=== PATIENT | female | born 1940 | race African-American/Black ===

== ENCOUNTER 2017-07-04 11:19 | Inpatient (IN) | payer OTHER ==
--- NOTE | 2017-07-04 12:17 | PDOC ---
History of Present Illness - General Chief Complaint: Wound Stated Complaint: INFECTED WOUND Time Seen by Provider: 07/04/17 11:40 - History of Present Illness Initial Comments: 07/04/17 12:10 Patient is a 77 year old female with DM and dementia who is brought in by her home health nurse for concerns of a wound infection. The patient has a 3.5cm x 3.5cm ulcerating wound on the right buttocks that has been present for several months. The patient's home health nurse states that she felt the wound was draining more and appearing redder prompting her to bring the patient to the ED. She also states that she feels that the patient has been more fatigued and weak over the past week but does not have any other complaints. They deny any fevers or chills at home. Past History - Past Medical History Allergies/Adverse Reactions: Allergies Allergy/AdvReac Type Severity Reaction Status Date / Time Penicillins Allergy Verified 07/04/17 11:33 Home Medications: Ambulatory Orders Aspirin [Nancy Chewable Aspirin] 81 mg PO DAILY 06/05/16 Simvastatin [Zocor -] 20 mg PO HS 06/05/16 Acetaminophen [Tylenol .Regular Strength -] 650 mg PO Q4H PRN #0 tablet Amlodipine Besylate [Norvasc -] 5 mg PO DAILY tablet 05/31/17 Atorvastatin Ca [Lipitor] 20 mg PO HS tablet 05/31/17 Carvedilol [Coreg -] 6.25 mg PO BID tablet 05/31/17 Insulin (Levemir) [Levemir Flexpen -] 10 units SQ HS #1 pen 05/31/17 Insulin Sliding Scale [Novolog Vial Sliding Scale -] 1 vial SQ TIDAC units Lisinopril [Prinivil] 10 mg PO DAILY tablet 05/31/17 Rivaroxaban [Xarelto -] 20 mg PO DAILY tablet 05/31/17 Anemia: No Asthma: No Cancer: No Cardiac Disorders: Yes (cardiac tamponade, stents,pericardial effusion, CAD, aortic stenosis) CVA: Yes (Mult.TIA's) COPD: No CHF: No Dementia: Yes Diabetes: Yes GI Disorders: No Disorders: No HTN: Yes Hypercholesterolemia: Yes Liver Disease: (cholecystitis) Seizures: No Thyroid Disease: No - Surgical History Abdominal Surgery: Yes Appendectomy: No Cardiac Surgery: No Cholecystectomy: Yes Lung Surgery: No Neurologic Surgery: No Orthopedic Surgery: No - Immunization History Td Vaccination: Yes Immunization Up to Date: Yes - Psycho/Social/Smoking Cessation Hx Anxiety: No Suicidal Ideation: No Smoking Status: No Smoking History: Unknown if ever smoked Have you smoked in the past 12 months: No Number of Cigarettes Smoked Daily: 0 Information on smoking cessation initiated: No Hx Alcohol Use: No Drug/Substance Use Hx: No Substance Use Type: None Hx Substance Use Treatment: No Review of Systems - Review of Systems Constitutional: No: Chills, Fever Respiratory: No: Cough, Shortness of Breath Cardiac (ROS): No: Chest Pain ABD/GI: No: Constipated, Diarrhea, Nausea, Vomiting : No: Dysuria Integumentary: No: Rash Neurological: No: Headache *Physical Exam - Vital Signs Last Vital Signs Temp Pulse Resp BP Pulse Ox 100.1 F H 64 18 131/65 94 L 07/04/17 11:33 07/04/17 11:33 07/04/17 11:33 07/04/17 11:33 07/04/17 11:33 - Physical Exam Comments: 07/04/17 12:21 General Appearance: Nourished. No Apparent Distress Respiratory/Chest: Lungs Clear, Normal Breath Sounds. No Crackles, Rales, Rhonchi, Wheezing Cardiovascular: Regular Rhythm, Regular Rate. No Murmur, Gallop/S3, Gallop/S4 Gastrointestinal/Abdominal: Normal Bowel Sounds, Soft. No Guarding, Rebound, Tenderness Extremity: Normal Capillary Refill Integumentary: Normal Color, Dry, Warm, 3.5cm x 3.5 cm malodorous ulcer on the right buttock without drainage with necrosed tissue and erythema Neurologic: Alert, Unable to assess orientation due to baseline dementia Heart Score/ECG Review #1 General ECG Interpretation: Sinus Rhythm, Normal Rate, Normal Intervals, No acute ischemic changes Compared to previous ECG there are: No significant change (05/28/17) ED Treatment Course - LABORATORY CBC & Chemistry Diagram: 07/04/17 12:30 07/04/17 12:30 - RADIOLOGY Radiology Studies Ordered: Category Date Time Status CHEST X-RAY PORTABLE* [RAD] Stat Radiology 07/04/17 12:07 Ordered Medical Decision Making - Medical Decision Making 07/04/17 12:22 Patient is a 77 year old female who presents for concerns of a wound infection. Differential includes but is not limited to: Sepsis, Wound infection, UTI, Pneumonia. The patient is febrile in the ED with a reported increased fatigue warranting an evaluation for sepsis. Inspection of the wound demonstrates some necrosis and is malodorous concerning for wound infection. However given her increased fatigue, it is reasonable to evaluate for other causes such as a UTI or a pneumonia. We will obtain a cbc, cmp, lactate, blood cultures, UA, urine cultures, chest radiograph to evaluate. 07/04/17 13:21 CBC demonstrates an elevated WBC. CMP and Lactate are unremarkable. UA demonstrates concern for a UTI. Given the patient's lab results and that she is febrile in the ED, we believe that she requires admission at this time for treatment for her wound infection and UTI. We have started vancomycin and aztreonam empirically for antibiotic treatment. 07/04/17 14:58 Patient discussed with admitting team Dr. Wolfe who agreed to accept the patient. *DC/Admit/Observation/Transfer Diagnosis at time of Disposition: Wound infection UTI (urinary tract infection) Qualifiers: Urinary tract infection type: acute cystitis Hematuria presence: without hematuria Qualified Code(s): N30.00 - Acute cystitis without hematuria - Discharge Dispostion Condition at time of disposition: Guarded Admit: Yes - Attestations Physician Attestion: 07/04/17 16:06 I, Dr. Giancarlo Forbes, attest that this document has been prepared under my direction and personally reviewed by me in its entirety. I further attest, that it accurately reflects all work, treatment, procedures and medical decision -making performed by me.
[2017-07-04 12:37] LABS: VENOUS BLOOD GAS HCO3 33.6 meq/L (19-25); VENOUS PH 7.41 (7.32-7.42)
[2017-07-04 12:47] LABS: BASOPHIL 0.7 % (0-2.0); EOSINOPHIL 0.4 % (0-4.5); MCH 28.2 pg (25.7-33.7); MCHC 32.6 g/dl (32.0-36.0); MEAN CELL VOLUME 86.4 fl (80-96); MEAN PLT VOLUME 8.1 fl (7.5-11.1); NEUTROPHILS 77.2 % (42.8-82.8); PLATELET COUNT 244 K/MM3 (134-434); RDW 14.6 % (11.6-15.6); WHITE BLOOD COUNT 11.8 K/mm3 (4.0-10.0)
[2017-07-04] MEDS ORDERED: AZTREONAM 1 GM in DEXTROSE 5%-WATER - 50 ML IVPB ONE (12:49)
[2017-07-04] MEDS ORDERED: VANCOMYCIN 1,000 MG in DEXTROSE 5%-WATER - 250 ML IVPB ONE (12:51)
[2017-07-04 12:53] LABS: URINE APPEARANCE TURBID; URINE BILIRUBIN NEGATIVE (NEGATIVE); URINE BLOOD 1+ (NEGATIVE); URINE COLOR YELLOW; URINE GLUCOSE (UA) NEGATIVE (NEGATIVE); URINE KETONE NEGATIVE (NEGATIVE); URINE LEUK ESTERASE 2+ (NEGATIVE); URINE NITRITE NEGATIVE (NEGATIVE); URINE PROTEIN 2+ (NEGATIVE); URINE UROBILINOGEN NEGATIVE mg/dL (0.2-1.0)
[2017-07-04] MEDS ORDERED: VANCOMYCIN 1 GRAM (PRE-DOCKED) 250 ML IVPB ONE (12:56)
[2017-07-04 13:00] LABS: INR 1.28 (0.82-1.09); PROTHROMBIN TIME (PATIENT) 14.2 SEC (9.98-11.88)
[2017-07-04 13:03] LABS: ACTIVATED PTT 34.8 SECONDS (26.9-34.4)
[2017-07-04 13:11] LABS: ALBUMIN 2.9 g/dl (3.4-5.0); ANION GAP 6 (8-16); CO2 34 mmol/L (21-32); CREATININE 0.8 mg/dL (0.55-1.02); GLUCOSE,RANDOM 150 mg/dL (74-106); SGOT/AST 9 U/L (15-37); SGPT/ALT 10 U/L (12-78)
[2017-07-04 13:14] LABS: ALK PHOS 135 U/L (45-117); BILIRUBIN,TOTAL 0.8 mg/dL (0.2-1.0); CPK 38 IU/L (26-192); TOT PROT 6.9 g/dl (6.4-8.2); TROPONIN I 0.02 ng/ml (0.00-0.05)
[2017-07-04] MEDS ORDERED: SODIUM CHLORIDE 1,000 ML IV STA (13:17)
[2017-07-04] MEDS ORDERED: ACETAMINOPHEN 1000 MG/100 ML VIAL (NON FORMULARY) IVPB ONE (13:17)
[2017-07-04] MEDS ORDERED: ACETAMINOPHEN INJECTION 100 ML IVPB ONE (13:21)
[2017-07-04 13:35] LABS: URINE MUCUS MANY; URINE RBC 13 /hpf (0-3); URINE WBC 5 /hpf (3-5)
--- NOTE | 2017-07-04 13:45 | PDOC ---
Attending Attestation - Resident Resident Name: Giancarlo Forbes - ED Attending Attestation I have performed the following: I have examined & evaluated the patient, The case was reviewed & discussed with the resident, I agree w/resident's findings & plan, Exceptions are as noted - HPI HPI: 07/04/17 13:42 77 yo F with h/o prior CVA DM HTN HLD aphasic who is mostly bedbound out of bed to chair at home with home health aid, brougth today with worsening lethargy, and sleepiness. was concerned that her wound on right ischium was leaking and more infected. malodorous. wasn't sure if she has a fever at home. no n/v no cough. no other complaint. - Physicial Exam PE: 07/04/17 13:43 on exam pt aslep, eyes open on examination, does not speak or follow commands. lungs clear heart RRR no mrg. abd soft NT ND. legs wwp. right ischium with 1 in x 1 in wound, central necrosis. no active drainage. foul odor. surrounding erythema. - Medical Decision Making 07/04/17 13:44 plan differential spesis from pna, uti or infected wound. plan cxr labs ua culturs inderjit cover for infected wound.
--- NOTE | 2017-07-04 15:07 | EKG ---
Test Reason : Blood Pressure : / mmHG Vent. Rate : 070 BPM Atrial Rate : 070 BPM P-R Int : 116 ms QRS Dur : 070 ms QT Int : 422 ms P-R-T Axes : 059 -16 047 degrees QTc Int : 455 ms POOR DATA QUALITY, INTERPRETATION MAY BE ADVERSELY AFFECTED NORMAL SINUS RHYTHM POSSIBLE LEFT ATRIAL ENLARGEMENT POSSIBLE ANTERIOR INFARCT (CITED ON OR BEFORE 28-JUN-2016) ABNORMAL ECG WHEN COMPARED WITH ECG OF 28-MAY-2017 08:28, QRS AXIS SHIFTED RIGHT QUESTIONABLE CHANGE IN INITIAL FORCES OF SEPTAL LEADS Confirmed by ISHMAEL LINDSEY, NELY (2013) on 07/04/2017 3:06:47 PM Referred By: Confirmed By:NELY QUIÑONES MD
[2017-07-04 17:03] VITALS: BMI 18.0
[2017-07-04] MEDS ORDERED: SODIUM CHLORIDE 0.45%/POT 1,000 ML IV SCH (18:00)
[2017-07-04] MEDS ORDERED: ACETAMINOPHEN 325 MG TABLET (FP) PO PRN (18:57)
[2017-07-04] MEDS ORDERED: SODIUM CHLORIDE 1,000 ML IV SCH (19:00)
[2017-07-04] MEDS ORDERED: HEPARIN NA (PORCINE) 5,000 UNITS/ML 1ML VIAL SQ SCH (22:00)
[2017-07-04] MEDS: CARVEDILOL 6.25 MG TABLET (FP) PO SCH (22:36)
[2017-07-04] MEDS: ATORVASTATIN CA 10 MG TABLET (FP) PO SCH (22:37)
[2017-07-04] MEDS: INSULIN DETEMIR 100 UNITS/ML MDV SQ SCH (22:37)
--- NOTE | 2017-07-05 08:44 | CONSULT ---
- Consultation REQUESTING PROVIDER: Bernard Srivastava (Wound Care) CONSULT REQUEST: We have been asked to surgically evaluate this patient for possible infected right hip ulcer PCP: Alisia Wolfe HPI: Patient sent in from [place] for further evaluation of a chronic right hip ulcer. Health aid feels that it is draining more frequently and has a foul odor to it. Tissue surrounding right hip increased in redness and warmth. Denies n/v , chills, CP, SOB PMHx: CVA, DM, HTN, HLD, aphasic, mostly bedbound but can get oob to chair with assistance PSHx: Home Meds 3 Aspirin [Nancy Chewable Aspirin] 81 mg PO DAILY Simvastatin [Zocor -] 20 mg PO HS Acetaminophen [Tylenol .Regular 650 mg PO Q4H PRN #0 tablet Strength -] Amlodipine Besylate [Norvasc -] 5 mg PO DAILY tablet Carvedilol [Coreg -] 6.25 mg PO BID tablet Insulin (Levemir) [Levemir Flexpen 10 units SQ HS #1 pen Lisinopril [Prinivil] 10 mg PO DAILY tablet Rivaroxaban [Xarelto -] 20 mg PO DAILY tablet Allergies: PCN REVIEW OF SYSTEMS: All systems reviewed and considered negative except for what's contained in HPI. PHYSICAL EXAM: GENERAL: Awake, alert, in no acute distress. LUNGS: CTA b/l anteriorly HEART: RRR SKIN: Right ischium with ~ 3 x 3.5 cm Stage 2 ulcer. Surrounding tissue warm to palp. Slight induration. No bogginess. + malodorous. Not actively draining yet the 2x2 dressing appears to have purulent (old) drainage on it. Vital Signs Temperature 98.2 F 07/05/17 06:00 Pulse Rate 64 07/05/17 06:00 Respiratory Rate 18 07/05/17 06:00 Blood Pressure 147/86 07/05/17 06:00 O2 Sat by Pulse Oximetry (%) 99 07/04/17 21:00 CBC, BMP 07/04/17 12:30 07/04/17 12:30 Blood Type Blood Type O POSITIVE 07/04/17 12:55 INR, PTT INR 1.28 (0.82-1.09) H D 07/04/17 12:30 Urine Urine Color Yellow 07/04/17 12:45 Urine Appearance Turbid 07/04/17 12:45 Urine pH 7.0 (5.0-8.0) 07/04/17 12:45 Ur Specific [place] 1.010 (1.005-1.025) 07/04/17 12:45 Urine Protein 2+ (NEGATIVE) H 07/04/17 12:45 Urine Glucose (UA) Negative (NEGATIVE) 07/04/17 12:45 Urine Ketones Negative (NEGATIVE) 07/04/17 12:45 Urine Blood 1+ (NEGATIVE) H 07/04/17 12:45 Urine Nitrite Negative (NEGATIVE) 07/04/17 12:45 Urine Bilirubin Negative (NEGATIVE) 07/04/17 12:45 Ur Leukocyte Esterase 2+ (NEGATIVE) H 07/04/17 12:45 Urine RBC 13 /hpf (0-3) 07/04/17 12:45 Urine WBC 5 /hpf (3-5) 07/04/17 12:45 Urine Mucus Many 07/04/17 12:45 Problem List - Problems (1) Stage II pressure ulcer Assessment/Plan: CT w/o contrast ordered to r/o underlying collection Cont local wound care at this time Optifoam dressing Offload all pressure sensitive areas Code(s): L89.92 - PRESSURE ULCER OF UNSPECIFIED SITE, STAGE 2 Visit type - Case Type Case Type: ED Admission - Emergency Emergency Visit: Yes ED Registration Date: 07/04/17 Care time: The patient presented to the Emergency Department on the above date and was hospitalized for further evaluation of their emergent condition. - New patient This patient is new to me today: Yes Date on this admission: 07/05/17
[2017-07-05 09:19] LABS: MCHC 32.4 g/dl (32.0-36.0); MEAN CELL VOLUME 86.4 fl (80-96); MEAN PLT VOLUME 8.4 fl (7.5-11.1); PLATELET COUNT 226 K/MM3 (134-434); RDW 14.6 % (11.6-15.6); WHITE BLOOD COUNT 7.7 K/mm3 (4.0-10.0)
--- NOTE | 2017-07-05 09:25 | CONSULT ---
Consultation: REQUESTING PROVIDER: Alisia Wolfe CONSULT REQUEST: We have been asked to medically evaluate this patient for chronic R buttock ulcer. History Source: EMR (Patient demented, aphasic at baseline) HISTORY OF PRESENT ILLNESS: Patient has chronic R buttock ulcer that home health aid thought was becoming malodorous with increasing drainage and surrounding erythema. No fever or chills at home. PMH: CVA (multiple TIAs), DM, HTN, HLD, CAD, dementia, recurrent UTIs ALLERGIES: Penicillin REVIEW OF SYSTEMS: CONSTITUTIONAL: Absent: fever, chills, diaphoresis, generalized weakness, malaise, loss of appetite, weight change HEENT: Absent: rhinorrhea, nasal congestion, throat pain, throat swelling, difficulty swallowing, mouth swelling, ear pain, eye pain, visual changes CARDIOVASCULAR: Absent: chest pain, syncope, palpitations, irregular heart rate, lightheadedness , peripheral edema RESPIRATORY: Absent: cough, shortness of breath, dyspnea with exertion, orthopnea, wheezing, stridor, hemoptysis GASTROINTESTINAL: Absent: abdominal pain, abdominal distension, nausea, vomiting, diarrhea, constipation, melena, hematochezia GENITOURINARY: Absent: dysuria, frequency, urgency, hesitancy, hematuria, flank pain, genital pain MUSCULOSKELETAL: Absent: myalgia, arthralgia, joint swelling, back pain, neck pain SKIN: +R hip ulcer Absent: rash, itching, pallor HEMATOLOGIC/IMMUNOLOGIC: Absent: easy bleeding, easy bruising, lymphadenopathy, frequent infections ENDOCRINE: Absent: unexplained weight gain, unexplained weight loss, heat intolerance, cold intolerance NEUROLOGIC: Absent: headache, focal weakness or paresthesias, dizziness, unsteady gait, seizure, mental status changes, bladder or bowel incontinence PSYCHIATRIC: Absent: anxiety, depression, suicidal or homicidal ideation, hallucinations. PHYSICAL EXAMINATION Vital Signs Temperature 98.2 F 07/05/17 06:00 Pulse Rate 64 07/05/17 06:00 Respiratory Rate 18 07/05/17 06:00 Blood Pressure 147/86 07/05/17 06:00 O2 Sat by Pulse Oximetry (%) 99 07/04/17 21:00 GENERAL: Awake, alert, in NAD HEAD: Normal with no signs of trauma. EYES: sclera anicteric, conjunctiva clear NECK: supple, no cervical LAD LUNGS: CTAB, no wheezes, crackles, or rhonchi HEART: rrr, normal s1/s2, no murmur, rub or gallop. ABDOMEN: Soft, ntnd, normoactive bowel sounds, no guarding, no rebound, no masses UPPER EXTREMITIES: 2+ pulses, warm, well-perfused. No cyanosis. No clubbing. No peripheral edema. LOWER EXTREMITIES: 2+ pulses, warm, well-perfused. No peripheral edema. NEUROLOGICAL: aphasic, confused SKIN: Warm, dry, normal turgor; R upper buttock 3.5cm diameter unstagable ulcer with eschar, non-draining, malodorous Laboratory Results - last 24 hr 07/04/17 07/05/17 22:32 08:30 WBC 7.7 D RBC 3.86 Hgb 10.8 Hct 33.4 MCV 86.4 MCH 28.0 MCHC 32.4 RDW 14.6 Plt Count 226 MPV 8.4 POC Glucometer 156 Urine Test Results Urine Color Yellow 07/04/17 12:45 Urine Appearance Turbid 07/04/17 12:45 Urine pH 7.0 (5.0-8.0) 07/04/17 12:45 Ur Specific [place] 1.010 (1.005-1.025) 07/04/17 12:45 Urine Protein 2+ (NEGATIVE) H 07/04/17 12:45 Urine Glucose (UA) Negative (NEGATIVE) 07/04/17 12:45 Urine Ketones Negative (NEGATIVE) 07/04/17 12:45 Urine Blood 1+ (NEGATIVE) H 07/04/17 12:45 Urine Nitrite Negative (NEGATIVE) 07/04/17 12:45 Urine Bilirubin Negative (NEGATIVE) 07/04/17 12:45 Ur Leukocyte Esterase 2+ (NEGATIVE) H 07/04/17 12:45 Urine RBC 13 /hpf (0-3) 07/04/17 12:45 Urine WBC 5 /hpf (3-5) 07/04/17 12:45 Urine Mucus Many 07/04/17 12:45 ASSESSMENT/PLAN: 77yo woman who presents with chronic R upper buttock ulcer that is unstagable with surrounding eschar, erythema, and malodor. She has been afebrile since presentation with no leukocytosis. Patient has a history of recurrent UTIs. UA reveals 2+ LE, which is likely from permanent colonization rather than UTI, however the later can not be r/o. Prior U Cx speciated Strep viridans on 2016 and Strep viridans/Corynebacteria in 10/2016. #unstagable R buttock ulcer -CT imaging of ulcer -f/u blood and cultures -Tigacycline 100mg initial dose -Tigacycline 50mg on subsequent doses Dispo: We will continue to follow the patient. Thank you for this consultative opportunity. d/w Dr. Gino Cortes MD PGY-1 Visit type - Emergency Visit Emergency Visit: No - New Patient This patient is new to me today: Yes Date on this admission: 07/05/17 - Critical Care Critical Care patient: No
[2017-07-05 09:31] LABS: ALBUMIN 2.4 g/dl (3.4-5.0); ANION GAP 2 (8-16); BILIRUBIN,TOTAL 0.7 mg/dL (0.2-1.0); CALCIUM 8.3 mg/dL (8.5-10.1); CO2 34 mmol/L (21-32); GLUCOSE,RANDOM 81 mg/dL (74-106); SGOT/AST 6 U/L (15-37); SGPT/ALT 9 U/L (12-78)
[2017-07-05 09:32] LABS: ALK PHOS 109 U/L (45-117); CREATININE 0.6 mg/dL (0.55-1.02); TOT PROT 5.8 g/dl (6.4-8.2)
[2017-07-05] MEDS ORDERED: VANCOMYCIN 1,000 MG in DEXTROSE 5%-WATER - 250 ML IVPB SCH (10:00)
[2017-07-05] MEDS ORDERED: POTASSIUM CHLORIDE ORAL LIQUID 20 MEQ/15 ML PO ONE (10:15)
[2017-07-05] MEDS ORDERED: VANCOMYCIN 1 GRAM (PRE-DOCKED) 250 ML IVPB ONE (10:15)
--- NOTE | 2017-07-05 10:40 | CONSULT ---
Admitting History and Physical - Primary Care Physician PCP: Alisia Wolfe - Admission History of Present Illness: 77 yo F with pmh of CVA DM HTN HLD aphasic who is mostly bedbound out of bed to chair at home with home health aid, admitted with worsening lethargy and wound on right buttocks, leaking and foul smelling,per EMR. Last seen by me 05/2017, tolerating chopped diet and thin liquids. 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: CVA (multiple CVAs), Dementia (vascular) Cardiovascular: Yes: CAD (multiple stents in past, last PCI in 2011 at [facility] (mLAD & pRCA)), Deep Vein Thrombosis (of left lower extremity diagnosed on 12/23/14, on Xarelto), HTN, Hyperlipdemia, Other (Pericardial effusion with tamponade s/p pericardial window) Gastrointestinal: Yes: Other Hepatobiliary: Yes: Cholecystitis (s/p past cholecystectomy) Renal/: Yes: Renal Inusuff ...: No Endocrine: Yes: Diabetes Mellitus - Past Surgical History Past Surgical History: Yes: Cholecystectomy - Advance Directives Advance Directives: Yes: Health Care Proxy - Smoking History Smoking history: Unknown if ever smoked Have you smoked in the past 12 months: No Aproximately how many cigarettes per day: 0 - Alcohol/Substance Use Hx Alcohol Use: No History of Substance Use: reports: None - Social History ADL: Family Assistance (lives with daughter and granddaughter in house with 7 steps to enter; needs Assistance in some ADLs and all IADLs, mostly uses wheelchair but able to ambulate with RW) History of Recent Travel: No History - Admission Reason For Visit: UTI WOUND INFECTION - Diagnostics Modified Barium Swallow: Report Reviewed (2014 last mbs (-) aspiration) - General Mental Status: Awake and Alert Attention: Distractible Ability to Follow Directions: Poor (occasional y/n response. May understand more than she is capable of showing. Intermittently appropriate y/n response. Impaired motor/speech response related to distractibility, apraxia/aphasia.) Head/Neck Control: Fair - Hearing Hearing: Impaired Hearing Aide: No Speech Evaluation - Communication Primary Language: KITTITIAN Communication: Yes: Aphasia Oral Expression Ability: Yes: Moderate Impairment, Severe Impairment - Speech Production Able to Make Needs Known: Yes: Severely Impaired Intelligibility: Yes: Mildly Impaired - Speech Characteristics Voice Loudness: Normal Voice Pitch: Yes: Normal Voice Phonatory-based Quality: Yes: Normal Speech Pattern: Impaired Articulation: Yes: Imprecise - Language/Auditory Comprehension Observation: Able to respond to yes/no queries: Yes (intermittent response), Comprehends Conversational Speech: Yes (simple) - Language/Verbal Expression Aphasia: Yes: Apraxia - Swallow Evaluation/Bedside Assessment Current Nutritional Intake: NPO Oral Secretions: Yes: WFL Dentition: Yes: Missing Teeth Facial Symmetry at Rest: Symmetrical Lingual Movement: Symmetric Lingual Speed of Movement: Reduced Lingual Movement Strgth Against Opposition: Reduced Laryngeal Movement: Able to Palpate Rate of Intake: Slow/Holding Bolus Size: Small Labial Seal: WFL Chewing: WFL (seems fairly efficient, however, suspect oral/verrbal apraxia will result in inconsistent po acceptance.) A-P Transit: Impaired (suspect spillage over BOT) Timing of Swallow: Delayed (slight but brisk) Coughing/Throat Clear: No Change in Voice: No Recommendations - Speech Evaluation, Impression/Plan Impression: Oral/verbal Apraxia/Aphasia. Rare verbalizations for me. Fairly efficient mastication. Swallow is brisk without overt signs of aspiration. - Dysphagia Impressions/Plan Dysphagia Impressions: Mild Impairment *Silent aspiration: cannot be R/O at bedside Dysphagia Treatment Plan: Chin Tuck/Down, Clear Pocket Food, Trial Feedings, 1/ 2 tsp. at a time, Elevate HOB during feed Recommendations: Modified Barium Swallow (if cough, congestion, fever noted.), Other (RD consult regarding protein for healing of decubitis, supplements and therapeutic diet) - Recommendations Diet Consistency: Dysphagia Minced Medication Administration: Crushed with applesauce Liquids: Thin Liquids Supplement: Glucerna
[2017-07-05] MEDS: RIVAROXABAN 20 MG TABLET PO SCH (11:38)
[2017-07-05] MEDS: LISINOPRIL 10 MG TABLET (FP) PO SCH (11:39)
[2017-07-05] MEDS: amLODIPine BESYLATE 5 MG TABLET (FP) PO SCH (11:39)
[2017-07-05] MEDS: CARVEDILOL 6.25 MG TABLET (FP) PO SCH ×2 (11:39→21:34)
[2017-07-05] MEDS: ASPIRIN 81 MG CHEWABLE TABLETS PO SCH (11:39)
--- NOTE | 2017-07-05 12:42 | PN ---
Teaching Attending Note Name of Resident: Thais Cortes ATTENDING PHYSICIAN STATEMENT I saw and evaluated the patient. I reviewed the resident's note and discussed the case with the resident. I agree with the resident's findings and plan as documented. SUBJECTIVE: admitted with worsening buttock ulcer no fevers she is alert no complailnts OBJECTIVE: Vital Signs Period Temp Pulse Resp BP Sys/Hoffman Pulse Ox Last 24 Hr 97.9 F-98.2 F 60-70 16-18 143-159/62-86 96-99 cor-rrr lungs clear abd soft,nt ext no edema right buttock ulcer with eschar- unstageable- foulsmelling with erythema CBC, BMP 07/05/17 08:30 07/05/17 08:30 Microbiology 07/04/17 12:45 Urine - Urine - Catheterized Urine Culture - Final Streptococcus Viridans blood cultures pending ASSESSMENT AND PLAN: unstageable buttock ulcer- suspect underlying abscess- agree with imaging as ordered by surgery tygacil (empiric) pending cultures pen allergy doubt UTI- no need to treat urinary isolate Problem List - Problems (1) Decubitus ulcer, buttock, right, unstageable Code(s): L89.310 - PRESSURE ULCER OF RIGHT BUTTOCK, UNSTAGEABLE (2) Penicillin allergy Code(s): Z88.0 - ALLERGY STATUS TO PENICILLIN
[2017-07-05] MEDS ORDERED: TIGECYCLINE 100 MG in DEXTROSE 5%-WATER - 100 ML IVPB ONE (14:00)
--- NOTE | 2017-07-05 16:53 | PN ---
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 (short form) - Note 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: PULMONARY CONSULTATION DICTATED 07/05/17 IMP CHRONIC HYPERCAPNEA SACRAL WOUND LLL ATELECTASIS VS INFILTRATE DEMENTIA DM PLAN ANTIBIOTICS PER ID CULTURES ABG F /U CHEST X-RAY DR JULIAN Problem List - Problems (1) Decubitus ulcer, buttock, right, unstageable Code(s): L89.310 - PRESSURE ULCER OF RIGHT BUTTOCK, UNSTAGEABLE (2) Wound infection Code(s): T14.8 - OTHER INJURY OF UNSPECIFIED BODY REGION L08.9 - LOCAL INFECTION OF THE SKIN AND SUBCUTANEOUS TISSUE, UNSP (3) Aortic stenosis Code(s): I35.0 - NONRHEUMATIC AORTIC (VALVE) STENOSIS (4) Atelectasis Code(s): J98.11 - ATELECTASIS (5) CAD (coronary artery disease) Code(s): I25.10 - ATHSCL HEART DISEASE OF [place] CORONARY ARTERY W/O ANG PCTRS Qualifiers: Coronary Disease-Associated Artery/Lesion type: [place] coronary artery Associated angina: without angina pectoris (6) CVA (cerebral infarction) Code(s): I63.9 - CEREBRAL INFARCTION, UNSPECIFIED (7) Hypercapnia Code(s): R06.89 - OTHER ABNORMALITIES OF BREATHING
[2017-07-05 18:25] LABS: ALLENS TEST POSITIVE; ARTERIAL BLD GAS O2 SATURATION 97.8 % (90-98.9); ARTERIAL BLOOD GAS BASE EXCESS 2.5 meq/l (-2-2); ARTERIAL BLOOD GAS HCO3 26.3 meq/L (22-26); ARTERIAL BLOOD GAS PO2 88.3 mmHg (70-100); ARTERIAL BLOOD GAS pH 7.44 (7.35-7.45)
[2017-07-05 18:26] LABS: ART PUNCT SITE RIGHT RADIAL; LPM/O2% 215; PT. ON O2? NO; TYPE OF O2 ROOM AIR
--- NOTE | 2017-07-05 19:10 | PN ---
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, Physician Chief Complaint: Infected right hip ulcer History of Present Illness: Patient is a 77 year old female with DM and dementia who is brought in by her home health nurse for concerns of a wound infection. The patient has a 3.5cm x 3.5cm ulcerating wound on the right buttocks that has been present for several months. Patient came in with right buttock ulceration with minimal drainage but malodorous. The CHANNEL REBUILDER noticed patient being increasingly lethargic and weak; however, no chills or fever reported. - Current Medication List Current Medications: Active Medications Acetaminophen (Tylenol -) 650 mg PO Q4H PRN PRN Reason: FEVER OR PAIN Amlodipine Besylate (Norvasc -) 5 mg PO DAILY [facility] Last Admin: 07/05/17 11:39 Dose: 5 mg Aspirin (Asa -) 81 mg PO DAILY [facility] Last Admin: 07/05/17 11:39 Dose: 81 mg Atorvastatin Calcium (Lipitor -) 10 mg PO HS [facility] Last Admin: 07/04/17 22:37 Dose: Not Given Carvedilol (Coreg -) 6.25 mg PO BID [facility] Last Admin: 07/05/17 11:39 Dose: 6.25 mg Tigecycline 50 mg/ Dextrose 100 mls @ 100 mls/hr IVPB BID [facility] PRN Reason: Protocol Insulin Detemir (Levemir Vial) 10 units SQ [facility] Last Admin: 07/04/17 22:37 Dose: 10 unit Lisinopril (Prinivil) 10 mg PO DAILY [facility] Last Admin: 07/05/17 11:39 Dose: 10 mg Rivaroxaban (Xarelto -) 20 mg PO DAILY [facility] Last Admin: 07/05/17 11:38 Dose: 20 mg - Objective Vital Signs: Vital Signs Temperature 98 F 07/05/17 16:30 Pulse Rate 74 07/05/17 16:30 Respiratory Rate 18 07/05/17 16:30 Blood Pressure 142/75 07/05/17 16:30 O2 Sat by Pulse Oximetry (%) 98 07/05/17 09:00 Constitutional: Yes: Well Nourished, No Distress, Calm Cardiovascular: Yes: Regular Rate and Rhythm, Murmur (LSB systolic grade II) Respiratory: Yes: Regular Gastrointestinal: Yes: Normal Bowel Sounds Musculoskeletal: Yes: WNL Extremities: Yes: WNL Edema: No Peripheral Pulses WNL: Yes Wound/Incision: Yes: Dressing Removed, Draining (minimal serosanguinous malodorous drainage) Neurological: Yes: Alert, Pre-Existing Deficit Psychiatric: Yes: Alert Labs: CBC, BMP 07/05/17 08:30 07/05/17 08:30 INR, PTT INR 1.28 (0.82-1.09) H D 07/04/17 12:30 Problem List - Problems (1) Decubitus ulcer, buttock, right, unstageable Assessment/Plan: -Seen by Vascular surgery -minimal drainage, abscess formation under dermis -spoke to Vascular, hold CT for now, evaluate response to IV abx Code(s): L89.310 - PRESSURE ULCER OF RIGHT BUTTOCK, UNSTAGEABLE (2) Wound infection Assessment/Plan: -IV abx -seen by ID-much appreciated Code(s): T14.8 - OTHER INJURY OF UNSPECIFIED BODY REGION L08.9 - LOCAL INFECTION OF THE SKIN AND SUBCUTANEOUS TISSUE, UNSP (3) Dementia Code(s): F03.90 - UNSPECIFIED DEMENTIA WITHOUT BEHAVIORAL DISTURBANCE Qualifiers: Dementia type: Alzheimer's disease Dementia behavioral disturbance: with behavioral disturbance (4) Weakness Assessment/Plan: -secondary to infection -BC/UC/WC Code(s): R53.1 - WEAKNESS (5) Hypokalemia Assessment/Plan: -KCL 40 meq po once -monitor lytes in AM Code(s): E87.6 - HYPOKALEMIA (6) Leukocytosis Code(s): D72.829 - ELEVATED WHITE BLOOD CELL COUNT, UNSPECIFIED (7) Type 2 diabetes mellitus with other diabetic neurological complication Assessment/Plan: chronic, uncontrolled BGM Insulin sliding scale Endocrinology consult Code(s): E11.49 - TYPE 2 DIABETES [facility] DIABETIC NEUROLOGICAL COMPLICATION Assessment/Plan -IV abx -swallow eval done, diet changed + Glucerna -Vascular, ID, endocrinology consult -BGM -insulin sliding scale -BC/UC/WC -monitor labs in AM
[2017-07-05] MEDS: INSULIN SLIDING SCALE (NOVOLOG) 1 VIAL SQ SCH (21:31)
[2017-07-05] MEDS: COLLAGENASE CLOSTRIDIUM HIST. 30 GRAMS TUBE TP SCH (21:33)
[2017-07-05] MEDS: ATORVASTATIN CA 10 MG TABLET (FP) PO SCH (21:34)
[2017-07-05] MEDS: INSULIN DETEMIR 100 UNITS/ML MDV SQ SCH (21:34)
[2017-07-05] MEDS: TIGECYCLINE 50 MG in DEXTROSE 5%-WATER - 100 ML IVPB SCH (22:33)
[2017-07-06] MEDS: INSULIN SLIDING SCALE (NOVOLOG) 1 VIAL SQ SCH ×4 (06:38→22:32)
--- NOTE | 2017-07-06 07:03 | CONS ---
DATE OF CONSULTATION: 07/05/2017 REFERRING PHYSICIAN: Alisia Wolfe MD HISTORY OF PRESENT ILLNESS: This history is obtained from the chart. Patient has severe dementia. The patient is a 77-year-old black female with past medical history of diabetes mellitus, dementia, admitted to [facility] secondary to wound infection. The patient apparently home health nurse states that she felt that the patient was draining more and appearing redder at which time she presented to the emergency room. On admission, she was also noted to have apparently been more fatigued and weak over the past week. There are no fevers, no cough, no hemoptysis. The patient was noted to have a 3 x 5 x 5-cm ulcerating wound on her right buttock. She was admitted. She was started on antibiotic therapy. She was evaluated by a surgical PA. They recommended local care. PAST MEDICAL HISTORY: Again includes dementia, diabetes, multiple TIAs, history of cardiac tamponade, ASHD, aortic stenosis, stents, cholecystitis, and hypercholesterolemia. REVIEW OF SYSTEMS: Unable to obtain. CURRENT MEDICATIONS: Include: 1. Tylenol. 2. Prinivil. 3. Xarelto. 4. Coreg. 5. Norvasc. 6. Normal saline. 7. Lipitor. 8. Levemir. 9. Aspirin. 10. . 11. Dextrose. PHYSICAL EXAMINATION: General: The patient is an elderly black female, thin, well developed, awake, minimally verbal, in no acute distress. Vital Signs: She is currently afebrile. Blood pressure is 141/86. Respiratory rate is 18. O2 saturation is 99% on room air. HEENT: Normocephalic, atraumatic. Neck: Supple. Heart: Regular, S1, S2. Chest: Clear. Abdomen: Soft. Bowel sounds positive. Extremities: No cyanosis or edema. LABORATORY DATA: WBC is 7.7, hemoglobin 10.8, hematocrit 33.4, with a platelet count of 226,000. INR is 1.28. Venous blood gas: PH of 7.41, PCO2 of 53, and PO2 of 22, bicarbonate of 33. Potassium 3.2, BUN 30, creatinine 0.6. Chest x-ray reveals rotated film, an elevated left hemidiaphragm, atelectasis and/or infiltrate in the left base. IMPRESSION: 1. Sacral wound infection. 2. Questionable infiltrate versus atelectasis. 3. Hypercapnia, chronic, patient is compensated. 4. Dementia. PLAN: Continue antibiotic therapy as per Infectious Disease. Local care as per Surgery. followup chest x-ray. GURVINDER JULIAN M.D. [facility]/[id number]
--- NOTE | 2017-07-06 08:21 | PN ---
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, Physician Chief Complaint: ID Tigissaccine Alert NAD - Current Medication List Current Medications: Active Medications Acetaminophen (Tylenol -) 650 mg PO Q4H PRN PRN Reason: FEVER OR PAIN Amlodipine Besylate (Norvasc -) [address] [facility] Last Admin: 07/05/17 11:39 Dose: 5 mg Aspirin (Asa -) [address] [facility] Last Admin: 07/05/17 11:39 Dose: 81 mg Atorvastatin Calcium (Lipitor -) [address] [facility] Last Admin: 07/05/17 21:34 Dose: 10 mg Carvedilol (Coreg -) 6.[address] [facility] Last Admin: 07/05/17 21:34 Dose: 6.25 mg Collagenase (Santyl -) [address] [facility] Last Admin: 07/05/17 21:33 Dose: 1 applic Tigecycline 50 mg/ Dextrose 100 mls @ 100 mls/hr IVPB BID [facility] PRN Reason: Protocol Last Admin: 07/05/17 22:33 Dose: 100 mls/hr Insulin Aspart (Novolog Vial Sliding Scale -) [address] [facility] PRN Reason: Protocol Last Admin: 07/06/17 06:38 Dose: Not Given Insulin Detemir (Levemir Vial) [address] [facility] Last Admin: 07/05/17 21:34 Dose: 10 unit Lisinopril (Prinivil) [address] [facility] Last Admin: 07/05/17 11:39 Dose: 10 mg Rivaroxaban (Xarelto -) [address] [facility] Last Admin: 07/05/17 11:38 Dose: 20 mg - Objective Vital Signs: Vital Signs Temperature 98.4 F 07/06/17 06:43 Pulse Rate 68 07/06/17 06:43 Respiratory Rate 20 07/06/17 06:43 Blood Pressure 132/58 07/06/17 06:43 O2 Sat by Pulse Oximetry (%) 98 07/05/17 21:00 Constitutional: Yes: No Distress HENT: Yes: WNL, Atraumatic Neck: Yes: WNL, Supple Cardiovascular: Yes: Regular Rate and Rhythm, S1, S2 Respiratory: Yes: WNL, Regular, CTA Bilaterally Gastrointestinal: Yes: WNL, Normal Bowel Sounds, Soft. No: Tenderness Integumentary: Yes: Other (Right buttock ulcer) Labs: CBC, BMP 07/05/17 08:30 07/05/17 08:30 INR, PTT INR 1.28 (0.82-1.09) H D 07/04/17 12:30 Assessment/Plan Microbiology 07/04/17 12:45 Urine - Urine - Catheterized Urine Culture - Final Streptococcus Viridans 07/04/17 12:30 Blood - Peripheral Venous Blood Culture - Preliminary NO GROWTH OBTAINED AFTER 24 HOURS, INCUBATION TO CONTINUE FOR 4 DAYS. 07/04/17 12:30 Blood - Peripheral Venous Blood Culture - Preliminary NO GROWTH OBTAINED AFTER 24 HOURS, INCUBATION TO CONTINUE FOR 4 DAYS. Laboratory Tests 07/05/17 07/05/17 08:30 08:30 WBC 7.7 D Hgb 10.8 Plt Count 226 BUN 30 H Creatinine 0.6 D Assessment Right ishcial ulcer on antibiotics as infected Plan Continue antibiotics CT scan advised per surgery ?? ESR CRP Dia LINDSEY
[2017-07-06 09:36] LABS: C-REACTIVE PROTEIN 4.2 MG/DL (0.00-0.3)
[2017-07-06] MEDS: CARVEDILOL 6.25 MG TABLET (FP) PO SCH ×2 (10:14→22:32)
[2017-07-06] MEDS: ASPIRIN 81 MG CHEWABLE TABLETS PO SCH (10:14)
[2017-07-06] MEDS: LISINOPRIL 10 MG TABLET (FP) PO SCH (10:14)
[2017-07-06] MEDS: amLODIPine BESYLATE 5 MG TABLET (FP) PO SCH (10:15)
[2017-07-06] MEDS: RIVAROXABAN 20 MG TABLET PO SCH (10:15)
[2017-07-06] MEDS: COLLAGENASE CLOSTRIDIUM HIST. 30 GRAMS TUBE TP SCH (10:20)
[2017-07-06] MEDS ORDERED: PT OWN MED DRAWER 7, Y5N ONE ×3 (10:22→23:27)
[2017-07-06 10:27] LABS: MCH 28.4 pg (25.7-33.7); MCHC 32.8 g/dl (32.0-36.0); MEAN CELL VOLUME 86.5 fl (80-96); MEAN PLT VOLUME 8.8 fl (7.5-11.1); PLATELET COUNT 285 K/MM3 (134-434); RDW 14.8 % (11.6-15.6); WHITE BLOOD COUNT 8.4 K/mm3 (4.0-10.0)
[2017-07-06] MEDS: TIGECYCLINE 50 MG in DEXTROSE 5%-WATER - 100 ML IVPB SCH ×2 (11:02→22:41)
[2017-07-06 11:48] LABS: ALBUMIN 2.7 g/dl (3.4-5.0); ANION GAP 6 (8-16); BILIRUBIN,TOTAL 0.2 mg/dL (0.2-1.0); CALCIUM 8.6 mg/dL (8.5-10.1); CO2 30 mmol/L (21-32); CREATININE 0.8 mg/dL (0.55-1.02); GLUCOSE,RANDOM 101 mg/dL (74-106); SGOT/AST 10 U/L (15-37); SGPT/ALT 10 U/L (12-78); TOT PROT 6.4 g/dl (6.4-8.2)
[2017-07-06 11:49] LABS: ALK PHOS 120 U/L (45-117)
--- NOTE | 2017-07-06 13:21 | HP ---
Admitting History and Physical - Primary Care Physician PCP: Alisia Wolfe - Admission Chief Complaint: weakness, infected decubiti ulcer History of Present Illness: Patient is a 77 year old female with DM and dementia who is brought in by her home health nurse for concerns of a wound infection. The patient has a 3.5cm x 3.5cm ulcerating wound on the right buttocks that has been present for several months. Patient came in with right buttock ulceration with minimal drainage but malodorous. The PRODUCT INSPECTION COORDINATOR noticed patient being increasingly lethargic and weak; however, no chills or fever reported. History Source: Family Member, Medical Record Limitations to Obtaining History: Dementia - Past Medical History INSURANCE UNDERWRITER: Yes: CVA (multiple CVAs), Dementia (vascular) Cardiovascular: Yes: CAD (multiple stents in past, last PCI in 2011 at [facility] (mLAD & pRCA)), Deep Vein Thrombosis (of left lower extremity diagnosed on 12/23/14, on Xarelto), HTN, Hyperlipdemia, Other (Pericardial effusion with tamponade s/p pericardial window) Gastrointestinal: Yes: Other Hepatobiliary: Yes: Cholecystitis (s/p past cholecystectomy) Renal/: Yes: Renal Inusuff ...: No Endocrine: Yes: Diabetes Mellitus - Past Surgical History Past Surgical History: Yes: Cholecystectomy - Advance Directives Advance Directives: Yes: Health Care Proxy - Smoking History Smoking history: Unknown if ever smoked Have you smoked in the past 12 months: No Aproximately how many cigarettes per day: 0 - Alcohol/Substance Use Hx Alcohol Use: No History of Substance Use: reports: None - Social History ADL: Family Assistance (lives with daughter and granddaughter in house with 7 steps to enter; needs Assistance in some ADLs and all IADLs, mostly uses wheelchair but able to ambulate with RW) History of Recent Travel: No Home Medications - Allergies Allergies/Adverse Reactions: Allergies Allergy/AdvReac Type Severity Reaction Status Date / Time Penicillins Allergy Verified 07/04/17 11:33 - Home Medications Home Medications: Ambulatory Orders Aspirin [Nancy Chewable Aspirin] 81 mg PO DAILY 06/05/16 Simvastatin [Zocor -] 20 mg PO HS 06/05/16 Acetaminophen [Tylenol .Regular Strength -] 650 mg PO Q4H PRN #0 tablet Amlodipine Besylate [Norvasc -] 5 mg PO DAILY tablet 05/31/17 Carvedilol [Coreg -] 6.25 mg PO BID tablet 05/31/17 Insulin (Levemir) [Levemir Flexpen -] 10 units SQ HS #1 pen 05/31/17 Lisinopril [Prinivil] 10 mg PO DAILY tablet 05/31/17 Rivaroxaban [Xarelto -] 20 mg PO DAILY tablet 05/31/17 Review of Systems Unable to obtain ROS, reason: due to Dementia Physical Examination Vital Signs: Vital Signs Temperature 98.0 F 07/06/17 08:33 Pulse Rate 64 07/06/17 08:33 Respiratory Rate 18 07/06/17 08:33 Blood Pressure 123/65 07/06/17 08:33 O2 Sat by Pulse Oximetry (%) 100 07/06/17 10:00 Constitutional: Yes: Well Nourished, No Distress Cardiovascular: Yes: Regular Rate and Rhythm Respiratory: Yes: Regular Gastrointestinal: Yes: Normal Bowel Sounds, Soft Musculoskeletal: Yes: WNL Extremities: Yes: WNL Edema: No Peripheral Pulses WNL: Yes Integumentary: Yes: Pressure Ulcer (right buttock, minimal drainage, malodorous) Wound/Incision: Yes: Dressing Dry and Intact Neurological: Yes: Alert, Pre-Existing Deficit Psychiatric: Yes: Alert Labs: CBC, BMP 07/06/17 08:40 07/06/17 08:40 Problem List - Problems (1) Decubitus ulcer, buttock, right, unstageable Assessment/Plan: -Seen by Vascular surgery -minimal drainage, abscess formation under dermis -spoke to Vascular, hold CT for now, evaluate response to IV abx Code(s): L89.310 - PRESSURE ULCER OF RIGHT BUTTOCK, UNSTAGEABLE (2) Wound infection Assessment/Plan: -IV abx -seen by ID-much appreciated Code(s): T14.8 - OTHER INJURY OF UNSPECIFIED BODY REGION L08.9 - LOCAL INFECTION OF THE SKIN AND SUBCUTANEOUS TISSUE, UNSP (3) Dementia Code(s): F03.90 - UNSPECIFIED DEMENTIA WITHOUT BEHAVIORAL DISTURBANCE Qualifiers: Dementia type: Alzheimer's disease Dementia behavioral disturbance: with behavioral disturbance (4) Weakness Assessment/Plan: -secondary to infection -BC/UC/WC Code(s): R53.1 - WEAKNESS (5) Hypokalemia Assessment/Plan: resolved Code(s): E87.6 - HYPOKALEMIA (6) Leukocytosis Assessment/Plan: resolved, responding to IV antibiotics Code(s): D72.829 - ELEVATED WHITE BLOOD CELL COUNT, UNSPECIFIED (7) Type 2 diabetes mellitus with other diabetic neurological complication Assessment/Plan: chronic, uncontrolled BGM Insulin sliding scale Endocrinology consult Code(s): E11.49 - TYPE 2 DIABETES W [facility] DIABETIC NEUROLOGICAL COMPLICATION (8) UTI (urinary tract infection) Assessment/Plan: Positive for strep viridans being treated on tigecycline ID on board Code(s): N39.0 - URINARY TRACT INFECTION, SITE NOT SPECIFIED Qualifiers: Urinary tract infection type: acute cystitis Hematuria presence: without hematuria Qualified Code(s): N30.00 - Acute cystitis without hematuria Assessment/Plan -positive for strep viridans, on IV antibiotic -swallow eval done, diet changed + Glucerna -Vascular, ID, endocrinology consult -BGM -insulin sliding scale -BC (-)/UC (+) /WC (pending) -monitor labs in AM
[2017-07-06] MEDS: INSULIN DETEMIR 100 UNITS/ML MDV SQ SCH (22:31)
[2017-07-06] MEDS: ATORVASTATIN CA 10 MG TABLET (FP) PO SCH (22:32)
[2017-07-07] MEDS ORDERED: DEXTROSE 50%-WATER 50 ML DISP.SYRIN ONE (05:59)
[2017-07-07] MEDS: INSULIN SLIDING SCALE (NOVOLOG) 1 VIAL SQ SCH ×4 (06:28→22:21)
[2017-07-07] MEDS ORDERED: DEXTROSE 50%-WATER - 25 GM/50 ML VIAL IVPUSH ONE (07:30)
--- NOTE | 2017-07-07 08:01 | PN ---
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, Physician Chief Complaint: ID Tigecylcline continues for now - Current Medication List Current Medications: Active Medications Acetaminophen (Tylenol -) 650 mg PO Q4H PRN PRN Reason: FEVER OR PAIN Amlodipine Besylate (Norvasc -) 5 mg PO DAILY [facility] Last Admin: 07/06/17 10:15 Dose: 5 mg Aspirin (Asa -) 81 mg PO DAILY [facility] Last Admin: 07/06/17 10:14 Dose: 81 mg Atorvastatin Calcium (Lipitor -) 10 mg PO HS [facility] Last Admin: 07/06/17 22:32 Dose: 10 mg Carvedilol (Coreg -) 6.25 mg PO BID [facility] Last Admin: 07/06/17 22:32 Dose: 6.25 mg Collagenase (Santyl -) 1 applic TP DAILY [facility] Last Admin: 07/06/17 10:20 Dose: 1 applic Tigecycline 50 mg/ Dextrose 100 mls @ 100 mls/hr IVPB BID [facility] PRN Reason: Protocol Last Admin: 07/06/17 22:41 Dose: 100 mls/hr Insulin Aspart (Novolog Vial Sliding Scale -) 1 vial SQ ACHS [facility] PRN Reason: Protocol Last Admin: 07/07/17 06:28 Dose: Not Given Insulin Detemir (Levemir Vial) 10 units SQ HS [facility] Last Admin: 07/06/17 22:31 Dose: 10 unit Lisinopril (Prinivil) 10 mg PO DAILY [facility] Last Admin: 07/06/17 10:14 Dose: 10 mg Rivaroxaban (Xarelto -) 20 mg PO DAILY [facility] Last Admin: 07/06/17 10:15 Dose: 20 mg - Objective Vital Signs: Vital Signs Temperature 99.4 F 07/06/17 17:30 Pulse Rate 66 07/06/17 17:30 Respiratory Rate 20 07/06/17 17:30 Blood Pressure 147/74 07/06/17 17:30 O2 Sat by Pulse Oximetry (%) 98 07/06/17 21:00 Constitutional: Yes: No Distress, Other (Alert) Cardiovascular: Yes: S1, S2 Respiratory: Yes: WNL, Regular, CTA Bilaterally Gastrointestinal: Yes: WNL, Normal Bowel Sounds, Soft. No: Tenderness Extremities: Yes: Other (Right hip decubitus) Labs: CBC, BMP 07/06/17 08:40 07/06/17 08:40 INR, PTT INR 1.28 (0.82-1.09) H D 07/04/17 12:30 Assessment/Plan Laboratory Tests 07/06/17 07/07/17 08:40 06:10 WBC 8.4 Hgb 10.8 Plt Count 285 D ESR Pending Assessment Decubitus ulcer ? debridement Plan Antibiotic for now CT suggested ? Debridment Dai LINDSEY
[2017-07-07] MEDS ORDERED: PT OWN MED DRAWER 7, Y5N ONE ×3 (09:31→23:09)
[2017-07-07] MEDS: RIVAROXABAN 20 MG TABLET PO SCH (09:36)
[2017-07-07] MEDS: amLODIPine BESYLATE 5 MG TABLET (FP) PO SCH (09:36)
[2017-07-07] MEDS: ASPIRIN 81 MG CHEWABLE TABLETS PO SCH (09:36)
[2017-07-07] MEDS: CARVEDILOL 6.25 MG TABLET (FP) PO SCH ×2 (09:36→22:37)
[2017-07-07] MEDS: LISINOPRIL 10 MG TABLET (FP) PO SCH (09:36)
[2017-07-07] MEDS: COLLAGENASE CLOSTRIDIUM HIST. 30 GRAMS TUBE TP SCH (09:37)
[2017-07-07] MEDS: TIGECYCLINE 50 MG in DEXTROSE 5%-WATER - 100 ML IVPB SCH ×2 (10:31→22:39)
--- NOTE | 2017-07-07 13:21 | PN ---
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, Physician Chief Complaint: Infected right hip ulcer History of Present Illness: Patient is a 77 year old female with DM and dementia who is brought in by her home health nurse for concerns of a wound infection. The patient has a 3.5cm x 3.5cm ulcerating wound on the right buttocks that has been present for several months. Patient came in with right buttock ulceration with minimal drainage but malodorous. The GLAZE SPRAYER noticed patient being increasingly lethargic and weak; however, no chills or fever reported. At present, patient is alert, afebrile, not in distress. Although, patient noted with a febrile episode this morning. - Current Medication List Current Medications: Active Medications Acetaminophen (Tylenol -) 650 mg PO Q4H PRN PRN Reason: FEVER OR PAIN Amlodipine Besylate (Norvasc -) 5 mg PO DAILY [facility] Last Admin: 07/07/17 09:36 Dose: 5 mg Aspirin (Asa -) 81 mg PO DAILY [facility] Last Admin: 07/07/17 09:36 Dose: 81 mg Atorvastatin Calcium (Lipitor -) 10 mg PO HS [facility] Last Admin: 07/06/17 22:32 Dose: 10 mg Carvedilol (Coreg -) 6.25 mg PO BID [facility] Last Admin: 07/07/17 09:36 Dose: 6.25 mg Collagenase (Santyl -) 1 applic TP DAILY [facility] Last Admin: 07/07/17 09:37 Dose: 1 applic Tigecycline 50 mg/ Dextrose 100 mls @ 100 mls/hr IVPB BID [facility] PRN Reason: Protocol Last Admin: 07/07/17 10:31 Dose: 100 mls/hr Insulin Aspart (Novolog Vial Sliding Scale -) 1 vial SQ ACHS [facility] PRN Reason: Protocol Last Admin: 07/07/17 11:37 Dose: Not Given Insulin Detemir (Levemir Vial) 10 units SQ HS [facility] Last Admin: 07/06/17 22:31 Dose: 10 unit Lisinopril (Prinivil) 10 mg PO DAILY [facility] Last Admin: 07/07/17 09:36 Dose: 10 mg Rivaroxaban (Xarelto -) 20 mg PO DAILY [facility] Last Admin: 07/07/17 09:36 Dose: 20 mg - Objective Vital Signs: Vital Signs Temperature 98.9 F 07/07/17 10:00 Pulse Rate 84 07/07/17 10:00 Respiratory Rate 18 08/06/17 10:00 Blood Pressure 151/74 07/07/17 10:00 O2 Sat by Pulse Oximetry (%) 98 07/07/17 09:00 Constitutional: Yes: No Distress, Calm Cardiovascular: Yes: Regular Rate and Rhythm, S1, S2 Respiratory: Yes: Regular, CTA Bilaterally Gastrointestinal: Yes: Normal Bowel Sounds, Soft Edema: No Peripheral Pulses WNL: Yes Integumentary: Yes: Pressure Ulcer (Right buttock, minimal drainage, malodorous) Neurological: Yes: Alert, Pre-Existing Deficit Labs: CBC, BMP 07/06/17 08:40 07/06/17 08:40 INR, PTT INR 1.28 (0.82-1.09) H D 07/04/17 12:30 Problem List - Problems (1) Decubitus ulcer, buttock, right, unstageable Assessment/Plan: - follow up with vascular surgery for possible wound debridement Code(s): L89.310 - PRESSURE ULCER OF RIGHT BUTTOCK, UNSTAGEABLE (2) UTI (urinary tract infection) Code(s): N39.0 - URINARY TRACT INFECTION, SITE NOT SPECIFIED Qualifiers: Urinary tract infection type: acute cystitis Hematuria presence: without hematuria Qualified Code(s): N30.00 - Acute cystitis without hematuria (3) Wound infection Code(s): T14.8 - OTHER INJURY OF UNSPECIFIED BODY REGION L08.9 - LOCAL INFECTION OF THE SKIN AND SUBCUTANEOUS TISSUE, UNSP (4) CAD (coronary artery disease) Code(s): I25.10 - ATHSCL HEART DISEASE OF [place] CORONARY ARTERY W/O ANG PCTRS Qualifiers: Coronary Disease-Associated Artery/Lesion type: [place] coronary artery Associated angina: without angina pectoris (5) Diabetes mellitus Code(s): E11.9 - TYPE 2 DIABETES MELLIT[place] WITHOUT COMPLICATIONS Qualifiers: Diabetes mellitus type: type 2 Diabetes mellitus complication status: with hyperglycemia (6) HLD (hyperlipidemia) Code(s): E78.5 - HYPERLIPIDEMIA, UNSPECIFIED (7) HTN (hypertension) Code(s): I10 - ESSENTIAL (PRIMARY) HYPERTENSION Qualifiers: Hypertension type: essential hypertension Qualified Code(s): I10 - Essential (primary) hypertension (8) Weakness Code(s): R53.1 - WEAKNESS Assessment/Plan Infected right buttock pressure ulcer -continue IV antibiotic -continue wound care -Wound culture (+) proteus spedies, group D strep -ID on board -follow up with vascular surgery for possible wound debridement -CT without contrast of right lower extremity UTI -urine culture (+) strep viridans -continue IV antibiotic -ID on board Repeat labs in am
--- NOTE | 2017-07-07 17:35 | CONSULT ---
Consult Consult Specialty:: endocrine Referred by:: robbie fair md Reason for Consultation:: diabetes mellitus - History of Present Illness Chief Complaint: lethargic weak and nonverbal History of Present Illness: 77 yo F with h/o prior CVA DM HTN HLD aphasic who is mostly bedbound out of bed to chair at home with home health aid, brougth today with worsening lethargy, and sleepiness. 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: CVA (multiple CVAs), Dementia (vascular) Cardio/Vascular: Yes: CAD (multiple stents in past, last PCI in 2011 at [facility] (mLAD & pRCA)), Deep Vein Thrombosis (of left lower extremity diagnosed on 12/23/14, on Xarelto), HTN, Hyperlipdemia, Other (Pericardial effusion with tamponade s/p pericardial window) Gastrointestinal: Yes: Other Hepatobiliary: Yes: Cholecystitis (s/p past cholecystectomy) Renal/: Yes: Renal Inusuff ...: No Endocrine: Yes: Diabetes Mellitus - Past Surgical History Past Surgical History: Yes: Cholecystectomy - Alcohol/Substance Use Hx Alcohol Use: No History of Substance Use: reports: None - Smoking History Smoking history: Unknown if ever smoked Have you smoked in the past 12 months: No Aproximately how many cigarettes per day: 0 - Social History Usual Living Arrangement: Alone ADL: Family Assistance (lives with daughter and granddaughter in house with 7 steps to enter; needs Assistance in some ADLs and all IADLs, mostly uses wheelchair but able to ambulate with RW) History of Recent Travel: No Home Medications - Allergies Allergies/Adverse Reactions: Allergies Allergy/AdvReac Type Severity Reaction Status Date / Time Penicillins Allergy Verified 07/04/17 11:33 - Home Medications Home Medications: Ambulatory Orders Aspirin [Nancy Chewable Aspirin] 81 mg PO DAILY 06/05/16 Simvastatin [Zocor -] 20 mg PO HS 06/05/16 Acetaminophen [Tylenol .Regular Strength -] 650 mg PO Q4H PRN #0 tablet Amlodipine Besylate [Norvasc -] 5 mg PO DAILY tablet 05/31/17 Carvedilol [Coreg -] 6.25 mg PO BID tablet 05/31/17 Insulin (Levemir) [Levemir Flexpen -] 10 units SQ HS #1 pen 05/31/17 Lisinopril [Prinivil] 10 mg PO DAILY tablet 05/31/17 Rivaroxaban [Xarelto -] 20 mg PO DAILY tablet 05/31/17 Physical Exam Vital Signs: Vital Signs Temperature 98.4 F 07/07/17 14:37 Pulse Rate 61 07/07/17 14:37 Respiratory Rate 18 07/07/17 14:37 Blood Pressure 112/53 07/07/17 14:37 O2 Sat by Pulse Oximetry (%) 98 07/07/17 09:00 Constitutional: Yes: Calm Eyes: Yes: EOM Intact HENT: Yes: Normocephalic Neck: Yes: Trachea Midline Cardiovascular: Yes: Regular Rate and Rhythm Respiratory: Yes: CTA Bilaterally Gastrointestinal: Yes: Normal Bowel Sounds ...Rectal Exam: Yes: Deferred Renal/: Yes: WNL Breast(s): Yes: WNL Musculoskeletal: Yes: WNL Extremities: Yes: WNL Edema: No Wound/Incision: Yes: Dressing Dry and Intact Neurological: Yes: Alert, Aphasia Labs: CBC, BMP 07/06/17 08:40 07/06/17 08:40 Problem List - Problems (1) Decubitus ulcer, buttock, right, unstageable Code(s): L89.310 - PRESSURE ULCER OF RIGHT BUTTOCK, UNSTAGEABLE (2) Stage II pressure ulcer Code(s): L89.92 - PRESSURE ULCER OF UNSPECIFIED SITE, STAGE 2 (3) UTI (urinary tract infection) Code(s): N39.0 - URINARY TRACT INFECTION, SITE NOT SPECIFIED Qualifiers: Urinary tract infection type: acute cystitis Hematuria presence: without hematuria Qualified Code(s): N30.00 - Acute cystitis without hematuria (4) Type 2 diabetes mellitus with hyperosmolarity without nonketotic hyperglycemic-hyperosmolar coma ([facility]) Code(s): E11.00 - TYPE 2 DIAB W HYPROSM W/O NONKET [facility]GL[facility]OS [facility] Assessment/Plan Current Active Problems Decubitus ulcer, buttock, right, unstageable (Acute) Hypercapnia (Acute) Penicillin allergy (Acute) Stage II pressure ulcer (Acute) UTI (urinary tract infection) (Acute) Wound infection (Acute) diabetes melluts 2 uncontrolled hyperglycemia diabetic neuropathy Abnormal Lab Results 07/07/17 06:06 Fasting Glucose 43 L* Laboratory Results - last 24 hr 07/06/17 07/07/17 07/07/17 22:27 06:06 06:10 ESR 14 POC Glucometer 177 Fasting Glucose 43 L* 07/07/17 07/07/17 07/07/17 07:05 11:37 17:04 ESR POC Glucometer 89 184 162 Fasting Glucose Laboratory Tests 07/05/17 07/06/17 07/06/17 08:30 08:40 11:05 Sodium 142 Potassium 3.8 Carbon Dioxide 30 Anion Gap 6 L BUN 44 H D Creatinine 0.8 D Creat Clearance w eGFR > 60 POC Glucometer 167 Hemoglobin A1c % 7.8 H D 07/06/17 07/06/17 16:56 22:27 Sodium Potassium Carbon Dioxide Anion Gap BUN Creatinine Creat Clearance w eGFR POC Glucometer 208 177 Hemoglobin A1c % plan: bgms qid novolog scale Current Medications Generic Name Dose Route Start Last Admin Trade Name Freq PRN Reason Stop Dose Admin Acetaminophen 650 mg 07/04/17 18:57 Tylenol - PO Q4H PRN FEVER OR PAIN Amlodipine Besylate 5 mg 07/05/17 10:00 07/07/17 09:36 Norvasc - PO 5 mg DAILY CHANDLER Administration Aspirin 81 mg 07/05/17 10:00 07/07/17 09:36 Asa - PO 81 mg DAILY CHANDLER Administration Atorvastatin Calcium 10 mg 07/04/17 22:00 07/06/17 22:32 Lipitor - PO 10 mg HS CHANDLER Administration Carvedilol 6.25 mg 07/04/17 22:00 07/07/17 09:36 Coreg - PO 6.25 mg BID CHANDLER Administration Collagenase 1 applic 07/05/17 20:30 07/07/17 09:37 Santyl - TP 1 applic DAILY CHANDLER Administration Tigecycline 50 mg/ Dextrose 100 mls @ 100 mls/hr 07/05/17 22:00 07/07/17 10:31 IVPB 100 mls/hr BID CHANDLER Administration Protocol Insulin Aspart 1 vial 07/05/17 22:00 07/07/17 17:05 Novolog Vial Sliding Scale - SQ Not Given ACHS CHANDLER Protocol Insulin Detemir 10 units 07/04/17 22:00 07/06/17 22:31 Levemir Vial SQ 10 unit HS CHANDLER Administration Lisinopril 10 mg 07/05/17 10:00 07/07/17 09:36 Prinivil PO 10 mg DAILY CHANDLER Administration Rivaroxaban 20 mg 07/05/17 10:00 07/07/17 09:36 Xarelto - PO 20 mg DAILY CHANDLER Administration
[2017-07-07] MEDS: INSULIN DETEMIR 100 UNITS/ML MDV SQ SCH (22:37)
[2017-07-07] MEDS: ATORVASTATIN CA 10 MG TABLET (FP) PO SCH (22:37)
[2017-07-08] MEDS: INSULIN SLIDING SCALE (NOVOLOG) 1 VIAL SQ SCH ×4 (06:30→21:22)
--- NOTE | 2017-07-08 07:43 | PN ---
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, Physician - Current Medication List Current Medications: Active Medications Acetaminophen (Tylenol -) 650 mg PO Q4H PRN PRN Reason: FEVER OR PAIN Amlodipine Besylate (Norvasc -) 5 mg PO DAILY [facility] Last Admin: 07/07/17 09:36 Dose: 5 mg Aspirin (Asa -) 81 mg PO DAILY [facility] Last Admin: 07/07/17 09:36 Dose: 81 mg Atorvastatin Calcium (Lipitor -) 10 mg PO HS [facility] Last Admin: 07/07/17 22:37 Dose: 10 mg Carvedilol (Coreg -) 6.25 mg PO BID [facility] Last Admin: 07/07/17 22:37 Dose: 6.25 mg Collagenase (Santyl -) 1 applic TP DAILY [facility] Last Admin: 07/07/17 09:37 Dose: 1 applic Tigecycline 50 mg/ Dextrose 100 mls @ 100 mls/hr IVPB BID [facility] PRN Reason: Protocol Last Admin: 07/07/17 22:39 Dose: 100 mls/hr Insulin Aspart (Novolog Vial Sliding Scale -) 1 vial SQ ACHS [facility] PRN Reason: Protocol Last Admin: 07/08/17 06:30 Dose: Not Given Insulin Detemir (Levemir Vial) 10 units SQ HS [facility] Last Admin: 07/07/17 22:37 Dose: 10 unit Lisinopril (Prinivil) 10 mg PO DAILY [facility] Last Admin: 07/07/17 09:36 Dose: 10 mg Rivaroxaban (Xarelto -) 20 mg PO DAILY [facility] Last Admin: 07/07/17 09:36 Dose: 20 mg - Objective Vital Signs: Vital Signs Temperature 98.3 F 07/08/17 06:00 Pulse Rate 63 07/08/17 06:00 Respiratory Rate 16 07/08/17 06:00 Blood Pressure 117/50 07/08/17 06:00 O2 Sat by Pulse Oximetry (%) 97 07/07/17 21:00 Labs: CBC, BMP 07/06/17 08:40 07/06/17 08:40 INR, PTT INR 1.28 (0.82-1.09) H D 07/04/17 12:30 Problem List - Problems (1) Decubitus ulcer, buttock, right, unstageable Assessment/Plan: Infected right buttock pressure ulcer -continue IV antibiotic -continue wound care -Wound culture (+) proteus spedies, group D strep -ID on board -follow up with vascular surgery for possible wound debridement -CT without contrast of right lower extremity Code(s): L89.310 - PRESSURE ULCER OF RIGHT BUTTOCK, UNSTAGEABLE (2) UTI (urinary tract infection) Assessment/Plan: ON ABX ID ON BOARD Code(s): N39.0 - URINARY TRACT INFECTION, SITE NOT SPECIFIED Qualifiers: Urinary tract infection type: acute cystitis Hematuria presence: without hematuria Qualified Code(s): N30.00 - Acute cystitis without hematuria (3) CVA (cerebral infarction) Assessment/Plan: OLD Code(s): I63.9 - CEREBRAL INFARCTION, UNSPECIFIED (4) Diabetes mellitus Assessment/Plan: BG Code(s): E11.9 - TYPE 2 DIABETES MELLITUS WITHOUT COMPLICATIONS Qualifiers: Diabetes mellitus type: type 2 Diabetes mellitus complication status: with hyperglycemia
[2017-07-08 08:34] LABS: BASOPHIL 0.2 % (0-2.0); EOSINOPHIL 1.1 % (0-4.5); MCH 28.1 pg (25.7-33.7); MCHC 32.5 g/dl (32.0-36.0); MEAN CELL VOLUME 86.3 fl (80-96); MEAN PLT VOLUME 9.4 fl (7.5-11.1); NEUTROPHILS 69.1 % (42.8-82.8); PLATELET COUNT 239 K/MM3 (134-434); RDW 14.4 % (11.6-15.6); WHITE BLOOD COUNT 8.6 K/mm3 (4.0-10.0)
[2017-07-08 09:06] LABS: ALBUMIN 2.4 g/dl (3.4-5.0); ANION GAP 7 (8-16); CALCIUM 8.3 mg/dL (8.5-10.1); CO2 31 mmol/L (21-32); CREATININE 0.7 mg/dL (0.55-1.02); GLUCOSE,RANDOM 54 mg/dL (74-106)
[2017-07-08 09:25] LABS: ALK PHOS 133 U/L (45-117); BILIRUBIN,TOTAL 0.5 mg/dL (0.2-1.0); SGOT/AST 9 U/L (15-37); SGPT/ALT 8 U/L (12-78); TOT PROT 5.6 g/dl (6.4-8.2)
[2017-07-08] MEDS ORDERED: PT OWN MED DRAWER 7, Y5N ONE (10:54)
--- NOTE | 2017-07-08 11:40 | PN ---
Physical Exam: SUBJECTIVE: Patient seen and examined. Lying comfortably in bed. Aphasic at baseline. OBJECTIVE: Vital Signs Period Temp Pulse Resp BP Sys/Hoffman Pulse Ox Last 24 Hr 98 F-98.5 F 61-68 16-20 112-124/50-62 97 GENERAL: The patient is awake and alert, oriented x 0, in no acute distress. HEAD: Normal with no signs of trauma. EYES: Sclera anicteric, conjunctiva clear LUNGS: CTAB, no wheezes, no crackles, no rhonchi HEART: rrr, normal s1/s2 without murmur, rub or gallop. ABDOMEN: Soft, ntnd EXTREMITIES: 2+ pulses, warm, well-perfused, no edema. SKIN: Right upper buttock decubitus ulcer (4cm diameter) with necrotic tissue at edges, malodorous, no purulent drainage or palpable asbcess Laboratory Results - last 24 hr 07/07/17 07/07/17 07/07/17 11:37 17:04 21:50 WBC RBC Hgb Hct MCV MCH MCHC RDW Plt Count MPV Neutrophils % Lymphocytes % Monocytes % Eosinophils % Basophils % Sodium Potassium Chloride Carbon Dioxide Anion Gap BUN Creatinine Creat Clearance w eGFR POC Glucometer 184 162 193 Random Glucose Calcium Total Bilirubin AST ALT Alkaline Phosphatase Total Protein Albumin 07/08/17 07/08/17 07/08/17 05:33 07:05 07:05 WBC 8.6 RBC 3.90 Hgb 10.9 Hct 33.6 MCV 86.3 MCH 28.1 MCHC 32.5 RDW 14.4 Plt Count 239 MPV 9.4 Neutrophils % 69.1 Lymphocytes % 19.6 D Monocytes % 10.0 Eosinophils % 1.1 D Basophils % 0.2 Sodium 140 Potassium 4.0 Chloride 102 Carbon Dioxide 31 Anion Gap 7 L BUN 46 H Creatinine 0.7 Creat Clearance w eGFR > 60 POC Glucometer 93 Random Glucose 54 L D Calcium 8.3 L Total Bilirubin 0.5 D AST 9 L ALT 8 L Alkaline Phosphatase 133 H Total Protein 5.6 L Albumin 2.4 L Microbiology 07/05/17 20:00 Buttock - Right Gram Stain - Final 07/05/17 20:00 Buttock - Right Wound Culture - Preliminary Proteus Mirabilis Group D Strep Or Entero Coccus Pending Organism Pending Organism#2 07/04/17 12:30 Blood - Peripheral Venous Blood Culture - Preliminary NO GROWTH OBTAINED AFTER 72 HOURS, INCUBATION TO CONTINUE FOR 2 DAYS. 07/04/17 12:30 Blood - Peripheral Venous Blood Culture - Preliminary NO GROWTH OBTAINED AFTER 72 HOURS, INCUBATION TO CONTINUE FOR 2 DAYS. 07/04/17 12:45 Urine - Urine - Catheterized Urine Culture - Final Streptococcus Viridans Active Medications Acetaminophen (Tylenol -) 650 mg PO Q4H PRN PRN Reason: FEVER OR PAIN Amlodipine Besylate (Norvasc -) 5 mg PO DAILY [facility] Last Admin: 07/07/17 09:36 Dose: 5 mg Aspirin (Asa -) 81 mg PO DAILY [facility] Last Admin: 07/07/17 09:36 Dose: 81 mg Atorvastatin Calcium (Lipitor -) 10 mg PO HS [facility] Last Admin: 07/07/17 22:37 Dose: 10 mg Carvedilol (Coreg -) 6.25 mg PO BID [facility] Last Admin: 07/07/17 22:37 Dose: 6.25 mg Collagenase (Santyl -) 1 applic TP DAILY [facility] Last Admin: 07/07/17 09:37 Dose: 1 applic Tigecycline 50 mg/ Dextrose 100 mls @ 100 mls/hr IVPB BID [facility] PRN Reason: Protocol Last Admin: 07/07/17 22:39 Dose: 100 mls/hr Insulin Aspart (Novolog Vial Sliding Scale -) 1 vial SQ ACHS [facility] PRN Reason: Protocol Last Admin: 07/08/17 06:30 Dose: Not Given Insulin Detemir (Levemir Vial) 10 units SQ HS [facility] Last Admin: 07/07/17 22:37 Dose: 10 unit Lisinopril (Prinivil) 10 mg PO DAILY [facility] Last Admin: 07/07/17 09:36 Dose: 10 mg Rivaroxaban (Xarelto -) 20 mg PO DAILY [facility] Last Admin: 07/07/17 09:36 Dose: 20 mg ASSESSMENT/PLAN: 77yo woman who presents with chronic R upper buttock decubitis ulcer with with no e/o cellulitis or abscess. Pt is afebrile with no leukocytosis. #R buttock ulcer -LE CT this afternoon - no e/o osteomyelitis or underlying fluid collection -discontinue Tigacycline Dispo: We will continue to follow the patient. Thank you for this consultative opportunity. d/w Dr. Dai Cortes MD PGY-1 Visit type - Emergency Visit Emergency Visit: No - New Patient This patient is new to me today: No - Critical Care Critical Care patient: No
[2017-07-08] MEDS: TIGECYCLINE 50 MG in DEXTROSE 5%-WATER - 100 ML IVPB SCH (11:58)
[2017-07-08] MEDS: LISINOPRIL 10 MG TABLET (FP) PO SCH (11:58)
[2017-07-08] MEDS: amLODIPine BESYLATE 5 MG TABLET (FP) PO SCH (11:58)
[2017-07-08] MEDS: CARVEDILOL 6.25 MG TABLET (FP) PO SCH ×2 (11:59→21:22)
[2017-07-08] MEDS: ASPIRIN 81 MG CHEWABLE TABLETS PO SCH (11:59)
[2017-07-08] MEDS: RIVAROXABAN 20 MG TABLET PO SCH (11:59)
--- NOTE | 2017-07-08 14:15 | PN ---
Teaching Attending Note Name of Resident: Thais Cortes ATTENDING PHYSICIAN STATEMENT I saw and evaluated the patient. I reviewed the resident's note and discussed the case with the resident. I agree with the resident's findings and plan as documented. SUBJECTIVE:Remains stable on Tigecylcine afebrile OBJECTIVE:Decubitus is fould smelling necrotic but no palpable abscess or cellulitis ASSESSMENT AND PLAN: Microbiology 07/05/17 20:00 Buttock - Right Gram Stain - Final 07/04/17 12:45 Urine - Urine - Catheterized Urine Culture - Final Streptococcus Viridans 07/05/17 20:00 Buttock - Right Wound Culture - Preliminary Proteus Mirabilis Group D Strep Or Entero Coccus Staphylococcus Coagulase Neg 07/04/17 12:30 Blood - Peripheral Venous Blood Culture - Preliminary NO GROWTH OBTAINED AFTER 96 HOURS, INCUBATION TO CONTINUE FOR 1 DAYS. 07/04/17 12:30 Blood - Peripheral Venous Blood Culture - Preliminary NO GROWTH OBTAINED AFTER 96 HOURS, INCUBATION TO CONTINUE FOR 1 DAYS. Laboratory Tests 07/06/17 07/07/17 07/08/17 08:40 06:10 07:05 WBC 8.6 Hgb 10.9 Plt Count 239 ESR 14 C-Reactive Protein 4.2 H Assessment Necrotic ulcer buttock no obvious abscess no sepsis fever Plan Stop antibiotics CT ordered pending per surgical PA Kindly recall for any questions Dai LINDSEY
--- NOTE | 2017-07-08 15:06 | PN ---
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, RN QUALITY - Note 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: Selected Entries 07/07/17 07/07/17 07/07/17 08:16 10:00 10:38 Breakfast 100% Lunch Supper Temperature 100.1 F H 98.9 F 07/07/17 07/07/17 07/07/17 14:37 17:25 22:00 Breakfast Lunch 75% Supper Temperature 98.4 F 98.5 F 98 F 07/07/17 07/08/17 07/08/17 23:25 06:00 14:39 Breakfast 75% Lunch 100% Supper 75% Temperature 98.3 F Laboratory Tests 07/08/17 07:05 WBC 8.6 Tolerating minced diet, thin liquids and Glucerna, without overt signs of aspiration.
[2017-07-08] MEDS: COLLAGENASE CLOSTRIDIUM HIST. 30 GRAMS TUBE TP SCH (17:06)
[2017-07-08] MEDS: ATORVASTATIN CA 10 MG TABLET (FP) PO SCH (21:22)
[2017-07-08] MEDS ORDERED: INSULIN DETEMIR 100 UNITS/ML MDV SQ ONE (21:28)
[2017-07-08] MEDS: INSULIN DETEMIR 100 UNITS/ML MDV SQ SCH (21:30)
--- NOTE | 2017-07-08 23:20 | PN ---
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, Physician Chief Complaint: alert sp swallowing eval as noted tolerated po well, low sugars likely decreased appetite History of Present Illness: dm htn,cva,dementia,decubitis ulcer,sepsis wound infection - Current Medication List Current Medications: Active Medications Acetaminophen (Tylenol -) 650 mg PO Q4H PRN PRN Reason: FEVER OR PAIN Amlodipine Besylate (Norvasc -) 5 mg PO DAILY [facility] Last Admin: 07/08/17 11:58 Dose: 5 mg Aspirin (Asa -) 81 mg PO DAILY [facility] Last Admin: 07/08/17 11:59 Dose: 81 mg Atorvastatin Calcium (Lipitor -) 10 mg PO HS [facility] Last Admin: 07/08/17 21:22 Dose: 10 mg Carvedilol (Coreg -) 6.25 mg PO BID [facility] Last Admin: 07/08/17 21:22 Dose: 6.25 mg Collagenase (Santyl -) 1 applic TP DAILY [facility] Last Admin: 07/08/17 17:06 Dose: 1 applic Insulin Detemir (Levemir Vial) 10 units SQ HS [facility] Last Admin: 07/08/17 21:30 Dose: 10 unit Lisinopril (Prinivil) 10 mg PO DAILY [facility] Last Admin: 07/08/17 11:58 Dose: 10 mg Rivaroxaban (Xarelto -) 20 mg PO DAILY [facility] Last Admin: 07/08/17 11:59 Dose: 20 mg - Objective Vital Signs: Vital Signs Temperature 98.0 F 07/08/17 21:44 Pulse Rate 60 07/08/17 21:44 Respiratory Rate 18 07/08/17 21:44 Blood Pressure 132/61 07/08/17 21:44 O2 Sat by Pulse Oximetry (%) 97 07/07/17 21:00 Constitutional: Yes: Calm Eyes: Yes: EOM Intact HENT: Yes: Normocephalic Neck: Yes: Supple Cardiovascular: Yes: Regular Rate and Rhythm Respiratory: Yes: CTA Bilaterally Gastrointestinal: Yes: Normal Bowel Sounds ...Rectal Exam: Yes: Deferred Breast(s): Yes: WNL Musculoskeletal: Yes: Joint Stiffness, Muscle Weakness Wound/Incision: Yes: Draining, Excoriated Neurological: Yes: Alert, Confusion Labs: CBC, BMP 07/08/17 07:05 07/08/17 07:05 INR, PTT INR 1.28 (0.82-1.09) H D 08/03/17 12:30 Problem List - Problems (1) Decubitus ulcer, buttock, right, unstageable Code(s): L89.310 - PRESSURE ULCER OF RIGHT BUTTOCK, UNSTAGEABLE (2) Stage II pressure ulcer Code(s): L89.92 - PRESSURE ULCER OF UNSPECIFIED SITE, STAGE 2 Qualifiers: Laterality: left (3) UTI (urinary tract infection) Code(s): N39.0 - URINARY TRACT INFECTION, SITE NOT SPECIFIED Qualifiers: Urinary tract infection type: acute cystitis Hematuria presence: without hematuria Qualified Code(s): N30.00 - Acute cystitis without hematuria (4) Type 2 diabetes mellitus with hyperosmolarity without nonketotic hyperglycemic-hyperosmolar coma ([facility]) Code(s): E11.00 - TYPE 2 DIAB W HYPROSM W/O NONKET HYPRGLY-HYPROS COMA ([facility]) Assessment/Plan Current Active Problems Decubitus ulcer, buttock, right, unstageable (Acute) Hypercapnia (Acute) Penicillin allergy (Acute) Stage II pressure ulcer (Acute) Type 2 diabetes mellitus with hyperosmolarity without nonketotic hyperglycemic- hyperosmolar coma ([facility]) (Acute) UTI (urinary tract infection) (Acute) Wound infection (Acute) Abnormal Lab Results 07/08/17 07:05 Anion Gap 7 L BUN 46 H Random Glucose 54 L D Calcium 8.3 L AST 9 L ALT 8 L Alkaline Phosphatase 133 H Total Protein 5.6 L Albumin 2.4 L Laboratory Results - last 24 hr 07/07/17 07/07/17 07/08/17 05:45 05:49 05:33 WBC RBC Hgb Hct MCV MCH MCHC RDW Plt Count MPV Neutrophils % Lymphocytes % Monocytes % Eosinophils % Basophils % Sodium Potassium Chloride Carbon Dioxide Anion Gap BUN Creatinine Creat Clearance w eGFR POC Glucometer 47 48 93 Random Glucose Calcium Total Bilirubin AST ALT Alkaline Phosphatase Total Protein Albumin 07/08/17 07/08/17 07/08/17 07:05 07:05 12:05 WBC 8.6 RBC 3.90 Hgb 10.9 Hct 33.6 MCV 86.3 MCH 28.1 MCHC 32.5 RDW 14.4 Plt Count 239 MPV 9.4 Neutrophils % 69.1 Lymphocytes % 19.6 D Monocytes % 10.0 Eosinophils % 1.1 D Basophils % 0.2 Sodium 140 Potassium 4.0 Chloride 102 Carbon Dioxide 31 Anion Gap 7 L BUN 46 H Creatinine 0.7 Creat Clearance w eGFR > 60 POC Glucometer 35 Random Glucose 54 L D Calcium 8.3 L Total Bilirubin 0.5 D AST 9 L ALT 8 L Alkaline Phosphatase 133 H Total Protein 5.6 L Albumin 2.4 L 07/08/17 07/08/17 07/08/17 14:07 17:24 21:03 WBC RBC Hgb Hct MCV MCH MCHC RDW Plt Count MPV Neutrophils % Lymphocytes % Monocytes % Eosinophils % Basophils % Sodium Potassium Chloride Carbon Dioxide Anion Gap BUN Creatinine Creat Clearance w eGFR POC Glucometer 66 99 132 Random Glucose Calcium Total Bilirubin AST ALT Alkaline Phosphatase Total Protein Albumin plan: dc levemir while appetite is low continue bgm qid coverage as ordered add metformin 500mg bid
[2017-07-09] MEDS: metFORMIN HCL 500 MG TABLET (FP) PO SCH ×2 (07:22→17:31)
--- NOTE | 2017-07-09 08:15 | DS ---
Physical Examination Vital Signs: Vital Signs Temperature 99 F 07/09/17 07:55 Pulse Rate 88 07/09/17 07:55 Respiratory Rate 18 07/09/17 07:55 Blood Pressure 106/54 07/09/17 07:55 O2 Sat by Pulse Oximetry (%) 97 07/07/17 21:00 Findings/Remarks: comfortable in bed Cardiovascular: Yes: S1, S2 Respiratory: Yes: Regular, CTA Bilaterally Gastrointestinal: Yes: Normal Bowel Sounds, Soft Labs: CBC, BMP 07/08/17 07:05 07/08/17 07:05 Discharge Summary Reason For Visit: UTI WOUND INFECTION Current Active Problems Decubitus ulcer, buttock, right, unstageable (Acute) Hypercapnia (Acute) Penicillin allergy (Acute) Stage II pressure ulcer (Acute) Type 2 diabetes mellitus with hyperosmolarity without nonketotic hyperglycemic- hyperosmolar coma ([facility]) (Acute) UTI (urinary tract infection) (Acute) Wound infection (Acute) Hospital Course: Patient is a 77 year old female with DM and dementia who is brought in by her home health nurse for concerns of a wound infection. The patient has a 3.5cm x 3.5cm ulcerating wound on the right buttocks that has been present for several months. Patient came in with right buttock ulceration with minimal drainage but malodorous. The SUPERVIS[employer] noticed patient being increasingly lethargic and weak; however, no chills or fever reported. 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: CVA (multiple CVAs), Dementia (vascular) Cardiovascular: Yes: CAD (multiple stents in past, last PCI in 2011 at [facility] (mLAD & pRCA)), Deep Vein Thrombosis (of left lower extremity diagnosed on 12/23/14, on Xarelto), HTN, Hyperlipdemia, Other (Pericardial effusion with tamponade s/p pericardial window) Gastrointestinal: Yes: Other Hepatobiliary: Yes: Cholecystitis (s/p past cholecystectomy) Renal/: Yes: Renal Inusuff ...: No Endocrine: Yes: Diabetes Mellitus - Past Surgical History Past Surgical History: Yes: Cholecystectomy - Problems (1) Decubitus ulcer, buttock, right, unstageable Assessment/Plan: Infected right buttock pressure ulcer -off antibiotic -continue wound care -Wound culture (+) proteus spedies, group D strep -ID on board -follow up with vascular surgery noted -CT without contrast of right lower extremity--no evidence of osteo or abscess Code(s): L89.310 - PRESSURE ULCER OF RIGHT BUTTOCK, UNSTAGEABLE (2) UTI (urinary tract infection) Assessment/Plan: OFF ABX ID ON BOARD Code(s): N39.0 - URINARY TRACT INFECTION, SITE NOT SPECIFIED Qualifiers: Urinary tract infection type: acute cystitis Hematuria presence: without hematuria Qualified Code(s): N30.00 - Acute cystitis without hematuria (3) CVA (cerebral infarction) Assessment/Plan: OLD Code(s): I63.9 - CEREBRAL INFARCTION, UNSPECIFIED (4) Diabetes mellitus Assessment/Plan: BGM on insulin and metformin Code(s): E11.9 - TYPE 2 DIABETES MELLITUS WITHOUT COMPLICATIONS Qualifiers: Diabetes mellitus type: type 2 Diabetes mellitus complication status: with hyperglycemia Condition: Improved - Instructions Referrals: Julio C Campbell MD [Staff Physician] - 2 Weeks Disposition: VNS/HOME HEALTH CARE - Home Medications Comprehensive Discharge Medication List: Ambulatory Orders Aspirin [Nancy Chewable Aspirin] 81 mg PO DAILY 06/05/16 Simvastatin [Zocor -] 20 mg PO HS 06/05/16 Acetaminophen [Tylenol .Regular Strength -] 650 mg PO Q4H PRN #0 tablet Amlodipine Besylate [Norvasc -] 5 mg PO DAILY tablet 05/31/17 Carvedilol [Coreg -] 6.25 mg PO BID tablet 05/31/17 Insulin (Levemir) [Levemir Flexpen -] 10 units SQ HS #1 pen 05/31/17 Lisinopril [Prinivil] 10 mg PO DAILY tablet 05/31/17 Rivaroxaban [Xarelto -] 20 mg PO DAILY tablet 05/31/17 Collagenase Clostridium Hist. [Santyl -] 1 applic TP DAILY #60 grams 07/09/17 Metformin HCl [Glucophage -] 500 mg PO BID@0700,1630 #60 tablet 07/09/17
[2017-07-09] MEDS: LISINOPRIL 10 MG TABLET (FP) PO SCH (09:36)
[2017-07-09] MEDS: RIVAROXABAN 20 MG TABLET PO SCH (09:36)
[2017-07-09] MEDS: amLODIPine BESYLATE 5 MG TABLET (FP) PO SCH (09:36)
[2017-07-09] MEDS: CARVEDILOL 6.25 MG TABLET (FP) PO SCH (09:36)
[2017-07-09] MEDS: ASPIRIN 81 MG CHEWABLE TABLETS PO SCH (09:37)
[2017-07-09] MEDS: COLLAGENASE CLOSTRIDIUM HIST. 30 GRAMS TUBE TP SCH (09:37)
--- NOTE | 2017-07-09 12:27 | PN ---
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 - Note 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: Selected Entries 07/07/17 07/07/17 07/07/17 08:16 10:00 10:38 Breakfast 100% Lunch Supper Temperature 100.1 F H 98.9 F 07/07/17 07/07/17 07/07/17 14:37 17:25 22:00 Breakfast Lunch 75% Supper Temperature 98.4 F 98.5 F 98 F 07/07/17 07/08/17 07/08/17 23:25 06:00 14:39 Breakfast 75% Lunch 100% Supper 75% Temperature 98.3 F Laboratory Tests 07/08/17 07:05 WBC 8.6 Selected Entries 07/08/17 07/08/17 07/08/17 06:00 10:00 14:39 Breakfast 75% Lunch 100% Supper Temperature 98.3 F 98.2 F 07/08/17 07/09/17 07/09/17 21:44 07:55 12:01 Breakfast 100% Lunch Supper 75% Temperature 98.0 F 99 F Laboratory Tests 07/08/17 07:05 WBC 8.6 Tolerating minced diet, thin liquids and Glucerna, without overt signs of aspiration. No further f/u indicated at this time.
[2017-07-09 12:59] VITALS: BP 120/55; PULSE 67; TEMP 98.2
== END 2017-07-09 19:00 | disposition home health service (06) | DRG 593 ==
LOC: JER 11:19 → INTOOBSV 13:42 → JERBED 13:42 → UNDOADMOB 13:42 → J8W 15:55 → JERBED 15:55 → J8W 16:34 → OBSVTOIN 18:50
PROVIDERS: ADMIT Family Medicine; ATTEND Family Medicine
DX: L89.212 Pressure ulcer of right hip, stage 2 (principal); R47.01 Aphasia; J98.11 Atelectasis; L89.310 Pressure ulcer of right buttock, unstageable; B95.4 Other streptococcus as the cause of diseases classified elsewhere; E11.65 Type 2 diabetes mellitus with hyperglycemia; B96.4 Proteus (mirabilis) (morganii) as the cause of diseases classified elsewhere; B95.2 Enterococcus as the cause of diseases classified elsewhere; Z88.0 Allergy status to penicillin; E11.40 Type 2 diabetes mellitus with diabetic neuropathy, unspecified; Z79.4 Long term (current) use of insulin; E87.6 Hypokalemia; Z86.718 Personal history of other venous thrombosis and embolism; R06.89 Other abnormalities of breathing; I10 Essential (primary) hypertension; Z79.01 Long term (current) use of anticoagulants; I25.10 Atherosclerotic heart disease of native coronary artery without angina pectoris; Z86.73 Personal history of transient ischemic attack (TIA), and cerebral infarction without residual deficits; Z74.01 Bed confinement status; F03.90 Unspecified dementia, unspecified severity, without behavioral disturbance, psychotic disturbance, mood disturbance, and anxiety; Z95.5 Presence of coronary angioplasty implant and graft; E78.5 Hyperlipidemia, unspecified; I35.0 Nonrheumatic aortic (valve) stenosis
CPT/HCPCS: 36415; 36600; 71010-TC; 73700-TC-RT; 80048; 80053; 81003; 81015; 82803; 82947; 83036; 83605; 84484; 85025; 85027; 85610; 85651; 85730; 86140; 86850; 86900; 86901; 87040; 87070; 87086; 87186; 87205; 93005; 93010; 99284-25; G0378; J3243; J3480

== ENCOUNTER 2017-07-22 18:16 | Inpatient (IN) | payer OTHER ==
[2017-07-22] MEDS ORDERED: SODIUM CHLORIDE 500 ML IV STA (19:19)
--- NOTE | 2017-07-22 19:20 | PDOC ---
History of Present Illness - General Chief Complaint: Wound Infection Stated Complaint: Wound Infection Time Seen by Provider: 07/22/17 18:59 History Source: Family Exam Limitations: Dementia - History of Present Illness Initial Comments: 07/22/17 21:27 77yo Female patient w/ PmHx: HTN, HLD, DM, Dementia, CVA, CAD presented to ED by daughter c/o right hip pain w/ wound infection malodorous. Daughter states patient currently under the care of Dr. Srivastava for wound care. She states hip appear swollen but patient has not had a fall. Patient recently seen in this ED for similar symptoms 07/04/2017. Daughter denies fever, cough, congestion, n/v/d, or any other complaints at this time. PCP: Alisia Hernandez. Timing/Duration: reports: getting worse Severity: Yes: moderate Location: reports: other (Hip) Respiratory Risk Factors: denies: no cause identified, exposure to illness, exposure to allergen, foods, insect bite, insect sting, medications, pollen, soaps, other Modifying Factors: worse with: antihistamine, calamine lotion, prednisone, scratching, topical steriods, other Associated Symptoms: reports: swelling/mass/lumps. denies: fever Past History - Travel Traveled outside of the country in the last 30 days: No Close contact w/someone who was outside of country & ill: No - Past Medical History Allergies/Adverse Reactions: Allergies Allergy/AdvReac Type Severity Reaction Status Date / Time Penicillins Allergy Verified 07/22/17 18:36 Home Medications: Ambulatory Orders Aspirin [Nancy Chewable Aspirin] 81 mg PO DAILY 06/05/16 Simvastatin [Zocor -] 20 mg PO HS 06/05/16 Acetaminophen [Tylenol .Regular Strength -] 650 mg PO Q4H PRN #0 tablet Amlodipine Besylate [Norvasc -] 5 mg PO DAILY tablet 05/31/17 Carvedilol [Coreg -] 6.25 mg PO BID tablet 05/31/17 Insulin (Levemir) [Levemir Flexpen -] 10 units SQ HS #1 pen 05/31/17 Lisinopril [Prinivil] 10 mg PO DAILY tablet 05/31/17 Rivaroxaban [Xarelto -] 20 mg PO DAILY tablet 05/31/17 Collagenase Clostridium Hist. [Santyl -] 1 applic TP DAILY #60 grams 07/09/17 Metformin HCl [Glucophage -] 500 mg PO BID@0700,1630 #60 tablet 07/09/17 Anemia: No Asthma: No Cancer: No Cardiac Disorders: Yes (cardiac tamponade, stents,pericardial effusion, CAD, aortic stenosis) CVA: Yes (Mult.TIA's) COPD: No CHF: No Dementia: Yes Diabetes: Yes GI Disorders: No Disorders: No HTN: Yes Hypercholesterolemia: Yes Liver Disease: (cholecystitis) Seizures: No Thyroid Disease: No - Surgical History Abdominal Surgery: Yes Appendectomy: No Cardiac Surgery: No Cholecystectomy: Yes Lung Surgery: No Neurologic Surgery: No Orthopedic Surgery: No - Immunization History Td Vaccination: Yes Immunization Up to Date: Yes - Psycho/Social/Smoking Cessation Hx Anxiety: No Suicidal Ideation: No Smoking Status: No Smoking History: Unknown if ever smoked Have you smoked in the past 12 months: No Number of Cigarettes Smoked Daily: 0 Information on smoking cessation initiated: No Hx Alcohol Use: No Drug/Substance Use Hx: No Substance Use Type: None Hx Substance Use Treatment: No Review of Systems - Review of Systems Able to Perform ROS?: No Is the patient limited Bahamian proficient: No Constitutional: No: Chills, Fever Integumentary: Yes: Erythema, Other (Wound infection) All Other Systems: Reviewed and Negative *Physical Exam - Vital Signs Last Vital Signs Temp Pulse Resp BP Pulse Ox 98.5 F 65 2 L 153/85 100 07/22/17 18:37 07/22/17 18:37 07/22/17 18:37 07/22/17 18:37 07/22/17 18:37 - Physical Exam General Appearance: Yes: Nourished, Appropriately Dressed. No: Apparent Distress, Mild Distress, Moderate Distress, Severe Distress Respiratory/Chest: positive: Lungs Clear, Normal Breath Sounds. negative: Chest Tender, Respiratory Distress, Accessory Muscle Use, Labored Respiration, Rapid RR Cardiovascular: positive: Regular Rhythm, Regular Rate Gastrointestinal/Abdominal: positive: Normal Bowel Sounds, Soft. negative: Distended, Guarding, Rebound, Tenderness Musculoskeletal: positive: Normal Inspection. negative: CVA Tenderness, Decreased Range of Motion, Vertebral Tenderness Extremity: positive: Normal Capillary Refill, Normal Inspection, Tender (Right Hip), Pelvis Stable, Erythema, Inflammation. negative: Normal Range of Motion Integumentary: positive: Normal Color, Dry, Warm, Erythema, Moist, Swelling, Other (Right Hip Wound) Neurologic: positive: Alert, Normal Mood/Affect, Normal Response, Motor Strength 04/05 ED Treatment Course - LABORATORY CBC & Chemistry Diagram: 07/22/17 20:00 07/22/17 20:00 - RADIOLOGY Radiology Studies Ordered: Category Date Time Status CHEST X-RAY PORTABLE* [RAD] Stat Radiology 07/22/17 19:19 Ordered *DC/Admit/Observation/Transfer Diagnosis at time of Disposition: Wound infection Cellulitis Qualifiers: Site of cellulitis: extremity Site of cellulitis of extremity: lower extremity Laterality: right Qualified Code(s): L03.115 - Cellulitis of right lower limb - Discharge Dispostion Condition at time of disposition: Fair Admit: Yes
[2017-07-22 20:04] LABS: BASOPHIL 0.2 % (0-2.0); EOSINOPHIL 0.3 % (0-4.5); MCH 28.3 pg (25.7-33.7); MCHC 33.1 g/dl (32.0-36.0); MEAN CELL VOLUME 85.4 fl (80-96); MEAN PLT VOLUME 9.2 fl (7.5-11.1); NEUTROPHILS 79.1 % (42.8-82.8); RDW 14.7 % (11.6-15.6)
[2017-07-22 20:19] LABS: INR 1.02 (0.82-1.09); PROTHROMBIN TIME (PATIENT) 11.2 SEC (9.98-11.88)
[2017-07-22 20:37] LABS: ALBUMIN 2.3 g/dl (3.4-5.0); ALK PHOS 99 U/L (45-117); ANION GAP 8 (8-16); BILIRUBIN,TOTAL 0.3 mg/dL (0.2-1.0); CALCIUM 8.4 mg/dL (8.5-10.1); CO2 29 mmol/L (21-32); CREATININE 0.6 mg/dL (0.55-1.02); SGOT/AST 9 U/L (15-37); SGPT/ALT 10 U/L (12-78); TOT PROT 6.1 g/dl (6.4-8.2)
[2017-07-22 20:39] LABS: URINE APPEARANCE CLOUDY; URINE BILIRUBIN NEGATIVE (NEGATIVE); URINE BLOOD NEGATIVE (NEGATIVE); URINE COLOR YELLOW; URINE GLUCOSE (UA) NEGATIVE (NEGATIVE); URINE KETONE NEGATIVE (NEGATIVE); URINE LEUK ESTERASE NEGATIVE (NEGATIVE); URINE NITRITE NEGATIVE (NEGATIVE); URINE PROTEIN NEGATIVE (NEGATIVE); URINE UROBILINOGEN NEGATIVE mg/dL (0.2-1.0)
[2017-07-22 20:44] LABS: GLUCOSE,RANDOM 46 mg/dL (74-106)
[2017-07-22] MEDS ORDERED: DEXTROSE 5%-NORMAL SALINE 1,000 ML IV SCH (21:00)
[2017-07-22] MEDS ORDERED: CEFTRIAXONE 2,000 MG in DEXTROSE 5%-WATER - 50 ML IVPB ONE (21:23)
[2017-07-22] MEDS ORDERED: CEFTRIAXONE 100 ML IVPB ONE (21:41)
[2017-07-22] MEDS ORDERED: ACETAMINOPHEN 325 MG TABLET (FP) PO PRN (22:57)
[2017-07-22] MEDS ORDERED: VANCOMYCIN 1 GRAM (PRE-DOCKED) 250 ML IVPB ONE (23:13)
[2017-07-22] MEDS: VANCOMYCIN 1,000 MG in DEXTROSE 5%-WATER - 250 ML IVPB SCH (23:18)
[2017-07-23 04:35] VITALS: BMI 19.9
[2017-07-23] MEDS: INSULIN SLIDING SCALE (NOVOLOG) 1 VIAL SQ SCH ×4 (06:28→21:34)
[2017-07-23] MEDS: metFORMIN HCL 500 MG TABLET (FP) PO SCH ×2 (06:29→17:33)
[2017-07-23 08:56] LABS: ALBUMIN 2.1 g/dl (3.4-5.0); ALK PHOS 93 U/L (45-117); ANION GAP 9 (8-16); BILIRUBIN,TOTAL 0.3 mg/dL (0.2-1.0); CALCIUM 7.6 mg/dL (8.5-10.1); CO2 26 mmol/L (21-32); CREATININE 0.6 mg/dL (0.55-1.02); GLUCOSE,RANDOM 191 mg/dL (74-106); SGOT/AST 9 U/L (15-37); SGPT/ALT 7 U/L (12-78); TOT PROT 5.5 g/dl (6.4-8.2)
[2017-07-23 08:58] LABS: MCH 27.9 pg (25.7-33.7); MCHC 32.5 g/dl (32.0-36.0); MEAN CELL VOLUME 85.7 fl (80-96); MEAN PLT VOLUME 8.1 fl (7.5-11.1); PLATELET COUNT 301 K/MM3 (134-434); RDW 14.7 % (11.6-15.6); WHITE BLOOD COUNT 12.3 K/mm3 (4.0-10.0)
[2017-07-23] MEDS ORDERED: PT OWN MED DRAWER 7, Y5N ONE (09:05)
[2017-07-23] MEDS: CARVEDILOL 6.25 MG TABLET (FP) PO SCH ×2 (09:07→21:32)
[2017-07-23] MEDS: amLODIPine BESYLATE 5 MG TABLET (FP) PO SCH (09:07)
[2017-07-23] MEDS: ASPIRIN COATED 81 MG TABLET.EC PO SCH (09:07)
[2017-07-23] MEDS: RIVAROXABAN 20 MG TABLET PO SCH (09:07)
[2017-07-23] MEDS: LISINOPRIL 10 MG TABLET (FP) PO SCH (09:07)
[2017-07-23] MEDS ORDERED: VANCOMYCIN 1 GRAM (PRE-DOCKED) 250 ML IVPB SCH (10:02)
[2017-07-23 10:29] LABS: ERYTHROCYTE SEDIMENTATION RATE 50 mm/hr (0-30)
[2017-07-23] MEDS: VANCOMYCIN 1,000 MG in DEXTROSE 5%-WATER - 250 ML IVPB SCH (10:46)
--- NOTE | 2017-07-23 11:46 | EKG ---
Test Reason : Blood Pressure : / mmHG Vent. Rate : 063 BPM Atrial Rate : 063 BPM P-R Int : 118 ms QRS Dur : 074 ms QT Int : 434 ms P-R-T Axes : 074 -87 038 degrees QTc Int : 444 ms NORMAL SINUS RHYTHM POSSIBLE LEFT ATRIAL ENLARGEMENT LEFT AXIS DEVIATION ,LAFB LOW VOLTAGE QRS INFERIOR INFARCT , AGE UNDETERMINED CANNOT RULE OUT ANTERIOR INFARCT (CITED ON OR BEFORE 28-JUN-2016) ABNORMAL ECG WHEN COMPARED WITH ECG OF 04-JUL-2017 13:01, DECREAS IN R WAVE VOLTAGE IB LEAD II AND V2. REPEAT EKG IF CLINICALLY INDICATED Confirmed by JOAQUIN JEAN BAPTISTE MD ([id number]) on 07/23/2017 11:45:58 AM Referred By: Confirmed By:JOAQUIN JEAN BAPTISTE MD
[2017-07-23] MEDS ORDERED: INSULIN (NOVOLOG) ASPART 100 UNITS/ML 10ML VIAL ONE ×2 (11:51→17:31)
--- NOTE | 2017-07-23 12:04 | HP ---
Admitting History and Physical - Primary Care Physician PCP: Alisia Wolfe - Admission Chief Complaint: worsening wound infection History of Present Illness: 77yo Female patient w/ PmHx: HTN, HLD, DM, Dementia, CVA, CAD presented to ED by daughter c/o right hip pain w/ wound infection malodorous. Daughter states patient currently under the care of Dr. Srivastava for wound care. She states hip appear swollen but patient has not had a fall. Patient recently seen in this ED for similar symptoms 07/04/2017. Daughter denies fever, cough, congestion, n/v/d, or any other complaints at this time. PCP: Alisia Hernandez. 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: CVA (multiple CVAs), Dementia (vascular) Cardiovascular: Yes: CAD (multiple stents in past, last PCI in 2011 at [facility] (mLAD & pRCA)), Deep Vein Thrombosis (of left lower extremity diagnosed on 12/23/14, on Xarelto), HTN, Hyperlipdemia, Other (Pericardial effusion with tamponade s/p pericardial window) Gastrointestinal: Yes: Other Hepatobiliary: Yes: Cholecystitis (s/p past cholecystectomy) Renal/: Yes: Renal Inusuff Endocrine: Yes: Diabetes Mellitus - Past Surgical History Past Surgical History: Yes: Cholecystectomy - Smoking History Smoking history: Unknown if ever smoked Have you smoked in the past 12 months: No Aproximately how many cigarettes per day: 0 - Alcohol/Substance Use Hx Alcohol Use: No History of Substance Use: reports: None - Social History ADL: Family Assistance (lives with daughter and granddaughter in house with 7 steps to enter; needs Assistance in some ADLs and all IADLs, mostly uses wheelchair but able to ambulate with RW) History of Recent Travel: No Home Medications - Allergies Allergies/Adverse Reactions: Allergies Allergy/AdvReac Type Severity Reaction Status Date / Time Penicillins Allergy Verified 07/22/17 18:36 - Home Medications Home Medications: Ambulatory Orders Aspirin [Nancy Chewable Aspirin] 81 mg PO DAILY 06/05/16 Simvastatin [Zocor -] 20 mg PO HS 07/05/16 Acetaminophen [Tylenol .Regular Strength -] 650 mg PO Q4H PRN #0 tablet Amlodipine Besylate [Norvasc -] 5 mg PO DAILY tablet 05/31/17 Carvedilol [Coreg -] 6.25 mg PO BID tablet 05/31/17 Insulin (Levemir) [Levemir Flexpen -] 10 units SQ HS #1 pen 05/31/17 Lisinopril [Prinivil] 10 mg PO DAILY tablet 05/31/17 Rivaroxaban [Xarelto -] 20 mg PO DAILY tablet 05/31/17 Collagenase Clostridium Hist. [Santyl -] 1 applic TP DAILY #60 grams 07/09/17 Metformin HCl [Glucophage -] 500 mg PO BID@0700,1630 #60 tablet 07/09/17 Review of Systems Unable to obtain ROS, reason: not talking Physical Examination Vital Signs: Vital Signs Temperature 97.5 F L 07/23/17 10:00 Pulse Rate 90 07/23/17 10:00 Respiratory Rate 20 07/23/17 10:00 Blood Pressure 129/75 07/23/17 10:00 O2 Sat by Pulse Oximetry (%) 94 L 07/23/17 05:44 Constitutional: Yes: Calm, Thin Neck: Yes: Trachea Midline Cardiovascular: Yes: Regular Rate and Rhythm, S1, S2 Respiratory: Yes: CTA Bilaterally, Diminished (at bases) Gastrointestinal: Yes: Normal Bowel Sounds, Soft Edema: No Wound/Incision: Yes: Dressing Dry and Intact (right hip) Labs: CBC, BMP 07/23/17 08:00 07/23/17 08:00 Problem List - Problems (1) Decubitus ulcer, buttock, right, unstageable Assessment/Plan: ID and vascular evaluation elevated WBC IV abx elevated CRP Code(s): L89.310 - PRESSURE ULCER OF RIGHT BUTTOCK, UNSTAGEABLE (2) CAD (coronary artery disease) Assessment/Plan: asa,coeg ,lipitor Code(s): I25.10 - ATHSCL HEART DISEASE OF [place] CORONARY ARTERY W/O ANG PCTRS Qualifiers: Coronary Disease-Associated Artery/Lesion type: [place] coronary artery Associated angina: without angina pectoris (3) Diabetes mellitus Assessment/Plan: insulin and metformin Code(s): E11.9 - TYPE 2 DIABETES MELLITUS WITHOUT COMPLICATIONS Qualifiers: Diabetes mellitus type: type 2 Diabetes mellitus complication status: with hyperglycemia (4) CVA (cerebral infarction) Assessment/Plan: tristin machado Code(s): I63.9 - CEREBRAL INFARCTION, UNSPECIFIED
[2017-07-23] MEDS: COLLAGENASE CLOSTRIDIUM HIST. 30 GRAMS TUBE TP SCH (12:10)
[2017-07-23] MEDS ORDERED: cefTRIAXone 1 GM/50 ML BAG (PRE-DOCKED) IVPB ONE (12:19)
--- NOTE | 2017-07-23 14:48 | PN ---
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 (short form) - Note 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: ID Consult dictated Infected soft tissue ulcer R hip Leukocytosis Possible recurrent UTI PCN allergy OBS Pending c/s empiric ceftriaxone/ vancomycin Local wound care
[2017-07-23] MEDS: VANCOMYCIN 1 GRAM (PRE-DOCKED) 250 ML IVPB SCH (15:38)
--- NOTE | 2017-07-23 15:41 | CONS ---
INFECTIOUS DISEASE CONSULTATION DATE OF CONSULTATION: DATE OF DICTATION: 07/23/2017 HISTORY OF PRESENT ILLNESS: A 77-year-old female evaluated for infected skin wound and recurrent urinary tract infection. History was obtained from the chart as she suffers from dementia and cannot give a history. According to the notes, the patient was noted by family members to have increased right hip pain, increased swelling and erythema around a right hip wound. She had been hospitalized earlier this month from July 04 through July 09 with a wound infection and urinary tract infection. She was treated with Tygacil. She has a history of PENICILLIN allergy. Patient has tolerated cephalosporin. She was noted by family to have increasing swelling and erythema around the right hip wound as well as increased malodorous drainage. There was no reported fever or chills. Previous cultures of the wound grew mixed organisms, most recently Proteus enterococcus and coagulase-negative staphylococcus. Urine cultures have grown viridans Streptococcus which was felt to be a colonizer. PAST MEDICAL HISTORY: Positive for dementia, stroke, hypertension, hyperlipidemia, diabetes mellitus, coronary artery disease, recurrent urinary tract infections, pericardial effusion. PAST SURGICAL HISTORY: Status post coronary artery stents. ALLERGIES: PENICILLIN. Nature of the allergy not known. MEDICATIONS: Include aspirin, Zocor, Tylenol, Norvasc, Coreg, Prinivil, Xarelto, Glucophage. SOCIAL HISTORY: She suffers from dementia. She is dependent in activities of daily living. She is a nonsmoker, nondrinker. SYSTEMS REVIEW: Neurologic: Positive for stroke and dementia. Cardiac: Negative chest pain or palpitations. Respiratory: Negative cough or sputum production. Gastrointestinal: Negative vomiting or diarrhea. Genitourinary: Positive for recurrent urinary tract infections. LABORATORY DATA: White count on admission 14,000, presently 12.3. BUN 17, creatinine 0.6. Hematocrit 30.8, platelet count 301. Sedimentation rate 50. C-reactive protein 5.6. Urinalysis negative leukocyte esterase. Blood, urine, and wound cultures pending. Chest x-ray shows pulmonary vascular congestion. PHYSICAL EXAMINATION: General: Patient is awake and alert, however, not conversant. Vital Signs: Temperature 97.5; blood pressure 129/75; pulse 90, regular; respirations 20 per minute. HEENT: Sclerae are anicteric. Heart: Sounds S1, S2. Lungs: Clear. Abdomen: Soft. No tenderness elicited. No mass, rebound, or rigidity. Extremities: Negative for edema. Skin: There is a superficial ulceration present over the lateral right hip. It is annular in shape, approximately 4 cm in diameter. There is some slight purulence, seepage, and surrounding erythema. No crepitus or fluctuance. IMPRESSION: 1. Infected right hip soft tissue wound. 2. Leukocytosis. 3. PENICILLIN allergy. 4. Possible recurrent urinary tract infection. 5. Organic brain syndrome. Await cultures. Empiric antibiotic coverage in this PENICILLIN-allergic patient with vancomycin and ceftriaxone. Local wound care. We will follow. Thank you for the kind referral. ZAK SURESH M.D. CUONG/[id number]
--- NOTE | 2017-07-23 15:47 | PN ---
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 (short form) - Note 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: Vascular Surgery: Right hip wound 77yo Female patient w/ PmHx: HTN, HLD, DM, Dementia, CVA, CAD. She presented to the ER for evalutaiton of a right hip wound. The patient is followed by Dr. Srivastava for this issue but her family felt that it wa swollen around the area. The patient is nonmobile. Vital Signs Period Temp Pulse Resp BP Sys/Hoffman Pulse Ox Last 24 Hr 97.5 F-98.5 F 65-90 2-20 106-155/52-85 94-100 PE: GEN: pt alert but non-verbal Right hip: 4 x3 cm superficial wound with no hard eschar or bogginess in appearance. No surrounding erythema or drainage noted. Heels: skin intact and without ulcers. CBC, BMP 07/23/17 08:00 07/23/17 08:00 Microbiology: Blood culture, urine and wound culture pending Laboratory Tests 07/22/17 20:29 Urine Color Yellow Urine Appearance Cloudy Urine pH 5.0 D Ur Specific [place] 1.020 Urine Protein Negative Urine Glucose (UA) Negative Urine Ketones Negative Urine Blood Negative Urine Nitrite Negative Urine Bilirubin Negative Urine Urobilinogen Negative Ur Leukocyte Esterase Negative A/P: 77 yo female with chronic right hip wound being treated for possible UTI At this time the wound doesn't appear to be infected, would recommend to continue local wound care with santyl(ordered) IV antibiotics as per ID for possible UTI, WBC improving with empiric treatment If symptoms progress or leukocytosis worsens may consider CT scan imaging to r/o underlying deeper tissues infection but at this time it doesn't clinically appear that way D/w Dr. Srivastava and will continue to monitor the patient as needed while in the hospital or in the clinic
[2017-07-23] MEDS ORDERED: cefTRIAXone SODIUM 1 GM VIAL ONE (21:20)
[2017-07-23] MEDS ORDERED: DEXTROSE 5%-WATER 100 ML IVPB ONE (21:21)
[2017-07-23] MEDS: ATORVASTATIN CA 20 MG TABLET (FP) PO SCH (21:32)
[2017-07-23] MEDS: INSULIN DETEMIR 100 UNITS/ML MDV SQ SCH (21:33)
[2017-07-23] MEDS: CEFTRIAXONE 1 GM in DEXTROSE 5%-WATER 100 ML IVPB SCH (21:34)
[2017-07-24] MEDS: metFORMIN HCL 500 MG TABLET (FP) PO SCH ×2 (07:33→17:22)
[2017-07-24] MEDS: INSULIN SLIDING SCALE (NOVOLOG) 1 VIAL SQ SCH ×4 (07:33→21:48)
[2017-07-24 08:07] LABS: MCHC 32.9 g/dl (32.0-36.0); MEAN CELL VOLUME 85.1 fl (80-96); MEAN PLT VOLUME 8.8 fl (7.5-11.1); PLATELET COUNT 288 K/MM3 (134-434); WHITE BLOOD COUNT 7.8 K/mm3 (4.0-10.0)
[2017-07-24 09:19] LABS: ALK PHOS 87 U/L (45-117); ANION GAP 9 (8-16); BILIRUBIN,TOTAL 0.3 mg/dL (0.2-1.0); CALCIUM 7.8 mg/dL (8.5-10.1); CO2 27 mmol/L (21-32); CREATININE 0.6 mg/dL (0.55-1.02); GLUCOSE,RANDOM 125 mg/dL (74-106); SGOT/AST 7 U/L (15-37); SGPT/ALT 7 U/L (12-78); TOT PROT 5.1 g/dl (6.4-8.2)
[2017-07-24] MEDS: ASPIRIN COATED 81 MG TABLET.EC PO SCH (10:07)
[2017-07-24] MEDS: CARVEDILOL 6.25 MG TABLET (FP) PO SCH ×2 (10:07→21:47)
[2017-07-24] MEDS: amLODIPine BESYLATE 5 MG TABLET (FP) PO SCH (10:07)
[2017-07-24] MEDS: LISINOPRIL 10 MG TABLET (FP) PO SCH (10:07)
[2017-07-24] MEDS: RIVAROXABAN 20 MG TABLET PO SCH (10:07)
[2017-07-24] MEDS ORDERED: PT OWN MED DRAWER 7, Y5N ONE (10:46)
--- NOTE | 2017-07-24 10:59 | PN ---
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, Physician History of Present Illness: Awake. Not conversant. No acute distress Non-toxic appearing Afebrile WBC WNL - Current Medication List Current Medications: Active Medications Acetaminophen (Tylenol -) 650 mg PO Q6H PRN PRN Reason: FEVER OR PAIN Amlodipine Besylate (Norvasc -) 5 mg PO DAILY [facility] Last Admin: 07/24/17 10:07 Dose: 5 mg Aspirin (Ecotrin -) 81 mg PO DAILY [facility] Last Admin: 07/24/17 10:07 Dose: 81 mg Atorvastatin Calcium (Lipitor -) 20 mg PO HS [facility] Last Admin: 07/23/17 21:32 Dose: 20 mg Carvedilol (Coreg -) 6.25 mg PO BID [facility] Last Admin: 07/24/17 10:07 Dose: 6.25 mg Collagenase (Santyl -) 1 applic TP DAILY [facility] Last Admin: 07/23/17 12:10 Dose: 1 applic Ceftriaxone Sodium 1 gm/ (Dextrose) 100 mls @ 200 mls/hr IVPB DAILY@2200 [facility] Last Admin: 07/23/17 21:34 Dose: 200 mls/hr Vancomycin HCl (Vancomycin (Pre-Docked)) 250 mls @ 166.667 mls/hr IVPB Q24H [facility] Last Admin: 07/23/17 15:38 Dose: 166.667 mls/hr Insulin Aspart (Novolog Vial Sliding Scale -) 1 vial SQ ACHS [facility] PRN Reason: Protocol Last Admin: 07/24/17 07:33 Dose: Not Given Insulin Detemir (Levemir Vial) 10 units SQ HS [facility] Last Admin: 07/23/17 21:33 Dose: 10 units Lisinopril (Prinivil) 10 mg PO DAILY [facility] Last Admin: 07/24/17 10:07 Dose: 10 mg Metformin HCl (Glucophage -) 500 mg PO BID@0700,1630 [facility] Last Admin: 07/24/17 07:33 Dose: Not Given Rivaroxaban (Xarelto -) 20 mg PO DAILY [facility] Last Admin: 07/24/17 10:07 Dose: 20 mg - Objective Vital Signs: Vital Signs Temperature 97.9 F 07/23/17 18:00 Pulse Rate 66 07/23/17 22:00 Respiratory Rate 18 07/23/17 22:00 Blood Pressure 104/68 07/23/17 22:00 O2 Sat by Pulse Oximetry (%) 100 07/23/17 21:00 Constitutional: Yes: No Distress Cardiovascular: Yes: Regular Rate and Rhythm, S1, S2 Respiratory: Yes: Regular, Diminished Gastrointestinal: Yes: Normal Bowel Sounds, Soft. No: Tenderness Edema: No Integumentary: Yes: Other (+ R hip ulcer No drainage noted) Labs: CBC, BMP 07/24/17 06:00 07/24/17 06:00 INR, PTT INR 1.02 (0.82-1.09) 07/22/17 20:00 Assessment/Plan Infected R hip ulcer PCN allergy OBS Await c/s Continue empiric ceftriaxone/ vancomycin
[2017-07-24] MEDS: COLLAGENASE CLOSTRIDIUM HIST. 30 GRAMS TUBE TP SCH (11:25)
[2017-07-24 12:45] LABS: ERYTHROCYTE SEDIMENTATION RATE 35 mm/hr (0-30)
[2017-07-24] MEDS: VANCOMYCIN 1 GRAM (PRE-DOCKED) 250 ML IVPB SCH (14:34)
--- NOTE | 2017-07-24 15:34 | PN ---
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, Physician Chief Complaint: Right hip infected wound, UTI History of Present Illness: NAD, non verbal, awake in bed - Current Medication List Current Medications: Active Medications Acetaminophen (Tylenol -) 650 mg PO Q6H PRN PRN Reason: FEVER OR PAIN Amlodipine Besylate (Norvasc -) 5 mg PO DAILY [facility] Last Admin: 07/24/17 10:07 Dose: 5 mg Aspirin (Ecotrin -) 81 mg PO DAILY [facility] Last Admin: 07/24/17 10:07 Dose: 81 mg Atorvastatin Calcium (Lipitor -) 20 mg PO HS [facility] Last Admin: 07/23/17 21:32 Dose: 20 mg Carvedilol (Coreg -) 6.25 mg PO BID [facility] Last Admin: 07/24/17 10:07 Dose: 6.25 mg Collagenase (Santyl -) 1 applic TP DAILY [facility] Last Admin: 07/24/17 11:25 Dose: 1 applic Ceftriaxone Sodium 1 gm/ (Dextrose) 100 mls @ 200 mls/hr IVPB DAILY@2200 [facility] Last Admin: 07/23/17 21:34 Dose: 200 mls/hr Vancomycin HCl (Vancomycin (Pre-Docked)) 250 mls @ 166.667 mls/hr IVPB Q24H [facility] Last Admin: 07/24/17 14:34 Dose: 166.667 mls/hr Insulin Aspart (Novolog Vial Sliding Scale -) 1 vial SQ ACHS [facility] PRN Reason: Protocol Last Admin: 07/24/17 11:25 Dose: 2 unit Insulin Detemir (Levemir Vial) 10 units SQ [facility] Last Admin: 07/23/17 21:33 Dose: 10 units Lisinopril (Prinivil) 10 mg PO DAILY [facility] Last Admin: 07/24/17 10:07 Dose: 10 mg Metformin HCl (Glucophage -) 500 mg PO BID@0700,1630 [facility] Last Admin: 07/24/17 07:33 Dose: Not Given Rivaroxaban (Xarelto -) 20 mg PO DAILY [facility] Last Admin: 07/24/17 10:07 Dose: 20 mg - Objective Vital Signs: Vital Signs Temperature 98.4 F 07/24/17 14:43 Pulse Rate 62 07/24/17 14:43 Respiratory Rate 16 07/24/17 14:43 Blood Pressure 102/55 07/24/17 14:43 O2 Sat by Pulse Oximetry (%) 100 07/24/17 09:00 Constitutional: Yes: Well Nourished, No Distress, Calm Cardiovascular: Yes: Regular Rate and Rhythm Respiratory: Yes: Regular Gastrointestinal: Yes: Normal Bowel Sounds Musculoskeletal: Yes: WNL Extremities: Yes: Other (warm to touch around wound edges) Edema: No Peripheral Pulses WNL: Yes Integumentary: Yes: Pressure Ulcer (Right hip) Neurological: Yes: Alert, Pre-Existing Deficit Psychiatric: Yes: Alert Labs: CBC, BMP 07/24/17 06:00 07/24/17 06:00 INR, PTT INR 1.02 (0.82-1.09) 07/22/17 20:00 Problem List - Problems (1) Decubitus ulcer, buttock, right, unstageable Assessment/Plan: -chronic, was recently admitted for same 07/04 -IV abx WC- shows lactose fermenting GNB -ID consult -awaiting sensitivity Code(s): L89.310 - PRESSURE ULCER OF RIGHT BUTTOCK, UNSTAGEABLE (2) UTI (urinary tract infection) Code(s): N39.0 - URINARY TRACT INFECTION, SITE NOT SPECIFIED Qualifiers: Urinary tract infection type: acute cystitis Hematuria presence: without hematuria Qualified Code(s): N30.00 - Acute cystitis without hematuria (3) Wound infection Assessment/Plan: seen by Vascular on IV abx WC : Microbiology 07/23/17 12:50 Wound Culture - Preliminary Decubiti Non Lactose Fermenting Gnb 07/22/17 20:29 Urine Culture - Preliminary Urine - Urine Clean Catch Lactose Fermenting Neg Bacilli Non Lactose Fermenting Gnb 07/22/17 20:06 Blood Culture - Preliminary Blood - Peripheral Venous NO GROWTH OBTAINED AFTER 24 HOURS, INCUBATION TO CONTINUE FOR 4 DAYS. 07/22/17 20:06 Blood Culture - Preliminary Blood - Peripheral Venous NO GROWTH OBTAINED AFTER 24 HOURS, INCUBATION TO CONTINUE FOR 4 DAYS. Code(s): T14.8 - OTHER INJURY OF UNSPECIFIED BODY REGION L08.9 - LOCAL INFECTION OF THE SKIN AND SUBCUTANEOUS TISSUE, UNSP (4) Diabetes 1.5, managed as type 2 Code(s): E13.9 - OTHER SPECIFIED DIABETES MELLITUS WITHOUT COMPLICATIONS (5) Functional quadriplegia Code(s): R53.2 - FUNCTIONAL QUADRIPLEGIA Assessment/Plan see problem list
[2017-07-24] MEDS ORDERED: cefTRIAXone SODIUM 1 GM VIAL ONE (21:24)
[2017-07-24] MEDS ORDERED: DEXTROSE 5%-WATER 100 ML IVPB ONE (21:24)
[2017-07-24] MEDS: ATORVASTATIN CA 20 MG TABLET (FP) PO SCH (21:48)
[2017-07-24] MEDS: INSULIN DETEMIR 100 UNITS/ML MDV SQ SCH (21:48)
[2017-07-24] MEDS: CEFTRIAXONE 1 GM in DEXTROSE 5%-WATER 100 ML IVPB SCH (21:49)
[2017-07-25] MEDS: metFORMIN HCL 500 MG TABLET (FP) PO SCH (07:08)
[2017-07-25] MEDS: INSULIN SLIDING SCALE (NOVOLOG) 1 VIAL SQ SCH ×4 (07:08→21:51)
[2017-07-25] MEDS ORDERED: DEXTROSE 50%-WATER 50 ML DISP.SYRIN IVPUSH ONE ×2 (08:00→08:45)
[2017-07-25] MEDS ORDERED: DEXTROSE 50%-WATER 50 ML DISP.SYRIN ONE (08:26)
[2017-07-25] MEDS ORDERED: DEXTROSE 5%-0.45% SALINE 1,000 ML IV SCH (08:50)
[2017-07-25] MEDS ORDERED: PT OWN MED DRAWER 7, Y5N ONE (10:17)
--- NOTE | 2017-07-25 10:24 | PN ---
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, Physician Chief Complaint: Right hip infected wound, UTI History of Present Illness: NAD, non verbal, awake in bed - Current Medication List Current Medications: Active Medications Acetaminophen (Tylenol -) 650 mg PO Q6H PRN PRN Reason: FEVER OR PAIN Amlodipine Besylate (Norvasc -) 5 mg PO DAILY [facility] Last Admin: 07/24/17 10:07 Dose: 5 mg Aspirin (Ecotrin -) 81 mg PO DAILY [facility] Last Admin: 07/24/17 10:07 Dose: 81 mg Atorvastatin Calcium (Lipitor -) 20 mg PO HS [facility] Last Admin: 07/24/17 21:48 Dose: 20 mg Carvedilol (Coreg -) 6.25 mg PO BID [facility] Last Admin: 07/24/17 21:47 Dose: 6.25 mg Collagenase (Santyl -) 1 applic TP DAILY [facility] Last Admin: 07/24/17 11:25 Dose: 1 applic Ceftriaxone Sodium 1 gm/ (Dextrose) 100 mls @ 200 mls/hr IVPB DAILY@2200 [facility] Last Admin: 07/24/17 21:49 Dose: 200 mls/hr Vancomycin HCl (Vancomycin (Pre-Docked)) 250 mls @ 166.667 mls/hr IVPB Q24H [facility] Last Admin: 07/24/17 14:34 Dose: 166.667 mls/hr Dextrose/Sodium Chloride (D5-1/2ns -) 1,000 mls @ 75 mls/hr IV ASDIR [facility] Last Admin: 07/25/17 08:40 Dose: 75 mls/hr Insulin Aspart (Novolog Vial Sliding Scale -) 1 vial SQ ACHS [facility] PRN Reason: Protocol Last Admin: 07/25/17 07:08 Dose: Not Given Insulin Detemir (Levemir Vial) 10 units SQ HS [facility] Last Admin: 07/24/17 21:48 Dose: 10 units Lisinopril (Prinivil) 10 mg PO DAILY [facility] Last Admin: 07/24/17 10:07 Dose: 10 mg Metformin HCl (Glucophage -) 500 mg PO BID@0700,1630 [facility] Last Admin: 07/25/17 07:08 Dose: Not Given Rivaroxaban (Xarelto -) 20 mg PO DAILY [facility] Last Admin: 07/24/17 10:07 Dose: 20 mg - Objective Vital Signs: Vital Signs Temperature 97.4 F L 07/25/17 06:00 Pulse Rate 64 07/25/17 06:00 Respiratory Rate 20 07/25/17 06:00 Blood Pressure 114/79 07/25/17 06:00 O2 Sat by Pulse Oximetry (%) 100 07/24/17 21:00 Constitutional: Yes: Well Nourished, No Distress, Calm Cardiovascular: Yes: Regular Rate and Rhythm Respiratory: Yes: Regular Musculoskeletal: Yes: WNL Extremities: Yes: WNL Edema: No Peripheral Pulses WNL: Yes Neurological: Yes: Alert, Pre-Existing Deficit Psychiatric: Yes: Alert Labs: CBC, BMP 07/24/17 06:00 07/24/17 06:00 INR, PTT INR 1.02 (0.82-1.09) 07/22/17 20:00 Problem List - Problems (1) Decubitus ulcer, buttock, right, unstageable Assessment/Plan: -chronic, was recently admitted for same 07/04 -IV abx WC- shows lactose fermenting GNB -ID consult -awaiting sensitivity Code(s): L89.310 - PRESSURE ULCER OF RIGHT BUTTOCK, UNSTAGEABLE (2) UTI (urinary tract infection) Code(s): N39.0 - URINARY TRACT INFECTION, SITE NOT SPECIFIED Qualifiers: Urinary tract infection type: acute cystitis Hematuria presence: without hematuria Qualified Code(s): N30.00 - Acute cystitis without hematuria (3) Wound infection Assessment/Plan: seen by Vascular on IV abx WC : Microbiology 07/23/17 12:50 Wound Culture - Preliminary Decubiti Non Lactose Fermenting Gnb 07/22/17 20:29 Urine Culture - Preliminary Urine - Urine Clean Catch Lactose Fermenting Neg Bacilli Non Lactose Fermenting Gnb 07/22/17 20:06 Blood Culture - Preliminary Blood - Peripheral Venous NO GROWTH OBTAINED AFTER 24 HOURS, INCUBATION TO CONTINUE FOR 4 DAYS. 07/22/17 20:06 Blood Culture - Preliminary Blood - Peripheral Venous NO GROWTH OBTAINED AFTER 24 HOURS, INCUBATION TO CONTINUE FOR 4 DAYS. Code(s): T14.8 - OTHER INJURY OF UNSPECIFIED BODY REGION L08.9 - LOCAL INFECTION OF THE SKIN AND SUBCUTANEOUS TISSUE, UNSP (4) Diabetes 1.5, managed as type 2 Assessment/Plan: events noted overnight with low Blood glucose early AM. Levemir decreased to 8U HS Metformin decreased to 500 mg po daily on D5 12/03 N/S Code(s): E13.9 - OTHER SPECIFIED DIABETES MELLITUS WITHOUT COMPLICATIONS (5) Functional quadriplegia Code(s): R53.2 - FUNCTIONAL QUADRIPLEGIA Assessment/Plan see problem list
[2017-07-25] MEDS: ASPIRIN COATED 81 MG TABLET.EC PO SCH (10:28)
[2017-07-25] MEDS: amLODIPine BESYLATE 5 MG TABLET (FP) PO SCH (10:28)
[2017-07-25] MEDS: LISINOPRIL 10 MG TABLET (FP) PO SCH (10:28)
[2017-07-25] MEDS: RIVAROXABAN 20 MG TABLET PO SCH (10:28)
[2017-07-25] MEDS: CARVEDILOL 6.25 MG TABLET (FP) PO SCH ×2 (10:28→21:48)
[2017-07-25] MEDS: COLLAGENASE CLOSTRIDIUM HIST. 30 GRAMS TUBE TP SCH (10:29)
[2017-07-25] MEDS ORDERED: INSULIN (NOVOLOG) ASPART 100 UNITS/ML 10ML VIAL ONE ×2 (12:05→20:21)
[2017-07-25] MEDS: VANCOMYCIN 1 GRAM (PRE-DOCKED) 250 ML IVPB SCH (14:58)
--- NOTE | 2017-07-25 19:09 | PN ---
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, Physician History of Present Illness: Awake, confused No complaints Afebrile WBC WNL Wound c/s mixed Urine c/s c/w contamination - Current Medication List Current Medications: Active Medications Acetaminophen (Tylenol -) 650 mg PO Q6H PRN PRN Reason: FEVER OR PAIN Amlodipine Besylate (Norvasc -) 5 mg PO DAILY [facility] Last Admin: 07/25/17 10:28 Dose: 5 mg Aspirin (Ecotrin -) 81 mg PO DAILY [facility] Last Admin: 07/25/17 10:28 Dose: 81 mg Atorvastatin Calcium (Lipitor -) 20 mg PO HS [facility] Last Admin: 07/24/17 21:48 Dose: 20 mg Carvedilol (Coreg -) 6.25 mg PO BID [facility] Last Admin: 07/25/17 10:28 Dose: 6.25 mg Collagenase (Santyl -) 1 applic TP DAILY [facility] Last Admin: 07/25/17 10:29 Dose: 1 applic Ceftriaxone Sodium 1 gm/ (Dextrose) 100 mls @ 200 mls/hr IVPB DAILY@2200 [facility] Last Admin: 07/24/17 21:49 Dose: 200 mls/hr Vancomycin HCl (Vancomycin (Pre-Docked)) 250 mls @ 166.667 mls/hr IVPB Q24H [facility] Last Admin: 07/25/17 14:58 Dose: 166.667 mls/hr Dextrose/Sodium Chloride (D5-1/2ns -) 1,000 mls @ 75 mls/hr IV ASDIR [facility] Last Admin: 07/25/17 08:40 Dose: 75 mls/hr Insulin Aspart (Novolog Vial Sliding Scale -) 1 vial SQ ACHS [facility] PRN Reason: Protocol Last Admin: 07/25/17 17:28 Dose: Not Given Insulin Detemir (Levemir Vial) 8 units SQ HS [facility] Lisinopril (Prinivil) 10 mg PO DAILY [facility] Last Admin: 07/25/17 10:28 Dose: 10 mg Metformin HCl (Glucophage -) 500 mg PO DAILY@0700 [facility] Rivaroxaban (Xarelto -) 20 mg PO DAILY [facility] Last Admin: 07/25/17 10:28 Dose: 20 mg - Objective Vital Signs: Vital Signs Temperature 97.9 F 07/25/17 16:10 Pulse Rate 73 07/25/17 16:10 Respiratory Rate 20 07/25/17 16:10 Blood Pressure 137/61 07/25/17 16:10 O2 Sat by Pulse Oximetry (%) 95 07/25/17 09:00 Constitutional: Yes: No Distress Eyes: Yes: Conjunctiva Clear Cardiovascular: Yes: Regular Rate and Rhythm, S1, S2 Respiratory: Yes: CTA Bilaterally Gastrointestinal: Yes: Normal Bowel Sounds, Soft Extremities: Yes: Other (+ R hip ulcer) Edema: No Labs: CBC, BMP 07/24/17 06:00 07/24/17 06:00 INR, PTT INR 1.02 (0.82-1.09) 07/22/17 20:00 Assessment/Plan Infected R hip ulcer PCN allergy OBS Continue ceftriaxone/ vancomycin
[2017-07-25] MEDS ORDERED: cefTRIAXone SODIUM 1 GM VIAL ONE (20:22)
[2017-07-25] MEDS ORDERED: DEXTROSE 5%-WATER 100 ML IVPB ONE (20:22)
[2017-07-25] MEDS: CEFTRIAXONE 1 GM in DEXTROSE 5%-WATER 100 ML IVPB SCH (21:48)
[2017-07-25] MEDS: ATORVASTATIN CA 20 MG TABLET (FP) PO SCH (21:48)
[2017-07-25] MEDS: INSULIN DETEMIR 100 UNITS/ML MDV SQ SCH (21:52)
[2017-07-26] MEDS: INSULIN SLIDING SCALE (NOVOLOG) 1 VIAL SQ SCH ×4 (06:11→22:01)
[2017-07-26] MEDS ORDERED: metFORMIN HCL 500 MG TABLET (FP) PO SCH (07:00)
--- NOTE | 2017-07-26 10:26 | PN ---
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, Physician History of Present Illness: Awake but confused Offers no complaints Afebrile WBC WNL - Current Medication List Current Medications: Active Medications Acetaminophen (Tylenol -) 650 mg PO Q6H PRN PRN Reason: FEVER OR PAIN Amlodipine Besylate (Norvasc -) 5 mg PO DAILY [facility] Last Admin: 07/25/17 10:28 Dose: 5 mg Aspirin (Ecotrin -) 81 mg PO DAILY [facility] Last Admin: 07/25/17 10:28 Dose: 81 mg Atorvastatin Calcium (Lipitor -) 20 mg PO HS [facility] Last Admin: 07/25/17 21:48 Dose: 20 mg Carvedilol (Coreg -) 6.25 mg PO BID [facility] Last Admin: 07/25/17 21:48 Dose: 6.25 mg Collagenase (Santyl -) 1 applic TP DAILY [facility] Last Admin: 07/25/17 10:29 Dose: 1 applic Ceftriaxone Sodium 1 gm/ (Dextrose) 100 mls @ 200 mls/hr IVPB DAILY@2200 [facility] Last Admin: 07/25/17 21:48 Dose: 200 mls/hr Vancomycin HCl (Vancomycin (Pre-Docked)) 250 mls @ 166.667 mls/hr IVPB Q24H [facility] Last Admin: 07/25/17 14:58 Dose: 166.667 mls/hr Insulin Aspart (Novolog Vial Sliding Scale -) 1 vial SQ ACHS [facility] PRN Reason: Protocol Last Admin: 07/26/17 06:11 Dose: 2 unit Insulin Detemir (Levemir Vial) 8 units SQ HS [facility] Last Admin: 07/25/17 21:52 Dose: 8 unit Lisinopril (Prinivil) 10 mg PO DAILY [facility] Last Admin: 07/25/17 10:28 Dose: 10 mg Rivaroxaban (Xarelto -) 20 mg PO DAILY [facility] Last Admin: 07/25/17 10:28 Dose: 20 mg - Objective Vital Signs: Vital Signs Temperature 98.2 F 07/26/17 08:30 Pulse Rate 64 07/26/17 08:30 Respiratory Rate 16 07/26/17 08:30 Blood Pressure 136/62 07/26/17 08:30 O2 Sat by Pulse Oximetry (%) 95 07/25/17 21:00 Constitutional: Yes: No Distress Eyes: Yes: Conjunctiva Clear Cardiovascular: Yes: Regular Rate and Rhythm, S1, S2 Respiratory: Yes: CTA Bilaterally Gastrointestinal: Yes: Normal Bowel Sounds, Soft. No: Tenderness Edema: No Integumentary: Yes: Other (R hip ulcer unchanged in size Still with malodorous serous drainage) Labs: CBC, BMP 07/24/17 06:00 07/24/17 06:00 INR, PTT INR 1.02 (0.82-1.09) 07/22/17 20:00 Assessment/Plan Infected R hip ulcer PCN allergy OBS Substitute po antibiotics Keflex 500mg po qid x 7d Continue local wound care
[2017-07-26] MEDS: RIVAROXABAN 20 MG TABLET PO SCH (10:31)
[2017-07-26] MEDS: LISINOPRIL 10 MG TABLET (FP) PO SCH (10:31)
[2017-07-26] MEDS: ASPIRIN COATED 81 MG TABLET.EC PO SCH (10:31)
[2017-07-26] MEDS: CARVEDILOL 6.25 MG TABLET (FP) PO SCH ×2 (10:31→22:06)
[2017-07-26] MEDS: COLLAGENASE CLOSTRIDIUM HIST. 30 GRAMS TUBE TP SCH (10:32)
[2017-07-26] MEDS: amLODIPine BESYLATE 5 MG TABLET (FP) PO SCH (10:32)
--- NOTE | 2017-07-26 11:04 | PN ---
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, Physician Chief Complaint: Right hip infected wound, UTI History of Present Illness: NAD, non verbal, awake in bed - Current Medication List Current Medications: Active Medications Acetaminophen (Tylenol -) 650 mg PO Q6H PRN PRN Reason: FEVER OR PAIN Amlodipine Besylate (Norvasc -) 5 mg PO DAILY [facility] Last Admin: 07/26/17 10:32 Dose: 5 mg Aspirin (Ecotrin -) 81 mg PO DAILY [facility] Last Admin: 07/26/17 10:31 Dose: 81 mg Atorvastatin Calcium (Lipitor -) 20 mg PO HS [facility] Last Admin: 07/25/17 21:48 Dose: 20 mg Carvedilol (Coreg -) 6.25 mg PO BID [facility] Last Admin: 07/26/17 10:31 Dose: 6.25 mg Cephalexin HCl (Keflex -) 500 mg PO Q6HPO [facility] Collagenase (Santyl -) 1 applic TP DAILY [facility] Last Admin: 07/26/17 10:32 Dose: 1 applic Insulin Aspart (Novolog Vial Sliding Scale -) 1 vial SQ [facility] PRN Reason: Protocol Last Admin: 07/26/17 06:11 Dose: 2 unit Insulin Detemir (Levemir Vial) 8 units SQ [facility] Last Admin: 07/25/17 21:52 Dose: 8 unit Lisinopril (Prinivil) 10 mg PO DAILY [facility] Last Admin: 07/26/17 10:31 Dose: 10 mg Rivaroxaban (Xarelto -) 20 mg PO DAILY [facility] Last Admin: 07/26/17 10:31 Dose: 20 mg - Objective Vital Signs: Vital Signs Temperature 98.2 F 07/26/17 08:30 Pulse Rate 64 07/26/17 08:30 Respiratory Rate 16 07/26/17 08:30 Blood Pressure 136/62 07/26/17 08:30 O2 Sat by Pulse Oximetry (%) 95 07/25/17 21:00 Constitutional: Yes: Well Nourished, No Distress, Calm Cardiovascular: Yes: Regular Rate and Rhythm Respiratory: Yes: Regular Gastrointestinal: Yes: Normal Bowel Sounds Musculoskeletal: Yes: WNL Extremities: Yes: WNL Edema: No Peripheral Pulses WNL: Yes Neurological: Yes: Alert, Pre-Existing Deficit Psychiatric: Yes: Alert Labs: CBC, BMP 07/24/17 06:00 07/24/17 06:00 INR, PTT INR 1.02 (0.82-1.09) 07/22/17 20:00 Problem List - Problems (1) Decubitus ulcer, buttock, right, unstageable Assessment/Plan: -chronic, was recently admitted for same 07/04 -IV abx WC: Microbiology 07/22/17 20:06 Blood Culture - Preliminary Blood - Peripheral Venous NO GROWTH OBTAINED AFTER 72 HOURS, INCUBATION TO CONTINUE FOR 2 DAYS. 07/22/17 20:06 Blood Culture - Preliminary Blood - Peripheral Venous NO GROWTH OBTAINED AFTER 72 HOURS, INCUBATION TO CONTINUE FOR 2 DAYS. 07/23/17 12:50 Gram Stain - Final Decubiti Wound Culture - Final Proteus Mirabilis Staphylococcus Coagulase Neg 07/22/17 20:29 Urine Culture - Final Urine - Urine Clean Catch Klebsiella Pneumoniae Pseudomonas Aeruginosa -ID consult -awaiting sensitivity Code(s): L89.310 - PRESSURE ULCER OF RIGHT BUTTOCK, UNSTAGEABLE (2) UTI (urinary tract infection) Assessment/Plan: UC positive for pseudomonas aregunosa Code(s): N39.0 - URINARY TRACT INFECTION, SITE NOT SPECIFIED Qualifiers: Urinary tract infection type: acute cystitis Hematuria presence: without hematuria Qualified Code(s): N30.00 - Acute cystitis without hematuria (3) Wound infection Assessment/Plan: seen by Vascular on IV abx WC : Microbiology Microbiology 07/22/17 20:06 Blood Culture - Preliminary Blood - Peripheral Venous NO GROWTH OBTAINED AFTER 72 HOURS, INCUBATION TO CONTINUE FOR 2 DAYS. 07/22/17 20:06 Blood Culture - Preliminary Blood - Peripheral Venous NO GROWTH OBTAINED AFTER 72 HOURS, INCUBATION TO CONTINUE FOR 2 DAYS. 07/23/17 12:50 Gram Stain - Final Decubiti Wound Culture - Final Proteus Mirabilis Staphylococcus Coagulase Neg 07/22/17 20:29 Urine Culture - Final Urine - Urine Clean Catch Klebsiella Pneumoniae Pseudomonas Aeruginosa Code(s): T14.8 - OTHER INJURY OF UNSPECIFIED BODY REGION L08.9 - LOCAL INFECTION OF THE SKIN AND SUBCUTANEOUS TISSUE, UNSP (4) Diabetes 1.5, managed as type 2 Assessment/Plan: Levemir decreased to 8U HS Metformin decreased to 500 mg po daily monitor BGM's Code(s): E13.9 - OTHER SPECIFIED DIABETES MELLITUS WITHOUT COMPLICATIONS (5) Functional quadriplegia Code(s): R53.2 - FUNCTIONAL QUADRIPLEGIA Assessment/Plan see problem list
[2017-07-26 12:00] LABS: BASOPHIL 0.5 % (0-2.0); EOSINOPHIL 1.1 % (0-4.5); MCHC 32.6 g/dl (32.0-36.0); MEAN PLT VOLUME 8.9 fl (7.5-11.1); NEUTROPHILS 77.4 % (42.8-82.8); PLATELET COUNT 269 K/MM3 (134-434); RDW 14.5 % (11.6-15.6); WHITE BLOOD COUNT 8.6 K/mm3 (4.0-10.0)
[2017-07-26 12:25] LABS: ALBUMIN 1.9 g/dl (3.4-5.0); ALK PHOS 98 U/L (45-117); ANION GAP 5 (8-16); BILIRUBIN,TOTAL 0.2 mg/dL (0.2-1.0); CALCIUM 8.2 mg/dL (8.5-10.1); CO2 30 mmol/L (21-32); CREATININE 0.7 mg/dL (0.55-1.02); GLUCOSE,RANDOM 137 mg/dL (74-106); SGOT/AST 10 U/L (15-37); SGPT/ALT 9 U/L (12-78); TOT PROT 5.2 g/dl (6.4-8.2)
[2017-07-26] MEDS: CEPHALEXIN MONOHYDRATE 500 MG CAPSULE (UD) PO SCH ×2 (13:02→19:32)
[2017-07-26] MEDS ORDERED: INSULIN (NOVOLOG) ASPART 100 UNITS/ML 10ML VIAL ONE (21:03)
[2017-07-26] MEDS: ATORVASTATIN CA 20 MG TABLET (FP) PO SCH (22:06)
[2017-07-26] MEDS: INSULIN DETEMIR 100 UNITS/ML MDV SQ SCH (22:06)
[2017-07-27] MEDS: INSULIN SLIDING SCALE (NOVOLOG) 1 VIAL SQ SCH ×2 (06:05→11:12)
[2017-07-27] MEDS: CEPHALEXIN MONOHYDRATE 500 MG CAPSULE (UD) PO SCH ×3 (06:06→11:15)
[2017-07-27] MEDS ORDERED: PT OWN MED DRAWER 7, Y5N ONE (09:07)
[2017-07-27] MEDS: CARVEDILOL 6.25 MG TABLET (FP) PO SCH (09:15)
[2017-07-27] MEDS: ASPIRIN COATED 81 MG TABLET.EC PO SCH (09:15)
[2017-07-27] MEDS: LISINOPRIL 10 MG TABLET (FP) PO SCH (09:16)
[2017-07-27] MEDS: amLODIPine BESYLATE 5 MG TABLET (FP) PO SCH (09:16)
[2017-07-27] MEDS: RIVAROXABAN 20 MG TABLET PO SCH (09:16)
[2017-07-27] MEDS: COLLAGENASE CLOSTRIDIUM HIST. 30 GRAMS TUBE TP SCH (11:00)
[2017-07-27 12:10] VITALS: BP 159/72; PULSE 83; TEMP 97.3
--- NOTE | 2017-07-29 15:33 | DS ---
Physical Examination Vital Signs: Vital Signs Temperature 97.3 F L 07/27/17 08:45 Pulse Rate 83 07/27/17 08:45 Respiratory Rate 18 07/27/17 08:45 Blood Pressure 159/72 07/27/17 08:45 O2 Sat by Pulse Oximetry (%) 98 07/26/17 21:00 Labs: CBC, BMP 07/26/17 11:38 07/26/17 11:38 Discharge Summary Reason For Visit: CELLULITIS/LOCAL INFECTION OF WOUND Current Active Problems Decubitus ulcer, buttock, right, unstageable (Acute) Hypercapnia (Acute) Penicillin allergy (Acute) Stage II pressure ulcer (Acute) Type 2 diabetes mellitus with hyperosmolarity without nonketotic hyperglycemic- hyperosmolar coma ([facility]) (Acute) UTI (urinary tract infection) (Acute) Hospital Course: - Primary Care Physician PCP: Alisia Wolfe - Admission Chief Complaint: worsening wound infection History of Present Illness: 77yo Female patient w/ PmHx: HTN, HLD, DM, Dementia, CVA, CAD presented to ED by daughter c/o right hip pain w/ wound infection malodorous. Daughter states patient currently under the care of Dr. Srivastava for wound care. She states hip appear swollen but patient has not had a fall. Patient recently seen in this ED for similar symptoms 07/04/2017. Daughter denies fever, cough, congestion, n/v/d, or any other complaints at this time. PCP: Alisia Hernandez. 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: CVA (multiple CVAs), Dementia (vascular) Cardiovascular: Yes: CAD (multiple stents in past, last PCI in 2011 at [facility] (mLAD & pRCA)), Deep Vein Thrombosis (of left lower extremity diagnosed on 12/23/14, on Xarelto), HTN, Hyperlipdemia, Other (Pericardial effusion with tamponade s/p pericardial window) Gastrointestinal: Yes: Other Hepatobiliary: Yes: Cholecystitis (s/p past cholecystectomy) Renal/: Yes: Renal Inusuff Endocrine: Yes: Diabetes Mellitus - Past Surgical History Past Surgical History: Yes: Cholecystectomy seen by ID and vascular iv abx changed to po keflex Condition: Stable - Instructions Disposition: VNS/HOME HEALTH CARE - Home Medications Comprehensive Discharge Medication List: Ambulatory Orders Aspirin [Nancy Chewable Aspirin] 81 mg PO DAILY 06/05/16 Simvastatin [Zocor -] 20 mg PO HS 06/05/16 Acetaminophen [Tylenol .Regular Strength -] 650 mg PO Q4H PRN #0 tablet Amlodipine Besylate [Norvasc -] 5 mg PO DAILY tablet 05/31/17 Carvedilol [Coreg -] 6.25 mg PO BID tablet 05/31/17 Lisinopril [Prinivil] 10 mg PO DAILY tablet 05/31/17 Rivaroxaban [Xarelto -] 20 mg PO DAILY tablet 05/31/17 Collagenase Clostridium Hist. [Santyl -] 1 applic TP DAILY #60 grams 07/09/17 Metformin HCl [Glucophage -] 500 mg PO BID@0700,1630 #60 tablet 07/09/17 Acetaminophen [Tylenol .Regular Strength -] 650 mg PO Q6H PRN #0 tablet Amlodipine Besylate [Norvasc -] 5 mg PO DAILY tablet 07/27/17 Aspirin Coated [Ecotrin -] 81 mg PO DAILY tab 07/27/17 Atorvastatin Ca [Lipitor] 20 mg PO HS tablet 07/27/17 Carvedilol [Coreg -] 6.25 mg PO BID tablet 07/27/17 Cephalexin Monohydrate [Keflex -] 500 mg PO Q6HPO #28 cap 07/27/17 Collagenase Clostridium Hist. [Santyl -] 1 applic TP DAILY tube 07/27/17 Insulin (Levemir) [Levemir Vial] 8 units SQ HS ml 07/27/17 Insulin Sliding Scale [Novolog Vial Sliding Scale -] 1 vial SQ ACHS units 07/27 Lisinopril [Prinivil] 10 mg PO DAILY tablet 07/27/17 Metformin HCl [Glucophage -] 500 mg PO DAILY@0700 tablet 07/27/17 Rivaroxaban [Xarelto -] 20 mg PO DAILY tablet 07/27/17
== END 2017-07-27 15:26 | disposition home health service (06) | DRG 592 ==
LOC: JER 18:16 → JERBED 22:09 → UNDOADMIN 07-23 00:04 → JERBED 07-23 00:04 → J8W 07-23 02:47
PROVIDERS: ADMIT Family Medicine; ATTEND Family Medicine
DX: L89.310 Pressure ulcer of right buttock, unstageable (principal); R53.2 Functional quadriplegia; N39.0 Urinary tract infection, site not specified; L03.115 Cellulitis of right lower limb; I25.10 Atherosclerotic heart disease of native coronary artery without angina pectoris; E11.65 Type 2 diabetes mellitus with hyperglycemia; I10 Essential (primary) hypertension; E78.5 Hyperlipidemia, unspecified; F03.90 Unspecified dementia, unspecified severity, without behavioral disturbance, psychotic disturbance, mood disturbance, and anxiety; N28.9 Disorder of kidney and ureter, unspecified; B96.1 Klebsiella pneumoniae [K. pneumoniae] as the cause of diseases classified elsewhere; D72.828 Other elevated white blood cell count; Z88.0 Allergy status to penicillin; Z86.73 Personal history of transient ischemic attack (TIA), and cerebral infarction without residual deficits; Z86.718 Personal history of other venous thrombosis and embolism; Z95.5 Presence of coronary angioplasty implant and graft; Z79.4 Long term (current) use of insulin
CPT/HCPCS: 36415; 71010-TC; 80053; 81003; 83036; 83605; 85025; 85027; 85610; 85651; 86140; 87040; 87070; 87086; 87186; 87205; 93005; 93010; 99284-25

== ENCOUNTER 2017-07-29 17:19 | Emergency (ER) | payer OTHER ==
--- NOTE | 2017-07-29 17:57 | PDOC ---
Attending Attestation - Resident Resident Name: Edy Najera - ED Attending Attestation I have performed the following: I have examined & evaluated the patient, The case was reviewed & discussed with the resident, I agree w/resident's findings & plan, Exceptions are as noted - HPI HPI: 07/29/17 17:54 Hypoglycemic Event - Physicial Exam PE: 07/29/17 17:54 Awake Alert Oriented - Medical Decision Making 07/29/17 17:[address] Najera Assessment and Plan
--- NOTE | 2017-07-29 17:57 | PDOC ---
History of Present Illness - General Stated Complaint: LOW BLOOD SUGAR Time Seen by Provider: 07/29/17 17:53 History Source: Family Exam Limitations: Dementia - History of Present Illness Initial Comments: 07/29/17 18:21 Patient is a 77F with extensive history, including decubitus ulcer, hypoglycemia , CAD, multiple TIAs and baseline dementia, here today via EMS for hypoglycemia. Patient was recently discharged on Saturday with a decubitus ulcer that is currently receiving outpatient wound care and follow up. Patient' s daughter reports that nursing is evaluating and changing her dressings every day as needed. Patient's daughter reports being comfortable with outpatient follow up. Patient was given insulin this morning while still asleep, and did not eat all day as family left her to sleep assuming she was tired. She normallly takes levemir in the morning and metformin for her insulin. When EMS arrived, patient was unresponsive and had a blood glucose of 20. Patient was given D50 and repeat testing was 130. Patient's daughter reports that patient is back to baseline and has not noted any fevers, chills, or vomiting. Past History - Past Medical History Allergies/Adverse Reactions: Allergies Allergy/AdvReac Type Severity Reaction Status Date / Time Penicillins Allergy Verified 07/29/17 17:56 Home Medications: Ambulatory Orders Simvastatin [Zocor -] 20 mg PO HS 06/05/16 Acetaminophen [Tylenol .Regular Strength -] 650 mg PO Q4H PRN #0 tablet Amlodipine Besylate [Norvasc -] 5 mg PO DAILY tablet 05/31/17 Carvedilol [Coreg -] 6.25 mg PO BID tablet 05/31/17 Lisinopril [Prinivil] 10 mg PO DAILY tablet 05/31/17 Rivaroxaban [Xarelto -] 20 mg PO DAILY tablet 05/31/17 Collagenase Clostridium Hist. [Santyl -] 1 applic TP DAILY #60 grams 07/09/17 Aspirin Coated [Ecotrin -] 81 mg PO DAILY tab 07/27/17 Atorvastatin Ca [Lipitor] 20 mg PO HS tablet 07/27/17 Insulin (Levemir) [Levemir Vial] 8 units SQ HS ml 07/27/17 Insulin Sliding Scale [Novolog Vial Sliding Scale -] 1 vial SQ ACHS units 07/27 Metformin HCl [Glucophage -] 500 mg PO DAILY@0700 tablet 07/27/17 Anemia: No Asthma: No Cancer: No Cardiac Disorders: Yes (cardiac tamponade, stents,pericardial effusion, CAD, aortic stenosis) CVA: Yes (Mult.TIA's) COPD: No CHF: No Dementia: Yes Diabetes: Yes GI Disorders: No Disorders: No HTN: Yes Hypercholesterolemia: Yes Liver Disease: (cholecystitis) Seizures: No Thyroid Disease: No - Surgical History Abdominal Surgery: Yes Appendectomy: No Cardiac Surgery: No Cholecystectomy: Yes Lung Surgery: No Neurologic Surgery: No Orthopedic Surgery: No - Immunization History Td Vaccination: Yes Immunization Up to Date: Yes - Psycho/Social/Smoking Cessation Hx Anxiety: No Suicidal Ideation: No Smoking Status: No Smoking History: Unknown if ever smoked Have you smoked in the past 12 months: No Number of Cigarettes Smoked Daily: 0 Hx Alcohol Use: No Drug/Substance Use Hx: No Substance Use Type: None Hx Substance Use Treatment: No Review of Systems - Review of Systems Able to Perform ROS?: No (2/2 dementia) *Physical Exam - Physical Exam Comments: 07/29/17 18:26 GENERAL: Awake, alert, non-communicative, in no acute distress HEAD: No signs of trauma, normocephalic, atraumatic EYES: PERRLA, sclera anicteric, conjunctiva clear ENT: Auricles normal inspection, nares patent, oropharynx clear without exudates. LUNGS: No distress, clear to auscultation bilaterally HEART: Regular rate and rhythm, normal S1 and S2, no murmurs, rubs or gallops, peripheral pulses normal and equal bilaterally. ABDOMEN: Soft, nontender, normoactive bowel sounds. No guarding, no rebound. No masses EXTREMITIES: Normal inspection, Normal range of motion, no edema. No clubbing or cyanosis. R HIP: Recently bandaged and clean wound dressing. SKIN: Warm, Dry, normal turgor, no rashes or lesions noted. Medical Decision Making - Medical Decision Making 07/29/17 18:28 77F with extensive medical history, including decubitus ulcer currently in outpatient treatment, episodes of hypoglycemia, CAD, and many more, here today complaining of hypoglycemia. Vital signs normal and stable. Initial glucose of 130. Hypoglycemia is due to patient getting insulin then not eating. Talked with patient's daughter about using insulin, and she expressed understanding. Another family member inappropriately dosed the insulin, daughter will educated family members on proper insulin use. Will PO challenge and repeat blood sugar 1 hour after presentation. PO challenge passed, pending POC blood glucose. 07/29/17 19:06 BGM 80. Will feed patient more before attempting discharge. 07/29/17 19:[address] Joseph. *DC/Admit/Observation/Transfer Diagnosis at time of Disposition: Hypoglycemia - Referrals Referrals: Julio C Campbell MD [Primary Care Provider] -
[2017-07-29 18:10] VITALS: BMI 26.6
--- NOTE | 2017-07-29 20:08 | PDOC ---
*Physical Exam - Vital Signs Last Vital Signs Temp Pulse Resp BP Pulse Ox 74 20 170/74 96 07/29/17 17:59 07/29/17 17:59 07/29/17 17:59 07/29/17 17:59 - Physical Exam General Appearance: Yes: Nourished, Appropriately Dressed HEENT: positive: EOMI, KOURTNEY Neck: positive: Tender, Supple Respiratory/Chest: positive: Lungs Clear, Normal Breath Sounds Cardiovascular: positive: Regular Rhythm, Regular Rate Integumentary: positive: Normal Color, Dry, Warm ED Treatment Course - ADDITIONAL ORDERS Additional order review: Laboratory Results 07/29/17 18:55 POC Glucometer [id number] 07/29/17 18:55 POC Glucometer [id number] Medical Decision Making - Medical Decision Making 07/29/17 20:08 Patient is a 77 y.o. female who presents for hypoglycemia 2/2 to limited PO intake today. At presentation patient's BS was 130 (BS 20 at time of EMS arriving at patient's home patient given D50 en route to hospital). During course of admission patient was tolerated PO intake and per daughter (@ bedside ) @ time of discharge patient was at her mental baseline. Repeat BS was 117 and patient was discharged home with instruction to return to the ED should she experience chest pain, shortness of breath or AMS. *DC/Admit/Observation/Transfer Diagnosis at time of Disposition: Hypoglycemia - Discharge Dispostion Admit: No - Referrals Referrals: Julio C Campbell MD [Primary Care Provider] - - Patient Instructions Printed Discharge Instructions: DI for High Blood Pressure, Hypoglycemia Additional Instructions: You were treated in the Emergency Department today for low blood sugar. Please follow up with you PCP in 3-5 days. Please return to the Emergency - Post Discharge Activity
[2017-07-29 21:56] VITALS: BP 150/76; PULSE 70; TEMP 97.9
== END 2017-07-29 21:40 | disposition home or self-care (01) ==
LOC: JER 17:19
DX: E11.649 Type 2 diabetes mellitus with hypoglycemia without coma (principal); Z79.4 Long term (current) use of insulin; Z79.84 Long term (current) use of oral hypoglycemic drugs; I25.10 Atherosclerotic heart disease of native coronary artery without angina pectoris; I10 Essential (primary) hypertension; Z95.5 Presence of coronary angioplasty implant and graft; E78.00 Pure hypercholesterolemia, unspecified; I35.0 Nonrheumatic aortic (valve) stenosis; Z86.73 Personal history of transient ischemic attack (TIA), and cerebral infarction without residual deficits; Z79.01 Long term (current) use of anticoagulants
CPT/HCPCS: 99283-25

== ENCOUNTER 2018-05-22 20:32 | Inpatient (IN) | payer OTHER ==
--- NOTE | 2018-05-22 20:47 | PDOC ---
History of Present Illness - General Stated Complaint: AMS Time Seen by Provider: 05/22/18 20:47 - History of Present Illness Initial Comments: 77 year old female patient with PMH of cardiac tamponade, HTN, HLD, DM, Dementia, CVA, CAD, presenting with right hip pain, malodorous urine, and altered behavior for the past few days. Per daughter at bedside, the patient has been lethargic and acting differently over the past few days. Her baseline is non-ambulatory and demented with AO x1 on most days. Over the past few days the daughter has also noticed worsening urine odor as well. She denies fevers, chills, nausea, vomiting, diarrhea, constipation, chest pain, SOB or other symptoms. 05/22/18 20:55 Past History - Past Medical History Allergies/Adverse Reactions: Allergies Allergy/AdvReac Type Severity Reaction Status Date / Time Penicillins Allergy Verified 07/29/17 17:56 Home Medications: Ambulatory Orders Simvastatin [Zocor -] 20 mg PO HS 06/05/16 Acetaminophen [Tylenol .Regular Strength -] 650 mg PO Q4H PRN #0 tablet Amlodipine Besylate [Norvasc -] 5 mg PO DAILY tablet 05/31/17 Carvedilol [Coreg -] 6.25 mg PO BID tablet 05/31/17 Lisinopril [Prinivil] 10 mg PO DAILY tablet 05/31/17 Rivaroxaban [Xarelto -] 20 mg PO DAILY tablet 05/31/17 Aspirin Coated [Ecotrin -] 81 mg PO DAILY tab 07/27/17 Insulin Sliding Scale [Novolog Vial Sliding Scale -] 1 vial SQ ACHS units 07/27 metFORMIN HCL [Glucophage -] 500 mg PO DAILY@0700 tablet 07/27/17 Mupirocin Cream [Bactroban 2% Cream -] 1 applic TP DAILY #1 tube 08/09/17 Amlodipine Besylate [Norvasc -] 5 mg PO DAILY tablet 05/27/18 Aspirin Coated [Ecotrin -] 81 mg PO DAILY tablet.ec 05/27/18 Aspirin/Dipyridamole [Aggrenox -] 1 combo PO BID capsule 05/27/18 Aspirin/Dipyridamole [Aggrenox -] 1 combo PO BID #60 capsule 06/26/18 Insulin Detemir [Levemir Flextouch] 100 unit SQ BID #4 insuln.pen 05/27/18 Rivaroxaban [Xarelto -] 20 mg PO DAILY@1800 tablet 05/27/18 Anemia: No Asthma: No Cancer: No Cardiac Disorders: Yes (cardiac tamponade, stents,pericardial effusion, CAD, aortic stenosis) CVA: Yes (Mult.TIA's) COPD: No CHF: No Dementia: Yes Diabetes: Yes GI Disorders: No Disorders: No HTN: Yes Hypercholesterolemia: Yes Liver Disease: (cholecystitis) Seizures: No Thyroid Disease: No - Surgical History Abdominal Surgery: Yes Appendectomy: No Cardiac Surgery: No Cholecystectomy: Yes Lung Surgery: No Neurologic Surgery: No Orthopedic Surgery: No - Immunization History Td Vaccination: Yes Immunization Up to Date: Yes - Suicide/Smoking/Psychosocial Hx Smoking Status: No Smoking History: Unknown if ever smoked Have you smoked in the past 12 months: No Number of Cigarettes Smoked Daily: 0 Hx Alcohol Use: No Drug/Substance Use Hx: No Substance Use Type: None Hx Substance Use Treatment: No Review of Systems - Review of Systems Constitutional: No: Chills, Diaphoresis, Night Sweats HEENTM: No: Blurred Vision, Recent change in vision Respiratory: No: Cough, Orthopnea, Shortness of Breath Cardiac (ROS): No: Chest Pain, Edema ABD/GI: No: Diarrhea, Nausea, Vomiting : No: Burning, Dysuria Integumentary: No: Bruising, Dryness, Lesions, Lumps, Rash Neurological: Yes: Pre-Existing Deficit, Weakness. No: Headache, Numbness Psychiatric: No: Anxiety, Depression Hematologic/Lymphatic: Yes: Blood Clots. No: Anemia *Physical Exam - Physical Exam General Appearance: Yes: Appropriately Dressed, Thin. No: Nourished, Apparent Distress HEENT: positive: EOMI, KOURTNEY, Normal ENT Inspection Neck: positive: Trachea midline, Normal Thyroid, Supple. negative: Tender, Rigid Respiratory/Chest: positive: Lungs Clear, Normal Breath Sounds. negative: Chest Tender, Respiratory Distress, Accessory Muscle Use Cardiovascular: positive: Regular Rhythm, Regular Rate Gastrointestinal/Abdominal: positive: Normal Bowel Sounds, Flat, Soft. negative : Tender Lymphatic: negative: Adenopathy, Tenderness Musculoskeletal: positive: Decreased Range of Motion (spatic lower extremtiy with mobile upper extremity). negative: Normal Inspection Extremity: positive: Normal Capillary Refill. negative: Normal Inspection, Normal Range of Motion, Tender Integumentary: positive: Normal Color, Dry, Warm Neurologic: negative: Fully Oriented, Alert, Normal Mood/Affect, Motor Strength 04/05 ED Treatment Course - LABORATORY CBC & Chemistry Diagram: 05/24/18 06:00 05/24/18 06:30 Medical Decision Making - Medical Decision Making 78 year old female with PMH of dementia and CVAs presenting with altered mental status in the setting of malodorous urine. High suspicion for UTI induced AMS/ delirium. Bob mccormack was called upon arrival of the patient because of history of CVAs and presentation, however, patient outside the window, imaging negative , and UTI is more likely the cause. Patient signed out to Dr. Welch pending further workup and admission. *DC/Admit/Observation/Transfer Diagnosis at time of Disposition: UTI (lower urinary tract infection), Delirium Dementia Qualifiers: Dementia type: Alzheimer's disease Dementia behavioral disturbance: with behavioral disturbance - Discharge Dispostion Disposition: [facility] Condition at time of disposition: Guarded - Prescriptions - Referrals - Patient Instructions - Post Discharge Activity
--- NOTE | 2018-05-22 21:00 | PDOC ---
Attending Attestation - HPI HPI: 05/22/18 21:06 The patient is a 78 year old female with a significant PMH of cardiac tamponade , stents, pericardial effusion, CAD, aortic stenosis, multiple TIAs, dementia, DM, HTN, HLD, and cholecystitis who presents to the emergency department with altered mental status for the past two days. The patients daughter is at bedside and providing the history. As per the daughter, the patient has been lethargic over the last few days. At presentation, the patients legs are contracted. The daughter states the patient does not ambulate and is demented at baseline. The patient has a history of multiple TIAs and one CVA. As per the daughter, the patient has recurrent UTIs and has been having foul smelling urine over the past few days. The patient is not currently wearing her dentures. Allergies: NKA Past surgical history: abdominal surgery and cholecystectomy Social history: No reported alcohol, drug, or cigarette use. PCP: Dr. Campbell - Physicial Exam PE: 05/22/18 21:06 Constitutional: (+) Non verbal and not following commands. Head: Normocephalic. Atraumatic Eyes: PERRL. EOMI. Conjunctivae are not pale. ENT: Mucous membranes are moist and intact. Posterior pharynx without exudates or erythema. Uvula midline. Neck: Supple. Full ROM. No lymphadenopathy. Cardiovascular: Regular rate. Regular rhythm. S1, S2 regular. Distal pulses are 2+ and symmetric. Pulmonary/Chest: (+) Poor inspiratory effort. No evidence of respiratory distress. Clear to auscultation bilaterally No wheezing, rales or rhonchi. Abdominal: Soft and non-distended. There is no tenderness. No rebound, guarding or rigidity. No organomegaly. No palpable masses. Good bowel sounds. Back: No CVA tenderness. Musculoskeletal: (+) Lower extremities are contracted, but moving upper extremities. No edema. No cyanosis. No clubbing. Radial/pedal pulses are intact and 2+ bilaterally Skin: (+) Wound on the sacrum. Skin is warm and dry. No petechiae. No purpura. Neurological: No focal lateral weakness. <Corinna Contreras - Last Filed: 05/22/18 21:06> - Resident Resident Name: Nishi Lopez - ED Attending Attestation I have performed the following: I have examined & evaluated the patient, The case was reviewed & discussed with the resident, I agree w/resident's findings & plan, Exceptions are as noted - Medical Decision Making 05/22/18 21:00 I, Dr. Courtney Welch, DO, attest that this document has been prepared under my direction and personally reviewed by me in its entirety. I further attest, that it accurately reflects all work, treatment, procedures and medical decision -making performed by me. 05/22/18 21:10 a/p: 78yo female with 2 days of AMS and lethargy and malodorous urine -hx of cva and uti -on xarelto -code gonzalez activated upon arrival for concern for acute stroke - however symptoms have been going on for 2 days -not a TPA candidate -chronic weakness to legs - bedbound or wheelchair at baseline, unable to ambulate, hx of hip fracture -pt is altered but without a focal neuro finding -suspect UTI with hx of dementia and cva in the past 05/22/18 22:53 UTI on labs altered MS will need admission to [facility] for further eval case discussed with SYMPHONY <Courtney Welch - Last Filed: 05/22/18 22:54> Discharge Disposition - Discharge Dispostion Last Admission D/C Date: 07/27/17 Decision to Admit order: Yes <Courtney Welch - Last Filed: 05/22/18 22:54> - Diagnosis UTI (lower urinary tract infection), Delirium Dementia Qualifiers: Dementia type: Alzheimer's disease Dementia behavioral disturbance: with behavioral disturbance - Discharge Dispostion Condition at time of disposition: Guarded - Referrals Referrals: Julio C Campbell MD [Primary Care Provider] - - Patient Instructions - Post Discharge Activity tPA Exclusion checklist 3-4.5h - Time Elapsed Date last known well: 05/20/18 - Thrombolytic Therapy Candidate Is patient eligible for thrombolytic therapy: No - Ineligibility reason(s) Reasons No tPA given: Outside of window - delayed arrival (xarelto and 2 days of symptoms) <Courtney Welch - Last Filed: 05/22/18 22:54>
[2018-05-22 21:20] LABS: URINE APPEARANCE CLOUDY; URINE BILIRUBIN NEGATIVE (<2.0 mg/dL); URINE COLOR AMBER; URINE GLUCOSE (UA) NEGATIVE (NEGATIVE); URINE KETONE NEGATIVE (NEGATIVE); URINE NITRITE NEGATIVE (NEGATIVE); URINE UROBILINOGEN 4.0 E.U/dl mg/dL (0.2-1.0)
[2018-05-22 21:24] LABS: URINE LEUK ESTERASE 3+ (NEGATIVE); URINE PROTEIN 1+ (NEGATIVE)
[2018-05-22 21:25] LABS: BASO % 0.8 % (0-2.0); EOS % 0.9 % (0-4.5); HEMATOCRIT 31.2 % (32.4-45.2); HEMOGLOBIN 10.3 GM/dL (10.7-15.3); LYMPH % 12.5 % (8-40); MCH 28.8 pg (25.7-33.7); MEAN CELL VOLUME 87.3 fl (80-96); MEAN PLT VOLUME 7.7 fl (7.5-11.1); MONO % 5.2 % (3.8-10.2); NEUT % 80.6 % (42.8-82.8); PLATELET COUNT 348 K/MM3 (134-434); RBC 3.57 M/mm3 (3.60-5.2); RDW 14.8 % (11.6-15.6); WHITE BLOOD COUNT 8.4 K/mm3 (4.0-10.0)
--- NOTE | 2018-05-22 21:25 | PDOC ---
NIH Stroke Scale - Last Known Well Date/Time & Onset Date Last Known Well: 05/20/18 Time Last Known Well: 03:00 - Initial Evaluation Level of consciousness: Alert Ask patient the month and their age: Both incorrect Ask patient to open & close eyes; make fist and let go: Both incorrect Best gaze (horizontal eye movement): Normal Visual field testing: No visual field loss Facial paresis (Show teeth/raise eyebrows/close eyes tight): Normal symmetrical movement Motor Function: Left Arm: Untestable (Joint fused orlimb amputated), explain: Motor Function: Right Arm: Untestable (Joint fused or limb amputated), explain : (Does not follow commands and is slightly contracted in all foru extremties but can push and pull against redirection) Motor Function: Left Leg: Untestable (Joint fused or limb amputated), explain: Motor Function: Right Leg: Untestable )Joint fused orlimb amputated), explain: Limb Ataxia: Untestable (Joint fused or limb amputated), explain: Sensory(Use pinprick test arms,legs,trunk,face/side to side): Normal Best language (Describe picture, name items, read sentences): Mild to moderate aphasia Dysarthria (read several words): Near unintelligible or unable to speak Extinction and Inattention: No abnormality (Joshua is overall demented and uncooperatie. Only occasionally makes semi-intelligble speech. Her speech is semi-intelligble at baseline.) - Total Score NIH Stroke Scale Score: 7
[2018-05-22 21:26] LABS: EPI CELLS RARE /HPF (FEW); URINE BACTERIA RARE /hpf (NONE SEEN); URINE MUCUS RARE
[2018-05-22 21:37] VITALS: BMI 21.9
[2018-05-22 21:48] LABS: INR 1.04 (0.82-1.09); PROTHROMBIN TIME (PATIENT) 11.8 SEC (9.7-13.0)
[2018-05-22 22:00] LABS: ALBUMIN 2.7 g/dl (3.4-5.0); ALK PHOS 100 U/L (45-117); ANION GAP 7 (8-16); BILIRUBIN,TOTAL 0.4 mg/dL (0.2-1.0); BLOOD UREA NITROGEN 32 mg/dL (7-18); CALCIUM 8.6 mg/dL (8.5-10.1); CHLORIDE 105 mmol/L (98-107); CHOLESTEROL 150 mg/dL (50-200); CO2 30 mmol/L (21-32); CREATININE 0.7 mg/dL (0.55-1.02); GLUCOSE,RANDOM 179 mg/dL (74-106); HDL CHOLESTEROL 38 mg/dL (40-60); POTASSIUM 3.9 mmol/L (3.5-5.1); SGOT/AST 7 U/L (15-37); SGPT/ALT 9 U/L (12-78); SODIUM 142 mmol/L (136-145); TOT PROT 6.7 g/dl (6.4-8.2); TRIGLYCERIDES 88 mg/dL (35-160)
[2018-05-22] MEDS ORDERED: SODIUM CHLORIDE 1,000 ML IV STA (22:04)
[2018-05-22] MEDS: SODIUM CHLORIDE 1,000 ML IV SCH (22:26)
--- NOTE | 2018-05-22 22:51 | PN ---
Teaching Attending Note Name of Resident: Yee Boyer ATTENDING PHYSICIAN STATEMENT I saw and evaluated the patient. I reviewed the resident's note and discussed the case with the resident. I agree with the resident's findings and plan as documented. SUBJECTIVE: Patient is an 78 year old woman with a significant PMH of cardiac tamponade, cardiac stents, pericardial effusion, CAD, aortic stenosis, multiple TIAs, dementia, DM, HTN, HLD, and cholecystitis who presents to the emergency department with altered mental status (less communicative) for the past two days. The patients daughter is at bedside and providing the history. As per the daughter, the patient has been lethargic over the last few days. The daughter states the patient does not ambulate and she has limb contractures. Patient has a history of multiple TIAs and one CVA. As per the daughter, the patient has recurrent UTIs and has had foul smelling urine over the past few days. OBJECTIVE: Alert and in no acute distress. Nonverbal. Vital Signs Period Temp Pulse Resp BP Sys/Hoffman Pulse Ox Last 24 Hr 98.5 F 85 18 119/63 95 HEENT: No Jaundice, eye redness or discharge, PERRLA, EOMI. Edentulous - uses dentures. Normocephalic, atraumatic. External ears are normal and hearing is grossly intact. No nasal discharge. Neck: Supple, nontender. No palpable adenopathy or thyromegaly. No JVD Chest: Good effort. Clear to auscultation and percussion. Heart: Regular. No S3, rub or murmur Abdomen: Not distended, soft, nontender and no HSM. No rebound or guarding. Normoactive bowel sounds. Has diapers. Multiple stage 1 sacral and buttock decubitus ulcers. Ext: Peripheral pulses intact. No leg edema. Skin: Warm and dry. No petechiae, rash or ecchymosis. Neuro: Alert. dementia. Able to nod or shake head to questions. Limb flexion contractures. Sensation grossly intact in all four extremities. Current Medications Generic Name Dose Route Start Last Admin Trade Name Freq PRN Reason Stop Dose Admin Sodium Chloride 1,000 mls @ 42 mls/hr 05/22/18 20:45 05/22/18 22:26 Normal Saline - IV 42 mls/hr ASDIR CHANDLER Administration Levofloxacin 750 mg in 150 mls @ 100 mls/hr 05/22/18 22:02 05/22/18 22:19 Levaquin 750 Mg Premixed Ivpb - IVPB 05/22/18 23:31 100 mls/hr ONCE ONE Administration Protocol Sodium Chloride 1,000 mls @ 1,000 mls/hr 05/22/18 22:04 05/22/18 22:19 Normal Saline - IV 05/22/18 23:03 1,000 mls/hr ASDIR STA Administration Home Medications Medication Instructions Recorded Simvastatin [Zocor -] 20 mg PO HS 06/05/16 Acetaminophen [Tylenol .Regular 650 mg PO Q4H PRN #0 tablet 05/31/17 Strength -] Amlodipine Besylate [Norvasc -] 5 mg PO DAILY tablet 05/31/17 Carvedilol [Coreg -] 6.25 mg PO BID tablet 05/31/17 Lisinopril [Prinivil] 10 mg PO DAILY tablet 05/31/17 Rivaroxaban [Xarelto -] 20 mg PO DAILY tablet 05/31/17 Aspirin Coated [Ecotrin -] 81 mg PO DAILY tab 07/27/17 Atorvastatin Ca [Lipitor] 20 mg PO HS tablet 07/27/17 Insulin (Levemir) [Levemir Vial] 8 units SQ HS ml 07/27/17 Insulin Sliding Scale [Novolog 1 vial SQ ACHS units 07/27/17 Vial Sliding Scale -] metFORMIN HCL [Glucophage -] 500 mg PO DAILY@0700 tablet 07/27/17 Mupirocin Cream [Bactroban 2% 1 applic TP DAILY #1 tube 08/09/17 Cream -] Abnormal Lab Results 05/22/18 05/22/18 05/22/18 21:03 21:03 21:03 RBC 3.57 L Hgb 10.3 L Hct 31.2 L Anion Gap 7 L BUN 32 H Random Glucose 179 H AST 7 L ALT 9 L Albumin 2.7 L Total LDL Cholesterol 101 H HDL Cholesterol 38 L Urine Protein 1+ H Urine Urobilinogen 4.0 e.u/dl H Ur Leukocyte Esterase 3+ H ASSESSMENT AND PLAN: 1. Delirium superimposed on Dementia - May be explained by UTI, but she does not have significant pyuria. Dehydration, electrolyte abnomality or natural progression/course of dementia may explain her AMS. Will continue IV levaquin pending urine culture, and check phosphate and magnesium levels. Continue with gentle rehydration and get brain MRI if AMS fails to resolve. 2. Anemia - Do basic anemia workup. 3. BALDEV - May signal dehydration. Gentle rehydration and avoid nephrotoxins. 4. Dementia/Scacral decubitus ulcers - Continue daily wound care and frequent repositioning. 5. DM - Hold Metformin and do sliding scale. 6. DVT prophylaxis - Patient on Xarelto for unclear reason. Will verify from family and PCP. 7. Advance directives - Full code
--- NOTE | 2018-05-22 23:54 | HP ---
CHIEF COMPLAINT: AMS PCP: Dr Patel HISTORY OF PRESENT ILLNESS: The patient is nonverbal, not following commands. History is taken from medical records. No family was present at bedside when I saw the patient. She presented to the hospital today brought by her daughter from home. She is 78 year old female with a PMH of recurrent UTIs, multiple TIA, dementia, DMII, HTN, CAD (multiple stents in past, last PCI in 2011 at [facility], Deep Vein Thrombosis (of left lower extremity diagnosed on 12/23/14, on Xarelto), Hyperlipdemia, pericardial effusion with tamponade s/p pericardial window. She presented with altered mental status for 2 days, she was less communicative. The daughter states the patient does not ambulate and is demented at baseline. As per the daughter, the patient has recurrent UTIs and has been having foul smelling urine over the past few days. Upon arrival to the hospital stroke code was initiated. ER course was notable for: (1)CXR (2)CT head (3)CBC, CMP, UA PAST MEDICAL HISTORY: as above PAST SURGICAL HISTORY: as above Social History: Smoking:no Alcohol:no Drugs: no Family History: N/A Allergies Penicillins Allergy (Verified 07/29/17 17:56) HOME MEDICATIONS: Home Medications Medication Instructions Recorded Simvastatin [Zocor -] 20 mg PO HS 06/05/16 Acetaminophen [Tylenol .Regular 650 mg PO Q4H PRN #0 tablet 05/31/17 Strength -] Amlodipine Besylate [Norvasc -] 5 mg PO DAILY tablet 05/31/17 Carvedilol [Coreg -] 6.25 mg PO BID tablet 05/31/17 Lisinopril [Prinivil] 10 mg PO DAILY tablet 05/31/17 Rivaroxaban [Xarelto -] 20 mg PO DAILY tablet 05/31/17 Aspirin Coated [Ecotrin -] 81 mg PO DAILY tab 07/27/17 Insulin Sliding Scale [Novolog 1 vial SQ ACHS units 07/27/17 Vial Sliding Scale -] metFORMIN HCL [Glucophage -] 500 mg PO DAILY@0700 tablet 07/27/17 Mupirocin Cream [Bactroban 2% 1 applic TP DAILY #1 tube 08/09/17 Cream -] Insulin (Levemir) [Levemir Vial] 12 units SQ HS 05/22/18 REVIEW OF SYSTEMS: The patient is not able to provide ROS. PHYSICAL EXAMINATION: Vital Signs - 24 hr 05/22/18 20:33 Temperature 98.5 F Pulse Rate 85 Respiratory 18 Rate Blood Pressure 119/63 O2 Sat by Pulse 95 Oximetry (%) GENERAL: Awake, alert, and fully oriented, in no acute distress, lying comfortably in bed. HEAD: Normal with no signs of trauma. EYES: Pupils equal, round and reactive to light, extraocular movements not assessed, sclera anicteric, conjunctiva clear. EARS, NOSE, THROAT: Ears normal, nares patent, oropharynx clear without exudates. Moist mucous membranes. NECK: Normal range of motion, supple without lymphadenopathy, JVD, or masses. LUNGS: Breath sounds equal, clear to auscultation bilaterally. No wheezes, and no crackles. No accessory muscle use. HEART: Regular rate and rhythm, normal S1 and S2 without murmur, rub or gallop. ABDOMEN: Soft, nontender, not distended, normoactive bowel sounds, no guarding, no rebound, no masses. No hepatomegaly or splenomegaly. MUSCULOSKELETAL: Normal range of motion at all joints. No bony deformities or tenderness. No CVA tenderness. UPPER EXTREMITIES: 2+ pulses, warm, no peripheral edema. LOWER EXTREMITIES: 2+ pulses, no peripheral edema. NEUROLOGICAL: Not following commands. SKIN: Warm, dry, normal turgor, multiple stage 1 ulcers including buttocks and sacral area, coccyx, no drainage, flatulance, open wounds. Laboratory Results - last 24 hr 05/22/18 05/22/18 05/22/18 21:03 21:03 21:03 WBC 8.4 RBC 3.57 L Hgb 10.3 L Hct 31.2 L MCV 87.3 MCH 28.8 MCHC 33.0 RDW 14.8 Plt Count 348 D MPV 7.7 D Absolute Neuts (auto) 6.8 Neutrophils % 80.6 Lymphocytes % 12.5 Monocytes % 5.2 Eosinophils % 0.9 Basophils % 0.8 Nucleated RBC % 0 PT with INR 11.80 INR 1.04 Sodium 142 Potassium 3.9 Chloride 105 Carbon Dioxide 30 Anion Gap 7 L BUN 32 H Creatinine 0.7 Creat Clearance w eGFR > 60 Random Glucose 179 H Calcium 8.6 Total Bilirubin 0.4 D AST 7 L ALT 9 L Alkaline Phosphatase 100 Creatine Kinase 40 Troponin I < 0.02 Total Protein 6.7 Albumin 2.7 L Triglycerides 88 Cholesterol 150 Total LDL Cholesterol 101 H HDL Cholesterol 38 L Urine Color Urine Appearance Urine pH Ur Specific [place] Urine Protein Urine Glucose (UA) Urine Ketones Urine Blood Urine Nitrite Urine Bilirubin Urine Urobilinogen Ur Leukocyte Esterase Urine WBC (Auto) Urine RBC (Auto) Ur Epithelial Cells Urine Bacteria Urine Mucus Blood Type Antibody Screen 05/22/18 05/22/18 21:03 21:03 WBC RBC Hgb Hct MCV MCH MCHC RDW Plt Count MPV Absolute Neuts (auto) Neutrophils % Lymphocytes % Monocytes % Eosinophils % Basophils % Nucleated RBC % PT with INR INR Sodium Potassium Chloride Carbon Dioxide Anion Gap BUN Creatinine Creat Clearance w eGFR Random Glucose Calcium Total Bilirubin AST ALT Alkaline Phosphatase Creatine Kinase Troponin I Total Protein Albumin Triglycerides Cholesterol Total LDL Cholesterol HDL Cholesterol Urine Color [place] Urine Appearance Cloudy Urine pH 6.0 Ur Specific [place] 1.020 Urine Protein 1+ H Urine Glucose (UA) Negative Urine Ketones Negative Urine Blood Negative Urine Nitrite Negative Urine Bilirubin Negative Urine Urobilinogen 4.0 e.u/dl H Ur Leukocyte Esterase 3+ H Urine WBC (Auto) 7 Urine RBC (Auto) 4 Ur Epithelial Cells Rare Urine Bacteria Rare Urine Mucus Rare Blood Type O POSITIVE Antibody Screen Negative ASSESSMENT/PLAN: She is 78 year old female with a PMH of recurrent UTIs, multiple TIAs, dementia , DMII, HTN, CAD, Deep Vein Thrombosis on Xarelto, Hyperlipdemia, pericardial effusion with tamponade s/p pericardial window. She presented with altered mental status for 2 days. Altered mental status: -unknown cause of her rapid change of mental alertness, low suspicion of infection, no fever, no elevation of WBC, nl vital signs, UA not suggestive of infection LE 3+ but only 7 WBC -possibly worsening of her dementia -stroke code initiated, CT head negative, no focal neurological deficits -Neurology consulted -CT negative for acute pathology, will follow up with MRI of the brain -continue empiric Levofloxacin IV 500 mg -will hold Xarelto, awaiting MRI -continue NS -speech and swallow eval Chronic anemia: -unknown etiology -baseline around 9-10 -will obtain iron studies -FOBT HTN: -well controlled -continue Coreg and lisinopril HLD: -cont Statin DM: -ISS ACHS -BGM ACHS -continue Lantus 12 u HS DVT PPX: -scds -Xarelto on hold, awaiting MRI results F/E/N: NS/no electrolyte changes/NPO Disposition: telemetry Discussed with attending Dr Smith Problem List - Problem (1) Dementia Code(s): F03.90 - UNSPECIFIED DEMENTIA WITHOUT BEHAVIORAL DISTURBANCE Qualifiers: Dementia type: Alzheimer's disease Dementia behavioral disturbance: with behavioral disturbance (2) UTI (lower urinary tract infection) Code(s): N39.0 - URINARY TRACT INFECTION, SITE NOT SPECIFIED (3) Aortic stenosis Code(s): I35.0 - NONRHEUMATIC AORTIC (VALVE) STENOSIS (4) CAD (coronary artery disease) Code(s): I25.10 - ATHSCL HEART DISEASE OF [place] CORONARY ARTERY W/O ANG PCTRS Qualifiers: Coronary Disease-Associated Artery/Lesion type: [place] coronary artery Associated angina: without angina pectoris (5) Change in mental status Code(s): R41.82 - ALTERED MENTAL STATUS, UNSPECIFIED Qualifiers: Altered mental status type: delirium Qualified Code(s): R41.0 - Disorientation, unspecified (6) DVT (deep venous thrombosis) Code(s): I82.409 - ACUTE EMBOLISM AND THOMBOS UNSP DEEP VN UNSP LOWER EXTREMITY (7) Diabetes mellitus Code(s): E11.9 - TYPE 2 DIABETES MELLITUS WITHOUT COMPLICATIONS Qualifiers: Diabetes mellitus type: type 2 Diabetes mellitus complication status: with hyperglycemia (8) HLD (hyperlipidemia) Code(s): E78.5 - HYPERLIPIDEMIA, UNSPECIFIED (9) HTN (hypertension) Code(s): I10 - ESSENTIAL (PRIMARY) HYPERTENSION Qualifiers: Hypertension type: essential hypertension Qualified Code(s): I10 - Essential (primary) hypertension (10) IDDM (insulin dependent diabetes mellitus) Code(s): E11.9 - TYPE 2 DIABETES MELLITUS WITHOUT COMPLICATIONS; Z79.4 - SKETCHER (CURRENT) USE OF INSULIN Visit type - Emergency Visit Emergency Visit: Yes ED Registration Date: 05/22/18 Care time: The patient presented to the Emergency Department on the above date and was hospitalized for further evaluation of their emergent condition. - New Patient This patient is new to me today: Yes Date on this admission: 05/25/18 - Critical Care Critical Care patient: No Hospitalist Screening - Colonoscopy Questionnaire Colonoscopy Questionnaire: Colonoscopy Questionnaire - Patient: 50 - 75 years old and never had a screening colonoscopy: Unknown History of colon or rectal polyps, or CA: Unknown History of IBD, Crohn's disease or UC: Unknown History of abdominal radiation therapy as a child: Unknown - Relative: 1 with colon or rectal CA, or polyps at age 60 or younger: Unknown Colon or rectal CA diagnosed at age 45 or younger: Unknown Multiple relatives with colon or rectal CA: Unknown - Outcome: Screening Result: Negative Screen
[2018-05-23 07:46] LABS: PHOSPHOROUS 2.4 mg/dL (2.5-4.9)
--- NOTE | 2018-05-23 08:48 | EKG ---
Test Reason : Blood Pressure : / mmHG Vent. Rate : 078 BPM Atrial Rate : 078 BPM P-R Int : 128 ms QRS Dur : 068 ms QT Int : 374 ms P-R-T Axes : 074 -74 061 degrees QTc Int : 426 ms NORMAL SINUS RHYTHM LEFT AXIS DEVIATION LOW VOLTAGE QRS ANTEROLATERAL INFARCT (CITED ON OR BEFORE 28-JUN-2016) ABNORMAL ECG WHEN COMPARED WITH ECG OF 22-JUL-2017 23:51, CRITERIA FOR INFERIOR INFARCT ARE NO LONGER PRESENT T WAVE INVERSION NOW EVIDENT IN ANTERIOR LEADS Confirmed by ZAK SALMERON MD ([id number]) on 05/23/2018 8:47:46 AM Referred By: Confirmed By:ZAK SALMERON MD
[2018-05-23 10:00] LABS: BASO % 1.2 % (0-2.0); EOS % 0.3 % (0-4.5); HEMATOCRIT 29.8 % (32.4-45.2); HEMOGLOBIN 9.9 GM/dL (10.7-15.3); LYMPH % 6.7 % (8-40); MCH 29.1 pg (25.7-33.7); MCHC 33.1 g/dl (32.0-36.0); MEAN CELL VOLUME 87.8 fl (80-96); MEAN PLT VOLUME 8.5 fl (7.5-11.1); MONO % 4.9 % (3.8-10.2); NEUT % 86.9 % (42.8-82.8); PLATELET COUNT 288 K/MM3 (134-434); RDW 14.7 % (11.6-15.6); WHITE BLOOD COUNT 11.1 K/mm3 (4.0-10.0)
[2018-05-23] MEDS: CARVEDILOL 6.25 MG TABLET (FP) PO SCH ×2 (10:27→22:39)
[2018-05-23] MEDS: LISINOPRIL 10 MG TABLET (FP) PO SCH (10:27)
[2018-05-23] MEDS: amLODIPine BESYLATE 5 MG TABLET (FP) PO SCH (10:27)
[2018-05-23] MEDS: ASPIRIN COATED 81 MG TABLET.EC PO SCH (10:27)
--- NOTE | 2018-05-23 10:53 | CONSULT ---
Consult - text type - Consultation Consultation Note: Neurology HISTORY OF PRESENT ILLNESS: Covering for Dr. Molina 78 year old female with a PMH of recurrent UTIs, multiple TIA, dementia, DMII, HTN, CAD (multiple stents in past, last PCI in 2011 at [facility], Deep Vein Thrombosis (of left lower extremity diagnosed on 12/23/14, on Xarelto), Hyperlipdemia, pericardial effusion with tamponade s/p pericardial window. She presented with altered mental status for 2 days, and was less communicative. The daughter reportedly stated the patient does not ambulate and is demented at baseline. As per the daughter, the patient has recurrent UTIs and has been having foul smelling urine over the past few days. The patient is nonverbal with dementia at baseline. CT head completed without acute changes. Admitted for AMS. MRI brain has been ordered. PAST MEDICAL HISTORY: as above PAST SURGICAL HISTORY: as above Social History: Smoking:no Alcohol:no Drugs: no Family History: N/A Allergies Penicillins Allergy (Verified 07/29/17 17:56) HOME MEDICATIONS: Home Medications Medication Instructions Recorded Simvastatin [Zocor -] 20 mg PO HS 06/05/16 Acetaminophen [Tylenol .Regular 650 mg PO Q4H PRN #0 tablet 05/31/17 Strength -] Amlodipine Besylate [Norvasc -] 5 mg PO DAILY tablet 05/31/17 Carvedilol [Coreg -] 6.25 mg PO BID tablet 05/31/17 Lisinopril [Prinivil] 10 mg PO DAILY tablet 05/31/17 Rivaroxaban [Xarelto -] 20 mg PO DAILY tablet 05/31/17 Aspirin Coated [Ecotrin -] 81 mg PO DAILY tab 07/27/17 Insulin Sliding Scale [Novolog 1 vial SQ ACHS units 07/27/17 Vial Sliding Scale -] metFORMIN HCL [Glucophage -] 500 mg PO DAILY@0700 tablet 07/27/17 Mupirocin Cream [Bactroban 2% 1 applic TP DAILY #1 tube 08/09/17 Cream -] Insulin (Levemir) [Levemir Vial] 12 units SQ HS 05/22/18 REVIEW OF SYSTEMS: The patient is not able to provide ROS. PHYSICAL EXAMINATION: Vital Signs - 24 hr 05/22/18 20:33 Temperature 98.5 F Pulse Rate 85 Respiratory 18 Rate Blood Pressure 119/63 O2 Sat by Pulse 95 Oximetry (%) GENERAL: Awake, alert, and fully oriented, in no acute distress, lying comfortably in bed. HEAD: Normal with no signs of trauma. EYES: Pupils equal, round and reactive to light, extraocular movements not assessed, sclera anicteric, conjunctiva clear. EARS, NOSE, THROAT: Ears normal, nares patent, oropharynx clear without exudates. Moist mucous membranes. NECK: Normal range of motion, supple without lymphadenopathy, JVD, or masses. LUNGS: Breath sounds equal, clear to auscultation bilaterally. No wheezes, and no crackles. No accessory muscle use. HEART: Regular rate and rhythm, normal S1 and S2 without murmur, rub or gallop. ABDOMEN: Soft, nontender, not distended, normoactive bowel sounds, no guarding, no rebound, no masses. No hepatomegaly or splenomegaly. MUSCULOSKELETAL: Normal range of motion at all joints. No bony deformities or tenderness. No CVA tenderness. UPPER EXTREMITIES: 2+ pulses, warm, no peripheral edema. LOWER EXTREMITIES: 2+ pulses, no peripheral edema. NEUROLOGICAL: Not following commands, no facial droop noted, moving extremities grossly, Laboratory Results - last 24 hr 05/22/18 05/22/18 05/22/18 21:03 21:03 21:03 WBC 8.4 RBC 3.57 L Hgb 10.3 L Hct 31.2 L MCV 87.3 MCH 28.8 MCHC 33.0 RDW 14.8 Plt Count 348 D MPV 7.7 D Absolute Neuts (auto) 6.8 Neutrophils % 80.6 Lymphocytes % 12.5 Monocytes % 5.2 Eosinophils % 0.9 Basophils % 0.8 Nucleated RBC % 0 PT with INR 11.80 INR 1.04 Sodium 142 Potassium 3.9 Chloride 105 Carbon Dioxide 30 Anion Gap 7 L BUN 32 H Creatinine 0.7 Creat Clearance w eGFR > 60 Random Glucose 179 H Calcium 8.6 Total Bilirubin 0.4 D AST 7 L ALT 9 L Alkaline Phosphatase 100 Creatine Kinase 40 Troponin I < 0.02 Total Protein 6.7 Albumin 2.7 L Triglycerides 88 Cholesterol 150 Total LDL Cholesterol 101 H HDL Cholesterol 38 L Urine Color Urine Appearance Urine pH Ur Specific [place] Urine Protein Urine Glucose (UA) Urine Ketones Urine Blood Urine Nitrite Urine Bilirubin Urine Urobilinogen Ur Leukocyte Esterase Urine WBC (Auto) Urine RBC (Auto) Ur Epithelial Cells Urine Bacteria Urine Mucus Blood Type Antibody Screen 05/22/18 05/22/18 21:03 21:03 WBC RBC Hgb Hct MCV MCH MCHC RDW Plt Count MPV Absolute Neuts (auto) Neutrophils % Lymphocytes % Monocytes % Eosinophils % Basophils % Nucleated RBC % PT with INR INR Sodium Potassium Chloride Carbon Dioxide Anion Gap BUN Creatinine Creat Clearance w eGFR Random Glucose Calcium Total Bilirubin AST ALT Alkaline Phosphatase Creatine Kinase Troponin I Total Protein Albumin Triglycerides Cholesterol Total LDL Cholesterol HDL Cholesterol Urine Color [place] Urine Appearance Cloudy Urine pH 6.0 Ur Specific [place] 1.020 Urine Protein 1+ H Urine Glucose (UA) Negative Urine Ketones Negative Urine Blood Negative Urine Nitrite Negative Urine Bilirubin Negative Urine Urobilinogen 4.0 e.u/dl H Ur Leukocyte Esterase 3+ H Urine WBC (Auto) 7 Urine RBC (Auto) 4 Ur Epithelial Cells Rare Urine Bacteria Rare Urine Mucus Rare Blood Type O POSITIVE Antibody Screen Negative CT head reviewed ASSESSMENT/PLAN: 78 year old female with a PMH of recurrent UTIs, multiple TIA, dementia, DMII, HTN, CAD (multiple stents in past, last PCI in 2011 at [facility], Deep Vein Thrombosis (of left lower extremity diagnosed on 12/23/14, on Xarelto), Hyperlipdemia, pericardial effusion with tamponade s/p pericardial window. She presented with altered mental status for 2 days, and was less communicative. The daughter reportedly stated the patient does not ambulate and is demented at baseline. As per the daughter, the patient has recurrent UTIs and has been having foul smelling urine over the past few days. The patient is nonverbal with dementia at baseline. CT head completed without acute changes. Admitted for AMS. MRI brain has been ordered. Continue monitoring for infection, UTI. Abx as needed, on levofloxacin. Monitor BP, goal < 160/90 for now, 130/80 as outpatient. Continue Statin. On ASA 81mg. Monitor glucose, maintain euglycemic range.
--- NOTE | 2018-05-23 10:57 | PN ---
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, Physician Chief Complaint: patient seen in ER non verbal no fever - Current Medication List Current Medications: Active Medications Amlodipine Besylate (Norvasc -) 5 mg PO DAILY [facility] Last Admin: 05/23/18 10:27 Dose: Not Given Aspirin (Ecotrin -) 81 mg PO DAILY [facility] Last Admin: 05/23/18 10:27 Dose: Not Given Atorvastatin Calcium (Lipitor -) 10 mg PO [facility] Carvedilol (Coreg -) 6.25 mg PO BID [facility] Last Admin: 05/23/18 10:27 Dose: Not Given Sodium Chloride (Normal Saline -) 1,000 mls @ 42 mls/hr IV ASDIR [facility] Last Admin: 05/22/18 22:26 Dose: 42 mls/hr Levofloxacin (Levaquin 500 Mg Premixed Ivpb -) 500 mg in 100 mls @ 100 mls/hr IVPB DAILY [facility]; Protocol Last Admin: 05/23/18 10:28 Dose: 100 mls/hr Dextrose/Sodium Chloride (D5-1/2ns -) 1,000 mls @ 42 mls/hr IV ASDIR [facility] Insulin Aspart (Novolog Vial Sliding Scale -) 1 vial SQ [facility]; Protocol Insulin Detemir (Levemir Vial) 12 units SQ [facility] Lisinopril (Prinivil) 10 mg PO DAILY [facility] Last Admin: 05/23/18 10:27 Dose: Not Given Mupirocin (Bactroban 2% Cream -) 1 applic TP DAILY [facility] - Objective Vital Signs: Vital Signs Temperature 98.5 F 05/22/18 20:33 Pulse Rate 73 05/23/18 06:30 Respiratory Rate 14 05/23/18 06:30 Blood Pressure 121/86 05/23/18 06:30 O2 Sat by Pulse Oximetry (%) 100 05/23/18 06:30 Constitutional: Yes: Calm, Thin Neck: Yes: Trachea Midline Cardiovascular: Yes: Regular Rate and Rhythm, S1, S2 Respiratory: Yes: CTA Bilaterally, Diminished (at bases) Gastrointestinal: Yes: Normal Bowel Sounds, Soft Extremities: Yes: Other (flexed extremities) Edema: No Labs: CBC, BMP 05/23/18 09:55 INR, PTT INR 1.04 (0.82-1.09) 05/22/18 21:03 Problem List - Problems (1) UTI (lower urinary tract infection) Assessment/Plan: on iv levaquin Code(s): N39.0 - URINARY TRACT INFECTION, SITE NOT SPECIFIED (2) Altered mental status Assessment/Plan: ct head negative MRI ordered- pending will dc telemetry once MRI is done patricia taylor- NPO for now- ivf neurology eval neurochecks scd to both legs Code(s): R41.82 - ALTERED MENTAL STATUS, UNSPECIFIED (3) CAD (coronary artery disease) Assessment/Plan: s/p stents asa,lipitor,coreg and norvasc LDL noted and inderjit increase lipitor to 20mg given CAD and DM goal is < 80 Code(s): I25.10 - ATHSCL HEART DISEASE OF [place] CORONARY ARTERY W/O ANG PCTRS Qualifiers: Coronary Disease-Associated Artery/Lesion type: [place] coronary artery Associated angina: without angina pectoris (4) DVT (deep venous thrombosis) Assessment/Plan: on xarelto- currently on hold till MRI done then will restart xarelto Code(s): I82.409 - ACUTE EMBOLISM AND THOMBOS UNSP DEEP VN UNSP LOWER EXTREMITY (5) Anemia Assessment/Plan: iron panel pending Code(s): D64.9 - ANEMIA, UNSPECIFIED
[2018-05-23] MEDS: DEXTROSE 5%-0.45% SALINE 1,000 ML IV SCH ×2 (11:04→23:15)
[2018-05-23] MEDS: INSULIN SLIDING SCALE (NOVOLOG) 1 VIAL SQ SCH ×3 (12:04→22:39)
[2018-05-23 13:11] LABS: ALBUMIN 2.4 g/dl (3.4-5.0); ALK PHOS 98 U/L (45-117); ANION GAP 7 (8-16); BILIRUBIN,TOTAL 0.3 mg/dL (0.2-1.0); BLOOD UREA NITROGEN 26 mg/dL (7-18); CALCIUM 8.3 mg/dL (8.5-10.1); CHLORIDE 109 mmol/L (98-107); CO2 27 mmol/L (21-32); CREATININE 0.6 mg/dL (0.55-1.02); GLUCOSE,RANDOM 133 mg/dL (74-106); MAGNESIUM 1.9 mg/dL (1.8-2.4); POTASSIUM 3.9 mmol/L (3.5-5.1); SGOT/AST 6 U/L (15-37); SGPT/ALT 7 U/L (12-78); SODIUM 143 mmol/L (136-145); TOT PROT 6.1 g/dl (6.4-8.2)
--- NOTE | 2018-05-23 13:46 | CONSULT ---
Admitting History and Physical - Primary Care Physician PCP: Mercedes Powell - Admission History of Present Illness: Per emr: She is 78 year old female with a PMH of recurrent UTIs, multiple TIA, dementia, DMII, HTN, CAD (multiple stents in past, last PCI in 2011 at [facility], Deep Vein Thrombosis (of left lower extremity diagnosed on 12/23/14, on Xarelto), Hyperlipdemia, pericardial effusion with tamponade s/p pericardial window. She presented with altered mental status for 2 days, she was less communicative. The daughter states the patient does not ambulate and is demented at baseline. As per the daughter, the patient has recurrent UTIs and has been having foul smelling urine over the past few days. Upon arrival to the hospital stroke code was initiated. Last seen by me 07/05/17 Recommendations - Speech Evaluation, Impression/Plan Impression: Oral/verbal Apraxia/Aphasia. Rare verbalizations for me. Fairly efficient mastication. Swallow is brisk without overt signs of aspiration. - Dysphagia Impressions/Plan Dysphagia Impressions: Mild Impairment *Silent aspiration: cannot be R/O at bedside Dysphagia Treatment Plan: Chin Tuck/Down, Clear Pocket Food, Trial Feedings, 1/ 2 tsp. at a time, Elevate HOB during feed Recommendations: Modified Barium Swallow (if cough, congestion, fever noted.), Other (RD consult regarding protein for healing of decubitis, supplements and therapeutic diet) - Recommendations Diet Consistency: Dysphagia Minced Medication Administration: Crushed with applesauce Liquids: Thin Liquids Supplement: Glucerna Pt seen in ER, on stretcher. 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: CVA (multiple CVAs), Dementia (vascular) Cardiovascular: Yes: CAD (multiple stents in past, last PCI in 2011 at [facility] (mLAD & pRCA)), Deep Vein Thrombosis (of left lower extremity diagnosed on 12/23/14, on Xarelto), HTN, Hyperlipdemia, Other (Pericardial effusion with tamponade s/p pericardial window) Gastrointestinal: Yes: Other Hepatobiliary: Yes: Cholecystitis (s/p past cholecystectomy) Renal/: Yes: Renal Inusuff Endocrine: Yes: Diabetes Mellitus - Past Surgical History Past Surgical History: Yes: Cholecystectomy - Smoking History Smoking history: Unknown if ever smoked Have you smoked in the past 12 months: No Aproximately how many cigarettes per day: 0 - Alcohol/Substance Use Hx Alcohol Use: No History of Substance Use: reports: None - Social History ADL: Family Assistance (lives with daughter and granddaughter in house with 7 steps to enter; needs Assistance in some ADLs and all IADLs, mostly uses wheelchair but able to ambulate with RW) History of Recent Travel: No History - Admission Reason For Visit: LOWER UTI INF. DISEASE - Diagnostics X-ray: Report Reviewed CT Scan: Report Reviewed - General Mental Status: Awake and Alert, Confused, Flat Affect Attention: Moderate Impairment Ability to Follow Directions: Poor (rarwe) Head/Neck Control: Needs Assist - Hearing Hearing: Functional Speech Evaluation - Communication Primary Language: ANDORRAN Communication: Yes: Non-Communicable ( said "well....") - Speech Production Able to Make Needs Known: Yes: Severely Impaired - Speech Characteristics Voice Loudness: Normal Voice Pitch: Yes: Normal Voice Phonatory-based Quality: Yes: Normal Speech Pattern: Impaired Nasal Resonance: Normal - Language/Auditory Comprehension Observation: Able to respond to yes/no queries: No - Language/Verbal Expression Aphasia: Yes: Apraxia Able to Respond to Simple Queries: Yes: Severely Impaired Able to Communicate Wants and Needs: Yes: Severely Impaired Functional Communication Status: Yes: Severely Impaired - Swallow Evaluation/Bedside Assessment Current Nutritional Intake: NPO Oral Secretions: Yes: WFL Lingual Movement: Symmetric A-P Transit: Impaired (suspect spillage over BOT) Timing of Swallow: Delayed Coughing/Throat Clear: No (with puree trial) Change in Voice: No Recommendations - Speech Evaluation, Impression/Plan Impression: Alert. Impaired attention to left where I was standing next to her stretcher in ER. Responded with "Well... " Readily accepted trials of puree with delayed but brisk swallow.No overt symptoms of difficulty. - Disposition Discharge to: Shelter Facility - Dysphagia Impressions/Plan Swallowing Skills: Impaired Dysphagia Impressions: Mild Impairment, Ongoing Evaluation *Silent aspiration: cannot be R/O at bedside Dysphagia Treatment Plan: Small Bites, Chin Tuck/Down, Trial Feedings, Facilitative Feeding, 1/2 tsp. at a time, Elevate HOB during feed Recommendations: Modified Barium Swallow (NPO and MBS, if cough congestion fever ) - Recommendations Diet Consistency: Dysphagia Pureed Medication Administration: Crushed with applesauce Liquids: [place] Thick Supplement: Magic Cup, Ensure Pudding
[2018-05-23] MEDS ORDERED: RIVAROXABAN 20 MG TABLET PO SCH (18:00)
[2018-05-23] MEDS: SODIUM CHLORIDE 1,000 ML IV SCH (18:13)
[2018-05-23] MEDS ORDERED: ATORVASTATIN CA 10 MG TABLET (FP) PO SCH (22:00)
[2018-05-23] MEDS: INSULIN (LEVEMIR) 100 UNITS/ML UNITS SQ SCH (22:39)
[2018-05-23] MEDS: ATORVASTATIN CA 20 MG TABLET (FP) PO SCH (22:39)
[2018-05-24] MEDS: SODIUM CHLORIDE 1,000 ML IV SCH ×2 (04:47→21:58)
[2018-05-24] MEDS: INSULIN SLIDING SCALE (NOVOLOG) 1 VIAL SQ SCH ×4 (06:37→21:57)
[2018-05-24 06:47] LABS: BASO % 0.1 % (0-2.0); EOS % 0.2 % (0-4.5); HEMATOCRIT 27.9 % (32.4-45.2); HEMOGLOBIN 9.2 GM/dL (10.7-15.3); LYMPH % 6.6 % (8-40); MCH 28.9 pg (25.7-33.7); MCHC 33.2 g/dl (32.0-36.0); MEAN CELL VOLUME 87.1 fl (80-96); MEAN PLT VOLUME 8.8 fl (7.5-11.1); MONO % 6.2 % (3.8-10.2); NEUT % 86.9 % (42.8-82.8); PLATELET COUNT 278 K/MM3 (134-434); RDW 14.3 % (11.6-15.6); WHITE BLOOD COUNT 11.6 K/mm3 (4.0-10.0)
[2018-05-24 07:14] LABS: ALBUMIN 2.2 g/dl (3.4-5.0); ANION GAP 4 (8-16); BLOOD UREA NITROGEN 27 mg/dL (7-18); CALCIUM 8.3 mg/dL (8.5-10.1); CHLORIDE 106 mmol/L (98-107); CO2 31 mmol/L (21-32); CREATININE 0.7 mg/dL (0.55-1.02); GLUCOSE,RANDOM 68 mg/dL (74-106); POTASSIUM 3.8 mmol/L (3.5-5.1); SGOT/AST 8 U/L (15-37); SODIUM 141 mmol/L (136-145); TOT PROT 5.9 g/dl (6.4-8.2)
[2018-05-24 07:16] LABS: ALK PHOS 89 U/L (45-117); BILIRUBIN,TOTAL 0.3 mg/dL (0.2-1.0); SGPT/ALT 8 U/L (12-78)
[2018-05-24] MEDS: amLODIPine BESYLATE 5 MG TABLET (FP) PO SCH (09:30)
[2018-05-24] MEDS: CARVEDILOL 6.25 MG TABLET (FP) PO SCH ×2 (09:30→21:58)
[2018-05-24] MEDS: LISINOPRIL 10 MG TABLET (FP) PO SCH (09:30)
[2018-05-24] MEDS: ASPIRIN COATED 81 MG TABLET.EC PO SCH (09:30)
[2018-05-24] MEDS: MUPIROCIN CA 2% TOPICAL CREAM 15 GM TUBE TP SCH (10:32)
--- NOTE | 2018-05-24 11:11 | PN ---
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, Physician - Current Medication List Current Medications: Active Medications Amlodipine Besylate (Norvasc -) 5 mg PO DAILY [facility] Last Admin: 05/24/18 09:30 Dose: 5 mg Aspirin (Ecotrin -) 81 mg PO DAILY [facility] Last Admin: 05/24/18 09:30 Dose: 81 mg Atorvastatin Calcium (Lipitor -) 20 mg PO HS [facility] Last Admin: 05/23/18 22:39 Dose: 20 mg Carvedilol (Coreg -) 6.25 mg PO BID [facility] Last Admin: 05/24/18 09:30 Dose: 6.25 mg Sodium Chloride (Normal Saline -) 1,000 mls @ 42 mls/hr IV ASDIR [facility] Last Admin: 05/24/18 04:47 Dose: Not Given Levofloxacin (Levaquin 500 Mg Premixed Ivpb -) 500 mg in 100 mls @ 100 mls/hr IVPB DAILY [facility]; Protocol Last Admin: 05/24/18 09:27 Dose: 100 mls/hr Dextrose/Sodium Chloride (D5-1/2ns -) 1,000 mls @ 42 mls/hr IV ASDIR [facility] Last Admin: 05/23/18 23:15 Dose: 42 mls/hr Insulin Aspart (Novolog Vial Sliding Scale -) 1 vial SQ [facility]; Protocol Last Admin: 05/24/18 06:37 Dose: Not Given Insulin Detemir (Levemir Vial) 12 units SQ [facility] Last Admin: 05/23/18 22:39 Dose: 12 units Lisinopril (Prinivil) 10 mg PO DAILY [facility] Last Admin: 05/24/18 09:30 Dose: 10 mg Mupirocin (Bactroban 2% Cream -) 1 applic TP DAILY [facility] - Objective Vital Signs: Vital Signs Temperature 98.2 F 05/24/18 10:00 Pulse Rate 76 05/24/18 10:00 Respiratory Rate 16 05/24/18 10:00 Blood Pressure 129/72 05/24/18 10:00 O2 Sat by Pulse Oximetry (%) 94 L 05/24/18 10:00 Cardiovascular: Yes: S1, S2 Respiratory: Yes: Regular, CTA Bilaterally Gastrointestinal: Yes: Normal Bowel Sounds, Soft. No: Tenderness Labs: CBC, BMP 05/24/18 06:00 05/24/18 06:30 INR, PTT INR 1.04 (0.82-1.09) 05/22/18 21:03 Assessment/Plan - Problems (1) UTI (lower urinary tract infection) Assessment/Plan: on iv levaquin Code(s): N39.0 - URINARY TRACT INFECTION, SITE NOT SPECIFIED (2) Altered mental status Assessment/Plan: ct head negative MRI ordered- pending will dc telemetry once MRI is done patricia bonds brandon- noted neurology eval neurochecks scd to both legs Code(s): R41.82 - ALTERED MENTAL STATUS, UNSPECIFIED (3) CAD (coronary artery disease) Assessment/Plan: s/p stents asa,lipitor,coreg and norvasc LDL noted and inderjit increase lipitor to 20mg given CAD and DM goal is < 80 Code(s): I25.10 - ATHSCL HEART DISEASE OF [place] CORONARY ARTERY W/O ANG PCTRS Qualifiers: Coronary Disease-Associated Artery/Lesion type: [place] coronary artery Associated angina: without angina pectoris (4) DVT (deep venous thrombosis) Assessment/Plan: on xarelto- currently on hold till MRI done then will restart xarelto Code(s): I82.409 - ACUTE EMBOLISM AND THOMBOS UNSP DEEP VN UNSP LOWER EXTREMITY (5) Anemia Assessment/Plan: iron panel pending Code(s): D64.9 - ANEMIA, UNSPECIFIED
--- NOTE | 2018-05-24 12:55 | PN ---
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 (short form) - Note 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: Neurology HISTORY OF PRESENT ILLNESS: Covering for Dr. Molina 78 year old female with a PMH of recurrent UTIs, multiple TIA, dementia, DMII, HTN, CAD (multiple stents in past, last PCI in 2011 at [facility], Deep Vein Thrombosis (of left lower extremity diagnosed on 12/23/14, on Xarelto), Hyperlipdemia, pericardial effusion with tamponade s/p pericardial window. She presented with altered mental status for 2 days, and was less communicative. The daughter reportedly stated the patient does not ambulate and is demented at baseline. As per the daughter, the patient has recurrent UTIs and has been having foul smelling urine over the past few days. Currently on Levofloxacin. The patient is nonverbal with dementia at baseline. CT head completed without acute changes. Admitted for AMS. MRI brain completed, foci of acute infarctions in R parietal noted. Carotid Dopplers ordered, Echo ordered. ASA 81mg changed to Aggrenox. Remains stable neurologically without new events since admission. Active Medications Amlodipine Besylate (Norvasc -) 5 mg PO DAILY [facility] Last Admin: 05/24/18 09:30 Dose: 5 mg Aspirin (Ecotrin -) 81 mg PO DAILY [facility] Last Admin: 05/24/18 09:30 Dose: 81 mg Atorvastatin Calcium (Lipitor -) 20 mg PO HS [facility] Last Admin: 05/23/18 22:39 Dose: 20 mg Carvedilol (Coreg -) 6.25 mg PO BID [facility] Last Admin: 05/24/18 09:30 Dose: 6.25 mg Sodium Chloride (Normal Saline -) 1,000 mls @ 42 mls/hr IV ASDIR [facility] Last Admin: 05/24/18 04:47 Dose: Not Given Levofloxacin (Levaquin 500 Mg Premixed Ivpb -) 500 mg in 100 mls @ 100 mls/hr IVPB DAILY [facility]; Protocol Last Admin: 05/24/18 09:27 Dose: 100 mls/hr Dextrose/Sodium Chloride (D5-1/2ns -) 1,000 mls @ 42 mls/hr IV ASDIR [facility] Last Admin: 05/23/18 23:15 Dose: 42 mls/hr Insulin Aspart (Novolog Vial Sliding Scale -) 1 vial SQ [facility]; Protocol Last Admin: 05/24/18 12:15 Dose: Not Given Insulin Detemir (Levemir Vial) 12 units SQ HS [facility] Last Admin: 05/23/18 22:39 Dose: 12 units Lisinopril (Prinivil) 10 mg PO DAILY [facility] Last Admin: 05/24/18 09:30 Dose: 10 mg Mupirocin (Bactroban 2% Cream -) 1 applic TP DAILY [facility] PHYSICAL EXAMINATION: Vital Signs Temperature 98.2 F 05/24/18 10:00 Pulse Rate 76 05/24/18 10:00 Respiratory Rate 16 05/24/18 10:00 Blood Pressure 129/72 05/24/18 10:00 O2 Sat by Pulse Oximetry (%) 94 L 05/24/18 10:00 GENERAL: Awake, alert, and fully oriented, in no acute distress, lying comfortably in bed. HEAD: Normal with no signs of trauma. EYES: Pupils equal, round and reactive to light, extraocular movements not assessed, sclera anicteric, conjunctiva clear. EARS, NOSE, THROAT: Ears normal, nares patent, oropharynx clear without exudates. Moist mucous membranes. NECK: Normal range of motion, supple without lymphadenopathy, JVD, or masses. LUNGS: Breath sounds equal, clear to auscultation bilaterally. No wheezes, and no crackles. No accessory muscle use. HEART: Regular rate and rhythm, normal S1 and S2 without murmur, rub or gallop. ABDOMEN: Soft, nontender, not distended, normoactive bowel sounds, no guarding, no rebound, no masses. No hepatomegaly or splenomegaly. MUSCULOSKELETAL: Normal range of motion at all joints. No bony deformities or tenderness. No CVA tenderness. UPPER EXTREMITIES: 2+ pulses, warm, no peripheral edema. LOWER EXTREMITIES: 2+ pulses, no peripheral edema. NEUROLOGICAL: Not following commands, no facial droop noted, moving extremities grossly, CBCD WBC 11.6 K/mm3 (4.0-10.0) H 05/24/18 06:00 RBC 3.20 M/mm3 (3.60-5.2) L 05/24/18 06:00 Hgb 9.2 GM/dL (10.7-15.3) L 05/24/18 06:00 Hct 27.9 % (32.4-45.2) L 05/24/18 06:00 MCV 87.1 fl (80-96) 05/24/18 06:00 MCHC 33.2 g/dl (32.0-36.0) 05/24/18 06:00 RDW 14.3 % (11.6-15.6) 05/24/18 06:00 Plt Count 278 K/MM3 (134-434) 05/24/18 06:00 MPV 8.8 fl (7.5-11.1) 05/24/18 06:00 CMP Sodium 141 mmol/L (136-145) 05/24/18 06:30 Potassium 3.8 mmol/L (3.5-5.1) 05/24/18 06:30 Chloride 106 mmol/L (98-107) 05/24/18 06:30 Carbon Dioxide 31 mmol/L (21-32) 05/24/18 06:30 Anion Gap 4 (8-16) L 05/24/18 06:30 BUN 27 mg/dL (7-18) H 05/24/18 06:30 Creatinine 0.7 mg/dL (0.55-1.02) 05/24/18 06:30 Creat Clearance w eGFR > 60 (>60) 05/24/18 06:30 Random Glucose 68 mg/dL (74-106) L 05/24/18 06:30 Calcium 8.3 mg/dL (8.5-10.1) L 05/24/18 06:30 Total Bilirubin 0.3 mg/dL (0.2-1.0) 05/24/18 06:30 AST 8 U/L (15-37) L 05/24/18 06:30 ALT 8 U/L (12-78) L 05/24/18 06:30 Alkaline Phosphatase 89 U/L (45-117) 05/24/18 06:30 Total Protein 5.9 g/dl (6.4-8.2) L 05/24/18 06:30 Albumin 2.2 g/dl (3.4-5.0) L 05/24/18 06:30 CARDIAC ENZYMES Creatine Kinase 40 IU/L (26-192) 05/22/18 21:03 Troponin I < 0.02 ng/ml (0.00-0.05) 05/22/18 21:03 CT head reviewed MRI brain reviewed ASSESSMENT/PLAN: 78 year old female with a PMH of recurrent UTIs, multiple TIA, dementia, DMII, HTN, CAD (multiple stents in past, last PCI in 2011 at [facility], Deep Vein Thrombosis (of left lower extremity diagnosed on 12/23/14, on Xarelto), Hyperlipdemia, pericardial effusion with tamponade s/p pericardial window. She presented with altered mental status for 2 days, and was less communicative. The daughter reportedly stated the patient does not ambulate and is demented at baseline. As per the daughter, the patient has recurrent UTIs and has been having foul smelling urine over the past few days. The patient is nonverbal with dementia at baseline. CT head completed without acute changes. Admitted for AMS. MRI brain has been completed, reviewed. Continue monitoring for infection, UTI. Abx as needed, on levofloxacin. Monitor BP, goal < 160/90 for now, 130/80 as outpatient. Continue Statin. ASA 81mg changed to Aggrenox. Monitor glucose, maintain euglycemic range.
[2018-05-24] MEDS: DEXTROSE 5%-0.45% SALINE 1,000 ML IV SCH (13:35)
[2018-05-24] MEDS: ASPIRIN/DIPYRIDAMOLE 25 MG/200 MG CAPSULE (FP) PO SCH (21:58)
[2018-05-24] MEDS: ATORVASTATIN CA 20 MG TABLET (FP) PO SCH (21:59)
[2018-05-24] MEDS: INSULIN (LEVEMIR) 100 UNITS/ML UNITS SQ SCH (21:59)
[2018-05-25] MEDS: INSULIN SLIDING SCALE (NOVOLOG) 1 VIAL SQ SCH ×5 (06:14→21:35)
[2018-05-25] MEDS ORDERED: DEXTROSE 50%-WATER - 25 GM/50 ML VIAL IVPUSH ONE (06:49)
[2018-05-25] MEDS ORDERED: DEXTROSE 50%-WATER 25 GM/50 ML DISP.SYRIN ONE ×2 (06:52→12:33)
[2018-05-25] MEDS: amLODIPine BESYLATE 5 MG TABLET (FP) PO SCH (10:20)
[2018-05-25] MEDS: LISINOPRIL 10 MG TABLET (FP) PO SCH (10:20)
[2018-05-25] MEDS: ASPIRIN/DIPYRIDAMOLE 25 MG/200 MG CAPSULE (FP) PO SCH ×2 (10:20→21:35)
[2018-05-25] MEDS: CARVEDILOL 6.25 MG TABLET (FP) PO SCH ×2 (10:21→21:35)
--- NOTE | 2018-05-25 11:22 | PN ---
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, Physician - Current Medication List Current Medications: Active Medications Amlodipine Besylate (Norvasc -) 5 mg PO DAILY [facility] Last Admin: 05/25/18 10:20 Dose: 5 mg Atorvastatin Calcium (Lipitor -) 20 mg PO HS [facility] Last Admin: 05/24/18 21:59 Dose: 20 mg Carvedilol (Coreg -) 6.25 mg PO BID [facility] Last Admin: 05/25/18 10:21 Dose: 6.25 mg Dipyridamole/Aspirin (Aggrenox -) 1 combo PO BID [facility] Last Admin: 05/25/18 10:20 Dose: 1 combo Sodium Chloride (Normal Saline -) 1,000 mls @ 42 mls/hr IV ASDIR [facility] Last Admin: 05/24/18 21:58 Dose: Not Given Levofloxacin (Levaquin 500 Mg Premixed Ivpb -) 500 mg in 100 mls @ 100 mls/hr IVPB DAILY [facility]; Protocol Last Admin: 05/25/18 10:20 Dose: 100 mls/hr Dextrose/Sodium Chloride (D5-1/2ns -) 1,000 mls @ 80 mls/hr IV ASDIR [facility] Last Admin: 05/24/18 13:35 Dose: 80 mls/hr Insulin Aspart (Novolog Vial Sliding Scale -) 1 vial SQ [facility]; Protocol Last Admin: 05/25/18 06:14 Dose: Not Given Insulin Detemir (Levemir Vial) 12 units SQ [facility] Last Admin: 05/24/18 21:59 Dose: 12 units Lisinopril (Prinivil) 10 mg PO DAILY [facility] Last Admin: 05/25/18 10:20 Dose: 10 mg Mupirocin (Bactroban 2% Cream -) 1 applic TP DAILY [facility] Last Admin: 05/24/18 10:32 Dose: 1 applic - Objective Vital Signs: Vital Signs Temperature 97.9 F 05/25/18 09:54 Pulse Rate 78 05/25/18 09:54 Respiratory Rate 20 05/25/18 09:54 Blood Pressure 142/62 05/25/18 09:54 O2 Sat by Pulse Oximetry (%) 99 05/24/18 21:00 Cardiovascular: Yes: S1, S2 Respiratory: Yes: Regular, CTA Bilaterally Gastrointestinal: Yes: Normal Bowel Sounds, Soft Labs: CBC, BMP 05/24/18 06:00 05/24/18 06:30 INR, PTT INR 1.04 (0.82-1.09) 05/22/18 21:03 Assessment/Plan - Problems (1) UTI (lower urinary tract infection) Assessment/Plan: on iv levaquin Code(s): N39.0 - URINARY TRACT INFECTION, SITE NOT SPECIFIED (2) Altered mental status Assessment/Plan: ct head negative MRI -Acute rt cva patricia bonds evsaeid- noted neurology eval neurochecks scd to both legs Code(s): R41.82 - ALTERED MENTAL STATUS, UNSPECIFIED (3) CAD (coronary artery disease) Assessment/Plan: s/p stents asa,lipitor,coreg and norvasc LDL noted and inderjit increase lipitor to 20mg given CAD and DM goal is < 80 Code(s): I25.10 - ATHSCL HEART DISEASE OF [place] CORONARY ARTERY W/O ANG PCTRS Qualifiers: Coronary Disease-Associated Artery/Lesion type: [place] coronary artery Associated angina: without angina pectoris (4) DVT (deep venous thrombosis) Assessment/Plan: on xarelto- currently on hold till MRI done then will restart xarelto Code(s): I82.409 - ACUTE EMBOLISM AND THOMBOS UNSP DEEP VN UNSP LOWER EXTREMITY (5) Anemia Assessment/Plan: iron panel pending Code(s): D64.9 - ANEMIA, UNSPECIFIED (6) CVA Assessment/Plan: Acute statin echo and holter
--- NOTE | 2018-05-25 11:41 | CONSULT ---
Consult Consult Specialty:: endocrine Referred by:: dr.annabi vyas Reason for Consultation:: diabetes mellitus - History of Present Illness Chief Complaint: altered mental state History of Present Illness: 78 year old female with a PMH of recurrent UTIs, multiple TIA, dementia, DMII, HTN, CAD (multiple stents in past, last PCI in 2011 at [facility], Deep Vein Thrombosis (of left lower extremity diagnosed on 12/23/14, on Xarelto), Hyperlipdemia, pericardial effusion with tamponade s/p pericardial window. She presented with altered mental status for 2 days, and was having weakness and worsening confusion,lethargic and poor intake,as per daughter she is not her usual self. 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: CVA (multiple CVAs), Dementia (vascular) Cardio/Vascular: Yes: CAD (multiple stents in past, last PCI in 2011 at [facility] (mLAD & pRCA)), Deep Vein Thrombosis (of left lower extremity diagnosed on 12/23/14, on Xarelto), HTN, Hyperlipdemia, Other (Pericardial effusion with tamponade s/p pericardial window) Gastrointestinal: Yes: Other Hepatobiliary: Yes: Cholecystitis (s/p past cholecystectomy) Renal/: Yes: Renal Inusuff ...: No Endocrine: Yes: Diabetes Mellitus - Past Surgical History Past Surgical History: Yes: Cholecystectomy - Alcohol/Substance Use Hx Alcohol Use: No History of Substance Use: reports: None - Smoking History Smoking history: Unknown if ever smoked Have you smoked in the past 12 months: No Aproximately how many cigarettes per day: 0 - Social History Usual Living Arrangement: Alone ADL: Family Assistance (lives with daughter and granddaughter in house with 7 steps to enter; needs Assistance in some ADLs and all IADLs, mostly uses wheelchair but able to ambulate with RW) History of Recent Travel: No Home Medications - Allergies Allergies/Adverse Reactions: Allergies Allergy/AdvReac Type Severity Reaction Status Date / Time Penicillins Allergy Verified 07/29/17 17:56 - Home Medications Home Medications: Ambulatory Orders Simvastatin [Zocor -] 20 mg PO HS 06/05/16 Acetaminophen [Tylenol .Regular Strength -] 650 mg PO Q4H PRN #0 tablet Amlodipine Besylate [Norvasc -] 5 mg PO DAILY tablet 05/31/17 Carvedilol [Coreg -] 6.25 mg PO BID tablet 05/31/17 Lisinopril [Prinivil] 10 mg PO DAILY tablet 05/31/17 Rivaroxaban [Xarelto -] 20 mg PO DAILY tablet 05/31/17 Aspirin Coated [Ecotrin -] 81 mg PO DAILY tab 07/27/17 Insulin Sliding Scale [Novolog Vial Sliding Scale -] 1 vial SQ ACHS units 07/27 metFORMIN HCL [Glucophage -] 500 mg PO DAILY@0700 tablet 07/27/17 Mupirocin Cream [Bactroban 2% Cream -] 1 applic TP DAILY #1 tube 08/09/17 Insulin (Levemir) [Levemir Vial] 12 units SQ HS 05/22/18 Review of Systems Unable to obtain ROS, reason: lethargic and dementia - Review of Systems Constitutional: reports: Lethargy, Loss of Appetite Eyes: reports: No Symptoms Physical Exam Vital Signs: Vital Signs Temperature 97.9 F 05/25/18 09:54 Pulse Rate 78 05/25/18 09:54 Respiratory Rate 20 05/25/18 09:54 Blood Pressure 142/62 05/25/18 09:54 O2 Sat by Pulse Oximetry (%) 99 05/24/18 21:00 Constitutional: Yes: No Distress Eyes: Yes: EOM Intact HENT: Yes: Normocephalic Neck: Yes: Trachea Midline Cardiovascular: Yes: Pulse Irregular Respiratory: Yes: CTA Bilaterally Gastrointestinal: Yes: Normal Bowel Sounds ...Rectal Exam: Yes: Deferred Renal/: Yes: WNL Breast(s): Yes: WNL Musculoskeletal: Yes: Joint Stiffness, Joint Swelling Extremities: Yes: Delayed Capillary Refill Edema: Yes Edema: LLE: Trace, RLE: Trace Neurological: Yes: Alert, Lethargy Labs: CBC, BMP 05/24/18 06:00 05/24/18 06:30 Problem List - Problems (1) Diabetes mellitus Code(s): E11.9 - TYPE 2 DIABETES MELLITUS WITHOUT COMPLICATIONS Qualifiers: Diabetes mellitus type: type 2 Diabetes mellitus complication status: with circulatory complication Diabetes mellitus complication detail: with peripheral angiopathy with gangrene (2) Abnormal lateral conjugate gaze Code(s): H51.0 - PALSY (SPASM) OF CONJUGATE GAZE (3) Acute hypernatremia Code(s): E87.0 - HYPEROSMOLALITY AND HYPERNATREMIA (4) Altered mental status Code(s): R41.82 - ALTERED MENTAL STATUS, UNSPECIFIED (5) Anemia Code(s): D64.9 - ANEMIA, UNSPECIFIED (6) Aortic stenosis Code(s): I35.0 - NONRHEUMATIC AORTIC (VALVE) STENOSIS (7) Cellulitis Code(s): L03.90 - CELLULITIS, UNSPECIFIED Qualifiers: Site of cellulitis: extremity Site of cellulitis of extremity: lower extremity Laterality: right Qualified Code(s): L03.115 - Cellulitis of right lower limb (8) Diabetes mellitus Code(s): E11.9 - TYPE 2 DIABETES MELLITUS WITHOUT COMPLICATIONS Qualifiers: Diabetes mellitus type: type 2 Diabetes mellitus complication status: with hyperglycemia Assessment/Plan Current Active Problems Altered mental status (Acute) Anemia (Acute) DVT (deep venous thrombosis) (Acute) Delirium (Acute) Dementia (Acute) UTI (lower urinary tract infection) (Acute) diabetes mellitus with pad,diabetes neuropathy Abnormal Lab Results 05/22/18 21:03 Transferrin 120 L Laboratory Results - last 24 hr 05/22/18 05/24/18 05/24/18 21:03 11:59 12:41 POC Glucometer 41 62 Transferrin 120 L 05/24/18 05/24/18 05/24/18 13:22 15:20 16:29 POC Glucometer 66 66 95 Transferrin 05/24/18 05/25/18 05/25/18 21:53 06:07 07:29 POC Glucometer 130 56 113 Transferrin Laboratory Tests 05/24/18 05/24/18 05/24/18 06:00 06:30 11:59 WBC 11.6 H RBC 3.20 L Hgb 9.2 L Hct 27.9 L MCV 87.1 MCH 28.9 MCHC 33.2 RDW 14.3 Sodium 141 Potassium 3.8 Chloride 106 Carbon Dioxide 31 Anion Gap 4 L BUN 27 H Creatinine 0.7 POC Glucometer 41 05/24/18 05/24/18 05/24/18 12:41 13:22 15:20 WBC RBC Hgb Hct MCV MCH MCHC RDW Sodium Potassium Chloride Carbon Dioxide Anion Gap BUN Creatinine POC Glucometer 62 66 66 06/05/24/18 05/25/18 16:29 21:53 06:07 WBC RBC Hgb Hct MCV MCH MCHC RDW Sodium Potassium Chloride Carbon Dioxide Anion Gap BUN Creatinine POC Glucometer 95 130 56 05/25/18 07:29 WBC RBC Hgb Hct MCV MCH MCHC RDW Sodium Potassium Chloride Carbon Dioxide Anion Gap BUN Creatinine POC Glucometer 113 plan: bgm qid novolog insulin doses levemir 10 units am dc pm levemir check hba1c ck tsh free t4 nutrition consultation
--- NOTE | 2018-05-25 13:17 | PN ---
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 (short form) - Note 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: Neurology HISTORY OF PRESENT ILLNESS: Covering for Dr. Molina 78 year old female with a PMH of recurrent UTIs, multiple TIA, dementia, DMII, HTN, CAD (multiple stents in past, last PCI in 2011 at [facility], Deep Vein Thrombosis (of left lower extremity diagnosed on 12/23/14, on Xarelto), Hyperlipdemia, pericardial effusion with tamponade s/p pericardial window. She presented with altered mental status for 2 days, and was less communicative. The daughter reportedly stated the patient does not ambulate and is demented at baseline. As per the daughter, the patient has recurrent UTIs and has been having foul smelling urine over the past few days. Currently on Levofloxacin. The patient is nonverbal with dementia at baseline. CT head completed without acute changes. Admitted for AMS. MRI brain completed, foci of acute infarctions in R parietal noted. Carotid Dopplers ordered, Echo ordered and pending. ASA 81mg changed to Aggrenox. Remains stable neurologically without new events. Active Medications Amlodipine Besylate (Norvasc -) 5 mg PO DAILY [facility] Last Admin: 05/25/18 10:20 Dose: 5 mg Aspirin (Ecotrin -) 81 mg PO DAILY [facility] Atorvastatin Calcium (Lipitor -) 20 mg PO HS [facility] Last Admin: 05/24/18 21:59 Dose: 20 mg Carvedilol (Coreg -) 6.25 mg PO BID [facility] Last Admin: 05/25/18 10:21 Dose: 6.25 mg Dipyridamole/Aspirin (Aggrenox -) 1 combo PO BID [facility] Last Admin: 05/25/18 10:20 Dose: 1 combo Sodium Chloride (Normal Saline -) 1,000 mls @ 42 mls/hr IV ASDIR [facility] Last Admin: 05/24/18 21:58 Dose: Not Given Levofloxacin (Levaquin 500 Mg Premixed Ivpb -) 500 mg in 100 mls @ 100 mls/hr IVPB DAILY [facility]; Protocol Last Admin: 05/25/18 10:20 Dose: 100 mls/hr Dextrose/Sodium Chloride (D5-1/2ns -) 1,000 mls @ 80 mls/hr IV ASDIR [facility] Last Admin: 05/24/18 13:35 Dose: 80 mls/hr Insulin Aspart (Novolog Vial Sliding Scale -) 1 vial SQ ACHS [facility]; Protocol Insulin Detemir (Levemir Vial) 10 units SQ [facility] Lisinopril (Prinivil) 10 mg PO DAILY [facility] Last Admin: 05/25/18 10:20 Dose: 10 mg Mupirocin (Bactroban 2% Cream -) 1 applic TP DAILY [facility] Last Admin: 05/24/18 10:32 Dose: 1 applic PHYSICAL EXAMINATION: Vital Signs Temperature 97.9 F 05/25/18 09:54 Pulse Rate 78 05/25/18 09:54 Respiratory Rate 20 05/25/18 09:54 Blood Pressure 142/62 05/25/18 09:54 O2 Sat by Pulse Oximetry (%) 99 05/24/18 21:00 GENERAL: Awake, alert, and fully oriented, in no acute distress, lying comfortably in bed. HEAD: Normal with no signs of trauma. EYES: Pupils equal, round and reactive to light, extraocular movements not assessed, sclera anicteric, conjunctiva clear. EARS, NOSE, THROAT: Ears normal, nares patent, oropharynx clear without exudates. Moist mucous membranes. NECK: Normal range of motion, supple without lymphadenopathy, JVD, or masses. LUNGS: Breath sounds equal, clear to auscultation bilaterally. No wheezes, and no crackles. No accessory muscle use. HEART: Regular rate and rhythm, normal S1 and S2 without murmur, rub or gallop. ABDOMEN: Soft, nontender, not distended, normoactive bowel sounds, no guarding, no rebound, no masses. No hepatomegaly or splenomegaly. MUSCULOSKELETAL: Normal range of motion at all joints. No bony deformities or tenderness. No CVA tenderness. UPPER EXTREMITIES: 2+ pulses, warm, no peripheral edema. LOWER EXTREMITIES: 2+ pulses, no peripheral edema. NEUROLOGICAL: Not following commands, no facial droop noted, moving extremities grossly, sensory intact CBCD WBC 11.6 K/mm3 (4.0-10.0) H 05/24/18 06:00 RBC 3.20 M/mm3 (3.60-5.2) L 05/24/18 06:00 Hgb 9.2 GM/dL (10.7-15.3) L 05/24/18 06:00 Hct 27.9 % (32.4-45.2) L 05/24/18 06:00 MCV 87.1 fl (80-96) 05/24/18 06:00 MCHC 33.2 g/dl (32.0-36.0) 05/24/18 06:00 RDW 14.3 % (11.6-15.6) 05/24/18 06:00 Plt Count 278 K/MM3 (134-434) 05/24/18 06:00 MPV 8.8 fl (7.5-11.1) 05/24/18 06:00 CMP Sodium 141 mmol/L (136-145) 05/24/18 06:30 Potassium 3.8 mmol/L (3.5-5.1) 05/24/18 06:30 Chloride 106 mmol/L (98-107) 05/24/18 06:30 Carbon Dioxide 31 mmol/L (21-32) 05/24/18 06:30 Anion Gap 4 (8-16) L 05/24/18 06:30 BUN 27 mg/dL (7-18) H 05/24/18 06:30 Creatinine 0.7 mg/dL (0.55-1.02) 05/24/18 06:30 Creat Clearance w eGFR > 60 (>60) 05/24/18 06:30 Random Glucose 68 mg/dL (74-106) L 05/24/18 06:30 Calcium 8.3 mg/dL (8.5-10.1) L 05/24/18 06:30 Total Bilirubin 0.3 mg/dL (0.2-1.0) 05/24/18 06:30 AST 8 U/L (15-37) L 05/24/18 06:30 ALT 8 U/L (12-78) L 05/24/18 06:30 Alkaline Phosphatase 89 U/L (45-117) 05/24/18 06:30 Total Protein 5.9 g/dl (6.4-8.2) L 05/24/18 06:30 Albumin 2.2 g/dl (3.4-5.0) L 05/24/18 06:30 CARDIAC ENZYMES Creatine Kinase 40 IU/L (26-192) 05/22/18 21:03 Troponin I < 0.02 ng/ml (0.00-0.05) 05/22/18 21:03 CT head reviewed MRI brain reviewed Carotid pending Echo pending ASSESSMENT/PLAN: 78 year old female with a PMH of recurrent UTIs, multiple TIA, dementia, DMII, HTN, CAD (multiple stents in past, last PCI in 2011 at [facility], Deep Vein Thrombosis (of left lower extremity diagnosed on 12/23/14, on Xarelto), Hyperlipdemia, pericardial effusion with tamponade s/p pericardial window. She presented with altered mental status for 2 days, and was less communicative. The daughter reportedly stated the patient does not ambulate and is demented at baseline. As per the daughter, the patient has recurrent UTIs and has been having foul smelling urine over the past few days. The patient is nonverbal with dementia at baseline. CT head completed without acute changes. Admitted for AMS. MRI brain has been completed, reviewed. Continue monitoring for infection, UTI. Abx as needed, on levofloxacin. Carotid doppler ordered, Echo ordered, pending. Monitor BP, goal < 160/90 for now, 130/80 as outpatient. Continue Statin. ASA 81mg changed to Aggrenox. Monitor glucose, maintain euglycemic range.
[2018-05-25] MEDS: MUPIROCIN CA 2% TOPICAL CREAM 15 GM TUBE TP SCH ×2 (14:00→19:59)
[2018-05-25] MEDS: ASPIRIN COATED 81 MG TABLET.EC PO SCH (17:22)
[2018-05-25] MEDS: DEXTROSE 5%-0.45% SALINE 1,000 ML IV SCH ×2 (17:22→19:59)
[2018-05-25] MEDS: ATORVASTATIN CA 20 MG TABLET (FP) PO SCH (21:35)
[2018-05-25] MEDS: SODIUM CHLORIDE 1,000 ML IV SCH (21:35)
[2018-05-25] MEDS ORDERED: DEXTROSE 50%-WATER 25 GM/50 ML DISP.SYRIN IVPUSH ONE (22:00)
[2018-05-26] MEDS: DEXTROSE 5%-0.45% SALINE 1,000 ML IV SCH ×2 (06:10→22:57)
[2018-05-26] MEDS: INSULIN (LEVEMIR) 100 UNITS/ML UNITS SQ SCH (06:11)
[2018-05-26] MEDS: INSULIN SLIDING SCALE (NOVOLOG) 1 VIAL SQ SCH ×4 (06:11→22:56)
[2018-05-26] MEDS: ASPIRIN/DIPYRIDAMOLE 25 MG/200 MG CAPSULE (FP) PO SCH ×2 (09:52→22:56)
[2018-05-26] MEDS: ASPIRIN COATED 81 MG TABLET.EC PO SCH (09:52)
[2018-05-26] MEDS: amLODIPine BESYLATE 5 MG TABLET (FP) PO SCH (09:52)
[2018-05-26] MEDS: CARVEDILOL 6.25 MG TABLET (FP) PO SCH ×2 (09:52→22:55)
[2018-05-26] MEDS: LISINOPRIL 10 MG TABLET (FP) PO SCH (09:53)
[2018-05-26] MEDS: MUPIROCIN CA 2% TOPICAL CREAM 15 GM TUBE TP SCH (09:53)
--- NOTE | 2018-05-26 13:43 | PN ---
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 Holding puree at times in buccal cavity. Accepted Ensure compact well for me. 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 Continue puree/nectar. Alternate puree with sip of liquid to improve oropharyngeal transfer. If oral holding, may benefit from mixing puree in ensure or soup to drink, single sips at a time. No continuous drinking. HOB elevated. Chin tucked down. Monitor tolerance.
--- NOTE | 2018-05-26 16:16 | PN ---
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, Physician Chief Complaint: APHASIA CHART REVIEWED - Current Medication List Current Medications: Active Medications Amlodipine Besylate (Norvasc -) 5 mg PO DAILY [facility] Last Admin: 05/26/18 09:52 Dose: 5 mg Aspirin (Ecotrin -) 81 mg PO DAILY [facility] Last Admin: 05/26/18 09:52 Dose: 81 mg Atorvastatin Calcium (Lipitor -) 20 mg PO HS [facility] Last Admin: 05/25/18 21:35 Dose: 20 mg Carvedilol (Coreg -) 6.25 mg PO BID [facility] Last Admin: 05/26/18 09:52 Dose: 6.25 mg Dipyridamole/Aspirin (Aggrenox -) 1 combo PO BID [facility] Last Admin: 05/26/18 09:52 Dose: 1 combo Levofloxacin (Levaquin 500 Mg Premixed Ivpb -) 500 mg in 100 mls @ 100 mls/hr IVPB DAILY [facility]; Protocol Last Admin: 05/26/18 09:52 Dose: 100 mls/hr Dextrose/Sodium Chloride (D5-1/2ns -) 1,000 mls @ 80 mls/hr IV ASDIR [facility] Last Admin: 05/26/18 06:10 Dose: 80 mls/hr Insulin Aspart (Novolog Vial Sliding Scale -) 1 vial SQ ACHS [facility]; Protocol Last Admin: 05/26/18 12:39 Dose: 4 units Insulin Detemir (Levemir Vial) 10 units SQ AM [facility] Last Admin: 05/26/18 06:11 Dose: Not Given Lisinopril (Prinivil) 10 mg PO DAILY [facility] Last Admin: 05/26/18 09:53 Dose: 10 mg Mupirocin (Bactroban 2% Cream -) 1 applic TP DAILY [facility] Last Admin: 05/26/18 09:53 Dose: 1 applic - Objective Vital Signs: Vital Signs Temperature 98.9 F 05/26/18 13:45 Pulse Rate 90 05/26/18 13:45 Respiratory Rate 16 05/26/18 13:45 Blood Pressure 108/78 05/26/18 13:45 O2 Sat by Pulse Oximetry (%) 96 05/25/18 21:00 Constitutional: Yes: No Distress Eyes: Yes: WNL HENT: Yes: WNL Neck: Yes: WNL Cardiovascular: Yes: WNL Respiratory: Yes: WNL Gastrointestinal: Yes: WNL Genitourinary: Yes: Incontinence Musculoskeletal: Yes: Muscle Weakness Extremities: Yes: Other Edema: No Peripheral Pulses WNL: Yes Integumentary: Yes: WNL Wound/Incision: Yes: Clean/Dry Neurological: Yes: Pre-Existing Deficit ...Motor Strength: LLE, RLE Psychiatric: Yes: Other Labs: CBC, BMP 05/24/18 06:00 05/24/18 06:30 INR, PTT INR 1.04 (0.82-1.09) 05/22/18 21:03 Problem List - Problems (1) Altered mental status Code(s): R41.82 - ALTERED MENTAL STATUS, UNSPECIFIED (2) Anemia Code(s): D64.9 - ANEMIA, UNSPECIFIED (3) DVT (deep venous thrombosis) Code(s): I82.409 - ACUTE EMBOLISM AND THOMBOS UNSP DEEP VN UNSP LOWER EXTREMITY (4) Delirium Code(s): R41.0 - DISORIENTATION, UNSPECIFIED (5) Dementia Code(s): F03.90 - UNSPECIFIED DEMENTIA WITHOUT BEHAVIORAL DISTURBANCE Qualifiers: Dementia type: Alzheimer's disease Dementia behavioral disturbance: with behavioral disturbance (6) Diabetes mellitus Code(s): E11.9 - TYPE 2 DIABETES MELLITUS WITHOUT COMPLICATIONS Qualifiers: Diabetes mellitus type: type 2 Diabetes mellitus complication status: with circulatory complication Diabetes mellitus complication detail: with peripheral angiopathy with gangrene (7) Lethargy Code(s): R53.83 - OTHER FATIGUE (8) CVA (cerebral infarction) Code(s): I63.9 - CEREBRAL INFARCTION, UNSPECIFIED Assessment/Plan NEURO/CARDIO WORKUP MONITOR ON TELE AGGRENOX VS OTHER NEURO F/U PT EVAL WILL NEED SNF
[2018-05-26] MEDS: ATORVASTATIN CA 20 MG TABLET (FP) PO SCH (22:55)
[2018-05-27] MEDS: INSULIN (LEVEMIR) 100 UNITS/ML UNITS SQ SCH (06:35)
[2018-05-27] MEDS: INSULIN SLIDING SCALE (NOVOLOG) 1 VIAL SQ SCH ×4 (06:35→21:52)
[2018-05-27] MEDS: ASPIRIN COATED 81 MG TABLET.EC PO SCH (09:34)
[2018-05-27] MEDS: amLODIPine BESYLATE 5 MG TABLET (FP) PO SCH (09:34)
[2018-05-27] MEDS: MUPIROCIN CA 2% TOPICAL CREAM 15 GM TUBE TP SCH (09:34)
[2018-05-27] MEDS: ASPIRIN/DIPYRIDAMOLE 25 MG/200 MG CAPSULE (FP) PO SCH (09:34)
[2018-05-27] MEDS: CARVEDILOL 6.25 MG TABLET (FP) PO SCH ×2 (09:34→21:52)
[2018-05-27] MEDS: LISINOPRIL 10 MG TABLET (FP) PO SCH (09:34)
--- NOTE | 2018-05-27 10:39 | PN ---
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 Alternate puree with sip of liquid to improve oropharyngeal transfer. If oral holding, may benefit from mixing puree in ensure or soup to drink, single sips at a time. No continuous drinking. HOB elevated. Chin tucked down. Encourage Ensure compact TID, after meals. Monitor tolerance.
--- NOTE | 2018-05-27 10:58 | PN ---
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 (short form) - Note 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: doppler reviewed showed dvt in left leg superficial patient was on xarelto and was held until MRI was done now noted inderjit restart it once ok with neurology on aggrenox for now. Problem List - Problems (1) UTI (lower urinary tract infection) Code(s): N39.0 - URINARY TRACT INFECTION, SITE NOT SPECIFIED (2) Altered mental status Code(s): R41.82 - ALTERED MENTAL STATUS, UNSPECIFIED (3) CAD (coronary artery disease) Code(s): I25.10 - ATHSCL HEART DISEASE OF [place] CORONARY ARTERY W/O ANG PCTRS Qualifiers: Coronary Disease-Associated Artery/Lesion type: [place] coronary artery Associated angina: without angina pectoris (4) DVT (deep venous thrombosis) Code(s): I82.409 - ACUTE EMBOLISM AND THOMBOS UNSP DEEP VN UNSP LOWER EXTREMITY (5) Anemia Code(s): D64.9 - ANEMIA, UNSPECIFIED
--- NOTE | 2018-05-27 14:46 | PN ---
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 (short form) - Note 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: ID consult dictated imp/reccd 78 year old nonambulatory female with dementia lives at home with familt brought to ED on 05/22 with lethargy, eating poorly ua with 7 WBC, urine culture with 2 organisms- strep/lactobacillus she is afebrile awakens to name but doesnot talk asked to evaluate for UTI day #6 levaquin I doubt she has UTI- in any case- treated would d/c levaquin and observe monitor closely for aspiration suspect we are seeing natural progression of her underlying dementia has had extensive neurology w/u as well please call back if needed Problem List - Problems (1) Lethargy Code(s): R53.83 - OTHER FATIGUE (2) UTI (urinary tract infection) Code(s): N39.0 - URINARY TRACT INFECTION, SITE NOT SPECIFIED Qualifiers: Urinary tract infection type: acute cystitis Hematuria presence: without hematuria Qualified Code(s): N30.00 - Acute cystitis without hematuria (3) Dementia Code(s): F03.90 - UNSPECIFIED DEMENTIA WITHOUT BEHAVIORAL DISTURBANCE Qualifiers: Dementia type: Alzheimer's disease Dementia behavioral disturbance: with behavioral disturbance
--- NOTE | 2018-05-27 15:19 | DS ---
Physical Examination Vital Signs: Vital Signs Temperature 98.5 F 05/27/18 09:49 Pulse Rate 91 H 05/27/18 09:49 Respiratory Rate 18 05/27/18 09:49 Blood Pressure 137/66 05/27/18 09:49 O2 Sat by Pulse Oximetry (%) 96 05/27/18 10:00 Constitutional: Yes: No Distress Eyes: Yes: WNL HENT: Yes: WNL Neck: Yes: WNL Cardiovascular: Yes: WNL Respiratory: Yes: WNL Gastrointestinal: Yes: WNL Renal/: Yes: WNL Musculoskeletal: Yes: Muscle Weakness Extremities: Yes: WNL Edema: No Peripheral Pulses WNL: Yes Wound/Incision: Yes: Clean/Dry Neurological: Yes: Confusion, Pre-Existing Deficit ...Motor Strength: LLE, RLE Psychiatric: Yes: Other Labs: CBC, BMP 05/24/18 06:00 05/24/18 06:30 Discharge Summary Reason For Visit: LOWER UTI INF. DISEASE Current Active Problems Altered mental status (Acute) Anemia (Acute) DVT (deep venous thrombosis) (Acute) Delirium (Acute) Dementia (Acute) Diabetes mellitus (Acute) Lethargy (Acute) UTI (lower urinary tract infection) (Acute) ACUTE CVA Procedures: Principal: MRI BRAIN/DOPPLER LEGS Hospital Course: ADMITTED ACUTE CVA, DYSPHAGIA, DVT LEGS, DEMENTIA, WORKED UP BY NEUROLOGY AND WILL NEED AGGRESIVE PT EITHER AT HOME OR SNF, WILL LET FAMILY DECIDE. PATIENBT ON AGGRENOX AND XARELTO. BEING ON BOTHE MEDICATIONS WILL PREVENT FURTHER CVA/ STROKE AND DVT /EMBOLI, HOWEVER THE PATIENT NEEDS TO UNDERSTAND WELL THE FAMILY THAT THERE IS A RISK FOR BLEED. THERFORE THE PATIENT WILL NEED WEEKLY CBC TO FOLLOW HEMOGLOBIN/HCT LEVELS AND DECREASE ANY FALL RISK. Condition: Guarded - Instructions Diet, Activity, Other Instructions: ADMITTED ACUTE CVA, DYSPHAGIA, DVT LEGS, DEMENTIA, WORKED UP BY NEUROLOGY AND WILL NEED AGGRESIVE PT EITHER AT HOME OR SNF, WILL LET FAMILY DECIDE. PATIENBT ON AGGRENOX AND XARELTO. BEING ON BOTHE MEDICATIONS WILL PREVENT FURTHER CVA/ STROKE AND DVT /EMBOLI, HOWEVER THE PATIENT NEEDS TO UNDERSTAND WELL THE FAMILY THAT THERE IS A RISK FOR BLEED. THERFORE THE PATIENT WILL NEED WEEKLY CBC TO FOLLOW HEMOGLOBIN/HCT LEVELS AND DECREASE ANY FALL RISK. FOLLOW WITH YOUR DOCTOR IN 2-3 DAYS, AND WILL NEED HOME LABS/BLOOD DRAWS PHYSICAL THERAPY OUTPATIENT VS INPATIENT DYSPHAGIA PRECAUTIONS/SPEECH THERAPY EVAL IN 1-2 WEEKS Referrals: Julio C Campbell MD [Primary Care Provider] - Disposition: VNS/HOME HEALTH CARE - Home Medications Comprehensive Discharge Medication List: Ambulatory Orders Simvastatin [Zocor -] 20 mg PO HS 06/05/16 Acetaminophen [Tylenol .Regular Strength -] 650 mg PO Q4H PRN #0 tablet Amlodipine Besylate [Norvasc -] 5 mg PO DAILY tablet 05/31/17 Carvedilol [Coreg -] 6.25 mg PO BID tablet 05/31/17 Lisinopril [Prinivil] 10 mg PO DAILY tablet 05/31/17 Rivaroxaban [Xarelto -] 20 mg PO DAILY tablet 05/31/17 Aspirin Coated [Ecotrin -] 81 mg PO DAILY tab 07/27/17 Insulin Sliding Scale [Novolog Vial Sliding Scale -] 1 vial SQ ACHS units 07/27 metFORMIN HCL [Glucophage -] 500 mg PO DAILY@0700 tablet 07/27/17 Mupirocin Cream [Bactroban 2% Cream -] 1 applic TP DAILY #1 tube 08/09/17 Amlodipine Besylate [Norvasc -] 5 mg PO DAILY tablet 05/27/18 Aspirin Coated [Ecotrin -] 81 mg PO DAILY tablet.ec 05/27/18 Aspirin/Dipyridamole [Aggrenox -] 1 combo PO BID capsule 05/27/18 Aspirin/Dipyridamole [Aggrenox -] 1 combo PO BID #60 capsule 05/27/18 Insulin Detemir [Levemir Flextouch] 100 unit SQ BID #4 insuln.pen 05/27/18 Rivaroxaban [Xarelto -] 20 mg PO DAILY@1800 tablet 05/27/18
--- NOTE | 2018-05-27 15:44 | CONS ---
DATE OF CONSULTATION: 05/27/2018 REQUESTED BY: Alisia Wolfe MD This is an 78-year-old woman with dementia. She is non-ambulatory and she is nonverbal. She lives at home with her family. She was brought to the hospital by her daughter for worsening lethargy and decreased oral intake. She was started on Levaquin for possible UTI on the , and I am asked to see her for further evaluation. Per her daughter, the last time she had a urinary tract infection was in July of 2017, and she has not been on any recent antibiotics. She has a past medical history notable for UTI, TIAs, dementia, [id number]-kldjojxgk diabetes, hypertension, coronary artery disease, history of multiple stents, deep vein thrombosis of the left lower extremity, hyperlipidemia, pericardial effusion with tamponade status post myocardial window. SOCIAL HISTORY: There is no history of any cigarette or substance use. She lives with her daughter. She is allergic to PENICILLIN. Nature of the allergy is not known. Medications at home include insulin, Coreg, Ecotrin, Norvasc, Glucophage, Zocor, Xarelto, Prinivil, and insulin. Review of systems is unremarkable. HOSPITAL COURSE: She has had an extensive neurologic workup that has been unremarkable. She has never had any fever since admission. PHYSICAL EXAMINATION: General: She is awake, she is alert, she opens her eyes. She actually tries to help us. When we turned her, she held the side of the bedrail but she would not talk to us. HEENT: She is normocephalic. Her eyes are anicteric. Musculoskeletal: She has increased tone throughout her body. Heart: Regular rate and rhythm. Lungs: Clear to auscultation. Abdomen: Soft. There is no suprapubic pain. Extremities: Without edema. She has an un-stageable sacral ulcer with an eschar. She has a small stage 2 abrasion about 1 cm in diameter. Labs are notable for, from the , a white count of 11.6, hemoglobin 9.2. Chemistries on the : BUN 27 and creatinine 0.7, with normal LFTs. Urinalysis had 7 white cells. Blood cultures are negative. Urine culture is growing both a lactobacillus and a streptococcus species, 50,000 to 60,000. In summary, this is an elderly woman, admitted from home, on day 6 of Levaquin. I doubt she has a UTI. In any case, it has been treated. Would stop her Levaquin and observe, monitor closely for aspiration. She has been evaluated by Speech Pathology, and dietary changes have been suggested. I suspect we are seeing the natural progression of her underlying dementia, and she has had an extensive neurological workup as well. Please call back if needed. CONCHIS MONTES M.D. [id number]
[2018-05-27] MEDS: AMINO ACIDS/PROTEIN HYDROLYS 30 ML LIQUID.PKT PO SCH (16:37)
[2018-05-27] MEDS: ATORVASTATIN CA 20 MG TABLET (FP) PO SCH (21:52)
[2018-05-27] MEDS: DEXTROSE 5%-0.45% SALINE 1,000 ML IV SCH (21:52)
--- NOTE | 2018-05-27 23:31 | PN ---
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, Physician Chief Complaint: awake eating slow to respond yet tolerating diet History of Present Illness: dm,cva dementia,sp sepsis treating with rehydration,and antibiotics - Current Medication List Current Medications: Active Medications Amino Acids (Prosource No Carb Liquid Pkt) 30 ml PO BID@0800,1730 [facility] Last Admin: 05/27/18 16:37 Dose: 30 ml Amlodipine Besylate (Norvasc -) 5 mg PO DAILY [facility] Last Admin: 05/27/18 09:34 Dose: 5 mg Aspirin (Ecotrin -) 81 mg PO DAILY [facility] Last Admin: 05/27/18 09:34 Dose: 81 mg Atorvastatin Calcium (Lipitor -) 20 mg PO HS [facility] Last Admin: 05/27/18 21:52 Dose: 20 mg Carvedilol (Coreg -) 6.25 mg PO BID [facility] Last Admin: 05/27/18 21:52 Dose: 6.25 mg Levofloxacin (Levaquin 500 Mg Premixed Ivpb -) 500 mg in 100 mls @ 100 mls/hr IVPB DAILY [facility]; Protocol Last Admin: 05/27/18 09:33 Dose: 100 mls/hr Dextrose/Sodium Chloride (D5-1/2ns -) 1,000 mls @ 80 mls/hr IV ASDIR [facility] Last Admin: 05/27/18 21:52 Dose: 80 mls/hr Insulin Aspart (Novolog Vial Sliding Scale -) 1 vial SQ ACHS [facility]; Protocol Last Admin: 05/27/18 21:52 Dose: Not Given Insulin Detemir (Levemir Vial) 10 units SQ AM [facility] Last Admin: 05/27/18 06:35 Dose: 10 units Lisinopril (Prinivil) 10 mg PO DAILY [facility] Last Admin: 05/27/18 09:34 Dose: 10 mg Mupirocin (Bactroban 2% Cream -) 1 applic TP DAILY [facility] Last Admin: 05/27/18 09:34 Dose: Not Given Rivaroxaban (Xarelto -) 20 mg PO DAILY@1800 [facility] - Objective Vital Signs: Vital Signs Temperature 99.8 F H 05/27/18 15:51 Pulse Rate 92 H 05/27/18 15:51 Respiratory Rate 20 05/27/18 15:51 Blood Pressure 130/70 05/27/18 15:51 O2 Sat by Pulse Oximetry (%) 96 05/27/18 10:00 Constitutional: Yes: Calm Eyes: Yes: EOM Intact HENT: Yes: Normocephalic Neck: Yes: Trachea Midline Cardiovascular: Yes: Regular Rate and Rhythm Respiratory: Yes: CTA Bilaterally Gastrointestinal: Yes: Normal Bowel Sounds ...Rectal Exam: Yes: Deferred Genitourinary: Yes: WNL Musculoskeletal: Yes: Joint Stiffness, Joint Swelling Extremities: Yes: Delayed Capillary Refill Neurological: Yes: Alert, Aphasia, Weakness Labs: CBC, BMP 05/24/18 06:00 05/24/18 06:30 INR, PTT INR 1.04 (0.82-1.09) 05/22/18 21:03 Problem List - Problems (1) Diabetes mellitus Code(s): E11.9 - TYPE 2 DIABETES MELLITUS WITHOUT COMPLICATIONS Qualifiers: Diabetes mellitus type: type 2 Diabetes mellitus complication status: with circulatory complication Diabetes mellitus complication detail: with peripheral angiopathy with gangrene (2) Abnormal lateral conjugate gaze Code(s): H51.0 - PALSY (SPASM) OF CONJUGATE GAZE (3) Acute hypernatremia Code(s): E87.0 - HYPEROSMOLALITY AND HYPERNATREMIA (4) Altered mental status Code(s): R41.82 - ALTERED MENTAL STATUS, UNSPECIFIED (5) Anemia Code(s): D64.9 - ANEMIA, UNSPECIFIED (6) Aortic stenosis Code(s): I35.0 - NONRHEUMATIC AORTIC (VALVE) STENOSIS (7) Cellulitis Code(s): L03.90 - CELLULITIS, UNSPECIFIED Qualifiers: Site of cellulitis: extremity Site of cellulitis of extremity: lower extremity Laterality: right Qualified Code(s): L03.115 - Cellulitis of right lower limb (8) Diabetes mellitus Code(s): E11.9 - TYPE 2 DIABETES MELLITUS WITHOUT COMPLICATIONS Qualifiers: Diabetes mellitus type: type 2 Diabetes mellitus complication status: with hyperglycemia Assessment/Plan Current Active Problems Altered mental status (Acute) Anemia (Acute) DVT (deep venous thrombosis) (Acute) Delirium (Acute) Dementia (Acute) Diabetes mellitus (Acute) Lethargy (Acute) UTI (lower urinary tract infection) (Acute) Laboratory Results - last 24 hr 05/27/18 05/27/18 05/27/18 05:34 06:00 11:42 POC Glucometer 245 231 TSH 3.26 05/27/18 05/27/18 16:38 21:50 POC Glucometer 116 106 TSH plan: continue bgm coverage levemir 10 units am will need up titration as appetite improves outpatient follow up for changes insulin dose Current Medications Generic Name Dose Route Start Last Admin Trade Name Yeimy PRN Reason Stop Dose Admin Amino Acids 30 ml 05/27/18 17:30 05/27/18 16:37 Prosource No Carb Liquid Pkt PO 30 ml BID@0800,1730 [facility] Administration Amlodipine Besylate 5 mg 05/23/18 10:00 05/27/18 09:34 Norvasc - PO 5 mg DAILY [facility] Administration Aspirin 81 mg 05/25/18 11:30 05/27/18 09:34 Ecotrin - PO 81 mg DAILY [facility] Administration Atorvastatin Calcium 20 mg 05/23/18 22:00 05/27/18 21:52 Lipitor - PO 20 mg HS [facility] Administration Carvedilol 6.25 mg 05/23/18 10:00 05/27/18 21:52 Coreg - PO 6.25 mg BID [facility] Administration Levofloxacin 500 mg in 100 mls @ 100 mls/hr 05/23/18 10:00 05/27/18 09:33 Levaquin 500 Mg Premixed Ivpb - IVPB 100 mls/hr DAILY [facility] Administration Protocol Dextrose/Sodium Chloride 1,000 mls @ 80 mls/hr 05/25/18 22:15 05/27/18 21:52 D5-1/2ns - IV 80 mls/hr ASDIR [facility] Administration Insulin Aspart 1 vial 05/25/18 11:50 05/27/18 21:52 Novolog Vial Sliding Scale - SQ Not Given ACHS [facility] Protocol Insulin Detemir 10 units 05/26/18 07:00 05/27/18 06:35 Levemir Vial SQ 10 units AM [facility] Administration Lisinopril 10 mg 05/23/18 10:00 05/27/18 09:34 Prinivil PO 10 mg DAILY [facility] Administration Mupirocin 1 applic 05/23/18 10:00 05/27/18 09:34 Bactroban 2% Cream - TP Not Given DAILY [facility] Rivaroxaban 20 mg 05/28/18 18:00 Xarelto - PO DAILY@1800 [facility]
[2018-05-28] MEDS: INSULIN SLIDING SCALE (NOVOLOG) 1 VIAL SQ SCH (06:15)
[2018-05-28 08:49] VITALS: BP 115/73; PULSE 88; TEMP 99
[2018-05-28] MEDS: ASPIRIN COATED 81 MG TABLET.EC PO SCH (09:05)
[2018-05-28] MEDS: AMINO ACIDS/PROTEIN HYDROLYS 30 ML LIQUID.PKT PO SCH (09:05)
[2018-05-28] MEDS: LISINOPRIL 10 MG TABLET (FP) PO SCH (09:05)
[2018-05-28] MEDS: amLODIPine BESYLATE 5 MG TABLET (FP) PO SCH (09:05)
[2018-05-28] MEDS: CARVEDILOL 6.25 MG TABLET (FP) PO SCH (09:05)
[2018-05-28] MEDS: INSULIN (LEVEMIR) 100 UNITS/ML UNITS SQ SCH (09:05)
[2018-05-28] MEDS: MUPIROCIN CA 2% TOPICAL CREAM 15 GM TUBE TP SCH (09:06)
[2018-05-28] MEDS ORDERED: RIVAROXABAN 20 MG TABLET PO SCH (18:00)
== END 2018-05-28 11:19 | DRG 65 ==
LOC: JER 20:32 → JERBED 22:54 → UNDOADMIN 23:25 → JERBED 23:25 → J4S 05-23 18:45
PROVIDERS: ADMIT Internal Medicine; ATTEND Family Medicine
DX: I63.9 Cerebral infarction, unspecified (principal); N17.9 Acute kidney failure, unspecified; N39.0 Urinary tract infection, site not specified; I82.409 Acute embolism and thrombosis of unspecified deep veins of unspecified lower extremity; I25.10 Atherosclerotic heart disease of native coronary artery without angina pectoris; I35.0 Nonrheumatic aortic (valve) stenosis; F03.90 Unspecified dementia, unspecified severity, without behavioral disturbance, psychotic disturbance, mood disturbance, and anxiety; E11.40 Type 2 diabetes mellitus with diabetic neuropathy, unspecified; E11.51 Type 2 diabetes mellitus with diabetic peripheral angiopathy without gangrene; I10 Essential (primary) hypertension; E78.5 Hyperlipidemia, unspecified; R13.10 Dysphagia, unspecified; R41.0 Disorientation, unspecified; D64.9 Anemia, unspecified; L89.220 Pressure ulcer of left hip, unstageable; L89.159 Pressure ulcer of sacral region, unspecified stage; R29.707 NIHSS score 7; Z95.5 Presence of coronary angioplasty implant and graft; Z79.4 Long term (current) use of insulin
CPT/HCPCS: 36415; 70450-TC; 70551-TC; 71045-TC-FY; 80053; 81003; 81015; 82465; 82550; 82728; 82962; 83036; 83540; 83550; 83718; 83721; 83735; 84100; 84443; 84466; 84478; 84484; 85025; 85610; 86850; 86900; 86901; 87040; 87086; 87186; 93005; 93010; 93306-TC; 93880-TC; 93970-TC; 97161-GP; 99285-25; J7030

== ENCOUNTER 2018-06-25 05:12 | Inpatient (IN) | payer OTHER ==
[2018-06-24 09:53] VITALS: BMI 17.6
[2018-06-25] MEDS ORDERED: TETRACAINE/BENZOCAINE/BUTAMBEN 20 GM SPR TP STA (09:52)
[2018-06-26 11:15] LABS: INR 1.15 (0.82-1.09)
--- NOTE | 2018-06-26 11:18 | HP ---
Admitting History and Physical - Admission Chief Complaint: sent in for peg placement History of Present Illness: 78 yr old female with h/o cva and dysphagia on ivf at [place] sent in for peg placement. patient is nonverbal DNR on xarelto and aspirin at [place] currently awaiting peg placement History Source: Medical Record - Past Medical History [employer]: Yes: CVA (multiple CVAs), Dementia (vascular) Cardiovascular: Yes: CAD (multiple stents in past, last PCI in 2011 at [facility] (mLAD & pRCA)), Deep Vein Thrombosis (of left lower extremity diagnosed on 12/23/14, on Xarelto), HTN, Hyperlipdemia, Other (Pericardial effusion with tamponade s/p pericardial window) Gastrointestinal: Yes: Other Hepatobiliary: Yes: Cholecystitis (s/p past cholecystectomy) Renal/: Yes: Renal Inusuff Endocrine: Yes: Diabetes Mellitus - Past Surgical History Past Surgical History: Yes: Cholecystectomy - Advance Directives Advance Directives: Yes: Health Care Proxy - Smoking History Smoking history: Unknown if ever smoked Have you smoked in the past 12 months: No Aproximately how many cigarettes per day: 0 - Alcohol/Substance Use Hx Alcohol Use: No History of Substance Use: reports: None - Social History ADL: Family Assistance (lives with daughter and granddaughter in house with 7 steps to enter; needs Assistance in some ADLs and all IADLs, mostly uses wheelchair but able to ambulate with RW) History of Recent Travel: No Home Medications - Allergies Allergies/Adverse Reactions: Allergies Allergy/AdvReac Type Severity Reaction Status Date / Time Penicillins Allergy Verified 07/29/17 17:56 - Home Medications Home Medications: Ambulatory Orders Acetaminophen [Tylenol .Regular Strength -] 650 mg PO Q4H PRN #0 tablet Amlodipine Besylate [Norvasc -] 5 mg PO DAILY tablet 05/31/17 Rivaroxaban [Xarelto -] 20 mg PO DAILY tablet 05/31/17 Aspirin Coated [Ecotrin -] 81 mg PO DAILY tab 07/27/17 Review of Systems Unable to obtain ROS, reason: non verbal Physical Examination Vital Signs: Vital Signs Temperature 98.1 F 06/26/18 07:11 Pulse Rate 98 H 06/26/18 07:11 Respiratory Rate 20 06/26/18 07:11 Blood Pressure 133/75 06/26/18 07:11 O2 Sat by Pulse Oximetry (%) 100 06/25/18 07:43 Constitutional: Yes: Calm, Thin HENT: Yes: Other (NG tube) Cardiovascular: Yes: Regular Rate and Rhythm, S1, S2 Respiratory: Yes: Diminished Gastrointestinal: Yes: Normal Bowel Sounds, Soft Extremities: Yes: Other (left UE contracted) Edema: No Neurological: Yes: Other (eyes open left arm flexed, non verbal) Problem List - Problems (1) Dysphagia as late effect of cerebrovascular accident (CVA) Assessment/Plan: NG tube in place to get a peg placed will hold xarelto and aspirin on statin inderjit need dietary eval after placement of peg tube Code(s): I69.391 - DYSPHAGIA FOLLOWING CEREBRAL INFARCTION (2) HLD (hyperlipidemia) Assessment/Plan: lipitor Code(s): E78.5 - HYPERLIPIDEMIA, UNSPECIFIED (3) HTN (hypertension) Assessment/Plan: amlodipine Code(s): I10 - ESSENTIAL (PRIMARY) HYPERTENSION Qualifiers: Hypertension type: essential hypertension Qualified Code(s): I10 - Essential (primary) hypertension (4) DVT (deep venous thrombosis) Assessment/Plan: xarelto on hold for now til peg is placed Code(s): I82.409 - ACUTE EMBOLISM AND THOMBOS UNSP DEEP VN UNSP LOWER EXTREMITY (5) Diabetes mellitus Assessment/Plan: bgm sliding scale hgba1c Code(s): E11.9 - TYPE 2 DIABETES MELLITUS WITHOUT COMPLICATIONS Qualifiers: Diabetes mellitus type: type 2 Diabetes mellitus complication status: with hyperglycemia
[2018-06-26 15:53] LABS: BASO % 0.3 % (0-2.0); HEMATOCRIT 31.3 % (32.4-45.2); HEMOGLOBIN 10.4 GM/dL (10.7-15.3); LYMPH % 10.8 % (8-40); MCH 28.6 pg (25.7-33.7); MCHC 33.4 g/dl (32.0-36.0); MEAN CELL VOLUME 85.8 fl (80-96); MEAN PLT VOLUME 7.9 fl (7.5-11.1); MONO % 3.4 % (3.8-10.2); NEUT % 85.5 % (42.8-82.8); PLATELET COUNT 360 K/MM3 (134-434); RBC 3.65 M/mm3 (3.60-5.2); RDW 15.3 % (11.6-15.6); WHITE BLOOD COUNT 12.2 K/mm3 (4.0-10.0)
[2018-06-26 18:13] LABS: ALBUMIN 2.8 g/dl (3.4-5.0); ANION GAP 10 (8-16); BILIRUBIN,TOTAL 0.6 mg/dL (0.2-1.0); BLOOD UREA NITROGEN 20 mg/dL (7-18); CALCIUM 9.1 mg/dL (8.5-10.1); CHLORIDE 96 mmol/L (98-107); CO2 33 mmol/L (21-32); CREATININE 0.7 mg/dL (0.55-1.02); GLUCOSE,RANDOM 127 mg/dL (74-106); POTASSIUM 3.8 mmol/L (3.5-5.1); SGOT/AST 19 U/L (15-37); SGPT/ALT 11 U/L (12-78); SODIUM 139 mmol/L (136-145); TOT PROT 6.9 g/dl (6.4-8.2)
[2018-06-26 18:14] LABS: ALK PHOS 125 U/L (45-117)
[2018-06-26] MEDS: SODIUM CHLORIDE 1,000 ML IV SCH (22:04)
[2018-06-26] MEDS: ATORVASTATIN CA 10 MG TABLET (FP) NGT SCH (22:05)
[2018-06-27 07:29] LABS: EOS % 0.5 % (0-4.5); HEMATOCRIT 29.7 % (32.4-45.2); HEMOGLOBIN 10.1 GM/dL (10.7-15.3); LYMPH % 24.8 % (8-40); MCH 29.1 pg (25.7-33.7); MCHC 34.2 g/dl (32.0-36.0); MEAN PLT VOLUME 8.5 fl (7.5-11.1); MONO % 7.3 % (3.8-10.2); NEUT % 66.4 % (42.8-82.8); PLATELET COUNT 291 K/MM3 (134-434); RBC 3.49 M/mm3 (3.60-5.2); RDW 15.5 % (11.6-15.6); WHITE BLOOD COUNT 6.9 K/mm3 (4.0-10.0)
[2018-06-27 08:07] LABS: INR 1.11 (0.82-1.09); PROTHROMBIN TIME (PATIENT) 12.5 SEC (9.7-13.0)
[2018-06-27 08:19] LABS: ALBUMIN 2.7 g/dl (3.4-5.0); ANION GAP 11 (8-16); BLOOD UREA NITROGEN 22 mg/dL (7-18); CALCIUM 8.9 mg/dL (8.5-10.1); CHLORIDE 98 mmol/L (98-107); CO2 29 mmol/L (21-32); CREATININE 0.6 mg/dL (0.55-1.02); GLUCOSE,RANDOM 96 mg/dL (74-106); PHOSPHOROUS 3.4 mg/dL (2.5-4.9); SGPT/ALT 10 U/L (12-78); SODIUM 138 mmol/L (136-145)
[2018-06-27 08:21] LABS: ALK PHOS 120 U/L (45-117); BILIRUBIN,TOTAL 0.8 mg/dL (0.2-1.0); TOT PROT 6.8 g/dl (6.4-8.2)
[2018-06-27 08:22] LABS: POTASSIUM 3.8 mmol/L (3.5-5.1)
[2018-06-27 08:23] LABS: MAGNESIUM 1.7 mg/dL (1.8-2.4); SGOT/AST 25 U/L (15-37)
[2018-06-27 10:44] LABS: ANISOCYTOSIS 1+; MACROCYTOSIS 0
--- NOTE | 2018-06-27 12:21 | PN ---
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, Physician Chief Complaint: patient seen and examined nonverbal s/p g tube placement xray done awaiting result to see if the g tube can be used- then start tube feed dc to NH in AM - Current Medication List Current Medications: Active Medications Amlodipine Besylate (Norvasc -) 5 mg NGT DAILY [facility] Aspirin (Asa -) 81 mg GT DAILY [facility] Atorvastatin Calcium (Lipitor -) 10 mg NGT HS [facility] Last Admin: 06/26/18 22:05 Dose: Not Given Sodium Chloride (Normal Saline -) 1,000 mls @ 42 mls/hr IV ASDIR [facility] Last Admin: 06/26/18 22:04 Dose: 42 mls/hr Magnesium Sulfate (Magnesium Sulfate) 1 gm IVPB ONCE ONE Stop: 06/27/18 12:17 Rivaroxaban (Xarelto -) 20 mg PO DAILY@1800 [facility] - Objective Vital Signs: Vital Signs Temperature 98.5 F 06/27/18 09:00 Pulse Rate 86 06/27/18 09:00 Respiratory Rate 18 06/27/18 09:00 Blood Pressure 145/80 06/27/18 09:00 O2 Sat by Pulse Oximetry (%) 95 06/26/18 21:00 Constitutional: Yes: Calm, Thin Cardiovascular: Yes: Regular Rate and Rhythm, S1, S2 Respiratory: Yes: Diminished Gastrointestinal: Yes: Soft, Other (abdominal binder /g tube) Extremities: Yes: Other (contracted) Labs: CBC, BMP 06/27/18 06:18 06/27/18 06:18 INR, PTT INR 1.11 (0.82-1.09) 06/27/18 06:18 Problem List - Problems (1) Dysphagia as late effect of cerebrovascular accident (CVA) Assessment/Plan: s/p peg placement- awaiting xray to today to see placement and if it can be used xarelto and aspirin once able to use peg on statin tube feeding orders in computer start once ok to use peg Code(s): I69.391 - DYSPHAGIA FOLLOWING CEREBRAL INFARCTION (2) HLD (hyperlipidemia) Assessment/Plan: lipitor Code(s): E78.5 - HYPERLIPIDEMIA, UNSPECIFIED (3) HTN (hypertension) Assessment/Plan: amlodipine Code(s): I10 - ESSENTIAL (PRIMARY) HYPERTENSION Qualifiers: Hypertension type: essential hypertension Qualified Code(s): I10 - Essential (primary) hypertension (4) DVT (deep venous thrombosis) Assessment/Plan: restart xarelto once ok to use peg Code(s): I82.409 - ACUTE EMBOLISM AND THOMBOS UNSP DEEP VN UNSP LOWER EXTREMITY (5) Diabetes mellitus Assessment/Plan: bgm sliding scale hgba1c 6.8 Code(s): E11.9 - TYPE 2 DIABETES MELLITUS WITHOUT COMPLICATIONS Qualifiers: Diabetes mellitus type: type 2 Diabetes mellitus complication status: with hyperglycemia Assessment/Plan plan awaiting xray result start tube feeds once ok to use peg dc to NH in AM
[2018-06-27 12:32] LABS: PLATELET ESTIMATE ADEQUATE
[2018-06-27] MEDS ORDERED: MAGNESIUM 1GM/D5W 100ML - 100 ML IVPB IVPB ONE (13:00)
[2018-06-27] MEDS: ASPIRIN 81 MG CHEWABLE TABLETS GT SCH (17:54)
[2018-06-27] MEDS: AMINO ACIDS/PROTEIN HYDROLYS 30 ML LIQUID.PKT PO SCH (17:54)
[2018-06-27] MEDS: amLODIPine BESYLATE 5 MG TABLET (FP) NGT SCH (17:55)
[2018-06-27] MEDS ORDERED: RIVAROXABAN 20 MG TABLET PO SCH (18:00)
[2018-06-27] MEDS: SODIUM CHLORIDE 1,000 ML IV SCH (23:00)
[2018-06-27] MEDS: ATORVASTATIN CA 10 MG TABLET (FP) NGT SCH (23:00)
--- NOTE | 2018-06-28 09:08 | DS ---
Physical Examination Vital Signs: Vital Signs Temperature 98.4 F 06/28/18 07:00 Pulse Rate 89 06/28/18 07:00 Respiratory Rate 18 06/28/18 07:00 Blood Pressure 151/94 06/28/18 07:00 O2 Sat by Pulse Oximetry (%) 95 06/27/18 22:00 Findings/Remarks: 78 yr old female with h/o cva and dysphagia on ivf at [place] sent in for peg placement. patient is nonverbal DNR on xarelto and aspirin at [place] currently awaiting peg placement Constitutional: Yes: Well Nourished, No Distress, Calm Cardiovascular: Yes: Regular Rate and Rhythm Respiratory: Yes: Regular Gastrointestinal: Yes: Normal Bowel Sounds, Soft Musculoskeletal: Yes: WNL Extremities: Yes: WNL Edema: No Peripheral Pulses WNL: Yes Labs: CBC, BMP 06/27/18 06:18 06/27/18 06:18 Discharge Summary Reason For Visit: CVA W/DYSPHAGIA Current Active Problems Dysphagia as late effect of cerebrovascular accident (CVA) (Acute) Other Procedures: PEG placement 06/26/18 Condition: Stable - Instructions Diet, Activity, Other Instructions: Tube feed: Glucerna 1.5 with starting rate of 10 mls/hour, titration 10 mls Q6h to goal rate of 45 mls/hour (Continuous feeding) Additional water: 20 mls/hr Disposition: LONG TERM FACILITY - Home Medications Comprehensive Discharge Medication List: Ambulatory Orders Acetaminophen [Tylenol .Regular Strength -] 650 mg PO Q4H PRN #0 tablet Amlodipine Besylate [Norvasc -] 5 mg PO DAILY tablet 05/31/17 Rivaroxaban [Xarelto -] 20 mg PO DAILY tablet 05/31/17 Aspirin Coated [Ecotrin -] 81 mg PO DAILY tab 07/27/17 Amino Acids/Protein Hydrolys [Prosource No Carb Liquid Pkt] 30 ml PO BID@0800, 1730 packet 06/28/18 Atorvastatin Ca [Lipitor] 10 mg NGT HS tablet 06/28/18 Multivitamin [Daily Multiple Vitamin] 1 each PO DAILY #30 tablet 06/28/18
[2018-06-28 09:34] VITALS: BP 160/78; PULSE 84; TEMP 98.2
[2018-06-28] MEDS: AMINO ACIDS/PROTEIN HYDROLYS 30 ML LIQUID.PKT PO SCH (09:41)
[2018-06-28] MEDS: amLODIPine BESYLATE 5 MG TABLET (FP) NGT SCH (09:41)
[2018-06-28] MEDS: ASPIRIN 81 MG CHEWABLE TABLETS GT SCH (09:41)
[2018-06-28] MEDS ORDERED: MULTIVITAMINS THER W-MINERALS COMBO TABLET (FP) PO SCH (10:00)
== END 2018-06-28 12:35 | DRG 56 ==
LOC: JRADIR 05:12 → J8W 11:09 → JRADIR 11:10
PROVIDERS: ADMIT Family Medicine; ATTEND Family Medicine
PROC: 0DH63UZ Insertion of Feeding Device into Stomach, Percutaneous Approach (ICD-10-PCS; principal; 2018-06-26)
DX: I69.391 Dysphagia following cerebral infarction (principal); L89.224 Pressure ulcer of left hip, stage 4; E78.5 Hyperlipidemia, unspecified; I10 Essential (primary) hypertension; E11.9 Type 2 diabetes mellitus without complications; I25.10 Atherosclerotic heart disease of native coronary artery without angina pectoris; Z98.61 Coronary angioplasty status
CPT/HCPCS: 36415; 43752; 49440; 74018-TC-FY; 76000-TC-FY; 80053; 82962; 83036; 83735; 84100; 85025; 85610; J7030

== ENCOUNTER 2018-12-31 14:14 | Inpatient (IN) | payer OTHER ==
--- NOTE | 2018-12-31 16:04 | PDOC ---
History of Present Illness - History of Present Illness Initial Comments: Patient is an 78 year old female with a PMHx of recurrent UTIs, multiple TIA, dementia, DMII, HTN, CAD (multiple stents in past, last PCI in 2011 at [facility] , Deep Vein Thrombosis (of left lower extremity diagnosed on 12/23/14, on Xarelto ), Hyperlipidemia, pericardial effusion with tamponade s/p pericardial window, who was referred by PMD ([place]) with c/o cough, generalized, weakness, hematuria. Patient has a wound to left buttox she see woundcare for M,W,F. Patient is nonverbal, niece is at bedside. Patient lives with her daughter. Allergies: penicillins 12/31/18 16:49 <Azul Rodriguez - Last Filed: 12/31/18 16:49> <Courtney Welch - Last Filed: 12/31/18 19:13> - General Chief Complaint: Weakness Stated Complaint: SICK Time Seen by Provider: 12/31/18 16:03 Past History <Azul Rodriguez - Last Filed: 12/31/18 16:49> - Past Medical History Anemia: No Asthma: No Cancer: No Cardiac Disorders: Yes (cardiac tamponade, stents,pericardial effusion, CAD, aortic stenosis) CVA: Yes (Mult.TIA's) COPD: No CHF: No Dementia: Yes Diabetes: Yes GI Disorders: No Disorders: No HTN: Yes Hypercholesterolemia: Yes Liver Disease: (cholecystitis) Seizures: No Thyroid Disease: No - Surgical History Abdominal Surgery: Yes Appendectomy: No Cardiac Surgery: No Cholecystectomy: Yes Lung Surgery: No Neurologic Surgery: No Orthopedic Surgery: No - Immunization History Td Vaccination: Yes Immunization Up to Date: Yes - Suicide/Smoking/Psychosocial Hx Smoking Status: No Smoking History: Unknown if ever smoked Have you smoked in the past 12 months: No Number of Cigarettes Smoked Daily: 0 Hx Alcohol Use: No Drug/Substance Use Hx: No Substance Use Type: None Hx Substance Use Treatment: No <Courtney Welch - Last Filed: 12/31/18 19:13> - Past Medical History Allergies/Adverse Reactions: Allergies Allergy/AdvReac Type Severity Reaction Status Date / Time Penicillins Allergy Verified 12/31/18 15:21 Home Medications: Ambulatory Orders Acetaminophen [Tylenol .Regular Strength -] 650 mg PO Q4H PRN #0 tablet Amlodipine Besylate [Norvasc -] 5 mg PO DAILY tablet 05/31/17 Rivaroxaban [Xarelto -] 20 mg PO DAILY tablet 05/31/17 Aspirin Coated [Ecotrin -] 81 mg PO DAILY tab 07/27/17 Amino Acids/Protein Hydrolys [Prosource No Carb Liquid Pkt] 30 ml PO BID@0800, 1730 packet 06/28/18 Multivitamin [Daily Multiple Vitamin] 1 each PO DAILY #30 tablet 06/28/18 Silver Sulfadiazine [Silvadene] 50 gm TP BID #1 cream..g. 11/12/18 Atorvastatin Ca [Lipitor] 10 mg PO HS 12/31/18 Review of Systems - Review of Systems Able to Perform ROS?: No (unabledue to pt condition) <Azul Rodriguez - Last Filed: 12/31/18 16:49> *Physical Exam - Vital Signs Last Vital Signs Temp Pulse Resp BP Pulse Ox 99.8 F H 83 16 141/80 92 L 12/31/18 14:15 12/31/18 14:15 12/31/18 14:15 12/31/18 14:15 12/31/18 14:15 - Physical Exam Comments: CONSTITUTIONAL: Well-appearing; well-nourished; in no apparent distress. Nonverbal. Unable to provide history. HEAD: Normocephalic; atraumatic EYES: PERRL; EOM intact ENMT: External appears normal CARD: Regular rate and rhythm; no murmurs, rubs, or gallops RESP: Poor inspiratory effort; Upper lung lux clear to auscultation; Lower lung lux diminished; no wheezes, rhonchi, or rales ABD: Soft, non-distended; non-tender; no palpable organomegaly, no palpable hernias EXT: Contracted to all extremities; non-tender to palpation; distal pulses intact; no edema SKIN: Left buttox wound with dressing, minimal active drainage. Warm to touch, dry. NEURO: Demented. No focal neurological deficiencies. <Azul Rodriguez - Last Filed: 12/31/18 16:49> - Vital Signs Last Vital Signs Temp Pulse Resp BP Pulse Ox 99.8 F H 83 16 141/80 92 L 12/31/18 14:15 12/31/18 14:15 12/31/18 14:15 12/31/18 14:15 12/31/18 14:15 <Courtney Welch - Last Filed: 12/31/18 19:13> Moderate Sedation - Procedure Monitoring Vital Signs: Procedure Monitoring Vital Signs Temperature 99.8 F H 12/31/18 14:15 Pulse Rate 83 12/31/18 14:15 Respiratory Rate 16 12/31/18 14:15 Blood Pressure 141/80 12/31/18 14:15 O2 Sat by Pulse Oximetry (%) 92 L 12/31/18 14:15 <Azul Rodriguez - Last Filed: 12/31/18 16:49> - Procedure Monitoring Vital Signs: Procedure Monitoring Vital Signs Temperature 99.8 F H 12/31/18 14:15 Pulse Rate 83 12/31/18 14:15 Respiratory Rate 16 12/31/18 14:15 Blood Pressure 141/80 12/31/18 14:15 O2 Sat by Pulse Oximetry (%) 92 L 12/31/18 14:15 <Courtney Welch - Last Filed: 12/31/18 19:13> Heart Score/ECG Review - ECG Intrepretation Comment:: 12/31/18 16:29 sinus at 79, L axis, q waves anterior leads and inferior leads, no acute st/t wave findings, low voltage <Courtney Welch - Last Filed: 12/31/18 19:13> ED Treatment Course - LABORATORY CBC & Chemistry Diagram: 12/31/18 17:24 12/31/18 17:24 <Courtney Welch - Last Filed: 12/31/18 19:13> Medical Decision Making - Medical Decision Making 12/31/18 16:30 a/p: 78yo female sent in by her PMD for eval of a cough/hematuria, L buttock wound -wound covered, uses a wound vac -cough, dimished bs, outpt cxr clear- no infiltrate -hematuria in diaper and on straight cath- hx of kleb pneum. and pseudomonas on prior cultures -will send labs, cultures, ekg -pending UA will add abx -will most likely need admission -suspect hematuria from cystitis -pt is demented and nonverbal and cannot provide any history -will monitor and reassess 12/31/18 18:19 pt with a uti on labs hx of kleb pneumo hx of pseudomonas in the urine will admit [facility] covering for Dr. 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 <Azul Rodriguez - Last Filed: 12/31/18 16:49> - Discharge Dispostion Decision to Admit order: Yes - Attestations Physician Attestion: 12/31/18 19:11 I, Dr. Courtney Welch, DO, attest that this document has been prepared under my direction and personally reviewed by me in its entirety. I further attest, that it accurately reflects all work, treatment, procedures and medical decision -making performed by me. <Courtney Welch - Last Filed: 12/31/18 19:13> Diagnosis at time of Disposition: UTI (lower urinary tract infection), Hematuria - Discharge Dispostion Condition at time of disposition: Fair - Referrals Referrals: Julio C Campbell MD [Primary Care Provider] - - Patient Instructions - Post Discharge Activity
[2018-12-31 17:32] LABS: VENOUS PC02 55.5 mmHg (38-52); VENOUS PH 7.38 (7.32-7.42); VENOUS PO2 21.2 mmHg (28-48)
[2018-12-31 17:33] LABS: URINE APPEARANCE CLOUDY; URINE BILIRUBIN NEGATIVE (<2.0 mg/dL); URINE COLOR RED; URINE GLUCOSE (UA) 1+ (NEGATIVE); URINE KETONE NEGATIVE (NEGATIVE); URINE LEUK ESTERASE TRACE (NEGATIVE); URINE NITRITE NEGATIVE (NEGATIVE); URINE PROTEIN 3+ (NEGATIVE); URINE UROBILINOGEN NEGATIVE mg/dL (0.2-1.0)
[2018-12-31 17:36] LABS: BASO % 0.7 % (0-2.0); EOS % 0.2 % (0-4.5); HEMATOCRIT 30.4 % (32.4-45.2); HEMOGLOBIN 10.6 GM/dL (10.7-15.3); LYMPH % 13.6 % (8-40); MCH 31.1 pg (25.7-33.7); MCHC 34.9 g/dl (32.0-36.0); MEAN CELL VOLUME 89.1 fl (80-96); MEAN PLT VOLUME 8.6 fl (7.5-11.1); MONO % 8.6 % (3.8-10.2); NEUT % 76.9 % (42.8-82.8); PLATELET COUNT 252 K/MM3 (134-434); RBC 3.41 M/mm3 (3.60-5.2); RDW 15.9 % (11.6-15.6); WHITE BLOOD COUNT 6.4 K/mm3 (4.0-10.0)
[2018-12-31 17:47] LABS: YEAST FEW
[2018-12-31 18:13] LABS: ALBUMIN 2.5 g/dl (3.4-5.0); ALK PHOS 118 U/L (45-117); ANION GAP 9 MMOL/L (8-16); BILIRUBIN,TOTAL 0.3 mg/dL (0.2-1); BLOOD UREA NITROGEN 28 mg/dL (7-18); CALCIUM 8.2 mg/dL (8.5-10.1); CHLORIDE 97 mmol/L (98-107); CO2 31 mmol/L (21-32); CREATININE 0.7 mg/dL (0.55-1.3); GLUCOSE,RANDOM 135 mg/dL (74-106); MAGNESIUM 1.7 mg/dL (1.8-2.4); POTASSIUM 3.6 mmol/L (3.5-5.1); SGOT/AST 17 U/L (15-37); SGPT/ALT 12 U/L (13-61); SODIUM 137 mmol/L (136-145); TOT PROT 6.2 g/dl (6.4-8.2)
[2018-12-31] MEDS ORDERED: MEROPENEM 1 GM in DEXTROSE 5%-WATER 100 ML IVPB ONE (18:19)
[2018-12-31] MEDS ORDERED: VANCOMYCIN 1 GM in D5W (PRE-DOCKED) 1,000 MG/250 ML IVPB ONE (18:19)
[2018-12-31] MEDS ORDERED: VANCOMYCIN 1 GRAM (PRE-DOCKED) 1,000 MG/250 ML BAG IVPB ONE (18:27)
[2018-12-31] MEDS ORDERED: POTASSIUM CHLORIDE TABS 10 MEQ TABLET.ER (FP) PO ONE (19:33)
--- NOTE | 2018-12-31 19:37 | HP ---
Admitting History and Physical - Admission Chief Complaint: Cough, Hematuria History of Present Illness: 78 year old F with h/o CAD s/p PCI, DM (diet controlled), HTN multiple TIAs, left glutteal DTI currently being treated with wound vac and VNS ([facility]). Pt is now bedbound and was taken out of [facility] by her daughter on Oct 2018 to live at home. Daughter reports stopping her Xarelto and lipitor since being home. Pt has a chronic left glutteal wound for which she follows with Dr. Griffin at [facility]. Pt was seen in the wound clinic on 12/31 where she was noted to have ronchorous cough. She was referred for CXR which revealed resolution of congestive changes but the possibility of some posterior pleural fluid and/or atelectasis. Pt daughter was asked to have home care nurse perform suctioning, however, which the agency states they do not do. Therefore, pt was referred to ED for evaluation. Daughter had a second complaint of sporadic hematuria on a daily basis over the last two weeks. Since pt is incontinent, the daughter notes soiling of her diaper with blood or small clots with wiping. Daughter d/david pt's Xarelto the first week of Nov 2018. In ED: vitals were 141/80 T 99.8, HR 83, RR 16, O2 sat 92% Labs: BNP 6252, U/A Red cloudy +3 protein, +1 glucose, +2 blood, RBC 4143, trace leuk , negative nitrite. pt was treated for presumed UTI in ED with vanco 1gm and meropenem due to hx of kleb pneum. and pseudomonas on prior cultures. 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 (mLAD & pRCA)), Deep Vein Thrombosis (of left lower extremity diagnosed on 12/23/14, on Xarelto), HTN, Hyperlipdemia, Other (Pericardial effusion with tamponade s/p pericardial window) Gastrointestinal: Yes: Hemorrhoids Hepatobiliary: Yes: Cholecystitis (s/p past cholecystectomy) Renal/: Yes: Renal Inusuff Reproductive: Yes: Postmenopausal Endocrine: Yes: Diabetes Mellitus - Past Surgical History Past Surgical History: Yes: Cholecystectomy Additional Past Surgical History: PEG placement--> pt dislodged and removed PEG 10/2018 pericardiocentesis x 2 right hip repair - Advance Directives Advance Directives: Yes: Health Care Proxy (Daughter: Jade Rojo [phone]) , DNR - Smoking History Smoking history: Unknown if ever smoked Have you smoked in the past 12 months: No Aproximately how many cigarettes per day: 0 - Alcohol/Substance Use Hx Alcohol Use: No History of Substance Use: reports: None - Social History Usual Living Arrangement: Yes: With Child ADL: Support Services (lives with daughter and granddaughter, needs Assistance in all ADLs and all IADLs, pt is bed and wheelchair bound. 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 11/12/18 Atorvastatin Ca [Lipitor] 10 mg PO HS 12/31/18 Carvedilol [Coreg -] 6.25 mg PO BID 12/31/18 Lisinopril [Prinivil] 10 mg PO DAILY 12/31/18 Family Disease History - Family Disease History Family History: Unable to Obtain (pt with dementia) Family Disease History: Other: Father (alive uknown ), Mother ( (80) CAD /[place]), Sister ( (92) HTN) Review of Systems - Review of Systems Constitutional: reports: No Symptoms HENT: reports: Hearing Loss Neck: reports: No Symptoms Respiratory: reports: Cough Genitourinary: reports: Hematuria Breasts: reports: No Symptoms Reported Musculoskeletal: reports: Muscle Weakness Integumentary: reports: No Symptoms Neurological: reports: Confusion, Unsteady Gait, Weakness Physical Examination Vital Signs: Vital Signs Temperature 99.8 F H 12/31/18 14:15 Pulse Rate 83 12/31/18 14:15 Respiratory Rate 16 12/31/18 14:15 Blood Pressure 141/80 12/31/18 14:15 O2 Sat by Pulse Oximetry (%) 92 L 12/31/18 14:15 Constitutional: Yes: Calm Eyes: Yes: Conjunctiva Clear, PERRL HENT: Yes: Atraumatic, Normocephalic Neck: Yes: Supple, Trachea Midline Cardiovascular: Yes: Regular Rate and Rhythm Respiratory: Yes: Regular, CTA Bilaterally Gastrointestinal: Yes: Normal Bowel Sounds, Soft ...Rectal Exam: Yes: Deferred Musculoskeletal: Yes: Joint Stiffness, Muscle Weakness, Other (contracted extremities x 4) Edema: No Peripheral Pulses WNL: Yes Peripheral Pulses: Left Radial: 2+, Right Radial: 2+ Integumentary: Yes: WNL Neurological: Yes: Confusion, Lethargy, Weakness ...Motor Strength: LUE (decreased x 4 extremities), LLE, RUE, RLE Labs: CBC, BMP 12/31/18 17:24 12/31/18 17:24 Imaging - Results X-ray: Report Reviewed (CXR 12/31/2018 The chest have been submitted. Since the prior study of 05/22/2018, again is the elevated left hemidiaphragm with prominent mediastinum but the congestive changes have resolved. There may be some posterior pleural fluid and/or atelectasis. There is a weak inspiration. The soft tissues are intact. There is some vertebral wedging. Correlation recommended. Reported By: Nino Bond MD 12/31/18 [id number]) Problem List - Problems (1) Decubitus ulcer of sacral region, stage 4 Assessment/Plan: continuous wound vac change dressing daily turn and reposition q2hrs Code(s): L89.154 - PRESSURE ULCER OF SACRAL REGION, STAGE 4 (2) Hematuria Assessment/Plan: pt with hematuria despite being off Xarelto x 2 mths urology consult placed CT abd and pelvis to assess kidneys/ureter/bladder for masses/lesions pt given meropenem and vanco in ED for presumed UTI. U/A not consistent with UTI, will await ucx Code(s): R31.9 - HEMATURIA, UNSPECIFIED (3) CAD (coronary artery disease) Assessment/Plan: CK-MB elevated, will trend enzymes Patient's daughter non-adherent with lipitor, will restart this admission c/w ASA 81mg daily continuous telemetry Code(s): I25.10 - ATHSCL HEART DISEASE OF [place] CORONARY ARTERY W/O ANG PCTRS (4) Dementia Assessment/Plan: frequent redirection/reorientation fall precaution Code(s): F03.90 - UNSPECIFIED DEMENTIA WITHOUT BEHAVIORAL DISTURBANCE (5) Diabetes mellitus Assessment/Plan: diet controlled no meds warranted. Code(s): E11.9 - TYPE 2 DIABETES MELLITUS WITHOUT COMPLICATIONS (6) Diastolic CHF with preserved left ventricular function, NYHA class 2 Assessment/Plan: pt with ronchorous cough and elevated BNP lasix 20mg in ED, then 40mg qam strict intake and outpt Code(s): I50.30 - UNSPECIFIED DIASTOLIC (CONGESTIVE) HEART FAILURE (7) HTN (hypertension) Assessment/Plan: continue coreg 6.25mg BID continue Lisinopril 10mg daily Code(s): I10 - ESSENTIAL (PRIMARY) HYPERTENSION Qualifiers: Hypertension type: essential hypertension Qualified Code(s): I10 - Essential (primary) hypertension Assessment/Plan DISPO: DNR Bowel regimen: senna soln at bedtime FEN: mechanical soft cardiac diet Visit type - Emergency Visit Emergency Visit: Yes ED Registration Date: 12/31/18 Care time: The patient presented to the Emergency Department on the above date and was hospitalized for further evaluation of their emergent condition. - New Patient This patient is new to me today: Yes Date on this admission: 12/31/18 - Critical Care Critical Care patient: No
[2018-12-31] MEDS ORDERED: FUROSEMIDE 40 MG/4 ML INJECTABLE VIAL IVPUSH ONE (19:40)
[2018-12-31] MEDS ORDERED: FUROSEMIDE 40 MG/4 ML INJECTABLE VIAL ONE (21:24)
[2018-12-31] MEDS ORDERED: ATORVASTATIN CA 10 MG TABLET (FP) ONE (22:02)
[2018-12-31] MEDS ORDERED: MAGNESIUM 1GM/D5W - 1 GM/100 ML IVPB IVPB ONE (22:02)
[2018-12-31] MEDS: ATORVASTATIN CA 10 MG TABLET (FP) PO SCH (22:09)
[2018-12-31] MEDS: SILVER SULFADIAZINE 1% TOP CREAM 50 GM JAR TP SCH (23:18)
[2018-12-31] MEDS: HEPARIN NA (PORCINE) 5,000 UNITS/ML 1ML VIAL SQ SCH (23:45)
[2019-01-01] MEDS: CARVEDILOL 6.25 MG TABLET (FP) PO SCH ×3 (00:46→21:17)
[2019-01-01] MEDS: HEPARIN NA (PORCINE) 5,000 UNITS/ML 1ML VIAL SQ SCH ×3 (05:17→23:41)
[2019-01-01] MEDS ORDERED: PT OWN MED DRAWER 7, Y5N ONE ×3 (06:00→11:12)
[2019-01-01 10:27] LABS: BASO % 0.4 % (0-2.0); EOS % 0.9 % (0-4.5); HEMATOCRIT 30.1 % (32.4-45.2); HEMOGLOBIN 10.5 GM/dL (10.7-15.3); LYMPH % 12.9 % (8-40); MCH 31.3 pg (25.7-33.7); MCHC 34.8 g/dl (32.0-36.0); MEAN CELL VOLUME 89.8 fl (80-96); MEAN PLT VOLUME 8.5 fl (7.5-11.1); MONO % 8.3 % (3.8-10.2); NEUT % 77.5 % (42.8-82.8); PLATELET COUNT 235 K/MM3 (134-434); RBC 3.35 M/mm3 (3.60-5.2); RDW 15.7 % (11.6-15.6); WHITE BLOOD COUNT 6.9 K/mm3 (4.0-10.0)
[2019-01-01 11:08] LABS: ALBUMIN 2.3 g/dl (3.4-5.0); ALK PHOS 105 U/L (45-117); ANION GAP 9 MMOL/L (8-16); BILIRUBIN,TOTAL 0.4 mg/dL (0.2-1); BLOOD UREA NITROGEN 25 mg/dL (7-18); CHLORIDE 99 mmol/L (98-107); CO2 30 mmol/L (21-32); CREATININE 0.6 mg/dL (0.55-1.3); GLUCOSE,RANDOM 114 mg/dL (74-106); MAGNESIUM 1.6 mg/dL (1.8-2.4); N-TERMINAL BNP 4020.7 pg/ml (5-450); SGOT/AST 16 U/L (15-37); SGPT/ALT 12 U/L (13-61); SODIUM 138 mmol/L (136-145); TOT PROT 5.8 g/dl (6.4-8.2)
[2019-01-01] MEDS: SILVER SULFADIAZINE 1% TOP CREAM 50 GM JAR TP SCH (11:17)
[2019-01-01] MEDS: AMINO ACIDS/PROTEIN HYDROLYS 30 ML LIQUID.PKT PO SCH ×2 (11:18→17:19)
[2019-01-01] MEDS: ASPIRIN COATED 81 MG TABLET.EC PO SCH (11:19)
[2019-01-01] MEDS: MULTIVITAMINS (DAILY MVI) TABLET (FP) PO SCH (11:19)
[2019-01-01] MEDS: LISINOPRIL 10 MG TABLET (FP) PO SCH (11:19)
[2019-01-01] MEDS: FUROSEMIDE 40 MG/4 ML INJECTABLE VIAL IVPUSH SCH (11:19)
[2019-01-01] MEDS: amLODIPine BESYLATE 5 MG TABLET (FP) PO SCH (11:19)
--- NOTE | 2019-01-01 11:23 | PN ---
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, Physician Chief Complaint: PNEUMONIA ANEMIA HEMATURIA History of Present Illness: NAD lethargic - Current Medication List Current Medications: Active Medications Amino Acids (Prosource No Carb Liquid Pkt) 30 ml PO BID@0800,1730 [facility] Last Admin: 01/01/19 11:18 Dose: 30 ml Amlodipine Besylate (Norvasc -) 5 mg PO DAILY [facility] Last Admin: 01/01/19 11:19 Dose: 5 mg Aspirin (Ecotrin -) 81 mg PO DAILY [facility] Last Admin: 01/01/19 11:19 Dose: 81 mg Atorvastatin Calcium (Lipitor -) 10 mg PO HS [facility] Last Admin: 12/31/18 22:09 Dose: 10 mg Carvedilol (Coreg -) 6.25 mg PO BID [facility] Last Admin: 01/01/19 11:19 Dose: 6.25 mg Furosemide (Lasix Injection -) 40 mg IVPUSH DAILY [facility] Last Admin: 01/01/19 11:19 Dose: 40 mg Heparin Sodium (Porcine) (Heparin -) 5,000 unit SQ TID [facility] Last Admin: 01/01/19 05:17 Dose: 5,000 unit Azithromycin 500 mg/ Dextrose 250 mls @ 250 mls/hr IVPB DAILY [facility] Lisinopril (Prinivil) 10 mg PO DAILY [facility] Last Admin: 01/01/19 11:19 Dose: 10 mg Multivitamins/Minerals/Vitamin C (Tab-A-Vit -) 1 tab PO DAILY [facility] Last Admin: 01/01/19 11:19 Dose: 1 tab Senna (Senna -) 1 tab PO [facility] Silver Sulfadiazine (Silvadene -) 1 applic TP BID [facility] Last Admin: 01/01/19 11:17 Dose: 1 applic - Objective Vital Signs: Vital Signs Temperature 98.4 F 01/01/19 09:30 Pulse Rate 65 01/01/19 09:30 Respiratory Rate 18 01/01/19 09:30 Blood Pressure 138/69 01/01/19 09:30 O2 Sat by Pulse Oximetry (%) 93 L 12/31/18 23:39 Constitutional: Yes: No Distress, Calm, Cachectic Cardiovascular: Yes: Regular Rate and Rhythm Respiratory: Yes: Regular Gastrointestinal: Yes: Normal Bowel Sounds, Soft Musculoskeletal: Yes: Other (generalized atrophy) Extremities: Yes: WNL Edema: No Peripheral Pulses WNL: Yes Neurological: Yes: Lethargy Labs: CBC, BMP 01/01/19 10:00 01/01/19 10:00 Problem List - Problems (1) Decubitus ulcer of sacral region, stage 4 Assessment/Plan: -Seen by Dr Griffin at [facility] -Wound not actively draining -Packing intact Code(s): L89.154 - PRESSURE ULCER OF SACRAL REGION, STAGE 4 (2) Hematuria Assessment/Plan: -UA/UC -Urology consult Code(s): R31.9 - HEMATURIA, UNSPECIFIED (3) Malnutrition Assessment/Plan: -multivitamin -Prosource -Vitamin C -Ensure BID Code(s): E46 - UNSPECIFIED PROTEIN-CALORIE MALNUTRITION (4) Metabolic encephalopathy Assessment/Plan: -2/2 to UTI vs Pneumonia Code(s): G93.41 - METABOLIC ENCEPHALOPATHY (5) UTI (lower urinary tract infection) Assessment/Plan: -UC pending -IV abx -ID on board Code(s): N39.0 - URINARY TRACT INFECTION, SITE NOT SPECIFIED (6) Altered mental status Code(s): R41.82 - ALTERED MENTAL STATUS, UNSPECIFIED (7) Anemia Assessment/Plan: -chronic anemia -Check stool OB, B12, TSH, Ft4, Iron studies -monitor trend Code(s): D64.9 - ANEMIA, UNSPECIFIED Assessment/Plan see problem list Hold Heparin Sq due to hematuria SCD's for DVT prophylaxis
[2019-01-01] MEDS ORDERED: cefTRIAXone SODIUM 1 GM VIAL ONE (11:48)
[2019-01-01] MEDS ORDERED: DEXTROSE 5%-WATER - 50 ML IVPB ONE (11:48)
[2019-01-01] MEDS: CEFTRIAXONE 1 GM in DEXTROSE 5%-WATER - 50 ML IVPB SCH (11:56)
[2019-01-01] MEDS: AZITHROMYCIN IVPB 500 MG/250 ML BAG IVPB SCH (12:27)
--- NOTE | 2019-01-01 13:19 | CON.PULM ---
Consult Consult Specialty:: PULMONARY Referred by:: LUIS Feliz Reason for Consultation:: r/o pneumonia - History of Present Illness Chief Complaint: cough History of Present Illness: 78yo female with h/o HTN, DM, CAD, h/o TIA, dementia who was admitted with a cough. Pt nonverbal, unable to provide further history at this time. CXR showing left basilar atelectasis with hiatal hernia. CT A/P showing possible colitis and right basilar atelectasis. Urinalysis suggestive of a UTI. No fevers recorded and bloodwork without leukocytosis. 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: CVA (multiple CVAs), Dementia (vascular) Cardio/Vascular: Yes: CAD (multiple stents in past, last PCI in 2011 at [facility] (mLAD & pRCA)), Deep Vein Thrombosis (of left lower extremity diagnosed on 12/23/14, on Xarelto), HTN, Hyperlipdemia, Other (Pericardial effusion with tamponade s/p pericardial window) Gastrointestinal: Yes: Hemorrhoids Hepatobiliary: Yes: Cholecystitis (s/p past cholecystectomy) Renal/: Yes: Renal Inusuff Endocrine: Yes: Diabetes Mellitus - Past Surgical History Past Surgical History: Yes: Cholecystectomy - Alcohol/Substance Use Hx Alcohol Use: No History of Substance Use: reports: None - Smoking History Smoking history: Unknown if ever smoked Have you smoked in the past 12 months: No Aproximately how many cigarettes per day: 0 - Social History Usual Living Arrangement: Alone ADL: Support Services (lives with daughter and granddaughter, needs Assistance in all ADLs and all IADLs, pt is bed and wheelchair bound. 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 11/12/18 Atorvastatin Ca [Lipitor] 10 mg PO HS 12/31/18 Carvedilol [Coreg -] 6.25 mg PO BID 12/31/18 Lisinopril [Prinivil] 10 mg PO DAILY 12/31/18 Family Disease History - Family Disease History Family Disease History: Other: Father (alive uknown ), Mother ( (80) CAD /[place]), Sister ( (92) HTN) Review of Systems Unable to obtain ROS, reason: pt nonverbal Physical Exam Vital Sings: Vital Signs Temperature 98.4 F 01/01/19 09:30 Pulse Rate 65 01/01/19 09:30 Respiratory Rate 18 01/01/19 09:30 Blood Pressure 138/69 01/01/19 09:30 O2 Sat by Pulse Oximetry (%) 93 L 12/31/18 23:39 Constitutional: Yes: Calm Eyes: Yes: Conjunctiva Clear, EOM Intact HENT: Yes: Atraumatic, Normocephalic Neck: Yes: Supple, Trachea Midline Cardiovascular: Yes: Regular Rate and Rhythm Respiratory: Yes: Diminished (decreased breath sounds at the bases) ...Clubbing: No Gastrointestinal: Yes: Normal Bowel Sounds, Soft. No: Tenderness Edema: No Labs: CBC, BMP 01/01/19 10:00 01/01/19 10:00 Imaging - Results Chest X-ray: Report Reviewed, Image Reviewed Cat Scan: Report Reviewed, Image Reviewed (right base atelectasis) Problem List - Problems (1) UTI (lower urinary tract infection) Code(s): N39.0 - URINARY TRACT INFECTION, SITE NOT SPECIFIED (2) CAD (coronary artery disease) Code(s): I25.10 - ATHSCL HEART DISEASE OF [place] CORONARY ARTERY W/O ANG PCTRS (3) Decubitus ulcer, buttock, right, unstageable Code(s): L89.310 - PRESSURE ULCER OF RIGHT BUTTOCK, UNSTAGEABLE (4) Dementia Code(s): F03.90 - UNSPECIFIED DEMENTIA WITHOUT BEHAVIORAL DISTURBANCE (5) Diabetes 1.5, managed as type 2 Code(s): E13.9 - OTHER SPECIFIED DIABETES MELLITUS WITHOUT COMPLICATIONS (6) Functional quadriplegia Code(s): R53.2 - FUNCTIONAL QUADRIPLEGIA (7) HLD (hyperlipidemia) Code(s): E78.5 - HYPERLIPIDEMIA, UNSPECIFIED (8) HTN (hypertension) Code(s): I10 - ESSENTIAL (PRIMARY) HYPERTENSION Qualifiers: Hypertension type: essential hypertension Qualified Code(s): I10 - Essential (primary) hypertension Assessment/Plan UTI Atelectasis HTN DM Hyperlipidemia Buttock Ulcer Dementia - antibiotics per ID - f/u cultures - less likely pneumonia based on imaging and pt afebrile with normal WBC - aspiration precautions - O2 to keep SpO2 >90% - DVT prophylaxis Thank you for this consult Garett Whitt MD
--- NOTE | 2019-01-01 13:40 | PN ---
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 (short form) - Note 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: ID CONSULT DICTATED imp/reccd 78 yo nonverbal female admitted from home with cough and hematuria she is being treated at wound care for a chronic left gluteal ulcer no fevers ct scan in ED with ?stercoral colitis cxray with ?RLL infiltrate UA with RBCS and WBCS probable UTI r/o pneumonia pen allergy chronic left buttock ulcer- clean dementia- nonverbal agree with rocephin/zithromax f/u cultures obtain influenza screen legionella urinary antigen contact isolation- history of resistant organisms in decubitus ulcer- no need to treat Problem List - Problems (1) UTI (lower urinary tract infection) Code(s): N39.0 - URINARY TRACT INFECTION, SITE NOT SPECIFIED (2) Pneumonia Code(s): J18.9 - PNEUMONIA, UNSPECIFIED ORGANISM Qualifiers: Pneumonia type: due to unspecified organism Laterality: bilateral Lung location: lower lobe of lung Qualified Code(s): J18.1 - Lobar pneumonia, unspecified organism (3) Penicillin allergy Code(s): Z88.0 - ALLERGY STATUS TO PENICILLIN
--- NOTE | 2019-01-01 14:14 | EKG ---
Test Reason : Blood Pressure : / mmHG Vent. Rate : 079 BPM Atrial Rate : 079 BPM P-R Int : 116 ms QRS Dur : 076 ms QT Int : 400 ms P-R-T Axes : 062 -36 064 degrees QTc Int : 458 ms SINUS RHYTHM WITH PREMATURE ATRIAL COMPLEXES WITH ABERRANT CONDUCTION LEFT AXIS DEVIATION LOW VOLTAGE QRS INFERIOR INFARCT , AGE UNDETERMINED CANNOT RULE OUT ANTERIOR INFARCT (CITED ON OR BEFORE 28-JUN-2016) ABNORMAL ECG WHEN COMPARED WITH ECG OF 22-MAY-2018 23:03, ABERRANT CONDUCTION IS NOW PRESENT QUESTIONABLE CHANGE IN INITIAL FORCES OF LATERAL LEADS NONSPECIFIC T WAVE ABNORMALITY HAS REPLACED INVERTED T WAVES IN ANTERIOR LEADS Confirmed by ISHMAEL LINDSEY, NELY ([id number]) on 01/01/2019 2:14:32 PM Referred By: Confirmed By:NELY QUIÑONES MD
--- NOTE | 2019-01-01 14:14 | CONS ---
INFECTIOUS DISEASE CONSULTATION DATE OF CONSULTATION: DATE OF DICTATION: 01/01/2019 This is an 78-year-old woman who is admitted from home. She has a history of dementia and is nonverbal at baseline. She was recently at the long term, and she was taken home by her daughter from the long term in October to live at home. She has been followed by Dr. Aguilar at [facility] for a chronic left gluteal wound that has been healing. She apparently was noted to have some cough. She had a chest x-ray done that showed some possible fluid or atelectasis. Daughter brought her to the ER because of the abnormal chest x-ray as well. Although she has been off her Xarelto, the daughter has noted that she has had some intermittent hematuria noted by soiling of her diaper with blood. She has had a T-max of 99.8; otherwise, no fever. She was given vancomycin and meropenem in the emergency room and switched to ceftriaxone and Zithromax. I am asked to see her for further evaluation. She is nonverbal and unable to give any history. PAST MEDICAL HISTORY: Notable for multiple CVAs, vascular dementia, coronary artery disease with stents in the past, DVT at the left lower extremity, hypertension, hyperlipidemia, pericardial effusion with window, hemorrhoids, cholecystitis, renal insufficiency. SURGICAL HISTORY: Notable for cholecystectomy, PEG tube placement. PEG was removed in October of 2018. She has had ORIF of the left hip. SOCIAL HISTORY: She currently resides at home with her daughter. There is no history of any cigarette, alcohol, or substance use. She lives with her child. She requires assistance in all her ADLs. She is bed and wheelchair bound, and she has a home health aide 24 hours a day. ALLERGIES: She is allergic to PENICILLIN. MEDICATIONS AT HOME: Include acetaminophen, multivitamins, amlodipine, Ecotrin, Silvadene, atorvastatin, Coreg, and Prinivil. FAMILY HISTORY: Not obtainable. REVIEW OF SYSTEMS: The intermittent blood felt to be secondary to hematuria in the diaper and the new complaint of cough. PHYSICAL EXAMINATION: General: She is resting comfortably, in no distress. Vital Signs: Current temperature is 98.4; T-max was 99.8. Pulse of 65, blood pressure 138/69. Respiratory rate is 18. She is saturating 93%. HEENT: She is normocephalic. Eyes are anicteric. Neck: Supple. Lungs: Crackles at the bases. Heart: Regular rate and rhythm. Abdomen: Soft, nontender. Skin: Left gluteal ulcer is clean without any drainage. Extremities: Without edema. DIAGNOSTIC DATA: White count is 6.9, hemoglobin 10.5, platelets are 235. BUN is 25 and creatinine 0.6. LFTs are normal with an albumin of 2.3. Urinalysis has 568 white cells and 4000 red cells. Cultures are pending. She last had a left buttock culture done in November, that showed MRSA, VRE, Morganella, and streptococcus. Chest x-ray reveals a question of a left basilar infiltrate versus atelectasis. She had a CAT scan of her abdomen and pelvis that reveals a right ORIF, no hydronephrosis or nephrolithiasis, a possible left kidney cyst, and possible bladder stones. In summary, this is an 78-year-old woman admitted with cough and hematuria with probable UTI, possible pneumonia, PENICILLIN ALLERGY, chronic left buttock ulcer which is clean, and dementia. I would agree with Rocephin and Zithromax and follow up her cultures, obtain influenza screen and Legionella urinary antigen. Would maintain contact isolation given the history of resistance organisms in the decubitus ulcer which I would not treat at this time as the ulcer appears clean. CONCHIS MONTES M.D. [id number]
[2019-01-01] MEDS ORDERED: POTASSIUM CHLORIDE ORAL LIQUID 20 MEQ/15 ML PO ONE (16:09)
[2019-01-01] MEDS: SENNOSIDES 8.6MG TABLET (FP) PO SCH (21:17)
[2019-01-01] MEDS: ATORVASTATIN CA 10 MG TABLET (FP) PO SCH (21:17)
--- NOTE | 2019-01-02 00:03 | CONSULT ---
Consult Consult Specialty:: endocrine Referred by:: nisha maguire np Reason for Consultation:: diabetes mellitus - History of Present Illness Chief Complaint: high sugars History of Present Illness: 78 year old F with DM2 h/o CAD s/p PCI, , HTN multiple TIAs, left glutteal DTI currently being treated with wound vac and VNS ([facility]). Pt is bedbound and was taken out of [facility] by her daughter on Oct 2018 to live at home. . Pt has a chronic left glutteal wound for which she follows with Dr. [facility] at [facility]. Pt was seen in the wound clinic found to have lung congestion, xray performed showed pleural effusion,daughter was concerned and brought her to ed for evaluation. 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: CVA (multiple CVAs), Dementia (vascular) Cardio/Vascular: Yes: CAD (multiple stents in past, last PCI in 2011 at [facility] (mLAD & pRCA)), Deep Vein Thrombosis (of left lower extremity diagnosed on 12/23/14, on Xarelto), HTN, Hyperlipdemia, Other (Pericardial effusion with tamponade s/p pericardial window) Gastrointestinal: Yes: Hemorrhoids Hepatobiliary: Yes: Cholecystitis (s/p past cholecystectomy) Renal/: Yes: Renal Inusuff Endocrine: Yes: Diabetes Mellitus - Past Surgical History Past Surgical History: Yes: Cholecystectomy - Alcohol/Substance Use Hx Alcohol Use: No History of Substance Use: reports: None - Smoking History Smoking history: Unknown if ever smoked Have you smoked in the past 12 months: No Aproximately how many cigarettes per day: 0 - Social History Usual Living Arrangement: Alone ADL: Support Services (lives with daughter and granddaughter, needs Assistance in all ADLs and all IADLs, pt is bed and wheelchair bound. Pt has [employer] 24hrs per day.) History of Recent Travel: No Home Medications - Allergies Allergies/Adverse Reactions: Allergies Allergy/AdvReac Type Severity Reaction Status Date / Time Penicillins Allergy Verified 12/31/18 15:21 - Home Medications Home Medications: Ambulatory Orders Acetaminophen [Tylenol .Regular Strength -] 650 mg PO Q4H PRN #0 tablet Amlodipine Besylate [Norvasc -] 5 mg PO DAILY tablet 05/31/17 Aspirin Coated [Ecotrin -] 81 mg PO DAILY tab 07/27/17 Multivitamin [Daily Multiple Vitamin] 1 each PO DAILY #30 tablet 06/28/18 Silver Sulfadiazine [Silvadene] 50 gm TP BID #1 cream..g. 11/12/18 Atorvastatin Ca [Lipitor] 10 mg PO HS 12/31/18 Carvedilol [Coreg -] 6.25 mg PO BID 12/31/18 Lisinopril [Prinivil] 10 mg PO DAILY 12/31/18 Family Disease History - Family Disease History Family Disease History: Other: Father (alive uknown ), Mother ( (80) CAD /PA), Sister ( (92) HTN) Physical Exam Vital Signs: Vital Signs Temperature 99.2 F 01/01/19 19:00 Pulse Rate 94 H 01/01/19 19:00 Respiratory Rate 18 01/01/19 21:00 Blood Pressure 134/86 01/01/19 19:00 O2 Sat by Pulse Oximetry (%) 96 01/01/19 21:00 Constitutional: Yes: Calm Eyes: Yes: EOM Intact HENT: Yes: Normocephalic Neck: Yes: Trachea Midline Cardiovascular: Yes: Tachycardia, Murmur Respiratory: Yes: Rhonchi, SOB, Tachypnea Gastrointestinal: Yes: Soft ...Rectal Exam: Yes: Deferred Renal/: Yes: WNL Musculoskeletal: Yes: Joint Stiffness, Joint Swelling, Other Extremities: Yes: Cool, Delayed Capillary Refill Peripheral Pulses WNL: No Wound/Incision: Yes: Draining, Reddened Neurological: Yes: Aphasia, Facial Droop, Lethargy, Pre-Existing Deficit Labs: CBC, BMP 01/01/19 10:00 01/01/19 10:00 Assessment/Plan Current Active Problems Decubitus ulcer of sacral region, stage 4 (Acute) Hematuria (Acute) UTI (lower urinary tract infection) (Acute) dm 2 cva stroke sepsis pneumonia/chf Abnormal Lab Results 01/01/19 01/01/19 01/01/19 10:00 10:00 13:27 RBC 3.35 L Hgb 10.5 L Hct 30.1 L RDW 15.7 H Potassium 3.0 L BUN 25 H Random Glucose 114 H Calcium 8.0 L Magnesium 1.6 L ALT 12 L B-Natriuretic Peptide 4020.7 H Total Protein 5.8 L Albumin 2.3 L Serum Folate 18 H Laboratory Results - last 24 hr 01/01/19 01/01/19 01/01/19 10:00 10:00 13:27 WBC 6.9 RBC 3.35 L Hgb 10.5 L Hct 30.1 L MCV 89.8 MCH 31.3 MCHC 34.8 RDW 15.7 H Plt Count 235 MPV 8.5 Absolute Neuts (auto) 5.3 Neutrophils % 77.5 Lymphocytes % 12.9 Monocytes % 8.3 Eosinophils % 0.9 D Basophils % 0.4 Nucleated RBC % 0 Sodium 138 Potassium 3.0 L Chloride 99 Carbon Dioxide 30 Anion Gap 9 BUN 25 H Creatinine 0.6 Creat Clearance w eGFR > 60 Random Glucose 114 H Calcium 8.0 L Phosphorus 3.0 Magnesium 1.6 L Ferritin 304.2 Total Bilirubin 0.4 AST 16 ALT 12 L Alkaline Phosphatase 105 CK-MB (CK-2) 1.3 B-Natriuretic Peptide 4020.7 H Total Protein 5.8 L Albumin 2.3 L Vitamin B12 986 Serum Folate 18 H TSH 1.76 Free T4 1.01 Influenza A (Rapid) Influenza B (Rapid) 01/01/19 14:20 WBC RBC Hgb Hct MCV MCH MCHC RDW Plt Count MPV Absolute Neuts (auto) Neutrophils % Lymphocytes % Monocytes % Eosinophils % Basophils % Nucleated RBC % Sodium Potassium Chloride Carbon Dioxide Anion Gap BUN Creatinine Creat Clearance w eGFR Random Glucose Calcium Phosphorus Magnesium Ferritin Total Bilirubin AST ALT Alkaline Phosphatase CK-MB (CK-2) B-Natriuretic Peptide Total Protein Albumin Vitamin B12 Serum Folate TSH Free T4 Influenza A (Rapid) Negative Influenza B (Rapid) Negative plan: bgm bid ck hba1c nutrtition calorie count supportive management
[2019-01-02 04:14] LABS: SERUM IRON SATURATION 9 % (15-55); TOTAL IRON BINDING CAPACITY 145 ug/dL (250-450); UIBC 132 ug/dL (118-369)
[2019-01-02 07:25] LABS: BASO % 0.5 % (0-2.0); EOS % 0.7 % (0-4.5); HEMATOCRIT 29.3 % (32.4-45.2); HEMOGLOBIN 9.9 GM/dL (10.7-15.3); LYMPH % 11.9 % (8-40); MCH 30.2 pg (25.7-33.7); MCHC 33.9 g/dl (32.0-36.0); MEAN PLT VOLUME 8.5 fl (7.5-11.1); MONO % 7.8 % (3.8-10.2); NEUT % 79.1 % (42.8-82.8); PLATELET COUNT 283 K/MM3 (134-434); RBC 3.29 M/mm3 (3.60-5.2); RDW 15.5 % (11.6-15.6); WHITE BLOOD COUNT 7.3 K/mm3 (4.0-10.0)
[2019-01-02 07:46] LABS: ALBUMIN 2.4 g/dl (3.4-5.0); ALK PHOS 101 U/L (45-117); ANION GAP 9 MMOL/L (8-16); BILIRUBIN,TOTAL 0.3 mg/dL (0.2-1); BLOOD UREA NITROGEN 30 mg/dL (7-18); CALCIUM 8.4 mg/dL (8.5-10.1); CHLORIDE 98 mmol/L (98-107); CO2 31 mmol/L (21-32); CREATININE 0.6 mg/dL (0.55-1.3); GLUCOSE,RANDOM 117 mg/dL (74-106); POTASSIUM 3.3 mmol/L (3.5-5.1); SGOT/AST 17 U/L (15-37); SGPT/ALT 13 U/L (13-61); SODIUM 139 mmol/L (136-145); TOT PROT 6.1 g/dl (6.4-8.2)
--- NOTE | 2019-01-02 08:53 | CONS ---
DATE OF CONSULTATION: DATE OF DICTATION: 01/01/2019 REASON FOR CONSULTATION: Patient with recurrent hematuria. The patient was seen at the bedside. The patient was very lethargic and unable to give any history. According to the staff, the patient was admitted with a history of intermittent gross hematuria and recurrent urinary tract infections over the past few months. On exam, there were no palpable abdominal masses. The patient was wearing a diaper. The bladder was slightly palpable, although it is unclear when the patient had voided last. Laboratory data included a non-contrast CAT scan reporting a renal cyst and material in the bladder which suggested debris or possibly small calculi. Urine cultures are pending. IMPRESSION AND SUGGESTIONS: This elderly patient likely has recurring hematuria from cystitis, although neoplasm cannot be completely ruled out at this time. The lesion in the kidney likely represents a cyst but it would be best if a contrast CT could be performed. This would more clearly identify the lesion as being cystic and would also give further information about the bladder. If it is not possible to do the contrast CT, then possibly a renal ultrasound will at least give us information about the cystic nature of this, although her not being able to cooperate may complicate the ability to view the mass clearly on ultrasound. The patient also should have urine sent for cytology in the absence of any clear evidence of a mass. If in fact an infection is present, I would likely not do a cystoscopy, certainly not at this time, and she should be treated for a urinary tract infection. After completing treatment for the urinary tract infection, I would then place the patient on a course of Hiprex, which is methenamine hippurate, 1 gram b.i.d. as well as vitamin C, 1 gram b.i.d., and see whether or not we can sterilize the urine and keep it sterile without resorting to antibiotics and also see whether or not this helps prevent further problems with hematuria. If there are any questions, please feel free to be in touch with me. I can be reached most easily on my cell phone at [phone]. MD CUONG COULTER/[id number]
[2019-01-02] MEDS ORDERED: DEXTROSE 5%-WATER - 50 ML IVPB ONE (09:11)
[2019-01-02] MEDS ORDERED: cefTRIAXone SODIUM 1 GM VIAL ONE (09:11)
--- NOTE | 2019-01-02 09:16 | PN ---
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 (short form) - Note 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: still with moist cough no fevers Vital Signs Period Temp Pulse Resp BP Sys/Hoffman Pulse Ox Last 24 Hr 98.4 F-99.7 F 65-94 18-18 101-141/38-86 96-96 cor-rrr lungs bilateral rhonchi abd soft,nt ext no edema CBC, BMP 01/02/19 06:30 01/02/19 06:30 Microbiology 12/31/18 17:24 Blood - Peripheral Venous Blood Culture - Preliminary NO GROWTH OBTAINED AFTER 24 HOURS, INCUBATION TO CONTINUE FOR 4 DAYS. 12/31/18 17:24 Blood - Peripheral Venous Blood Culture - Preliminary NO GROWTH OBTAINED AFTER 24 HOURS, INCUBATION TO CONTINUE FOR 4 DAYS. Laboratory Tests 01/01/19 14:20 Influenza A (Rapid) Negative Influenza B (Rapid) Negative a/p probable UTI r/o pneumonia pen allergy chronic left buttock ulcer- clean dementia- nonverbal contact isolation- history of resistant organisms in decubitus ulcer- no need to treat continue rocephin/zithromax day#2 Problem List - Problems (1) UTI (lower urinary tract infection) Code(s): N39.0 - URINARY TRACT INFECTION, SITE NOT SPECIFIED (2) Pneumonia Code(s): J18.9 - PNEUMONIA, UNSPECIFIED ORGANISM Qualifiers: Pneumonia type: due to unspecified organism Laterality: bilateral Lung location: lower lobe of lung Qualified Code(s): J18.1 - Lobar pneumonia, unspecified organism (3) Penicillin allergy Code(s): Z88.0 - ALLERGY STATUS TO PENICILLIN
[2019-01-02] MEDS: MULTIVITAMINS (DAILY MVI) TABLET (FP) PO SCH (11:09)
[2019-01-02] MEDS: FUROSEMIDE 40 MG/4 ML INJECTABLE VIAL IVPUSH SCH (11:09)
[2019-01-02] MEDS: CARVEDILOL 6.25 MG TABLET (FP) PO SCH ×2 (11:09→23:08)
[2019-01-02] MEDS: LISINOPRIL 10 MG TABLET (FP) PO SCH (11:09)
[2019-01-02] MEDS: amLODIPine BESYLATE 5 MG TABLET (FP) PO SCH (11:09)
[2019-01-02] MEDS: ASPIRIN COATED 81 MG TABLET.EC PO SCH (11:09)
[2019-01-02] MEDS: CEFTRIAXONE 1 GM in DEXTROSE 5%-WATER - 50 ML IVPB SCH (11:10)
[2019-01-02] MEDS: AZITHROMYCIN IVPB 500 MG/250 ML BAG IVPB SCH (11:10)
--- NOTE | 2019-01-02 11:12 | PN ---
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, Physician Chief Complaint: PNEUMONIA ANEMIA HEMATURIA History of Present Illness: NAD lethargic - Current Medication List Current Medications: Active Medications Amino Acids (Prosource No Carb Liquid Pkt) 30 ml PO BID@0800,1730 [facility] Last Admin: 01/01/19 17:19 Dose: 30 ml Amlodipine Besylate (Norvasc -) 5 mg PO DAILY [facility] Last Admin: 01/02/19 11:09 Dose: 5 mg Aspirin (Ecotrin -) 81 mg PO DAILY [facility] Last Admin: 01/02/19 11:09 Dose: 81 mg Atorvastatin Calcium (Lipitor -) 10 mg PO HS [facility] Last Admin: 01/01/19 21:17 Dose: 10 mg Carvedilol (Coreg -) 6.25 mg PO BID [facility] Last Admin: 01/02/19 11:09 Dose: 6.25 mg Ferrous Sulfate (Feosol) 300 mg PO TIDCM [facility] Furosemide (Lasix Injection -) 40 mg IVPUSH DAILY [facility] Last Admin: 01/02/19 11:09 Dose: 40 mg Azithromycin (Zithromax 500mg Ivpb (Pre-Docked)) 500 mg in 250 mls @ 250 mls/ hr IVPB DAILY [facility] Last Admin: 01/02/19 11:10 Dose: 250 mls/hr Ceftriaxone Sodium 1 gm/ (Dextrose) 50 mls @ 100 mls/hr IVPB DAILY [facility]; Protocol Last Admin: 01/02/19 11:10 Dose: 100 mls/hr Lisinopril (Prinivil) 10 mg PO DAILY [facility] Last Admin: 01/02/19 11:09 Dose: 10 mg Multivitamins/Minerals/Vitamin C (Tab-A-Vit -) 1 tab PO DAILY [facility] Last Admin: 01/02/19 11:09 Dose: 1 tab Potassium Chloride (Potassium Chloride Oral Liquid) 40 meq PO DAILY [facility] Senna (Senna -) 1 tab PO HS [facility] Last Admin: 01/01/19 21:17 Dose: 1 tab - Objective Vital Signs: Vital Signs Temperature 99.7 F H 01/02/19 06:00 Pulse Rate 83 01/02/19 06:00 Respiratory Rate 18 01/02/19 06:00 Blood Pressure 127/66 01/02/19 06:00 O2 Sat by Pulse Oximetry (%) 96 01/01/19 21:00 Constitutional: Yes: No Distress, Calm, Cachectic Cardiovascular: Yes: Regular Rate and Rhythm Respiratory: Yes: Regular Gastrointestinal: Yes: Normal Bowel Sounds, Soft Musculoskeletal: Yes: Other (generalized atrophy) Edema: No Peripheral Pulses WNL: Yes Wound/Incision: Yes: Dressing Dry and Intact Neurological: Yes: Lethargy Labs: CBC, BMP 01/02/19 06:30 01/02/19 06:30 Problem List - Problems (1) Malnutrition Assessment/Plan: -multivitamin -Prosource -Vitamin C -Ensure BID Code(s): E46 - UNSPECIFIED PROTEIN-CALORIE MALNUTRITION (2) Metabolic encephalopathy Assessment/Plan: -2/2 to UTI vs Pneumonia Code(s): G93.41 - METABOLIC ENCEPHALOPATHY (3) Decubitus ulcer of sacral region, stage 4 Assessment/Plan: -Seen by Dr [facility] at [facility] -Wound not actively draining -Packing intact Code(s): L89.154 - PRESSURE ULCER OF SACRAL REGION, STAGE 4 (4) UTI (lower urinary tract infection) Assessment/Plan: -UC pending -IV abx -ID on board Code(s): N39.0 - URINARY TRACT INFECTION, SITE NOT SPECIFIED (5) Altered mental status Code(s): R41.82 - ALTERED MENTAL STATUS, UNSPECIFIED (6) Anemia Assessment/Plan: -chronic anemia -stool OB pending - B12, TSH, Ft4-unremarkable -Iron studies show ERNESTO -start Ferrous sulfate TID -monitor trend Code(s): D64.9 - ANEMIA, UNSPECIFIED (7) Diabetes mellitus Assessment/Plan: -Endocrinology consult -BGM BID -[id number] Code(s): E11.9 - TYPE 2 DIABETES MELLITUS WITHOUT COMPLICATIONS Qualifiers: Diabetes mellitus type: type 2 Diabetes mellitus complication status: with hyperglycemia Assessment/Plan see problem list SCD's
[2019-01-02] MEDS: AMINO ACIDS/PROTEIN HYDROLYS 30 ML LIQUID.PKT PO SCH ×2 (12:03→17:25)
[2019-01-02] MEDS: FERROUS SO4 300 MG/5 ML ORAL SOLN UNIT DOSE CUPS PO SCH ×2 (12:51→17:25)
[2019-01-02] MEDS: POTASSIUM CHLORIDE ORAL LIQUID 20 MEQ/15 ML PO SCH (12:51)
--- NOTE | 2019-01-02 13:22 | PN ---
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 (short form) - Note 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: Patient known from Wound Clinic for Grade IV Left Buttock decubitus Patient was on VAC Therapy at home, daughter mentions that there was bleeding noted from the Vaginal area , She felt it might be related to VAC, VAC was stopped. Wound has responded well to VAC therapy, daughter is well satisfied Wound is globe cleaner, undermining present but reduced, base is pink , minimal odor, edges are raised rolled No induration Patients labs noted Laboratory Tests 01/02/19 01/02/19 06:30 06:30 WBC 7.3 RBC 3.29 L Hgb 9.9 L Hct 29.3 L Potassium 3.3 L BUN 30 H Random Glucose 117 H Calcium 8.4 L Total Protein 6.1 L Albumin 2.4 L Patient has dementia and is non verbal Plan : 1. Wound care as follows clean with NSS , Apply Hydrogel every other day Left Buttock wound 2. Low Pressure mattress for Grade III/IV Pressure injuries. 3. Assist in feeding, Nutritional evaluation 4 Turn side to side as per policy,decrease time left buttock
--- NOTE | 2019-01-02 13:38 | PN ---
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 (short form) - Note 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: Still with congested cough, but a little better. No CP. No hemoptysis. Intake & Output 12/30/18 12/31/18 01/01/19 01/02/19 23:59 23:59 23:59 23:59 Intake Total 50 300 50 Balance 50 300 50 Weight 107 lb 98 lb 9.6 oz Last Vital Signs Temp Pulse Resp BP Pulse Ox 99.7 F H 83 18 127/66 96 01/02/19 06:00 01/02/19 06:00 01/02/19 06:00 01/02/19 06:00 01/01/19 21:00 Active Medications Amino Acids (Prosource No Carb Liquid Pkt) 30 ml PO BID@0800,1730 [facility] Last Admin: 01/02/19 12:03 Dose: 30 ml Amlodipine Besylate (Norvasc -) 5 mg PO DAILY [facility] Last Admin: 01/02/19 11:09 Dose: 5 mg Aspirin (Ecotrin -) 81 mg PO DAILY [facility] Last Admin: 01/02/19 11:09 Dose: 81 mg Atorvastatin Calcium (Lipitor -) 10 mg PO HS [facility] Last Admin: 01/01/19 21:17 Dose: 10 mg Carvedilol (Coreg -) 6.25 mg PO BID [facility] Last Admin: 01/02/19 11:09 Dose: 6.25 mg Ferrous Sulfate (Feosol) 300 mg PO TIDCM [facility] Last Admin: 01/02/19 12:51 Dose: 300 mg Furosemide (Lasix Injection -) 40 mg IVPUSH DAILY [facility] Last Admin: 01/02/19 11:09 Dose: 40 mg Azithromycin (Zithromax 500mg Ivpb (Pre-Docked)) 500 mg in 250 mls @ 250 mls/ hr IVPB DAILY [facility] Last Admin: 01/02/19 11:10 Dose: 250 mls/hr Ceftriaxone Sodium 1 gm/ (Dextrose) 50 mls @ 100 mls/hr IVPB DAILY [facility]; Protocol Last Admin: 01/02/19 11:10 Dose: 100 mls/hr Lisinopril (Prinivil) 10 mg PO DAILY [facility] Last Admin: 01/02/19 11:09 Dose: 10 mg Multivitamins/Minerals/Vitamin C (Tab-A-Vit -) 1 tab PO DAILY [facility] Last Admin: 01/02/19 11:09 Dose: 1 tab Potassium Chloride (Potassium Chloride Oral Liquid) 40 meq PO DAILY [facility] Last Admin: 01/02/19 12:51 Dose: 40 meq Senna (Senna -) 1 tab PO HS [facility] Last Admin: 01/01/19 21:17 Dose: 1 tab Silver Sulfadiazine (Silvadene -) 1 applic TP DAILY@1800 [facility] Constitutional: Yes: NAD Eyes: Yes: Conjunctiva Clear, EOM Intact HENT: Yes: Atraumatic, Normocephalic Neck: Yes: Supple, Trachea Midline Cardiovascular: Yes: Regular Rate and Rhythm Respiratory: Yes: bilateral scattered rhonchi iminished Clubbing: No Gastrointestinal: Yes: Normal Bowel Sounds, Soft. No: Tenderness Edema: No Labs: Laboratory Results - last 24 hr 12/31/18 01/01/19 01/01/19 17:24 13:27 13:27 WBC RBC Hgb Hct MCV MCH MCHC RDW Plt Count MPV Absolute Neuts (auto) Neutrophils % Lymphocytes % Monocytes % Eosinophils % Basophils % Nucleated RBC % Sodium 137 Potassium 3.6 Chloride 97 L Carbon Dioxide 31 Anion Gap 9 BUN 28 H Creatinine 0.7 Creat Clearance w eGFR > 60 POC Glucometer Random Glucose 135 H Hemoglobin A1c % Calcium 8.2 L Magnesium 1.7 L Iron 13 L TIBC 145 L Iron Saturation 9 L Ferritin 304.2 Total Bilirubin 0.3 AST 17 ALT 12 L Alkaline Phosphatase 118 H Creatine Kinase 170 Creatine Kinase Index 3.0 CK-MB (CK-2) 5.2 H Troponin I 0.04 Total Protein 6.2 L Albumin 2.5 L Vitamin B12 986 Serum Folate 18 H TSH 1.76 Free T4 1.01 Influenza A (Rapid) Influenza B (Rapid) 01/01/19 01/02/19 01/02/19 14:20 00:29 06:30 WBC 7.3 RBC 3.29 L Hgb 9.9 L Hct 29.3 L MCV 89.0 MCH 30.2 MCHC 33.9 RDW 15.5 Plt Count 283 D MPV 8.5 Absolute Neuts (auto) 5.8 Neutrophils % 79.1 Lymphocytes % 11.9 Monocytes % 7.8 Eosinophils % 0.7 Basophils % 0.5 Nucleated RBC % 0 Sodium Potassium Chloride Carbon Dioxide Anion Gap BUN Creatinine Creat Clearance w eGFR POC Glucometer 181 Random Glucose Hemoglobin A1c % Calcium Magnesium Iron TIBC Iron Saturation Ferritin Total Bilirubin AST ALT Alkaline Phosphatase Creatine Kinase Creatine Kinase Index CK-MB (CK-2) Troponin I Total Protein Albumin Vitamin B12 Serum Folate TSH Free T4 Influenza A (Rapid) Negative Influenza B (Rapid) Negative 01/02/19 01/02/19 06:30 06:30 WBC RBC Hgb Hct MCV MCH MCHC RDW Plt Count MPV Absolute Neuts (auto) Neutrophils % Lymphocytes % Monocytes % Eosinophils % Basophils % Nucleated RBC % Sodium 139 Potassium 3.3 L Chloride 98 Carbon Dioxide 31 Anion Gap 9 BUN 30 H Creatinine 0.6 Creat Clearance w eGFR > 60 POC Glucometer Random Glucose 117 H Hemoglobin A1c % 7.7 H Calcium 8.4 L Magnesium Iron TIBC Iron Saturation Ferritin Total Bilirubin 0.3 AST 17 ALT 13 Alkaline Phosphatase 101 Creatine Kinase Creatine Kinase Index CK-MB (CK-2) Troponin I Total Protein 6.1 L Albumin 2.4 L Vitamin B12 Serum Folate TSH Free T4 Influenza A (Rapid) Influenza B (Rapid) Problem List - Problems (1) UTI (lower urinary tract infection) Code(s): N39.0 - URINARY TRACT INFECTION, SITE NOT SPECIFIED (2) CAD (coronary artery disease) Code(s): I25.10 - ATHSCL HEART DISEASE OF [place] CORONARY ARTERY W/O ANG PCTRS (3) Decubitus ulcer, buttock, right, unstageable Code(s): L89.310 - PRESSURE ULCER OF RIGHT BUTTOCK, UNSTAGEABLE (4) Dementia Code(s): F03.90 - UNSPECIFIED DEMENTIA WITHOUT BEHAVIORAL DISTURBANCE (5) Diabetes 1.5, managed as type 2 Code(s): E13.9 - OTHER SPECIFIED DIABETES MELLITUS WITHOUT COMPLICATIONS (6) Functional quadriplegia Code(s): R53.2 - FUNCTIONAL QUADRIPLEGIA (7) HLD (hyperlipidemia) Code(s): E78.5 - HYPERLIPIDEMIA, UNSPECIFIED (8) HTN (hypertension) Code(s): I10 - ESSENTIAL (PRIMARY) HYPERTENSION Qualifiers: Hypertension type: essential hypertension Qualified Code(s): I10 - Essential (primary) hypertension Assessment/Plan UTI Atelectasis Less likely PNA HTN DM Hyperlipidemia Buttock Ulcer Dementia - antibiotics per ID - f/u cultures - aspiration precautions - O2 to keep SpO2 >90% - DVT prophylaxis Dr Sanchez
[2019-01-02] MEDS: SILVER SULFADIAZINE 1% TOP CREAM 50 GM JAR TP SCH (17:25)
[2019-01-02] MEDS: SENNOSIDES 8.6MG TABLET (FP) PO SCH (23:07)
[2019-01-02] MEDS: ATORVASTATIN CA 10 MG TABLET (FP) PO SCH (23:08)
[2019-01-02] MEDS ORDERED: ACETAMINOPHEN 325 MG TABLET (FP) ONE (23:36)
[2019-01-02] MEDS: ACETAMINOPHEN 325 MG TABLET (FP) PO PRN (23:37)
[2019-01-03] MEDS ORDERED: cefTRIAXone SODIUM 1 GM VIAL ONE (10:00)
[2019-01-03] MEDS ORDERED: DEXTROSE 5%-WATER - 50 ML IVPB ONE (10:00)
[2019-01-03 10:40] LABS: BASO % 0.4 % (0-2.0); EOS % 0.5 % (0-4.5); HEMATOCRIT 30.6 % (32.4-45.2); HEMOGLOBIN 10.5 GM/dL (10.7-15.3); LYMPH % 12.2 % (8-40); MCH 30.7 pg (25.7-33.7); MCHC 34.3 g/dl (32.0-36.0); MEAN CELL VOLUME 89.5 fl (80-96); MEAN PLT VOLUME 8.3 fl (7.5-11.1); MONO % 7.9 % (3.8-10.2); PLATELET COUNT 304 K/MM3 (134-434); RBC 3.41 M/mm3 (3.60-5.2); RDW 15.4 % (11.6-15.6); WHITE BLOOD COUNT 6.9 K/mm3 (4.0-10.0)
[2019-01-03] MEDS: AMINO ACIDS/PROTEIN HYDROLYS 30 ML LIQUID.PKT PO SCH ×2 (10:40→17:31)
[2019-01-03] MEDS: POTASSIUM CHLORIDE ORAL LIQUID 20 MEQ/15 ML PO SCH (10:40)
[2019-01-03] MEDS: FERROUS SO4 300 MG/5 ML ORAL SOLN UNIT DOSE CUPS PO SCH ×3 (10:40→17:31)
[2019-01-03] MEDS: CARVEDILOL 6.25 MG TABLET (FP) PO SCH ×2 (10:40→22:05)
[2019-01-03] MEDS: FUROSEMIDE 40 MG/4 ML INJECTABLE VIAL IVPUSH SCH (10:40)
[2019-01-03] MEDS: ASPIRIN COATED 81 MG TABLET.EC PO SCH (10:40)
[2019-01-03] MEDS: AZITHROMYCIN IVPB 500 MG/250 ML BAG IVPB SCH (10:41)
[2019-01-03] MEDS: MULTIVITAMINS (DAILY MVI) TABLET (FP) PO SCH (10:41)
[2019-01-03] MEDS: amLODIPine BESYLATE 5 MG TABLET (FP) PO SCH (10:41)
[2019-01-03] MEDS: LISINOPRIL 10 MG TABLET (FP) PO SCH (10:41)
[2019-01-03] MEDS: CEFTRIAXONE 1 GM in DEXTROSE 5%-WATER - 50 ML IVPB SCH (10:41)
--- NOTE | 2019-01-03 10:43 | PN ---
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 (short form) - Note 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: Some congested cough, but better. No CP. No hemoptysis. Intake & Output 12/31/18 01/01/19 01/02/19 01/03/19 23:59 23:59 23:59 23:59 Intake Total 50 300 350 50 Balance 50 300 350 50 Weight 107 lb 98 lb 103 lb Last Vital Signs Temp Pulse Resp BP Pulse Ox 98.3 F 76 18 91/75 96 01/03/19 06:00 01/03/19 06:00 01/03/19 06:00 01/03/19 06:00 01/01/19 21:00 Active Medications Acetaminophen (Tylenol -) 650 mg PO Q6H PRN PRN Reason: PAIN LEVEL 1-5 OR FEVER Last Admin: 01/02/19 23:37 Dose: 650 mg Amino Acids (Prosource No Carb Liquid Pkt) 30 ml PO BID@0800,1730 [facility] Last Admin: 01/02/19 17:25 Dose: 30 ml Amlodipine Besylate (Norvasc -) 5 mg PO DAILY [facility] Last Admin: 01/02/19 11:09 Dose: 5 mg Aspirin (Ecotrin -) 81 mg PO DAILY [facility] Last Admin: 01/02/19 11:09 Dose: 81 mg Atorvastatin Calcium (Lipitor -) 10 mg PO HS [facility] Last Admin: 01/02/19 23:08 Dose: 10 mg Carvedilol (Coreg -) 6.25 mg PO BID [facility] Last Admin: 01/02/19 23:08 Dose: 6.25 mg Ferrous Sulfate (Feosol) 300 mg PO TIDCM [facility] Last Admin: 01/02/19 17:25 Dose: 300 mg Furosemide (Lasix Injection -) 40 mg IVPUSH DAILY [facility] Last Admin: 01/02/19 11:09 Dose: 40 mg Azithromycin (Zithromax 500mg Ivpb (Pre-Docked)) 500 mg in 250 mls @ 250 mls/ hr IVPB DAILY [facility] Last Admin: 01/02/19 11:10 Dose: 250 mls/hr Ceftriaxone Sodium 1 gm/ (Dextrose) 50 mls @ 100 mls/hr IVPB DAILY [facility]; Protocol Last Admin: 01/02/19 11:10 Dose: 100 mls/hr Lisinopril (Prinivil) 10 mg PO DAILY [facility] Last Admin: 01/02/19 11:09 Dose: 10 mg Multivitamins/Minerals/Vitamin C (Tab-A-Vit -) 1 tab PO DAILY [facility] Last Admin: 01/02/19 11:09 Dose: 1 tab Potassium Chloride (Potassium Chloride Oral Liquid) 40 meq PO DAILY [facility] Last Admin: 01/02/19 12:51 Dose: 40 meq Senna (Senna -) 1 tab PO HS [facility] Last Admin: 01/02/19 23:07 Dose: 1 tab Silver Sulfadiazine (Silvadene -) 1 applic TP DAILY@1800 [facility] Last Admin: 01/02/19 17:25 Dose: 1 applic Constitutional: Yes: NAD Eyes: Yes: Conjunctiva Clear, EOM Intact HENT: Yes: Atraumatic, Normocephalic Neck: Yes: Supple, Trachea Midline Cardiovascular: Yes: Regular Rate and Rhythm Respiratory: Yes: bilateral scattered rhonchi iminished Clubbing: No Gastrointestinal: Yes: Normal Bowel Sounds, Soft. No: Tenderness Edema: No Labs: Laboratory Results - last 24 hr 12/31/18 01/02/19 17:24 06:30 Sodium 137 Potassium 3.6 Chloride 97 L Carbon Dioxide 31 Anion Gap 9 BUN 28 H Creatinine 0.7 Creat Clearance w eGFR > 60 Random Glucose 135 H Hemoglobin A1c % 7.7 H Calcium 8.2 L Magnesium 1.7 L Total Bilirubin 0.3 AST 17 ALT 12 L Alkaline Phosphatase 118 H Creatine Kinase 170 Creatine Kinase Index 3.0 CK-MB (CK-2) 5.2 H Troponin I 0.04 Total Protein 6.2 L Albumin 2.5 L Problem List - Problems (1) UTI (lower urinary tract infection) Code(s): N39.0 - URINARY TRACT INFECTION, SITE NOT SPECIFIED (2) CAD (coronary artery disease) Code(s): I25.10 - ATHSCL HEART DISEASE OF [place] CORONARY ARTERY W/O ANG PCTRS (3) Decubitus ulcer, buttock, right, unstageable Code(s): L89.310 - PRESSURE ULCER OF RIGHT BUTTOCK, UNSTAGEABLE (4) Dementia Code(s): F03.90 - UNSPECIFIED DEMENTIA WITHOUT BEHAVIORAL DISTURBANCE (5) Diabetes 1.5, managed as type 2 Code(s): E13.9 - OTHER SPECIFIED DIABETES MELLITUS WITHOUT COMPLICATIONS (6) Functional quadriplegia Code(s): R53.2 - FUNCTIONAL QUADRIPLEGIA (7) HLD (hyperlipidemia) Code(s): E78.5 - HYPERLIPIDEMIA, UNSPECIFIED (8) HTN (hypertension) Code(s): I10 - ESSENTIAL (PRIMARY) HYPERTENSION Qualifiers: Hypertension type: essential hypertension Qualified Code(s): I10 - Essential (primary) hypertension Assessment/Plan UTI Atelectasis Less likely PNA HTN DM Hyperlipidemia Buttock Ulcer Dementia - antibiotics per ID - aspiration precautions - O2 to keep SpO2 >90% - DVT prophylaxis Dr Sanchez
[2019-01-03 11:25] LABS: ALBUMIN 2.5 g/dl (3.4-5.0); ALK PHOS 101 U/L (45-117); ANION GAP 8 MMOL/L (8-16); BILIRUBIN,TOTAL 0.4 mg/dL (0.2-1); BLOOD UREA NITROGEN 30 mg/dL (7-18); CALCIUM 8.6 mg/dL (8.5-10.1); CHLORIDE 100 mmol/L (98-107); CO2 32 mmol/L (21-32); CREATININE 0.5 mg/dL (0.55-1.3); GLUCOSE,RANDOM 179 mg/dL (74-106); POTASSIUM 3.7 mmol/L (3.5-5.1); SGOT/AST 12 U/L (15-37); SGPT/ALT 9 U/L (13-61); SODIUM 140 mmol/L (136-145); TOT PROT 6.3 g/dl (6.4-8.2)
--- NOTE | 2019-01-03 11:26 | PN ---
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, Physician Chief Complaint: EVENTS AND NOTES REVIEWED PATIENT IN BED NON-VERBAL NAD - Current Medication List Current Medications: Active Medications Acetaminophen (Tylenol -) 650 mg PO Q6H PRN PRN Reason: PAIN LEVEL 1-5 OR FEVER Last Admin: 01/02/19 23:37 Dose: 650 mg Amino Acids (Prosource No Carb Liquid Pkt) 30 ml PO BID@0800,1730 [facility] Last Admin: 01/03/19 10:40 Dose: 30 ml Amlodipine Besylate (Norvasc -) 5 mg PO DAILY [facility] Last Admin: 01/03/19 10:41 Dose: 5 mg Aspirin (Ecotrin -) 81 mg PO DAILY [facility] Last Admin: 01/03/19 10:40 Dose: 81 mg Atorvastatin Calcium (Lipitor -) 10 mg PO HS [facility] Last Admin: 01/02/19 23:08 Dose: 10 mg Carvedilol (Coreg -) 6.25 mg PO BID [facility] Last Admin: 01/03/19 10:40 Dose: 6.25 mg Ferrous Sulfate (Feosol) 300 mg PO TIDCM [facility] Last Admin: 01/03/19 10:40 Dose: 300 mg Furosemide (Lasix Injection -) 40 mg IVPUSH DAILY [facility] Last Admin: 01/03/19 10:40 Dose: 40 mg Azithromycin (Zithromax 500mg Ivpb (Pre-Docked)) 500 mg in 250 mls @ 250 mls/ hr IVPB DAILY [facility] Last Admin: 01/03/19 10:41 Dose: 250 mls/hr Ceftriaxone Sodium 1 gm/ (Dextrose) 50 mls @ 100 mls/hr IVPB DAILY [facility]; Protocol Last Admin: 01/03/19 10:41 Dose: 100 mls/hr Lisinopril (Prinivil) 10 mg PO DAILY [facility] Last Admin: 01/03/19 10:41 Dose: 10 mg Multivitamins/Minerals/Vitamin C (Tab-A-Vit -) 1 tab PO DAILY [facility] Last Admin: 01/03/19 10:41 Dose: 1 tab Potassium Chloride (Potassium Chloride Oral Liquid) 40 meq PO DAILY [facility] Last Admin: 01/03/19 10:40 Dose: 40 meq Senna (Senna -) 1 tab PO HS [facility] Last Admin: 01/02/19 23:07 Dose: 1 tab Silver Sulfadiazine (Silvadene -) 1 applic TP DAILY@1800 [facility] Last Admin: 01/02/19 17:25 Dose: 1 applic - Objective Vital Signs: Vital Signs Temperature 97.9 F 01/03/19 10:00 Pulse Rate 80 01/03/19 10:00 Respiratory Rate 18 01/03/19 10:00 Blood Pressure 124/70 01/03/19 10:00 O2 Sat by Pulse Oximetry (%) 96 01/01/19 21:00 Constitutional: Yes: No Distress Eyes: Yes: Other Cardiovascular: Yes: Regular Rate and Rhythm Respiratory: Yes: Diminished, On Nasal O2 Gastrointestinal: Yes: Soft Musculoskeletal: Yes: Muscle Weakness Edema: No Wound/Incision: Yes: Dressing Dry and Intact Neurological: Yes: Pre-Existing Deficit Labs: CBC, BMP 01/03/19 10:00 Problem List - Problems (1) Decubitus ulcer of sacral region, stage 4 Code(s): L89.154 - PRESSURE ULCER OF SACRAL REGION, STAGE 4 (2) Malnutrition Code(s): E46 - UNSPECIFIED PROTEIN-CALORIE MALNUTRITION (3) Metabolic encephalopathy Code(s): G93.41 - METABOLIC ENCEPHALOPATHY (4) UTI (lower urinary tract infection) Code(s): N39.0 - URINARY TRACT INFECTION, SITE NOT SPECIFIED (5) Anemia Code(s): D64.9 - ANEMIA, UNSPECIFIED (6) Functional quadriplegia Code(s): R53.2 - FUNCTIONAL QUADRIPLEGIA Assessment/Plan IV ABX AWAITING MORNING LABS WOUND CARE IVF ID F/U POOR OVER ALL CONDITION PATIENT DNR
[2019-01-03] MEDS: ACETAMINOPHEN 325 MG TABLET (FP) PO PRN (17:35)
[2019-01-03] MEDS: SILVER SULFADIAZINE 1% TOP CREAM 50 GM JAR TP SCH (17:38)
[2019-01-03] MEDS: SENNOSIDES 8.6MG TABLET (FP) PO SCH (22:05)
[2019-01-03] MEDS: ATORVASTATIN CA 10 MG TABLET (FP) PO SCH (22:05)
--- NOTE | 2019-01-04 00:47 | PN ---
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, Physician Chief Complaint: nonverbal History of Present Illness: dm2,cva,stroke syndrome,aphasic dnr - Current Medication List Current Medications: Active Medications Acetaminophen (Tylenol -) 650 mg PO Q6H PRN PRN Reason: PAIN LEVEL 1-5 OR FEVER Last Admin: 01/03/19 17:35 Dose: 650 mg Amino Acids (Prosource No Carb Liquid Pkt) 30 ml PO BID@0800,1730 [facility] Last Admin: 01/03/19 17:31 Dose: 30 ml Amlodipine Besylate (Norvasc -) 5 mg PO DAILY [facility] Last Admin: 01/03/19 10:41 Dose: 5 mg Aspirin (Ecotrin -) 81 mg PO DAILY [facility] Last Admin: 01/03/19 10:40 Dose: 81 mg Atorvastatin Calcium (Lipitor -) 10 mg PO HS [facility] Last Admin: 01/03/19 22:05 Dose: 10 mg Carvedilol (Coreg -) 6.25 mg PO BID [facility] Last Admin: 01/03/19 22:05 Dose: 6.25 mg Ferrous Sulfate (Feosol) 300 mg PO TIDCM [facility] Last Admin: 01/03/19 17:31 Dose: 300 mg Furosemide (Lasix Injection -) 40 mg IVPUSH DAILY [facility] Last Admin: 01/03/19 10:40 Dose: 40 mg Azithromycin (Zithromax 500mg Ivpb (Pre-Docked)) 500 mg in 250 mls @ 250 mls/ hr IVPB DAILY [facility] Last Admin: 01/03/19 10:41 Dose: 250 mls/hr Ceftriaxone Sodium 1 gm/ (Dextrose) 50 mls @ 100 mls/hr IVPB DAILY [facility]; Protocol Last Admin: 01/03/19 10:41 Dose: 100 mls/hr Lisinopril (Prinivil) 10 mg PO DAILY [facility] Last Admin: 01/03/19 10:41 Dose: 10 mg Multivitamins/Minerals/Vitamin C (Tab-A-Vit -) 1 tab PO DAILY [facility] Last Admin: 01/03/19 10:41 Dose: 1 tab Senna (Senna -) 1 tab PO HS [facility] Last Admin: 01/03/19 22:05 Dose: 1 tab Silver Sulfadiazine (Silvadene -) 1 applic TP DAILY@1800 [facility] Last Admin: 01/03/19 17:38 Dose: 1 applic - Objective Vital Signs: Vital Signs Temperature 99.1 F 01/03/19 22:00 Pulse Rate 83 01/03/19 22:00 Respiratory Rate 24 H 01/03/19 18:00 Blood Pressure 137/63 01/03/19 22:00 O2 Sat by Pulse Oximetry (%) 96 01/01/19 21:00 Eyes: Yes: EOM Intact HENT: Yes: Normocephalic Neck: Yes: Trachea Midline Cardiovascular: Yes: Regular Rate and Rhythm Respiratory: Yes: CTA Bilaterally Gastrointestinal: Yes: Normal Bowel Sounds ...Rectal Exam: Yes: Deferred Musculoskeletal: Yes: Other (contracted) Extremities: Yes: Internal Rotation Edema: No Integumentary: Yes: Venous Stasis Changes Wound/Incision: Yes: Well Approximated Neurological: Yes: Lethargy Labs: CBC, BMP 01/03/19 10:00 01/03/19 10:00 Problem List - Problems (1) Decubitus ulcer of sacral region, stage 4 Code(s): L89.154 - PRESSURE ULCER OF SACRAL REGION, STAGE 4 (2) Hematuria Code(s): R31.9 - HEMATURIA, UNSPECIFIED (3) Malnutrition Code(s): E46 - UNSPECIFIED PROTEIN-CALORIE MALNUTRITION (4) Metabolic encephalopathy Code(s): G93.41 - METABOLIC ENCEPHALOPATHY (5) Abnormal lateral conjugate gaze Code(s): H51.0 - PALSY (SPASM) OF CONJUGATE GAZE (6) Acute hypernatremia Code(s): E87.0 - HYPEROSMOLALITY AND HYPERNATREMIA (7) Altered mental status Code(s): R41.82 - ALTERED MENTAL STATUS, UNSPECIFIED Assessment/Plan Current Active Problems Decubitus ulcer of sacral region, stage 4 (Acute) Hematuria (Acute) Malnutrition (Acute) Metabolic encephalopathy (Acute) UTI (lower urinary tract infection) (Acute) Abnormal Lab Results 01/03/19 01/03/19 10:00 10:00 RBC 3.41 L Hgb 10.5 L Hct 30.6 L BUN 30 H Creatinine 0.5 L Random Glucose 179 H AST 12 L ALT 9 L Total Protein 6.3 L Albumin 2.5 L Laboratory Results - last 24 hr 01/03/19 01/03/19 10:00 10:00 WBC 6.9 RBC 3.41 L Hgb 10.5 L Hct 30.6 L MCV 89.5 MCH 30.7 MCHC 34.3 RDW 15.4 Plt Count 304 MPV 8.3 Absolute Neuts (auto) 5.5 Neutrophils % 79.0 Lymphocytes % 12.2 Monocytes % 7.9 Eosinophils % 0.5 Basophils % 0.4 Nucleated RBC % 0 Sodium 140 Potassium 3.7 Chloride 100 Carbon Dioxide 32 Anion Gap 8 BUN 30 H Creatinine 0.5 L Creat Clearance w eGFR > 60 Random Glucose 179 H Calcium 8.6 Total Bilirubin 0.4 AST 12 L ALT 9 L Alkaline Phosphatase 101 Total Protein 6.3 L Albumin 2.5 L plan:bgm bid metformin 500 mg daily
[2019-01-04 06:00] LABS: BASO % 0.7 % (0-2.0); EOS % 0.4 % (0-4.5); HEMOGLOBIN 10.6 GM/dL (10.7-15.3); LYMPH % 13.8 % (8-40); MCH 30.4 pg (25.7-33.7); MCHC 34.3 g/dl (32.0-36.0); MEAN CELL VOLUME 88.6 fl (80-96); MEAN PLT VOLUME 8.4 fl (7.5-11.1); MONO % 9.2 % (3.8-10.2); NEUT % 75.9 % (42.8-82.8); PLATELET COUNT 312 K/MM3 (134-434); RDW 15.6 % (11.6-15.6); WHITE BLOOD COUNT 7.2 K/mm3 (4.0-10.0)
[2019-01-04 06:34] LABS: ALBUMIN 2.5 g/dl (3.4-5.0); ALK PHOS 108 U/L (45-117); ANION GAP 6 MMOL/L (8-16); BILIRUBIN,TOTAL 0.3 mg/dL (0.2-1); BLOOD UREA NITROGEN 28 mg/dL (7-18); CALCIUM 8.5 mg/dL (8.5-10.1); CHLORIDE 98 mmol/L (98-107); CO2 36 mmol/L (21-32); CREATININE 0.5 mg/dL (0.55-1.3); GLUCOSE,RANDOM 141 mg/dL (74-106); MAGNESIUM 1.7 mg/dL (1.8-2.4); POTASSIUM 3.6 mmol/L (3.5-5.1); SGOT/AST 15 U/L (15-37); SGPT/ALT 11 U/L (13-61); SODIUM 139 mmol/L (136-145); TOT PROT 6.3 g/dl (6.4-8.2)
[2019-01-04] MEDS: metFORMIN HCL 500 MG TABLET (FP) PO SCH (06:34)
[2019-01-04] MEDS ORDERED: cefTRIAXone SODIUM 1 GM VIAL ONE (09:13)
[2019-01-04] MEDS ORDERED: DEXTROSE 5%-WATER - 50 ML IVPB ONE (09:13)
[2019-01-04] MEDS: FERROUS SO4 300 MG/5 ML ORAL SOLN UNIT DOSE CUPS PO SCH ×3 (09:30→17:47)
[2019-01-04] MEDS: ASPIRIN COATED 81 MG TABLET.EC PO SCH (09:30)
[2019-01-04] MEDS: LISINOPRIL 10 MG TABLET (FP) PO SCH (09:30)
[2019-01-04] MEDS: CARVEDILOL 6.25 MG TABLET (FP) PO SCH ×2 (09:30→21:36)
[2019-01-04] MEDS: MULTIVITAMINS (DAILY MVI) TABLET (FP) PO SCH (09:30)
[2019-01-04] MEDS: amLODIPine BESYLATE 5 MG TABLET (FP) PO SCH (09:30)
[2019-01-04] MEDS: CEFTRIAXONE 1 GM in DEXTROSE 5%-WATER - 50 ML IVPB SCH (09:31)
[2019-01-04] MEDS: AMINO ACIDS/PROTEIN HYDROLYS 30 ML LIQUID.PKT PO SCH ×2 (09:31→17:47)
[2019-01-04] MEDS: AZITHROMYCIN IVPB 500 MG/250 ML BAG IVPB SCH (09:32)
[2019-01-04] MEDS: FUROSEMIDE 40 MG/4 ML INJECTABLE VIAL IVPUSH SCH (09:36)
[2019-01-04] MEDS ORDERED: MAGNESIUM SULF 50% (8.12 MEQ/2 ML-1 GM VIAL) IVPB ONE (09:37)
--- NOTE | 2019-01-04 09:37 | PN ---
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, Physician Chief Complaint: ASLEEP LOW GRADE FEVER OVERNIGHT - Current Medication List Current Medications: Active Medications Acetaminophen (Tylenol -) 650 mg PO Q6H PRN PRN Reason: PAIN LEVEL 1-5 OR FEVER Last Admin: 01/03/19 17:35 Dose: 650 mg Amino Acids (Prosource No Carb Liquid Pkt) 30 ml PO BID@0800,1730 [facility] Last Admin: 01/04/19 09:31 Dose: 30 ml Amlodipine Besylate (Norvasc -) 5 mg PO DAILY [facility] Last Admin: 01/04/19 09:30 Dose: 5 mg Aspirin (Ecotrin -) 81 mg PO DAILY [facility] Last Admin: 01/04/19 09:30 Dose: 81 mg Atorvastatin Calcium (Lipitor -) 10 mg PO HS [facility] Last Admin: 01/03/19 22:05 Dose: 10 mg Carvedilol (Coreg -) 6.25 mg PO BID [facility] Last Admin: 01/04/19 09:30 Dose: 6.25 mg Ferrous Sulfate (Feosol) 300 mg PO TIDCM [facility] Last Admin: 01/04/19 09:30 Dose: 300 mg Furosemide (Lasix Injection -) 40 mg IVPUSH DAILY [facility] Last Admin: 01/03/19 10:40 Dose: 40 mg Azithromycin (Zithromax 500mg Ivpb (Pre-Docked)) 500 mg in 250 mls @ 250 mls/ hr IVPB DAILY [facility] Last Admin: 01/04/19 09:32 Dose: 250 mls/hr Ceftriaxone Sodium 1 gm/ (Dextrose) 50 mls @ 100 mls/hr IVPB DAILY [facility]; Protocol Last Admin: 01/04/19 09:31 Dose: 100 mls/hr Lisinopril (Prinivil) 10 mg PO DAILY [facility] Last Admin: 01/04/19 09:30 Dose: 10 mg Metformin HCl (Glucophage -) 500 mg PO DAILY@0700 [facility] Last Admin: 01/04/19 06:34 Dose: 500 mg Multivitamins/Minerals/Vitamin C (Tab-A-Vit -) 1 tab PO DAILY [facility] Last Admin: 01/04/19 09:30 Dose: 1 tab Senna (Senna -) 1 tab PO HS [facility] Last Admin: 01/03/19 22:05 Dose: 1 tab Silver Sulfadiazine (Silvadene -) 1 applic TP DAILY@1800 [facility] Last Admin: 01/03/19 17:38 Dose: 1 applic - Objective Vital Signs: Vital Signs Temperature 99 F 01/04/19 06:00 Pulse Rate 79 01/04/19 06:00 Respiratory Rate 20 01/04/19 06:00 Blood Pressure 140/87 01/04/19 06:00 O2 Sat by Pulse Oximetry (%) 96 01/01/19 21:00 Constitutional: Yes: No Distress Cardiovascular: Yes: Regular Rate and Rhythm Respiratory: Yes: Diminished, On Nasal O2 Gastrointestinal: Yes: Soft Genitourinary: Yes: Incontinence Musculoskeletal: Yes: Muscle Weakness Edema: No Neurological: Yes: Pre-Existing Deficit Labs: CBC, BMP 01/04/19 05:50 01/04/19 05:50 Problem List - Problems (1) Decubitus ulcer of sacral region, stage 4 Code(s): L89.154 - PRESSURE ULCER OF SACRAL REGION, STAGE 4 (2) Malnutrition Code(s): E46 - UNSPECIFIED PROTEIN-CALORIE MALNUTRITION (3) Metabolic encephalopathy Code(s): G93.41 - METABOLIC ENCEPHALOPATHY (4) UTI (lower urinary tract infection) Code(s): N39.0 - URINARY TRACT INFECTION, SITE NOT SPECIFIED (5) Anemia Code(s): D64.9 - ANEMIA, UNSPECIFIED (6) Functional quadriplegia Code(s): R53.2 - FUNCTIONAL QUADRIPLEGIA Assessment/Plan IV ABX CONTINUE IF FEVERS PERSIST ADD VANCO IV ID F/U APPRECIATED WOUND CARE IVF ID F/U POOR OVER ALL CONDITION PATIENT DNR
--- NOTE | 2019-01-04 10:30 | PN ---
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 (short form) - Note 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: Resting in NAD. Some residual cough. No CP. No hemoptysis. Intake & Output 01/01/19 01/02/19 01/03/19 01/04/19 23:59 23:59 23:59 23:59 Intake Total 300 350 350 100 Balance 300 350 350 100 Weight 98 lb 103 lb Last Vital Signs Temp Pulse Resp BP Pulse Ox 99 F 79 20 140/87 96 01/04/19 06:00 01/04/19 06:00 01/04/19 06:00 01/04/19 06:00 01/01/19 21:00 Active Medications Acetaminophen (Tylenol -) 650 mg PO Q6H PRN PRN Reason: PAIN LEVEL 1-5 OR FEVER Last Admin: 01/03/19 17:35 Dose: 650 mg Amino Acids (Prosource No Carb Liquid Pkt) 30 ml PO BID@0800,1730 [facility] Last Admin: 01/04/19 09:31 Dose: 30 ml Amlodipine Besylate (Norvasc -) 5 mg PO DAILY [facility] Last Admin: 01/04/19 09:30 Dose: 5 mg Aspirin (Ecotrin -) 81 mg PO DAILY [facility] Last Admin: 01/04/19 09:30 Dose: 81 mg Atorvastatin Calcium (Lipitor -) 10 mg PO HS [facility] Last Admin: 01/03/19 22:05 Dose: 10 mg Carvedilol (Coreg -) 6.25 mg PO BID [facility] Last Admin: 01/04/19 09:30 Dose: 6.25 mg Ferrous Sulfate (Feosol) 300 mg PO TIDCM [facility] Last Admin: 01/04/19 09:30 Dose: 300 mg Furosemide (Lasix Injection -) 40 mg IVPUSH DAILY [facility] Last Admin: 01/04/19 09:36 Dose: 40 mg Azithromycin (Zithromax 500mg Ivpb (Pre-Docked)) 500 mg in 250 mls @ 250 mls/ hr IVPB DAILY [facility] Last Admin: 01/04/19 09:32 Dose: 250 mls/hr Ceftriaxone Sodium 1 gm/ (Dextrose) 50 mls @ 100 mls/hr IVPB DAILY [facility]; Protocol Last Admin: 01/04/19 09:31 Dose: 100 mls/hr Lisinopril (Prinivil) 10 mg PO DAILY [facility] Last Admin: 01/04/19 09:30 Dose: 10 mg Metformin HCl (Glucophage -) 500 mg PO DAILY@0700 [facility] Last Admin: 01/04/19 06:34 Dose: 500 mg Multivitamins/Minerals/Vitamin C (Tab-A-Vit -) 1 tab PO DAILY [facility] Last Admin: 01/04/19 09:30 Dose: 1 tab Senna (Senna -) 1 tab PO HS [facility] Last Admin: 01/03/19 22:05 Dose: 1 tab Silver Sulfadiazine (Silvadene -) 1 applic TP DAILY@1800 [facility] Last Admin: 01/03/19 17:38 Dose: 1 applic Constitutional: Yes: NAD Eyes: Yes: Conjunctiva Clear, EOM Intact HENT: Yes: Atraumatic, Normocephalic Neck: Yes: Supple, Trachea Midline Cardiovascular: Yes: Regular Rate and Rhythm Respiratory: Yes: bilateral scattered rhonchi Clubbing: No Gastrointestinal: Yes: Normal Bowel Sounds, Soft. No: Tenderness Edema: No Labs: Laboratory Results - last 24 hr 01/03/19 01/03/19 01/04/19 10:00 10:00 05:50 WBC 6.9 7.2 RBC 3.41 L 3.50 L Hgb 10.5 L 10.6 L Hct 30.6 L 31.0 L MCV 89.5 88.6 MCH 30.7 30.4 MCHC 34.3 34.3 RDW 15.4 15.6 Plt Count 304 312 MPV 8.3 8.4 Absolute Neuts (auto) 5.5 5.5 Neutrophils % 79.0 75.9 Lymphocytes % 12.2 13.8 Monocytes % 7.9 9.2 Eosinophils % 0.5 0.4 Basophils % 0.4 0.7 Nucleated RBC % 0 0 Sodium 140 Potassium 3.7 Chloride 100 Carbon Dioxide 32 Anion Gap 8 BUN 30 H Creatinine 0.5 L Creat Clearance w eGFR > 60 POC Glucometer Random Glucose 179 H Calcium 8.6 Magnesium Total Bilirubin 0.4 AST 12 L ALT 9 L Alkaline Phosphatase 101 Total Protein 6.3 L Albumin 2.5 L 01/04/19 01/04/19 05:50 06:32 WBC RBC Hgb Hct MCV MCH MCHC RDW Plt Count MPV Absolute Neuts (auto) Neutrophils % Lymphocytes % Monocytes % Eosinophils % Basophils % Nucleated RBC % Sodium 139 Potassium 3.6 Chloride 98 Carbon Dioxide 36 H Anion Gap 6 L BUN 28 H Creatinine 0.5 L Creat Clearance w eGFR > 60 POC Glucometer 131 Random Glucose 141 H Calcium 8.5 Magnesium 1.7 L Total Bilirubin 0.3 AST 15 ALT 11 L Alkaline Phosphatase 108 Total Protein 6.3 L Albumin 2.5 L Problem List - Problems (1) UTI (lower urinary tract infection) Code(s): N39.0 - URINARY TRACT INFECTION, SITE NOT SPECIFIED (2) CAD (coronary artery disease) Code(s): I25.10 - ATHSCL HEART DISEASE OF [place] CORONARY ARTERY W/O ANG PCTRS (3) Decubitus ulcer, buttock, right, unstageable Code(s): L89.310 - PRESSURE ULCER OF RIGHT BUTTOCK, UNSTAGEABLE (4) Dementia Code(s): F03.90 - UNSPECIFIED DEMENTIA WITHOUT BEHAVIORAL DISTURBANCE (5) Diabetes 1.5, managed as type 2 Code(s): E13.9 - OTHER SPECIFIED DIABETES MELLITUS WITHOUT COMPLICATIONS (6) Functional quadriplegia Code(s): R53.2 - FUNCTIONAL QUADRIPLEGIA (7) HLD (hyperlipidemia) Code(s): E78.5 - HYPERLIPIDEMIA, UNSPECIFIED (8) HTN (hypertension) Code(s): I10 - ESSENTIAL (PRIMARY) HYPERTENSION Qualifiers: Hypertension type: essential hypertension Qualified Code(s): I10 - Essential (primary) hypertension Assessment/Plan UTI Atelectasis Less likely PNA HTN DM Hyperlipidemia Buttock Ulcer Dementia - antibiotics per ID - aspiration precautions - O2 to keep SpO2 >90% - DVT prophylaxis Dr Sanchez
[2019-01-04] MEDS: SILVER SULFADIAZINE 1% TOP CREAM 50 GM JAR TP SCH (17:59)
[2019-01-04] MEDS: ATORVASTATIN CA 10 MG TABLET (FP) PO SCH (21:36)
[2019-01-04] MEDS: SENNOSIDES 8.6MG TABLET (FP) PO SCH (21:36)
[2019-01-05] MEDS: metFORMIN HCL 500 MG TABLET (FP) PO SCH (06:30)
[2019-01-05 06:51] LABS: BASO % 0.7 % (0-2.0); EOS % 0.9 % (0-4.5); HEMATOCRIT 27.1 % (32.4-45.2); HEMOGLOBIN 9.4 GM/dL (10.7-15.3); LYMPH % 19.6 % (8-40); MCH 31.3 pg (25.7-33.7); MCHC 34.8 g/dl (32.0-36.0); MEAN CELL VOLUME 89.7 fl (80-96); MEAN PLT VOLUME 8.6 fl (7.5-11.1); MONO % 10.9 % (3.8-10.2); NEUT % 67.9 % (42.8-82.8); PLATELET COUNT 327 K/MM3 (134-434); RBC 3.02 M/mm3 (3.60-5.2); RDW 15.3 % (11.6-15.6); WHITE BLOOD COUNT 6.4 K/mm3 (4.0-10.0)
[2019-01-05 07:41] LABS: ALBUMIN 2.2 g/dl (3.4-5.0); ALK PHOS 96 U/L (45-117); ANION GAP 7 MMOL/L (8-16); BILIRUBIN,TOTAL 0.2 mg/dL (0.2-1); BLOOD UREA NITROGEN 32 mg/dL (7-18); CALCIUM 8.7 mg/dL (8.5-10.1); CHLORIDE 98 mmol/L (98-107); CO2 35 mmol/L (21-32); CREATININE 0.6 mg/dL (0.55-1.3); GLUCOSE,RANDOM 136 mg/dL (74-106); POTASSIUM 3.3 mmol/L (3.5-5.1); SGOT/AST 13 U/L (15-37); SGPT/ALT 9 U/L (13-61); SODIUM 140 mmol/L (136-145); TOT PROT 5.9 g/dl (6.4-8.2)
--- NOTE | 2019-01-05 09:27 | PN ---
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 (short form) - Note 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: Resting in NAD. No acute events overnight. No hemoptysis. Intake & Output 01/02/19 01/03/19 01/04/19 01/05/19 23:59 23:59 23:59 23:59 Intake Total 350 350 640 200 Balance 350 350 640 200 Weight 98 lb 103 lb 101 lb Last Vital Signs Temp Pulse Resp BP Pulse Ox 98.1 F 63 18 137/66 96 01/05/19 07:00 01/05/19 07:00 01/05/19 07:00 01/05/19 07:00 01/01/19 21:00 Active Medications Acetaminophen (Tylenol -) 650 mg PO Q6H PRN PRN Reason: PAIN LEVEL 1-5 OR FEVER Last Admin: 01/03/19 17:35 Dose: 650 mg Amino Acids (Prosource No Carb Liquid Pkt) 30 ml PO BID@0800,1730 [facility] Last Admin: 01/04/19 17:47 Dose: 30 ml Amlodipine Besylate (Norvasc -) 5 mg PO DAILY [facility] Last Admin: 01/04/19 09:30 Dose: 5 mg Aspirin (Ecotrin -) 81 mg PO DAILY [facility] Last Admin: 01/04/19 09:30 Dose: 81 mg Atorvastatin Calcium (Lipitor -) 10 mg PO HS [facility] Last Admin: 01/04/19 21:36 Dose: 10 mg Carvedilol (Coreg -) 6.25 mg PO BID [facility] Last Admin: 01/04/19 21:36 Dose: 6.25 mg Ferrous Sulfate (Feosol) 300 mg PO TIDCM [facility] Last Admin: 01/04/19 17:47 Dose: 300 mg Furosemide (Lasix Injection -) 40 mg IVPUSH DAILY [facility] Last Admin: 01/04/19 09:36 Dose: 40 mg Azithromycin (Zithromax 500mg Ivpb (Pre-Docked)) 500 mg in 250 mls @ 250 mls/ hr IVPB DAILY [facility] Last Admin: 01/04/19 09:32 Dose: 250 mls/hr Ceftriaxone Sodium 1 gm/ (Dextrose) 50 mls @ 100 mls/hr IVPB DAILY [facility]; Protocol Last Admin: 01/04/19 09:31 Dose: 100 mls/hr Lisinopril (Prinivil) 10 mg PO DAILY [facility] Last Admin: 01/04/19 09:30 Dose: 10 mg Metformin HCl (Glucophage -) 500 mg PO DAILY@0700 [facility] Last Admin: 01/05/19 06:30 Dose: 500 mg Multivitamins/Minerals/Vitamin C (Tab-A-Vit -) 1 tab PO DAILY [facility] Last Admin: 01/04/19 09:30 Dose: 1 tab Senna (Senna -) 1 tab PO HS [facility] Last Admin: 01/04/19 21:36 Dose: 1 tab Silver Sulfadiazine (Silvadene -) 1 applic TP DAILY@1800 [facility] Last Admin: 01/04/19 17:59 Dose: 1 applic Constitutional: Yes: NAD Eyes: Yes: Conjunctiva Clear, EOM Intact HENT: Yes: Atraumatic, Normocephalic Neck: Yes: Supple, Trachea Midline Cardiovascular: Yes: Regular Rate and Rhythm Respiratory: Yes: bilateral scattered rhonchi Clubbing: No Gastrointestinal: Yes: Normal Bowel Sounds, Soft. No: Tenderness Edema: No Labs: Laboratory Results - last 24 hr 01/05/19 01/05/19 05:30 05:30 WBC 6.4 RBC 3.02 L Hgb 9.4 L Hct 27.1 L MCV 89.7 MCH 31.3 MCHC 34.8 RDW 15.3 Plt Count 327 MPV 8.6 Absolute Neuts (auto) 4.3 Neutrophils % 67.9 Lymphocytes % 19.6 D Monocytes % 10.9 H Eosinophils % 0.9 D Basophils % 0.7 Nucleated RBC % 0 Sodium 140 Potassium 3.3 L Chloride 98 Carbon Dioxide 35 H Anion Gap 7 L BUN 32 H Creatinine 0.6 Creat Clearance w eGFR > 60 Random Glucose 136 H Calcium 8.7 Total Bilirubin 0.2 AST 13 L ALT 9 L Alkaline Phosphatase 96 Total Protein 5.9 L Albumin 2.2 L Problem List - Problems (1) UTI (lower urinary tract infection) Code(s): N39.0 - URINARY TRACT INFECTION, SITE NOT SPECIFIED (2) CAD (coronary artery disease) Code(s): I25.10 - ATHSCL HEART DISEASE OF [place] CORONARY ARTERY W/O ANG PCTRS (3) Decubitus ulcer, buttock, right, unstageable Code(s): L89.310 - PRESSURE ULCER OF RIGHT BUTTOCK, UNSTAGEABLE (4) Dementia Code(s): F03.90 - UNSPECIFIED DEMENTIA WITHOUT BEHAVIORAL DISTURBANCE (5) Diabetes 1.5, managed as type 2 Code(s): E13.9 - OTHER SPECIFIED DIABETES MELLITUS WITHOUT COMPLICATIONS (6) Functional quadriplegia Code(s): R53.2 - FUNCTIONAL QUADRIPLEGIA (7) HLD (hyperlipidemia) Code(s): E78.5 - HYPERLIPIDEMIA, UNSPECIFIED (8) HTN (hypertension) Code(s): I10 - ESSENTIAL (PRIMARY) HYPERTENSION Qualifiers: Hypertension type: essential hypertension Qualified Code(s): I10 - Essential (primary) hypertension Assessment/Plan UTI Atelectasis Less likely PNA HTN DM Hyperlipidemia Buttock Ulcer Dementia - antibiotics per ID (Will D/CX Zithromax) - aspiration precautions - O2 to keep SpO2 >90% - DVT prophylaxis - No Pulmonary contraindication for D/C planning Dr Sanchez
[2019-01-05] MEDS ORDERED: PT OWN MED DRAWER 7, Y5N ONE (10:37)
[2019-01-05] MEDS ORDERED: cefTRIAXone SODIUM 1 GM VIAL ONE (10:38)
[2019-01-05] MEDS ORDERED: DEXTROSE 5%-WATER - 50 ML IVPB ONE (10:38)
[2019-01-05] MEDS: LISINOPRIL 10 MG TABLET (FP) PO SCH (10:48)
[2019-01-05] MEDS: FERROUS SO4 300 MG/5 ML ORAL SOLN UNIT DOSE CUPS PO SCH ×3 (10:48→18:03)
[2019-01-05] MEDS: amLODIPine BESYLATE 5 MG TABLET (FP) PO SCH (10:48)
[2019-01-05] MEDS: CEFTRIAXONE 1 GM in DEXTROSE 5%-WATER - 50 ML IVPB SCH (10:48)
[2019-01-05] MEDS: CARVEDILOL 6.25 MG TABLET (FP) PO SCH ×2 (10:48→22:17)
[2019-01-05] MEDS: MULTIVITAMINS (DAILY MVI) TABLET (FP) PO SCH (10:48)
[2019-01-05] MEDS: ASPIRIN COATED 81 MG TABLET.EC PO SCH (10:48)
[2019-01-05] MEDS: FUROSEMIDE 40 MG/4 ML INJECTABLE VIAL IVPUSH SCH (10:48)
[2019-01-05] MEDS: AMINO ACIDS/PROTEIN HYDROLYS 30 ML LIQUID.PKT PO SCH ×2 (10:48→18:03)
--- NOTE | 2019-01-05 12:05 | PN ---
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 (short form) - Note 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: no fevers resting comfortably day#5 antiibotics Vital Signs Period Temp Pulse Resp BP Sys/Hoffman Pulse Ox Last 24 Hr 98.1 F-99.2 F 63-87 17-18 126-142/64-96 cor-rrr lungs clear abd soft,nt +ulcer left- clean ext no edema CBC, BMP 01/05/19 05:30 01/05/19 05:30 01/01/19 14:20 Influenza A (Rapid) Negative Influenza B (Rapid) Negative Microbiology 12/31/18 17:24 Blood - Peripheral Venous Blood Culture - Preliminary NO GROWTH OBTAINED AFTER 96 HOURS, INCUBATION TO CONTINUE FOR 1 DAYS. 12/31/18 17:24 Blood - Peripheral Venous Blood Culture - Preliminary NO GROWTH OBTAINED AFTER 96 HOURS, INCUBATION TO CONTINUE FOR 1 DAYS. 01/01/19 14:20 Urine For Antigen Detection Legionella Antigen - Final 01/01/19 14:20 Urine For Antigen Detection Streptococcus pneumoniae Antigen (M - Final 12/31/18 16:37 Urine - Urine Clean Catch Urine Culture - Final Diphtheroid/Corynebacterium a/p probable UTI r/o pneumonia pen allergy chronic left buttock ulcer- clean, f/u wound care center dementia- nonverbal contact isolation- history of resistant organisms in decubitus ulcer- no need to treat day #5 iv antibiotics will d/c would refer to urology consult regarding management of her hematuria please call back if needed Problem List - Problems (1) UTI (lower urinary tract infection) Code(s): N39.0 - URINARY TRACT INFECTION, SITE NOT SPECIFIED (2) Pneumonia Code(s): J18.9 - PNEUMONIA, UNSPECIFIED ORGANISM Qualifiers: Pneumonia type: due to unspecified organism Laterality: bilateral Lung location: lower lobe of lung Qualified Code(s): J18.1 - Lobar pneumonia, unspecified organism (3) Penicillin allergy Code(s): Z88.0 - ALLERGY STATUS TO PENICILLIN
--- NOTE | 2019-01-05 12:46 | PN ---
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, Physician Chief Complaint: in bed no distress - Current Medication List Current Medications: Active Medications Acetaminophen (Tylenol -) 650 mg PO Q6H PRN PRN Reason: PAIN LEVEL 1-5 OR FEVER Last Admin: 01/03/19 17:35 Dose: 650 mg Amino Acids (Prosource No Carb Liquid Pkt) 30 ml PO BID@0800,1730 [facility] Last Admin: 01/05/19 10:48 Dose: 30 ml Amlodipine Besylate (Norvasc -) 5 mg PO DAILY [facility] Last Admin: 01/05/19 10:48 Dose: 5 mg Aspirin (Ecotrin -) 81 mg PO DAILY [facility] Last Admin: 01/05/19 10:48 Dose: 81 mg Atorvastatin Calcium (Lipitor -) 10 mg PO HS [facility] Last Admin: 01/04/19 21:36 Dose: 10 mg Carvedilol (Coreg -) 6.25 mg PO BID [facility] Last Admin: 01/05/19 10:48 Dose: 6.25 mg Ferrous Sulfate (Feosol) 300 mg PO TIDCM [facility] Last Admin: 01/05/19 10:48 Dose: 300 mg Furosemide (Lasix Injection -) 40 mg IVPUSH DAILY [facility] Last Admin: 01/05/19 10:48 Dose: 40 mg Lisinopril (Prinivil) 10 mg PO DAILY [facility] Last Admin: 01/05/19 10:48 Dose: 10 mg Metformin HCl (Glucophage -) 500 mg PO DAILY@0700 [facility] Last Admin: 01/05/19 06:30 Dose: 500 mg Multivitamins/Minerals/Vitamin C (Tab-A-Vit -) 1 tab PO DAILY [facility] Last Admin: 01/05/19 10:48 Dose: 1 tab Senna (Senna -) 1 tab PO HS [facility] Last Admin: 01/04/19 21:36 Dose: 1 tab Silver Sulfadiazine (Silvadene -) 1 applic TP DAILY@1800 [facility] Last Admin: 01/04/19 17:59 Dose: 1 applic - Objective Vital Signs: Vital Signs Temperature 97.1 F L 01/05/19 10:00 Pulse Rate 62 01/05/19 10:00 Respiratory Rate 20 01/05/19 10:00 Blood Pressure 142/74 01/05/19 10:00 O2 Sat by Pulse Oximetry (%) 98 01/05/19 09:00 Constitutional: Yes: Calm Cardiovascular: Yes: Regular Rate and Rhythm, S1, S2 Respiratory: Yes: CTA Bilaterally Gastrointestinal: Yes: Normal Bowel Sounds, Soft Edema: No Labs: CBC, BMP 01/05/19 05:30 01/05/19 05:30 Problem List - Problems (1) Decubitus ulcer of sacral region, stage 4 Assessment/Plan: appreicate dr flores note frequent turn and position nutritional evaluation Code(s): L89.154 - PRESSURE ULCER OF SACRAL REGION, STAGE 4 (2) Hematuria Assessment/Plan: renal sono to look at renal cyst appreciate urology ocnsult methenamine hipurate 1gm bid with vitamin C Code(s): R31.9 - HEMATURIA, UNSPECIFIED (3) Electrolyte abnormality Assessment/Plan: check mag today and replete potassium Code(s): E87.8 - OTH DISORDERS OF ELECTROLYTE AND FLUID BALANCE, NEC Assessment/Plan stop iv abx appreicate ID follow up
[2019-01-05 13:41] LABS: MAGNESIUM 1.9 mg/dL (1.8-2.4)
[2019-01-05] MEDS ORDERED: POTASSIUM CHLORIDE TABS 20 MEQ TABLET.ER (FP) PO ONE (14:00)
--- NOTE | 2019-01-05 16:17 | PATH ---
Cytology Non-Gynecological Report Patient Name: LAURA TRIPATHI Med. Rec. #: [id number] /Age/Gender: 1940 (Age: 78) / F Account: [id number] Location: [facility] MED/SURG Taken: 01/02/2019 Received: 01/02/2019 Reported: 01/05/2019 Physicians: MD Alisia Cross M.D. Specimen(s) Received URINE Clinical History Diabetes mellitus Final Diagnosis URINE FOR CYTOLOGY: SATISFACTORY FOR EVALUATION. NEGATIVE FOR MALIGNANT CELLS. NUMEROUS RED BLOOD CELLS ADMIXED WITH ACUTE INFLAMMATORY CELLS PRESENT. Electronically Signed Humaira Laird M.D. Gross Description Received fresh is 13 cc of bloody fluid. One cell block and cytospin prepared.
[2019-01-05] MEDS: SILVER SULFADIAZINE 1% TOP CREAM 50 GM JAR TP SCH (18:06)
[2019-01-05] MEDS: SENNOSIDES 8.6MG TABLET (FP) PO SCH (22:18)
[2019-01-05] MEDS: ATORVASTATIN CA 10 MG TABLET (FP) PO SCH (22:18)
[2019-01-06] MEDS: metFORMIN HCL 500 MG TABLET (FP) PO SCH (06:54)
[2019-01-06] MEDS: FERROUS SO4 300 MG/5 ML ORAL SOLN UNIT DOSE CUPS PO SCH ×3 (09:06→16:54)
[2019-01-06] MEDS: AMINO ACIDS/PROTEIN HYDROLYS 30 ML LIQUID.PKT PO SCH ×2 (09:06→16:54)
--- NOTE | 2019-01-06 09:49 | PN ---
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 (short form) - Note 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: Resting in NAD. Non-verbal. No acute events overnight. No reported hemoptysis. Intake & Output 01/03/19 01/04/19 01/05/19 01/06/19 23:59 23:59 23:59 23:59 Intake Total 350 640 730 Balance 350 640 730 Weight 103 lb 101 lb 96 lb 9.6 oz Last Vital Signs Temp Pulse Resp BP Pulse Ox 97.5 F L 62 16 154/72 98 01/06/19 06:00 01/06/19 06:00 01/06/19 06:00 01/06/19 06:00 01/05/19 21:00 Laboratory Results - last 24 hr 01/05/19 01/05/19 01/06/19 05:30 18:13 06:49 Sodium 140 Potassium 3.3 L Chloride 98 Carbon Dioxide 35 H Anion Gap 7 L BUN 32 H Creatinine 0.6 Creat Clearance w eGFR > 60 POC Glucometer 149 132 Random Glucose 136 H Calcium 8.7 Magnesium 1.9 Total Bilirubin 0.2 AST 13 L ALT 9 L Alkaline Phosphatase 96 Total Protein 5.9 L Albumin 2.2 L Constitutional: Yes: NAD Eyes: Yes: Conjunctiva Clear, EOM Intact HENT: Yes: Atraumatic, Normocephalic Neck: Yes: Supple, Trachea Midline Cardiovascular: Yes: Regular Rate and Rhythm Respiratory: Yes: bilateral scattered rhonchi Clubbing: No Gastrointestinal: Yes: Normal Bowel Sounds, Soft. No: Tenderness Edema: No Labs: Laboratory Results - last 24 hr 01/05/19 01/05/19 01/06/19 05:30 18:13 06:49 Sodium 140 Potassium 3.3 L Chloride 98 Carbon Dioxide 35 H Anion Gap 7 L BUN 32 H Creatinine 0.6 Creat Clearance w eGFR > 60 POC Glucometer 149 132 Random Glucose 136 H Calcium 8.7 Magnesium 1.9 Total Bilirubin 0.2 AST 13 L ALT 9 L Alkaline Phosphatase 96 Total Protein 5.9 L Albumin 2.2 L Problem List - Problems (1) UTI (lower urinary tract infection) Code(s): N39.0 - URINARY TRACT INFECTION, SITE NOT SPECIFIED (2) CAD (coronary artery disease) Code(s): I25.10 - ATHSCL HEART DISEASE OF [place] CORONARY ARTERY W/O ANG PCTRS (3) Decubitus ulcer, buttock, right, unstageable Code(s): L89.310 - PRESSURE ULCER OF RIGHT BUTTOCK, UNSTAGEABLE (4) Dementia Code(s): F03.90 - UNSPECIFIED DEMENTIA WITHOUT BEHAVIORAL DISTURBANCE (5) Diabetes 1.5, managed as type 2 Code(s): E13.9 - OTHER SPECIFIED DIABETES MELLITUS WITHOUT COMPLICATIONS (6) Functional quadriplegia Code(s): R53.2 - FUNCTIONAL QUADRIPLEGIA (7) HLD (hyperlipidemia) Code(s): E78.5 - HYPERLIPIDEMIA, UNSPECIFIED (8) HTN (hypertension) Code(s): I10 - ESSENTIAL (PRIMARY) HYPERTENSION Qualifiers: Hypertension type: essential hypertension Qualified Code(s): I10 - Essential (primary) hypertension Assessment/Plan UTI Atelectasis Less likely PNA HTN DM Hyperlipidemia Buttock Ulcer Dementia - antibiotics per ID (Off Zithromax) - aspiration precautions - O2 to keep SpO2 >90% - DVT prophylaxis - No Pulmonary contraindication for D/C planning Dr Sanchez
[2019-01-06] MEDS ORDERED: PT OWN MED DRAWER 7, Y5N ONE (10:10)
[2019-01-06] MEDS: ASPIRIN COATED 81 MG TABLET.EC PO SCH (10:22)
[2019-01-06] MEDS: LISINOPRIL 10 MG TABLET (FP) PO SCH (10:22)
[2019-01-06] MEDS: CARVEDILOL 6.25 MG TABLET (FP) PO SCH (10:22)
[2019-01-06] MEDS: amLODIPine BESYLATE 5 MG TABLET (FP) PO SCH (10:22)
[2019-01-06] MEDS: MULTIVITAMINS (DAILY MVI) TABLET (FP) PO SCH (10:22)
[2019-01-06 10:51] VITALS: BMI 15.7
--- NOTE | 2019-01-06 14:22 | DS ---
Physical Examination Vital Signs: Vital Signs Temperature 97.5 F L 01/06/19 06:00 Pulse Rate 62 01/06/19 06:00 Respiratory Rate 16 01/06/19 06:00 Blood Pressure 154/72 01/06/19 06:00 O2 Sat by Pulse Oximetry (%) 98 01/05/19 21:00 Findings/Remarks: Patient is an 78 y/o female patient that presented to ER after CXR showed some posterior pleural fluid and/or atelectasis and sporadic episodes of hematuria. Patient was evaluated by urology pulmonary while in patient. Patient completed antibiotic course. No further reports of hematuria noted. Constitutional: Yes: Calm, Cachectic Eyes: Yes: Conjunctiva Clear HENT: Yes: Normocephalic Neck: Yes: Supple Cardiovascular: Yes: Regular Rate and Rhythm Respiratory: Yes: Regular, Diminished Gastrointestinal: Yes: Soft, Other (Non-tender, non-distended) Musculoskeletal: Yes: Muscle Weakness Extremities: Yes: WNL Edema: No Wound/Incision: Yes: Dressing Dry and Intact Neurological: Yes: Alert, Pre-Existing Deficit Psychiatric: Yes: Alert Labs: CBC, BMP 01/05/19 05:30 01/05/19 05:30 Discharge Summary Reason For Visit: LOWER UTI DISEASE Current Active Problems Decubitus ulcer of sacral region, stage 4 (Acute) Electrolyte abnormality (Acute) Hematuria (Acute) Malnutrition (Acute) Metabolic encephalopathy (Acute) UTI (lower urinary tract infection) (Acute) Hospital Course: see progress notes Laboratory Last Values WBC 6.4 K/mm3 (4.0-10.0) 01/05/19 05:30 RBC 3.02 M/mm3 (3.60-5.2) L 01/05/19 05:30 Hgb 9.4 GM/dL (10.7-15.3) L 01/05/19 05:30 Hct 27.1 % (32.4-45.2) L 01/05/19 05:30 MCV 89.7 fl (80-96) 01/05/19 05:30 MCH 31.3 pg (25.7-33.7) 01/05/19 05:30 MCHC 34.8 g/dl (32.0-36.0) 01/05/19 05:30 RDW 15.3 % (11.6-15.6) 01/05/19 05:30 Plt Count 327 K/MM3 (134-434) 01/05/19 05:30 MPV 8.6 fl (7.5-11.1) 01/05/19 05:30 Absolute Neuts (auto) 4.3 K/mm3 (1.5-8.0) 01/05/19 05:30 Neutrophils % 67.9 % (42.8-82.8) 01/05/19 05:30 Lymphocytes % 19.6 % (8-40) D 01/05/19 05:30 Monocytes % 10.9 % (3.8-10.2) H 01/05/19 05:30 Eosinophils % 0.9 % (0-4.5) D 01/05/19 05:30 Basophils % 0.7 % (0-2.0) 01/05/19 05:30 Nucleated RBC % 0 % (0-0) 01/05/19 05:30 VBG pH 7.38 (7.32-7.42) 12/31/18 17:24 POC VBG pCO2 55.5 mmHg (38-52) H 12/31/18 17:24 POC VBG pO2 21.2 mmHg (28-48) L 12/31/18 17:24 Mixed VBG HCO3 32.1 meq/L (19-25) H 12/31/18 17:24 Sodium 140 mmol/L (136-145) 01/05/19 05:30 Potassium 3.3 mmol/L (3.5-5.1) L 01/05/19 05:30 Chloride 98 mmol/L (98-107) 01/05/19 05:30 Carbon Dioxide 35 mmol/L (21-32) H 01/05/19 05:30 Anion Gap 7 MMOL/L (8-16) L 01/05/19 05:30 BUN 32 mg/dL (7-18) H 01/05/19 05:30 Creatinine 0.6 mg/dL (0.55-1.3) 01/05/19 05:30 Creat Clearance w eGFR > 60 (>60) 01/05/19 05:30 POC Glucometer 132 UNITS (80-120) 01/06/19 06:49 Random Glucose 136 mg/dL (74-106) H 01/05/19 05:30 Hemoglobin A1c % 7.7 % (4.2-6.3) H 01/02/19 06:30 Lactic Acid 1.8 mmol/L (0.4-2.0) 12/31/18 17:24 Calcium 8.7 mg/dL (8.5-10.1) 01/05/19 05:30 Phosphorus 3.0 mg/dL (2.5-4.9) 01/01/19 10:00 Magnesium 1.9 mg/dL (1.8-2.4) 01/05/19 05:30 Iron 13 ug/dL (27-139) L 01/01/19 13:27 TIBC 145 ug/dL (250-450) L 01/01/19 13:27 Iron Saturation 9 % (15-55) L 01/01/19 13:27 Ferritin 304.2 ng/ml (8-388) 01/01/19 13:27 Total Bilirubin 0.2 mg/dL (0.2-1) 01/05/19 05:30 AST 13 U/L (15-37) L 01/05/19 05:30 ALT 9 U/L (13-61) L 01/05/19 05:30 Alkaline Phosphatase 96 U/L (45-117) 01/05/19 05:30 Creatine Kinase 170 U/L (26-192) 12/31/18 17:24 Creatine Kinase Index 3.0 % (0.0-5.0) 12/31/18 17:24 CK-MB (CK-2) 1.3 ng/mL (0.5-3.6) 01/01/19 10:00 Troponin I 0.04 ng/ml (0.00-0.05) 12/31/18 17:24 B-Natriuretic Peptide 4020.7 pg/ml (5-450) H 01/01/19 10:00 Total Protein 5.9 g/dl (6.4-8.2) L 01/05/19 05:30 Albumin 2.2 g/dl (3.4-5.0) L 01/05/19 05:30 Vitamin B12 986 pg/ml (193-986) 01/01/19 13:27 Serum Folate 18 ng/mL (3.1-17.5) H 01/01/19 13:27 TSH 1.76 uIU/ml (0.358-3.74) 01/01/19 13:27 Free T4 1.01 ng/dl (0.76-1.46) 01/01/19 13:27 Urine Color Red 12/31/18 16:29 Urine Appearance Cloudy 12/31/18 16:29 Urine pH 8.0 (5.0-8.0) D 12/31/18 16:29 Ur Specific [place] 1.019 (1.010-1.035) 12/31/18 16:29 Urine Protein 3+ (NEGATIVE) H D 12/31/18 16:29 Urine Glucose (UA) 1+ (NEGATIVE) H 12/31/18 16:29 Urine Ketones Negative (NEGATIVE) 12/31/18 16:29 Urine Blood 2+ (NEGATIVE) H 12/31/18 16:29 Urine Nitrite Negative (NEGATIVE) 12/31/18 16:29 Urine Bilirubin Negative (<2.0 mg/dL) 12/31/18 16:29 Urine Urobilinogen Negative mg/dL (0.2-1.0) 12/31/18 16:29 Ur Leukocyte Esterase Trace (NEGATIVE) 12/31/18 16:29 Urine WBC (Auto) 568 /hpf (3-5) 12/31/18 16:29 Urine RBC (Auto) 4143 /hpf (0-3) 12/31/18 16:29 Urine Yeast Few 12/31/18 16:29 Influenza A (Rapid) Negative 01/01/19 14:20 Influenza B (Rapid) Negative 01/01/19 14:20 Blood Type Cancelled 12/31/18 17:24 Antibody Screen Cancelled 12/31/18 17:24 Microbiology 12/31/18 17:24 Blood - Peripheral Venous Blood Culture - Final NO GROWTH AFTER 5 DAYS INCUBATION 12/31/18 17:24 Blood - Peripheral Venous Blood Culture - Final NO GROWTH AFTER 5 DAYS INCUBATION Active Medications Generic Name Dose Route Start Last Admin Trade Name Freq PRN Reason Stop Dose Admin Acetaminophen 650 mg 01/02/19 23:31 01/03/19 17:35 Tylenol - PO 650 mg Q6H PRN Administration PAIN LEVEL 1-5 OR FEVER Amino Acids 30 ml 01/01/19 08:00 01/06/19 09:06 Prosource No Carb Liquid Pkt PO 30 ml BID@0800,1730 [facility] Administration Amlodipine Besylate 5 mg 01/01/19 10:00 01/06/19 10:22 Norvasc - PO 5 mg DAILY [facility] Administration Aspirin 81 mg 01/01/19 10:00 01/06/19 10:22 Ecotrin - PO 81 mg DAILY [facility] Administration Atorvastatin Calcium 10 mg 12/31/18 22:00 01/05/19 22:18 Lipitor - PO 10 mg HS [facility] Administration Carvedilol 6.25 mg 01/01/19 00:00 01/06/19 10:22 Coreg - PO 6.25 mg BID [facility] Administration Ferrous Sulfate 300 mg 01/02/19 12:00 01/06/19 12:46 Feosol PO 300 mg TIDCM [facility] Administration Lisinopril 10 mg 01/01/19 10:00 01/06/19 10:22 Prinivil PO 10 mg DAILY [facility] Administration Metformin HCl 500 mg 01/04/19 07:00 01/06/19 06:54 Glucophage - PO 500 mg DAILY@0700 [facility] Administration Multivitamins/Minerals/Vitamin C 1 tab 01/01/19 10:00 01/06/19 10:22 Tab-A-Vit - PO 1 tab DAILY [facility] Administration Senna 1 tab 01/01/19 22:00 01/05/19 22:18 Senna - PO 1 tab HS [facility] Administration Silver Sulfadiazine 1 applic 01/02/19 18:00 01/05/19 18:06 Silvadene - TP 1 applic DAILY@1800 [facility] Administration Condition: Fair - Instructions Diet, Activity, Other Instructions: Follow up with PMD in 1 week Follow up with Urologist Dr. Nba Edward to start Hiprex and vitamin C low Na diet continue with med regimen as prescribed continue to follow up with [facility] for wound care Resume [facility] services Referrals: Julio C Campbell MD [Primary Care Provider] - Nba Edward MD [Staff Physician] - Disposition: HOME - Home Medications Comprehensive Discharge Medication List: Ambulatory Orders Acetaminophen [Tylenol .Regular Strength -] 650 mg PO Q4H PRN #0 tablet Amlodipine Besylate [Norvasc -] 5 mg PO DAILY tablet 05/31/17 Aspirin Coated [Ecotrin -] 81 mg PO DAILY tab 07/27/17 Multivitamin [Daily Multiple Vitamin] 1 each PO DAILY #30 tablet 06/28/18 Silver Sulfadiazine [Silvadene] 50 gm TP BID #1 cream..g. 11/12/18 Atorvastatin Ca [Lipitor] 10 mg PO HS 12/31/18 Carvedilol [Coreg -] 6.25 mg PO BID 12/31/18 Lisinopril [Prinivil] 10 mg PO DAILY 12/31/18
[2019-01-06] MEDS: SILVER SULFADIAZINE 1% TOP CREAM 50 GM JAR TP SCH (16:59)
[2019-01-06 19:51] VITALS: BP 152/72; PULSE 74; TEMP 97.4
--- NOTE | 2019-01-09 07:34 | PN ---
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 (short form) - Note 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: ADDENDUM: dIAGNOSIS OF SEVERE PROTEIN MALNUTRITION Problem List - Problems (1) Decubitus ulcer of sacral region, stage 4 Code(s): L89.154 - PRESSURE ULCER OF SACRAL REGION, STAGE 4 (2) Malnutrition Code(s): E46 - UNSPECIFIED PROTEIN-CALORIE MALNUTRITION (3) Metabolic encephalopathy Code(s): G93.41 - METABOLIC ENCEPHALOPATHY (4) UTI (lower urinary tract infection) Code(s): N39.0 - URINARY TRACT INFECTION, SITE NOT SPECIFIED (5) Anemia Code(s): D64.9 - ANEMIA, UNSPECIFIED (6) Functional quadriplegia Code(s): R53.2 - FUNCTIONAL QUADRIPLEGIA
== END 2019-01-06 20:18 | disposition home or self-care (01) | DRG 689 ==
LOC: JER 14:14 → JERBED 19:11 → J8W 23:01
PROVIDERS: ADMIT Internal Medicine; ATTEND Family Medicine
DX: N39.0 Urinary tract infection, site not specified (principal); L89.154 Pressure ulcer of sacral region, stage 4; R53.2 Functional quadriplegia; G93.41 Metabolic encephalopathy; E43 Unspecified severe protein-calorie malnutrition; J98.11 Atelectasis; R64 Cachexia; Z68.1 Body mass index [BMI] 19.9 or less, adult; R47.01 Aphasia; I50.32 Chronic diastolic (congestive) heart failure; I11.0 Hypertensive heart disease with heart failure; E11.9 Type 2 diabetes mellitus without complications; I25.10 Atherosclerotic heart disease of native coronary artery without angina pectoris; F03.90 Unspecified dementia, unspecified severity, without behavioral disturbance, psychotic disturbance, mood disturbance, and anxiety; Z86.73 Personal history of transient ischemic attack (TIA), and cerebral infarction without residual deficits; Z95.5 Presence of coronary angioplasty implant and graft; Z86.718 Personal history of other venous thrombosis and embolism; Z79.01 Long term (current) use of anticoagulants; E78.5 Hyperlipidemia, unspecified; Z74.01 Bed confinement status; Z93.1 Gastrostomy status; Z99.3 Dependence on wheelchair; Z66 Do not resuscitate; Z88.0 Allergy status to penicillin; E87.8 Other disorders of electrolyte and fluid balance, not elsewhere classified
CPT/HCPCS: 36415; 71045-TC-FY; 71046-TC-FY; 74176-TC; 76775-TC; 80048; 80053; 81003; 81015; 82550; 82553; 82607; 82728; 82746; 82803; 82962; 83036; 83540; 83550; 83605; 83735; 83880; 84100; 84439; 84443; 84484; 85025; 87040; 87077; 87086; 87804; 87899; 88108; 93005; 93010; 97116-GP; 97161-GP; 99284-25; G0463-25; J1644

== ENCOUNTER 2019-05-02 13:08 | Inpatient (IN) | payer OTHER ==
--- NOTE | 2019-05-02 13:26 | PDOC ---
History of Present Illness - General Stated Complaint: WEAKNESS Time Seen by Provider: 05/02/19 13:23 - History of Present Illness Initial Comments: 79yo F with PMH of dementia, multiple TIAs, recurrent UTIs, HTN, CAD s/p stent, DVT on Xarelto brought by her niece/hot dipper because she looked pale and dazed around 11am today. Patient is nonverbal and nonambulatory at baseline and is unable to contribute to history. Per the niece, the patient was at her baseline yesterday. The niece is unsure of the patient's code status and the patient's daughter, who is the power of attorney lawyer, is out of the [place]. No recent fevers or chills noted. PCP: Dr. Campbell/Yaneth Past History - Past Medical History Allergies/Adverse Reactions: Allergies Allergy/AdvReac Type Severity Reaction Status Date / Time Penicillins Allergy Verified 05/02/19 13:46 Home Medications: Ambulatory Orders Aspirin Coated [Ecotrin -] 81 mg PO DAILY tab 07/27/17 Amlodipine Besylate [Norvasc -] 5 mg PO DAILY #30 tablet 01/06/19 Carvedilol [Coreg -] 6.25 mg PO BID #60 tablet 01/06/19 Lisinopril [Prinivil] 10 mg PO DAILY #30 tablet 01/06/19 Rivaroxaban [Xarelto -] 20 mg PO DAILY 05/02/19 Anemia: No Asthma: No Cancer: No Cardiac Disorders: Yes (cardiac tamponade, stents,pericardial effusion, CAD, aortic stenosis) CVA: Yes (Mult.TIA's) COPD: No CHF: No Dementia: Yes Diabetes: Yes GI Disorders: No Disorders: No HTN: Yes Hypercholesterolemia: Yes Liver Disease: (cholecystitis) Seizures: No Thyroid Disease: No - Surgical History Abdominal Surgery: Yes Appendectomy: No Cardiac Surgery: No Cholecystectomy: Yes Lung Surgery: No Neurologic Surgery: No Orthopedic Surgery: No - Immunization History Td Vaccination: Yes Immunization Up to Date: Yes - Suicide/Smoking/Psychosocial Hx Smoking Status: No Smoking History: Never smoked Have you smoked in the past 12 months: No Number of Cigarettes Smoked Daily: 0 Hx Alcohol Use: No Drug/Substance Use Hx: No Substance Use Type: None Hx Substance Use Treatment: No Review of Systems - Review of Systems Able to Perform ROS?: No (nonverbal) *Physical Exam - Physical Exam Comments: General: Somnolent, cachectic Head: No signs of trauma Eyes: Sclera anicteric ENT: Moist mucus membranes Neck: Supple Lungs: Lungs clear, decreased breath sounds at the bases Cardio: Regular rhythm, S1 and S2 present Abdomen: Soft, nondistended. No grimacing noted upon palpation of abdomen Extremities: Distal pulses present SKIN: Warm, Dry, normal turgor; two sacral ulcers present one of which has wound vac Neurologic: Contracted upper extremities, unable to follow commands, nonverbal ED Treatment Course - LABORATORY CBC & Chemistry Diagram: 05/02/19 14:51 05/02/19 15:21 Medical Decision Making - Medical Decision Making 79yo F with PMH of dementia, multiple TIAs, recurrent UTIs, HTN, CAD s/p stent, DVT on Xarelto brought by her niece/hot dipper because she looked pale and dazed around 11am today. Vitals significant for hypothermia T=93.5 Sepsis workup ordered 1LNS Vanc/Aztreonam (patient is listed as penicillin allergic) 05/02/19 15:01 Attempted calling daughter, . Busy signal 05/02/19 15:03 CBC WBC 5.6 K/mm3 (4.0-10.0) 05/02/19 14:51 RBC 3.90 M/mm3 (3.60-5.2) 05/02/19 14:51 Hgb 11.5 GM/dL (10.7-15.3) 05/02/19 14:51 Hct 34.9 % (32.4-45.2) D 05/02/19 14:51 MCV 89.4 fl (80-96) 05/02/19 14:51 MCH 29.6 pg (25.7-33.7) 05/02/19 14:51 MCHC 33.1 g/dl (32.0-36.0) 05/02/19 14:51 RDW 14.5 % (11.6-15.6) 05/02/19 14:51 Plt Count 282 K/MM3 (134-434) 05/02/19 14:51 MPV 8.5 fl (7.5-11.1) 05/02/19 14:51 Absolute Neuts (auto) 4.7 K/mm3 (1.5-8.0) 05/02/19 14:51 Neutrophils % 83.9 % (42.8-82.8) H D 05/02/19 14:51 Lymphocytes % 11.9 % (8-40) D 05/02/19 14:51 Monocytes % 3.6 % (3.8-10.2) L 05/02/19 14:51 Eosinophils % 0.1 % (0-4.5) D 05/02/19 14:51 Basophils % 0.5 % (0-2.0) 05/02/19 14:51 Nucleated RBC % 0 % (0-0) 05/02/19 14:51 No anemia or leukocytosis CMP Sodium 135 mmol/L (136-145) L 05/02/19 15:21 Potassium 4.2 mmol/L (3.5-5.1) 05/02/19 15:21 Chloride 95 mmol/L (98-107) L 05/02/19 15:21 Carbon Dioxide 32 mmol/L (21-32) 05/02/19 15:21 Anion Gap 7 MMOL/L (8-16) L 05/02/19 15:21 BUN 28 mg/dL (7-18) H 05/02/19 15:21 Creatinine 0.5 mg/dL (0.55-1.3) L 05/02/19 15:21 Est GFR (CKD-EPI)AfAm 105.20 05/02/19 15:21 Est GFR (CKD-EPI)NonAf 90.77 05/02/19 15:21 Random Glucose 151 mg/dL (74-106) H 05/02/19 15:21 Lactic Acid 2.0 mmol/L (0.4-2.0) 05/02/19 14:51 Calcium 8.5 mg/dL (8.5-10.1) 05/02/19 15:21 Total Bilirubin 0.4 mg/dL (0.2-1) 05/02/19 15:21 AST 41 U/L (15-37) H 05/02/19 15:21 ALT 48 U/L (13-61) 05/02/19 15:21 Alkaline Phosphatase 347 U/L (45-117) H 05/02/19 15:21 Total Protein 6.2 g/dl (6.4-8.2) L 05/02/19 15:21 Albumin 2.4 g/dl (3.4-5.0) L 05/02/19 15:21 Electrolytes unremakrable UA with trace LE, 1 WBC, and 6.46 bacteria which lowers suspicion for UTI as cause of patient's hypothermia CXR: "Single view of the chest is been submitted. There is overlying bilateral hand and forearm artifact obscuring discrete detail of the left hemithorax. There is an elevated left hemidiaphragm and questionable infiltrate at the left base. There is rotation to the left with unfolded aorta and clear right lung. A repeat study is needed for clarification of the left hemithorax findings. Less rotation and no hand artifact is suggested. " Decision made to order Chest CT without contrast to assess for possible infiltrate at the left base 05/02/19 15:56 CT Head: "Procedure: CT scan head, dated May 02, 2019 . Axial images obtained followed by coronal and sagittal reconstructions. Study performed unenhanced. Findings: Some motion noted with this exam. Visualized portion of the paranasal sinuses, right mastoid air cells, middle ear cavities and the external ear canals are air filled. Some opacification inferior mastoid air cells left side. No evidence of a depressed skull fracture. Ventriculomegaly is present, commensurate with dilatation to the basilar cisterns, sylvian fissures and cerebral sulci. Small vessel periventricular ischemic changes present. Encephalomalacia distribution right posterior cerebral artery. There is a rounded hyperdense lesion right of midline at the level of the torcula measuring 1.9 cm in diameter. Central calcification suggested. No associated edema evident. There is no additional evidence of an intra-or extra-axial mass lesion, mass-effect or bleed. Blackman-white differentiation is otherwise maintained. No hyperdense vessel sign identified. Impression: 1. Old area of encephalomalacia distribution right posterior cerebral artery. 2. Atrophy with small vessel periventricular ischemic changes. 3. 1.9 cm rounded hyperdense lesion right of midline level of the torcula. 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 Hematoma however not totally excluded. Recommendation: Follow-up MRI brain pre-/post contrast images as well as gradient images suggested." CT Chest pending 05/02/19 17:51 Phone conversation with daughter/power of attorney lawyer, Jade: Patient is DNR but not DNI. In the event it is clinically recommended, daughter would want a central line placed. 05/02/19 18:01 EKG: rate 65, QTc 443, NSR, low voltage QRS 05/02/19 18:22 CT Chest: "Findings: Evaluation of mediastinal vascular and hilar structures limited with this noncontrast examination. Study for the limited by a paucity of subcutaneous and mediastinal fat. No enlarged mediastinal or hilar adenopathy appreciated. Coronary artery calcifications noted, not quantified with this exam. Small left-sided pleural effusion present. No pericardial effusion noted. No evidence for mediastinal hematoma. Patchy areas of consolidation noted left lower lobe and lingular segments of the left upper lobe. No pulmonary nodules or masses evident. Subtle interstitial lung findings noted right lower lobe. Visualized portion of the unenhanced solid organs upper abdomen unremarkable. Adrenal glands not clearly visualized; fluid density present within the right and left perinephric space. Impression: 1. Limited CT scan of the chest, unenhanced. Study for the limited by a paucity of subcutaneous and mediastinal fat. 2. Small left-sided pleural effusion. Patchy areas of consolidation noted left lower lobe and the lingular segments of the left upper lobe. 3. Fluid density present right and left perinephric spaces." Temperature 96.8 [facility] team paged 05/02/19 18:[address] Lagos who accepted patient for telemetry admission under herself. 05/02/19 18:42 *DC/Admit/Observation/Transfer Diagnosis at time of Disposition: Hypothermia Qualifiers: Encounter type: initial encounter Qualified Code(s): T68.XXXA - Hypothermia, initial encounter Sepsis Qualifiers: Sepsis type: sepsis due to unspecified organism Qualified Code(s): A41.9 - Sepsis, unspecified organism Pneumonia Qualifiers: Aspiration pneumonia type: unspecified Laterality: left Lung location: lower lobe of lung - Discharge Dispostion Condition at time of disposition: Guarded Decision to Admit order: Yes - Referrals - Patient Instructions - Post Discharge Activity
[2019-05-02] MEDS ORDERED: VANCOMYCIN 1,000 MG in DEXTROSE 5%-WATER - 250 ML IVPB ONE (14:59)
[2019-05-02] MEDS ORDERED: SODIUM CHLORIDE 1,000 ML IV STA (14:59)
[2019-05-02] MEDS ORDERED: AZTREONAM 1 GM in DEXTROSE 5%-WATER - 50 ML IVPB ONE (15:00)
[2019-05-02 15:05] LABS: BASO % 0.5 % (0-2.0); EOS % 0.1 % (0-4.5); HEMATOCRIT 34.9 % (32.4-45.2); HEMOGLOBIN 11.5 GM/dL (10.7-15.3); LYMPH % 11.9 % (8-40); MCH 29.6 pg (25.7-33.7); MCHC 33.1 g/dl (32.0-36.0); MEAN CELL VOLUME 89.4 fl (80-96); MEAN PLT VOLUME 8.5 fl (7.5-11.1); MONO % 3.6 % (3.8-10.2); NEUT % 83.9 % (42.8-82.8); PLATELET COUNT 282 K/MM3 (134-434); RDW 14.5 % (11.6-15.6); WHITE BLOOD COUNT 5.6 K/mm3 (4.0-10.0)
[2019-05-02 15:07] LABS: VENOUS PH 7.41 (7.31-7.41); VENOUS PO2 38.6 mmHg (30-40)
--- NOTE | 2019-05-02 15:14 | PDOC ---
Documentation entered by Jolie Garcia SCRIBE, acting as scribe for Lary Shepherd MD. Lary Shepherd MD: This documentation has been prepared by the pascualibe, Jolie Garcia SCRIBE, under my direction and personally reviewed by me in its entirety. I confirm that the documentation accurately reflects all work, treatment, procedures, and medical decision making performed by me. Attending Attestation - Resident Resident Name: Lary Herrera - ED Attending Attestation I have performed the following: I have examined & evaluated the patient, The case was reviewed & discussed with the resident, I agree w/resident's findings & plan, Exceptions are as noted - HPI HPI: 05/02/19 15:06 The patient is an 79-year-old female with a past medical history significant for Dementia, CAD s/p stents, HTN, HLD, and DM was brought to the emergency department by the family for AMS. Per the family, the patient was noted to be not herself earlier today and decided to bring the patient in for evaluation. At triage, the patient was noted to be hypothermic. Unable to obtain a detailed history. The patient is nonverbal at baseline. Allergies: Penicillins Social history: No reported history of tobacco, alcohol or drug use. Surgical history: Cholecystectomy, and abdominal surgery. - Physicial Exam PE: GENERAL: Awake, alert, in no acute distress. Appears frail, thin HEAD: No signs of trauma EYES: PERRLA, EOMI, sclera anicteric, conjunctiva clear ENT: Auricles normal inspection, hearing grossly normal, nares patent, oropharynx clear without exudates. Dry mucosa NECK: Normal ROM, supple, no lymphadenopathy, JVD, or masses LUNGS: Breath sounds equal, clear to auscultation bilaterally. No wheezes, and no crackles HEART: Regular rate and rhythm, normal S1 and S2, no murmurs, rubs or gallops ABDOMEN: Soft, nontender, normoactive bowel sounds. No guarding, no rebound. No masses EXTREMITIES: Contracted extremities x4. No edema. No clubbing or cyanosis. No cords, erythema, or tenderness NEUROLOGICAL: Nonverbal, unable to follow commands SKIN: Warm, Dry, normal turgor. - Medical Decision Making Pt presents with decreased mental status compared with her baseline as per family. Found to be hypothermic, sepsis protocol initiated. Placed under blane hugger. Will treat with broad spectrum abx, plan for admission.
[2019-05-02 15:19] LABS: INR 1.15 (0.83-1.09); PROTHROMBIN TIME (PATIENT) 13.6 SEC (9.7-13.0)
[2019-05-02 15:22] LABS: ACTIVATED PTT 29.5 SECONDS (25.2-36.5)
[2019-05-02 15:30] LABS: EPI CELLS 6.9 /HPF (0-5/HPF); HYALINE CASTS 12 /lpf (0-8); URINE APPEARANCE CLEAR; URINE BACTERIA 6.4 /hpf (NEGATIVE); URINE BILIRUBIN NEGATIVE (NEGATIVE); URINE COLOR YELLOW; URINE GLUCOSE (UA) NEGATIVE (NEGATIVE); URINE KETONE NEGATIVE (NEGATIVE); URINE LEUK ESTERASE TRACE (NEGATIVE); URINE NITRITE NEGATIVE (NEGATIVE); URINE PROTEIN TRACE (NEGATIVE); URINE RBC 3 /hpf (0-4); URINE UROBILINOGEN 0.2 mg/dL (0.2-1.0); URINE WBC 1 /hpf (0-5)
[2019-05-02] MEDS ORDERED: VANCOMYCIN 1 GRAM (PRE-DOCKED) 1,000 MG/250 ML BAG IVPB ONE (15:42)
[2019-05-02 15:45] LABS: ALBUMIN 2.4 g/dl (3.4-5.0); ALK PHOS 347 U/L (45-117); ANION GAP 7 MMOL/L (8-16); BILIRUBIN,TOTAL 0.4 mg/dL (0.2-1); BLOOD UREA NITROGEN 28 mg/dL (7-18); CALCIUM 8.5 mg/dL (8.5-10.1); CHLORIDE 95 mmol/L (98-107); CO2 32 mmol/L (21-32); CREATININE 0.5 mg/dL (0.55-1.3); GLUCOSE,RANDOM 151 mg/dL (74-106); POTASSIUM 4.2 mmol/L (3.5-5.1); SGOT/AST 41 U/L (15-37); SGPT/ALT 48 U/L (13-61); SODIUM 135 mmol/L (136-145); TOT PROT 6.2 g/dl (6.4-8.2)
--- NOTE | 2019-05-02 19:44 | HP ---
CHIEF COMPLAINT: ams PCP: Yaneth HISTORY OF PRESENT ILLNESS: 79yo F with PMH of dementia, multiple medical problems, brought in by niece because she looked "pale and dazed" around 11am on 05/02. Patient unable to provide further history due to underlying dementia. Pt found to be hypothermic in ER, was placed on bearhugger. ER course (1) cxr (2) head ct (3) jaqueline macias Recent Travel: unknown PAST MEDICAL HISTORY:dementia, CAD (multiple stents in past, last PCI in 2011 at [facility] (mLAD & pRCA)), Deep Vein Thrombosis (of left lower extremity diagnosed on 12/23/14, on Xarelto), HTN, Hyperlipdemia, Other (Pericardial effusion with tamponade s/p pericardial window), DM PAST SURGICAL HISTORY: percardial window, cholecystectomy , PEG placement--> pt dislodged and removed PEG 10/2018 pericardiocentesis x 2 right hip repair Social History: Smoking: unknown Alcohol: unknown Drugs: unknown Family History: unknown Allergies Penicillins Allergy (Verified 05/02/19 13:46) HOME MEDICATIONS: Home Medications Medication Instructions Recorded Aspirin Coated [Ecotrin -] 81 mg PO DAILY tab 07/27/17 Amlodipine Besylate [Norvasc -] 5 mg PO DAILY #30 tablet 01/06/19 Carvedilol [Coreg -] 6.25 mg PO BID #60 tablet 01/06/19 Lisinopril [Prinivil] 10 mg PO DAILY #30 tablet 01/06/19 Rivaroxaban [Xarelto -] 20 mg PO DAILY 05/02/19 REVIEW OF SYSTEMS - unable to obtain as patient is nonverbal PHYSICAL EXAMINATION Vital Signs - 24 hr 05/02/19 05/02/19 05/02/19 13:46 14:21 15:22 Temperature 93.5 F L 94.0 F L 93.7 F L Pulse Rate 65 69 Pulse Rate [ 68 Left Apical] Respiratory 18 16 16 Rate Blood Pressure 171/95 H 171/95 H Blood Pressure 122/67 [Left Arm] O2 Sat by Pulse 91 L 96 98 Oximetry (%) 05/02/19 05/02/19 05/02/19 16:15 16:53 18:42 Temperature 94.6 F L 95.6 F L 96.9 F L Pulse Rate Pulse Rate [ 54 L 60 66 Left Apical] Respiratory 14 16 14 Rate Blood Pressure Blood Pressure 119/58 L 145/68 143/62 [Left Arm] O2 Sat by Pulse 98 98 100 Oximetry (%) GENERAL:awake, noninteractive, frail, nontoxic HEAD: Normal with no signs of trauma. EYES: Pupils equal, round and reactive to light, extraocular movements intact, sclera anicteric, conjunctiva clear. No lid lag. EARS, NOSE, THROAT: Ears normal, nares patent, oropharynx clear without exudates. Moist mucous membranes. NECK: Normal range of motion, supple without lymphadenopathy, JVD, or masses. LUNGS: Breath sounds equal, clear to auscultation bilaterally. No wheezes, and no crackles. No accessory muscle use. HEART: Regular rate and rhythm, normal S1 and S2 without murmur, rub or gallop. ABDOMEN: Soft, nontender, not distended, normoactive bowel sounds, no guarding, no rebound, no masses. MUSCULOSKELETAL: Normal range of motion at all joints. No bony deformities or tenderness. No CVA tenderness. UPPER EXTREMITIES: 2+ pulses, warm, well-perfused. No cyanosis. No clubbing. No peripheral edema. LOWER EXTREMITIES: 2+ pulses, warm, well-perfused. No calf tenderness. No peripheral edema. NEUROLOGICAL: bedbound PSYCHIATRIC: nonCooperative. SKIN: sacral wound with wound vac, small decubitus stage 1 ulcer Laboratory Results - last 24 hr 05/02/19 05/02/19 05/02/19 14:51 14:51 14:51 WBC 5.6 RBC 3.90 Hgb 11.5 Hct 34.9 D MCV 89.4 MCH 29.6 MCHC 33.1 RDW 14.5 Plt Count 282 MPV 8.5 Absolute Neuts (auto) 4.7 Neutrophils % 83.9 H D Lymphocytes % 11.9 D Monocytes % 3.6 L Eosinophils % 0.1 D Basophils % 0.5 Nucleated RBC % 0 PT with INR 13.60 H INR 1.15 H PTT (Actin FS) 29.5 VBG pH 7.41 POC VBG pCO2 53.0 H POC VBG pO2 38.6 VBG HCO3 33.0 H VBG O2 Sat (Bijal) 68.8 L VBG Base Excess 7.5 H Sodium Potassium Chloride Carbon Dioxide Anion Gap BUN Creatinine Est GFR (CKD-EPI)AfAm Est GFR (CKD-EPI)NonAf Random Glucose Lactic Acid Calcium Total Bilirubin AST ALT Alkaline Phosphatase Troponin I Total Protein Albumin Urine Color Urine Appearance Urine pH Ur Specific [place] Urine Protein Urine Glucose (UA) Urine Ketones Urine Blood Urine Nitrite Urine Bilirubin Urine Urobilinogen Ur Leukocyte Esterase Urine WBC (Auto) Urine RBC (Auto) Urine Casts (Auto) U Pathogenic Cast Auto U Epithel Cells (Auto) Urine Bacteria (Auto) 05/02/19 05/02/19 05/02/19 14:51 15:10 15:21 WBC RBC Hgb Hct MCV MCH MCHC RDW Plt Count MPV Absolute Neuts (auto) Neutrophils % Lymphocytes % Monocytes % Eosinophils % Basophils % Nucleated RBC % PT with INR INR PTT (Actin FS) VBG pH POC VBG pCO2 POC VBG pO2 VBG HCO3 VBG O2 Sat ([place]ij[place]) VBG Base Excess Sodium 135 L Potassium 4.2 Chloride 95 L Carbon Dioxide 32 Anion Gap 7 L BUN 28 H Creatinine 0.5 L Est GFR (CKD-EPI)AfAm 105.20 Est GFR (CKD-EPI)NonAf 90.77 Random Glucose 151 H Lactic Acid 2.0 Calcium 8.5 Total Bilirubin 0.4 AST 41 H ALT 48 Alkaline Phosphatase 347 H Troponin I < 0.02 Total Protein 6.2 L Albumin 2.4 L Urine Color Yellow Urine Appearance Clear Urine pH 6.0 D Ur Specific [place] 1.015 Urine Protein Trace Urine Glucose (UA) Negative Urine Ketones Negative Urine Blood Negative Urine Nitrite Negative Urine Bilirubin Negative Urine Urobilinogen 0.2 Ur Leukocyte Esterase Trace Urine WBC (Auto) 1 Urine RBC (Auto) 3 Urine Casts (Auto) 12 U Pathogenic Cast Auto None seen U Epithel Cells (Auto) 6.9 Urine Bacteria (Auto) 6.4 Imaging reviewed ASSESSMENT/PLAN: #AMS - uncertain baseline mental status, may may delerium? vs progression of dementia. Head CT did not show any acute CVA however cannot r/o small hematoma. -neurosurgery eval to to r/o intracranial hematoma -Brain MRI -tsh, rpr, vit b12 -fall precautions -bed rest #HYpothermia -temp improved to 98F on bearhugger. Do not suspect sepsis at this time- VS now normal, no tachycardia, normal lactate -monitor off abx -bearhugger on standby #CAD (multiple stents in past, last PCI in 2011 at [facility] (mLAD & pRCA) -asa, lipitor #Deep Vein Thrombosis (of left lower extremity diagnosed on 12/23/14) -c/w xarelto #HTN -amlodipine, lisinopril, carvedilol #Hyperlipdemia -atorvastatin 40mg po daily #Advanced Directives- I spoke with patient's daughter Jade Rojo who confirmed that patient is DNR -contact isolation for prior MRSA #DVT ppx- on xarelto Visit type - Emergency Visit Emergency Visit: Yes ED Registration Date: 05/02/19 Care time: The patient presented to the Emergency Department on the above date and was hospitalized for further evaluation of their emergent condition. - New Patient This patient is new to me today: Yes Date on this admission: 05/02/19 - Critical Care Critical Care patient: No
[2019-05-02] MEDS: SODIUM CHLORIDE 1,000 ML IV SCH (21:50)
[2019-05-02] MEDS ORDERED: HEPARIN NA (PORCINE) 5,000 UNITS/ML 1ML VIAL SQ SCH (22:00)
[2019-05-02] MEDS: INSULIN SLIDING SCALE (NOVOLOG) 1 VIAL SQ SCH (22:05)
[2019-05-02] MEDS: CARVEDILOL 6.25 MG TABLET (FP) PO SCH (22:15)
[2019-05-03] MEDS ORDERED: DEXTROSE 50%-WATER - 25 GM/50 ML VIAL IVPUSH ONE (05:43)
[2019-05-03] MEDS ORDERED: DEXTROSE 50%-WATER 25 GM/50 ML DISP.SYRIN ONE (05:55)
[2019-05-03] MEDS ORDERED: DEXTROSE 50%-WATER 25 GM/50 ML DISP.SYRIN IVPUSH ONE (06:00)
[2019-05-03] MEDS: INSULIN SLIDING SCALE (NOVOLOG) 1 VIAL SQ SCH ×4 (06:05→22:01)
[2019-05-03 07:50] LABS: HEMATOCRIT 29.5 % (32.4-45.2); MCH 29.9 pg (25.7-33.7); MCHC 33.7 g/dl (32.0-36.0); MEAN CELL VOLUME 88.6 fl (80-96); MEAN PLT VOLUME 7.8 fl (7.5-11.1); PLATELET COUNT 292 K/MM3 (134-434); RBC 3.33 M/mm3 (3.60-5.2); RDW 14.6 % (11.6-15.6); WHITE BLOOD COUNT 5.7 K/mm3 (4.0-10.0)
[2019-05-03 09:35] LABS: CALCIUM 7.8 mg/dL (8.5-10.1); CREATININE 0.4 mg/dL (0.55-1.3); POTASSIUM 3.8 mmol/L (3.5-5.1)
[2019-05-03] MEDS ORDERED: PT OWN MED DRAWER 7, Y5N ONE (10:21)
[2019-05-03] MEDS: SODIUM CHLORIDE 1,000 ML IV SCH ×2 (10:26→20:00)
[2019-05-03] MEDS: ASPIRIN COATED 81 MG TABLET.EC PO SCH (10:34)
[2019-05-03] MEDS: CARVEDILOL 6.25 MG TABLET (FP) PO SCH ×2 (10:34→22:04)
[2019-05-03] MEDS: amLODIPine BESYLATE 5 MG TABLET (FP) PO SCH (10:34)
[2019-05-03] MEDS: LISINOPRIL 10 MG TABLET (FP) PO SCH (10:34)
--- NOTE | 2019-05-03 11:20 | PN ---
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, Physician Chief Complaint: EVENTS AND NOTES REVIEWED PATIENT WITH APHASIA AND DYSARTHRIA NO FEVERS TODAY - Current Medication List Current Medications: Active Medications Amlodipine Besylate (Norvasc -) 5 mg PO DAILY [facility] Last Admin: 05/03/19 10:34 Dose: 5 mg Aspirin (Ecotrin -) 81 mg PO DAILY [facility] Last Admin: 05/03/19 10:34 Dose: 81 mg Carvedilol (Coreg -) 6.25 mg PO BID [facility] Last Admin: 05/03/19 10:34 Dose: 6.25 mg Sodium Chloride (Normal Saline -) 1,000 mls @ 75 mls/hr IV ASDIR [facility] Last Admin: 05/03/19 10:26 Dose: 75 mls/hr Insulin Aspart (Novolog Vial Sliding Scale -) 1 vial SQ ACHS [facility]; Protocol Last Admin: 05/03/19 06:05 Dose: Not Given Lisinopril (Prinivil) 10 mg PO DAILY [facility] Last Admin: 05/03/19 10:34 Dose: 10 mg Rivaroxaban (Xarelto) 20 mg PO DAILY@1800 [facility] - Objective Vital Signs: Vital Signs Temperature 96.9 F L 05/03/19 07:42 Pulse Rate 78 05/03/19 07:42 Respiratory Rate 18 05/03/19 07:42 Blood Pressure 148/67 05/03/19 07:42 O2 Sat by Pulse Oximetry (%) 100 05/02/19 21:00 Constitutional: Yes: Other Cardiovascular: Yes: Regular Rate and Rhythm Respiratory: Yes: CTA Bilaterally Gastrointestinal: Yes: Soft Genitourinary: Yes: Incontinence Musculoskeletal: Yes: Muscle Weakness Edema: No Integumentary: Yes: WNL Wound/Incision: Yes: Clean/Dry Neurological: Yes: Aphasia, Dysarthria, Weakness Labs: CBC, BMP 05/03/19 06:00 05/03/19 06:00 INR, PTT INR 1.15 (0.83-1.09) H 05/02/19 14:51 Problem List - Problems (1) Hypothermia Code(s): T68.XXXA - HYPOTHERMIA, INITIAL ENCOUNTER Qualifiers: Encounter type: initial encounter Qualified Code(s): T68.XXXA - Hypothermia , initial encounter (2) Pneumonia Code(s): J18.9 - PNEUMONIA, UNSPECIFIED ORGANISM Qualifiers: Aspiration pneumonia type: unspecified Laterality: left Lung location: lower lobe of lung (3) Sepsis Code(s): A41.9 - SEPSIS, UNSPECIFIED ORGANISM Qualifiers: Sepsis type: sepsis due to unspecified organism Qualified Code(s): A41.9 - Sepsis, unspecified organism (4) Altered mental status Code(s): R41.82 - ALTERED MENTAL STATUS, UNSPECIFIED (5) CAD (coronary artery disease) Code(s): I25.10 - ATHSCL HEART DISEASE OF [place] CORONARY ARTERY W/O ANG PCTRS (6) DVT (deep venous thrombosis) Code(s): I82.409 - ACUTE EMBOLISM AND THOMBOS UNSP DEEP VN UNSP LOWER EXTREMITY (7) Dementia Code(s): F03.90 - UNSPECIFIED DEMENTIA WITHOUT BEHAVIORAL DISTURBANCE (8) Diabetes 1.5, managed as type 2 Code(s): E13.9 - OTHER SPECIFIED DIABETES MELLITUS WITHOUT COMPLICATIONS (9) Dysphagia as late effect of cerebrovascular accident (CVA) Code(s): I69.391 - DYSPHAGIA FOLLOWING CEREBRAL INFARCTION Assessment/Plan CHECKING BLOOD AND URINE CULTURES IV ABX BROAD SPECTRUM GIVEN IN ER ID CONSULT NEURO EVAL NOT A CANDIDATE FOR NEUROSURGERY MENGIOMA HX ON XARELTO DVT PT EVAL SWALLOW EVAL SNF
--- NOTE | 2019-05-03 12:08 | CON.ID ---
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: CVA (multiple CVAs), Dementia (vascular) Cardio/Vascular: Yes: CAD (multiple stents in past, last PCI in 2011 at [facility] (mLAD & pRCA)), Deep Vein Thrombosis (of left lower extremity diagnosed on 12/23/14, on Xarelto), HTN, Hyperlipdemia, Other (Pericardial effusion with tamponade s/p pericardial window) Gastrointestinal: Yes: Hemorrhoids Hepatobiliary: Yes: Cholecystitis (s/p past cholecystectomy) Renal/: Yes: Renal Inusuff Endocrine: Yes: Diabetes Mellitus - Past Surgical History Past Surgical History: Yes: Cholecystectomy - Alcohol/Substance Use Hx Alcohol Use: No History of Substance Use: reports: None - Smoking History Smoking history: Unknown if ever smoked Have you smoked in the past 12 months: No Aproximately how many cigarettes per day: 0 - Social History Usual Living Arrangement: With Child ADL: Support Services History of Recent Travel: No Home Medications - Allergies Allergies/Adverse Reactions: Allergies Allergy/AdvReac Type Severity Reaction Status Date / Time Penicillins Allergy Verified 05/02/19 13:46 - Home Medications Home Medications: Ambulatory Orders Aspirin Coated [Ecotrin -] 81 mg PO DAILY tab 07/27/17 Amlodipine Besylate [Norvasc -] 5 mg PO DAILY #30 tablet 01/06/19 Carvedilol [Coreg -] 6.25 mg PO BID #60 tablet 01/06/19 Lisinopril [Prinivil] 10 mg PO DAILY #30 tablet 01/06/19 Rivaroxaban [Xarelto -] 20 mg PO DAILY 05/02/19 Family Disease History - Family Disease History Family Disease History: Other: Father, Mother, Sister Review of Systems - Review of Systems Constitutional: reports: Lethargy Eyes: reports: No Symptoms HENT: reports: No Symptoms Neck: reports: No Symptoms Cardiovascular: reports: No Symptoms Respiratory: reports: No Symptoms Gastrointestinal: reports: No Symptoms Genitourinary: reports: No Symptoms Breasts: reports: No Symptoms Reported Musculoskeletal: reports: No Symptoms Integumentary: reports: No Symptoms Neurological: reports: No Symptoms Endocrine: reports: No Symptoms Hematology/Lymphatic: reports: No Symptoms Physical Exam Vital Signs: Vital Signs Temperature 96.9 F L 05/03/19 07:42 Pulse Rate 78 05/03/19 07:42 Respiratory Rate 18 05/03/19 07:42 Blood Pressure 148/67 05/03/19 07:42 O2 Sat by Pulse Oximetry (%) 100 05/02/19 21:00 Constitutional: Yes: Thin Eyes: Yes: Conjunctiva Clear HENT: Yes: Atraumatic, Normocephalic Cardiovascular: Yes: Regular Rate and Rhythm Respiratory: Yes: Regular, Rhonchi (throughout) Gastrointestinal: Yes: Normal Bowel Sounds, Soft ...Rectal Exam: Yes: Deferred Renal/: No: Bladder Distention, CVA Tenderness - Left, CVA Tenderness - Right Musculoskeletal: Yes: WNL Extremities: Yes: WNL Edema: No Integumentary: Yes: Other (right buttock stage 2 ulcer [address] in [address]) Labs: CBC, BMP 05/03/19 06:00 05/03/19 06:00 UA negative cultures pending Imaging - Results Cat Scan: Report Reviewed, Image Reviewed (patchy LLL infiltrate, lingular infiltrate) Problem List - Problems (1) Hypothermia Code(s): T68.XXXA - HYPOTHERMIA, INITIAL ENCOUNTER Qualifiers: Encounter type: initial encounter Qualified Code(s): T68.XXXA - Hypothermia , initial encounter (2) Pneumonia Code(s): J18.9 - PNEUMONIA, UNSPECIFIED ORGANISM Qualifiers: Aspiration pneumonia type: unspecified Laterality: left Lung location: lower lobe of lung (3) Dementia Code(s): F03.90 - UNSPECIFIED DEMENTIA WITHOUT BEHAVIORAL DISTURBANCE (4) Penicillin allergy Code(s): Z88.0 - ALLERGY STATUS TO PENICILLIN Assessment/Plan can switch to rocephin for pneumonia f/u cultures will examine sacral wound when nurse does vac change overall prognosis poor due to severity of dementia
--- NOTE | 2019-05-03 12:48 | EKG ---
Test Reason : Blood Pressure : / mmHG Vent. Rate : 065 BPM Atrial Rate : 065 BPM P-R Int : 134 ms QRS Dur : 078 ms QT Int : 426 ms P-R-T Axes : 083 -27 089 degrees QTc Int : 443 ms NORMAL SINUS RHYTHM LOW VOLTAGE QRS CANNOT RULE OUT ANTERIOR INFARCT (CITED ON OR BEFORE 28-JUN-2016) ABNORMAL ECG WHEN COMPARED WITH ECG OF 02-MAY-2019 13:34, FUSION COMPLEXES ARE NO LONGER PRESENT PREMATURE VENTRICULAR COMPLEXES ARE NO LONGER PRESENT Confirmed by MELODY AGUILAR MD ([id number]) on 05/03/2019 12:48:22 PM Referred By: Confirmed By:MELODY AGUILAR MD
--- NOTE | 2019-05-03 12:51 | EKG ---
Test Reason : Blood Pressure : / mmHG Vent. Rate : 068 BPM Atrial Rate : 068 BPM P-R Int : 132 ms QRS Dur : 070 ms QT Int : 406 ms P-R-T Axes : 089 -13 087 degrees QTc Int : 431 ms POOR DATA QUALITY, INTERPRETATION MAY BE ADVERSELY AFFECTED SINUS RHYTHM WITH PREMATURE VENTRICULAR COMPLEXES OR FUSION COMPLEXES LOW VOLTAGE QRS CANNOT RULE OUT ANTERIOR INFARCT (CITED ON OR BEFORE 28-JUN-2016) ABNORMAL ECG WHEN COMPARED WITH ECG OF 31-DEC-2018 15:16, POOR DATA QUALITY IN CURRENT ECG PRECLUDES SERIAL COMPARISON Confirmed by MELODY AGUILAR MD ([id number]) on 05/03/2019 12:51:09 PM Referred By: Confirmed By:MELODY AGUILAR MD
[2019-05-03] MEDS ORDERED: DEXTROSE 5%-WATER - 50 ML IVPB ONE (17:04)
[2019-05-03] MEDS ORDERED: cefTRIAXone SODIUM 1 GM VIAL ONE (17:04)
[2019-05-03] MEDS: CEFTRIAXONE 1 GM in DEXTROSE 5%-WATER - 50 ML IVPB SCH (17:07)
[2019-05-03] MEDS: RIVAROXABAN 20 MG TABLET PO SCH (17:58)
--- NOTE | 2019-05-03 23:37 | CONSULT ---
Consult - text type - Consultation Consultation Note: NEUROSURGERY CONSULTATION Patient is an institutionalized 79 year old female who has history of dementia and Right Occipital CVA. Patient has known Right Cerebellar/inferior Tentorial Meningioma which has progressed since last imaging. Patient admitted for deterioration of mental status and has possible sepsis. At this point, patient appears to infirm to withstand surgical removal of meningioma and this is not clearly the etiology of her current decline. Will follow patient along with team and if she improves, will re-evaluate therapeutic options.
[2019-05-04] MEDS: SODIUM CHLORIDE 1,000 ML IV SCH (05:20)
[2019-05-04] MEDS: INSULIN SLIDING SCALE (NOVOLOG) 1 VIAL SQ SCH ×4 (06:08→22:45)
[2019-05-04] MEDS ORDERED: DEXTROSE 50%-WATER 25 GM/50 ML DISP.SYRIN ONE (08:39)
[2019-05-04] MEDS ORDERED: DEXTROSE 50%-WATER - 25 GM/50 ML VIAL IVPUSH ONE (09:15)
[2019-05-04] MEDS ORDERED: cefTRIAXone SODIUM 1 GM VIAL ONE (09:58)
[2019-05-04] MEDS ORDERED: DEXTROSE 5%-WATER - 50 ML IVPB ONE (09:58)
[2019-05-04] MEDS: CEFTRIAXONE 1 GM in DEXTROSE 5%-WATER - 50 ML IVPB SCH (10:04)
[2019-05-04] MEDS: DEXTROSE 5%-NORMAL SALINE 1,000 ML IV SCH (10:04)
--- NOTE | 2019-05-04 10:19 | CONSULT ---
Consult - text type - Consultation Consultation Note: NEUROLOGY CONSULT APPRECIATED: Events reviewed and discussed with RN and MITZI Fairchild. This 79 yo woman is from [facility] with pmhx HTN, CAD s/p stent, recurrent TIAs/CVAs, Prior DVT, dementia, recurrent UTI, sacral ulcer. Surgical hx: previous PEG 2018 self-dislodged by patient. Meds: ASA 81, amlodipine, carvedilol, lisinnopril, rivaroxaban 20 mg for chronic AFib (?). Admitted at request of family, who noted patient to be "different from usual." Found hypothermic. UC revealed pseudomonas, currently on ceftriaxone IV. Today unable to safely swallow pills. Pt. is non-verbal and contractred at baseline. Head CT (reviewed): Severe, diffuse atrophy (R>L) with ex vacuo ventricular dilation. Periventricular ischemic changes. Unchanged R intfratentorial/posterior meningioma. Chronic right MCA-territory infarct EKG Sinus with PVCS A1c= 6.9%; B12= 2792 pg%. TSH 2.94; RPR= non-reactive; UA WBC= 1. NIKOS: BS 41. Cor reg. No bruit. Restricted ROM neck all directions. Contractures at elbows knees, L wrist. On wound vac. NEURO: Spontanous eye opening to name. + glabella, snout, grasps. No speech. Follows no commands. L facial. Excess secretions from mouth. No response to threat from the left + Glabella, snout and reflex grasps B/L rigidity, contractures L>R. Brisk UE reflexes. Areflexic in legs. L Babinski. + Spontaneous respirations. Grimaces to pinch in shins and hands. Impression: Severe, B/L, Cerebral Dysfunction (OMS, chronic) Right cerebral accentuation due to chronic right MCA-territory infarct. Worsened by Toxic-Metabolic Encephalopathy (Urosepsis vs. ? wound infection) Suggest: Continue antibiotics and hydration Endocrinology eval to reduce insulin if hypoglycemic/poor po intake. 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 Continue Xarelto for now. Cardiology consult. Wound care eval and Rx. ESR, CRP, Lipid panel Swallowing Evaluation Thank you very much, Ilia Molina MD
[2019-05-04] MEDS: LISINOPRIL 10 MG TABLET (FP) PO SCH (11:24)
[2019-05-04] MEDS: ASPIRIN COATED 81 MG TABLET.EC PO SCH (11:24)
[2019-05-04] MEDS: CARVEDILOL 6.25 MG TABLET (FP) PO SCH ×2 (11:24→22:42)
[2019-05-04] MEDS: amLODIPine BESYLATE 5 MG TABLET (FP) PO SCH (11:25)
--- NOTE | 2019-05-04 12:20 | CONSULT ---
Admitting History and Physical - Primary Care Physician PCP: Alisia Wolfe - Admission History of Present Illness: [address] [facility] resident with pmh of HTN, CAD s/p stent, recurrent TIAs/CVAs , Prior DVT, dementia, recurrent UTI, sacral ulcer,previous PEG 2018 self- dislodged by patient admitted with AMS. Neurology Impression: Moderate B/L Cerebral Dysfunction (OMS, chronic) Extension of R cerebral dysfunction Worsened by Toxic-Metabolic Encephalopathy (Urosepsis vs. ? wound infection) Last seen by me 05/2018- puree/nectar. Alternate puree with sip of liquid to improve oropharyngeal transfer. If oral holding, may benefit from mixing puree in ensure or soup to drink, single sips at a time. No continuous drinking. HOB elevated. Chin tucked down. Encourage Ensure compact TID, after meals. 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: CVA (multiple CVAs), Dementia (vascular) Cardiovascular: Yes: CAD (multiple stents in past, last PCI in 2011 at [facility] (mLAD & pRCA)), Deep Vein Thrombosis (of left lower extremity diagnosed on 12/23/14, on Xarelto), HTN, Hyperlipdemia, Other (Pericardial effusion with tamponade s/p pericardial window) Gastrointestinal: Yes: Hemorrhoids Hepatobiliary: Yes: Cholecystitis (s/p past cholecystectomy) Renal/: Yes: Renal Inusuff Endocrine: Yes: Diabetes Mellitus - Past Surgical History Past Surgical History: Yes: Cholecystectomy - Advance Directives Advance Directives: Yes: DNR - Smoking History Smoking history: Unknown if ever smoked Have you smoked in the past 12 months: No Aproximately how many cigarettes per day: 0 - Alcohol/Substance Use Hx Alcohol Use: No History of Substance Use: reports: None - Social History ADL: Support Services History of Recent Travel: No History - Admission Reason For Visit: HYTHERMIA,SEPSIS,PNEUMONIA - Diagnostics CT Scan: Report Reviewed ( Per neurology-Mod atrophy with ex vacuo ventricular dilation. Periventricular ischemic changes. Unchanged R intfratentorial/ posterior meningioma. Recent extension of chronic R posterior temporalfrontal and occiptal lobe infact into R frontal lobe compared to prior study.) - General Mental Status: Confused, Flat Affect, Lethargic (opens eyes, and mouth responsively to tsp with applesauce) Attention: Moderate Impairment - Hearing Hearing: Functional Hearing Aide: No Speech Evaluation - Communication Primary Language: ROMANSH Communication: Yes: Non-Communicable Oral Expression Ability: Yes: Non-Verbal - Speech Characteristics Articulation: Yes: Imprecise - Language/Auditory Comprehension Observation: Comprehends Conversational Speech: Yes (simple) - Language/Verbal Expression Aphasia: Yes: Apraxia - Swallow Evaluation/Bedside Assessment Current Nutritional Intake: Dysphagia Pureed, Thin Liquids Dentition: Yes: Edentulous Facial Symmetry at Rest: Symmetrical Laryngeal Elevation: Impaired Laryngeal Movement: Reduced Excursion, Labored,delay initiation, Reduced Velocity Rate of Intake: Slow/Holding Labial Seal: WFL Chewing: Impaired A-P Transit: Impaired (suspect spillage over BOT) Timing of Swallow: Delayed Coughing/Throat Clear: Yes (throat clearing, vocal wetness, wet cough with thin water on a tsp c/w aspi) Recommendations - Speech Evaluation, Impression/Plan Impression: opens eyes, and mouth responsively to tsp with applesauce. Swallow reflex triggered inconsistently, quite delayed. throat clearing, vocal wetness , wet cough with thin water on a tsp c/w aspiration - Dysphagia Impressions/Plan Swallowing Skills: Impaired Dysphagia Impressions: Mild Impairment, Moderate Impairment, Suspect Aspiration (on thin liquid) *Silent aspiration: cannot be R/O at bedside Recommendations: Modified Barium Swallow (r/o aspiration. Determine safest diet pt can tolerate) - Recommendations Diet Consistency: Dysphagia Pureed Medication Administration: Crushed with applesauce Liquids: Honey Thick (on tsp) Supplement: Magic Cup, Ensure Pudding
--- NOTE | 2019-05-04 13:06 | PN ---
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 (short form) - Note 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: afebrile +cough Vital Signs Period Temp Pulse Resp BP Sys/Hoffman Pulse Ox Last 24 Hr 97.4 F-98.2 F 70-78 18-20 112-138/58-77 96 cor-rrr lungs decreased bs at bases abd soft,nt ext no edema CBC, BMP 05/03/19 06:00 05/03/19 06:00 Microbiology 05/02/19 15:21 Urine - Urine - Catheterized Urine Culture - Preliminary Presumptive Ps Aeruginosa 05/03/19 15:17 Urine For Antigen Detection Legionella Antigen - Final 05/03/19 15:17 Urine For Antigen Detection Streptococcus pneumoniae Antigen (M - Final 05/02/19 14:51 Blood - Peripheral Venous Blood Culture - Preliminary NO GROWTH OBTAINED AFTER 24 HOURS, INCUBATION TO CONTINUE FOR 4 DAYS. 05/02/19 14:51 Blood - Peripheral Venous Blood Culture - Preliminary NO GROWTH OBTAINED AFTER 24 HOURS, INCUBATION TO CONTINUE FOR 4 DAYS. a/p pneumococcal pneumonia continue rocephin swallowing evaluation in progress dementia Problem List - Problems (1) Hypothermia Code(s): T68.XXXA - HYPOTHERMIA, INITIAL ENCOUNTER Qualifiers: Encounter type: initial encounter Qualified Code(s): T68.XXXA - Hypothermia , initial encounter (2) Pneumonia Code(s): J18.9 - PNEUMONIA, UNSPECIFIED ORGANISM Qualifiers: Aspiration pneumonia type: unspecified Laterality: left Lung location: lower lobe of lung (3) Dementia Code(s): F03.90 - UNSPECIFIED DEMENTIA WITHOUT BEHAVIORAL DISTURBANCE (4) Penicillin allergy Code(s): Z88.0 - ALLERGY STATUS TO PENICILLIN
--- NOTE | 2019-05-04 14:06 | PN ---
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 (short form) - Note 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: Patient remains unresponsive. Family not present. Agree with medical management.
--- NOTE | 2019-05-04 14:48 | PN ---
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, Physician Chief Complaint: MORE ALERT NO ACUTE CHANGES SINCE YESTERDAY - Current Medication List Current Medications: Active Medications Amlodipine Besylate (Norvasc -) 5 mg PO DAILY [facility] Last Admin: 05/04/19 11:25 Dose: 5 mg Aspirin (Ecotrin -) 81 mg PO DAILY [facility] Last Admin: 05/04/19 11:24 Dose: 81 mg Carvedilol (Coreg -) 6.25 mg PO BID [facility] Last Admin: 05/04/19 11:24 Dose: 6.25 mg Dextrose/Sodium Chloride (D5-Ns -) 1,000 mls @ 75 mls/hr IV ASDIR [facility] Last Admin: 05/04/19 10:04 Dose: 75 mls/hr Ceftriaxone Sodium 2 gm/ (Dextrose) 100 mls @ 100 mls/hr IVPB DAILY [facility]; Protocol Insulin Aspart (Novolog Vial Sliding Scale -) 1 vial SQ ACHS [facility]; Protocol Last Admin: 05/04/19 11:47 Dose: Not Given Lisinopril (Prinivil) 10 mg PO DAILY [facility] Last Admin: 05/04/19 11:24 Dose: 10 mg Rivaroxaban (Xarelto) 20 mg PO DAILY@1800 [facility] Last Admin: 05/03/19 17:58 Dose: 20 mg Thiamine HCl (Vitamin B1 Injection -) 250 mg IVPB TID [facility] Stop: 05/07/19 13:59 - Objective Vital Signs: Vital Signs Temperature 97.4 F L 05/04/19 07:54 Pulse Rate 78 05/04/19 07:54 Respiratory Rate 20 05/04/19 07:54 Blood Pressure 136/70 05/04/19 07:54 O2 Sat by Pulse Oximetry (%) 96 05/03/19 20:51 Constitutional: Yes: Mild Distress Eyes: Yes: WNL HENT: Yes: WNL Neck: Yes: WNL Cardiovascular: Yes: Regular Rate and Rhythm Respiratory: Yes: Diminished, On Nasal O2 Gastrointestinal: Yes: Soft Genitourinary: Yes: Incontinence Musculoskeletal: Yes: Muscle Weakness Extremities: Yes: Other Edema: No Integumentary: Yes: Pressure Ulcer, Rash Wound/Incision: Yes: Dressing Dry and Intact Neurological: Yes: Pre-Existing Deficit, Weakness ...Motor Strength: LLE, RLE Psychiatric: Yes: Other Labs: CBC, BMP 05/03/19 06:00 05/03/19 06:00 INR, PTT INR 1.15 (0.83-1.09) H 05/02/19 14:51 Problem List - Problems (1) Hypothermia Code(s): T68.XXXA - HYPOTHERMIA, INITIAL ENCOUNTER Qualifiers: Encounter type: initial encounter Qualified Code(s): T68.XXXA - Hypothermia , initial encounter (2) Pneumonia Code(s): J18.9 - PNEUMONIA, UNSPECIFIED ORGANISM Qualifiers: Aspiration pneumonia type: unspecified Laterality: left Lung location: lower lobe of lung (3) Sepsis Code(s): A41.9 - SEPSIS, UNSPECIFIED ORGANISM Qualifiers: Sepsis type: sepsis due to unspecified organism Qualified Code(s): A41.9 - Sepsis, unspecified organism (4) Altered mental status Code(s): R41.82 - ALTERED MENTAL STATUS, UNSPECIFIED (5) CAD (coronary artery disease) Code(s): I25.10 - ATHSCL HEART DISEASE OF [place] CORONARY ARTERY W/O ANG PCTRS (6) DVT (deep venous thrombosis) Code(s): I82.409 - ACUTE EMBOLISM AND THOMBOS UNSP DEEP VN UNSP LOWER EXTREMITY (7) Dementia Code(s): F03.90 - UNSPECIFIED DEMENTIA WITHOUT BEHAVIORAL DISTURBANCE (8) Diabetes 1.5, managed as type 2 Code(s): E13.9 - OTHER SPECIFIED DIABETES MELLITUS WITHOUT COMPLICATIONS (9) Dysphagia as late effect of cerebrovascular accident (CVA) Code(s): I69.391 - DYSPHAGIA FOLLOWING CEREBRAL INFARCTION Assessment/Plan CHECKING BLOOD AND URINE CULTURES IV ABX BROAD SPECTRUM GIVEN IN ER ID CONSULT NEURO EVAL NOT A CANDIDATE FOR NEUROSURGERY MENGIOMA HX ON XARELTO DVT PT EVAL SWALLOW EVAL SNF
[2019-05-04] MEDS: THIAMINE HCL 200 MG/2 ML VIAL IVPB SCH ×2 (15:12→22:42)
[2019-05-04 17:35] VITALS: BMI 17.2
[2019-05-04] MEDS: RIVAROXABAN 20 MG TABLET PO SCH (17:52)
[2019-05-05] MEDS ORDERED: PT OWN MED DRAWER 7, Y5N ONE (05:25)
[2019-05-05] MEDS: THIAMINE HCL 200 MG/2 ML VIAL IVPB SCH ×3 (05:51→23:33)
[2019-05-05] MEDS: INSULIN SLIDING SCALE (NOVOLOG) 1 VIAL SQ SCH ×4 (06:51→23:46)
[2019-05-05] MEDS ORDERED: DEXTROSE 5%-WATER 100 ML IVPB ONE (09:52)
[2019-05-05] MEDS: amLODIPine BESYLATE 5 MG TABLET (FP) PO SCH (10:00)
[2019-05-05] MEDS: DEXTROSE 5%-NORMAL SALINE 1,000 ML IV SCH (10:00)
[2019-05-05] MEDS ORDERED: CEFTRIAXONE 2 GM in DEXTROSE 5%-WATER 100 ML IVPB SCH (10:00)
[2019-05-05] MEDS: LISINOPRIL 10 MG TABLET (FP) PO SCH (10:00)
[2019-05-05] MEDS: ASPIRIN COATED 81 MG TABLET.EC PO SCH (10:00)
[2019-05-05] MEDS: CARVEDILOL 6.25 MG TABLET (FP) PO SCH ×2 (10:00→23:35)
--- NOTE | 2019-05-05 10:49 | PN ---
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, Physician Chief Complaint: Hyperthermia Sepsis PNA UTI History of Present Illness: Previous notes and events reviewed awake, non verbal NAD episode of hypothermia during night, bear hugger placed and temp currently 97.1F - Current Medication List Current Medications: Active Medications Amlodipine Besylate (Norvasc -) 5 mg PO DAILY [facility] Last Admin: 05/05/19 10:00 Dose: 5 mg Aspirin (Ecotrin -) 81 mg PO DAILY [facility] Last Admin: 05/05/19 10:00 Dose: 81 mg Carvedilol (Coreg -) 6.25 mg PO BID [facility] Last Admin: 05/05/19 10:00 Dose: 6.25 mg Dextrose/Sodium Chloride (D5-Ns -) 1,000 mls @ 75 mls/hr IV ASDIR [facility] Last Admin: 05/05/19 10:00 Dose: Not Given Ceftriaxone Sodium 2 gm/ (Dextrose) 100 mls @ 100 mls/hr IVPB DAILY [facility]; Protocol Last Admin: 05/05/19 10:00 Dose: 100 mls/hr Insulin Aspart (Novolog Vial Sliding Scale -) 1 vial SQ ACHS [facility]; Protocol Last Admin: 05/05/19 06:51 Dose: Not Given Lisinopril (Prinivil) 10 mg PO DAILY [facility] Last Admin: 05/05/19 10:00 Dose: 10 mg Rivaroxaban (Xarelto) 20 mg PO DAILY@1800 [facility] Last Admin: 05/04/19 17:52 Dose: 20 mg Thiamine HCl (Vitamin B1 Injection -) 250 mg IVPB TID [facility] Stop: 05/07/19 13:59 Last Admin: 05/05/19 05:51 Dose: 250 mg - Objective Vital Signs: Vital Signs Temperature 97.1 F L 05/05/19 07:42 Pulse Rate 90 05/05/19 07:42 Respiratory Rate 20 05/05/19 07:42 Blood Pressure 135/78 05/05/19 07:42 O2 Sat by Pulse Oximetry (%) 96 05/04/19 21:00 Constitutional: Yes: No Distress, Calm, Cachectic Eyes: Yes: Conjunctiva Clear HENT: Yes: Atraumatic Cardiovascular: Yes: Regular Rate and Rhythm Respiratory: Yes: On Nasal O2, Rhonchi Gastrointestinal: Yes: Normal Bowel Sounds, Soft Genitourinary: Yes: Incontinence Musculoskeletal: Yes: Muscle Weakness Extremities: Yes: WNL Edema: No Neurological: Yes: Alert, Pre-Existing Deficit Psychiatric: Yes: Alert Labs: CBC, BMP 05/03/19 06:00 05/03/19 06:00 INR, PTT INR 1.15 (0.83-1.09) H 05/02/19 14:51 Microbiology 05/02/19 15:21 Urine - Urine - Catheterized Urine Culture - Final Pseudomonas Aeruginosa 05/02/19 14:51 Blood - Peripheral Venous Blood Culture - Preliminary NO GROWTH OBTAINED AFTER 48 HOURS, INCUBATION TO CONTINUE FOR 3 DAYS. 05/02/19 14:51 Blood - Peripheral Venous Blood Culture - Preliminary NO GROWTH OBTAINED AFTER 48 HOURS, INCUBATION TO CONTINUE FOR 3 DAYS. 05/03/19 15:17 Urine For Antigen Detection Legionella Antigen - Final 05/03/19 15:17 Urine For Antigen Detection Streptococcus pneumoniae Antigen (M - Final Problem List - Problems (1) Hypothermia Assessment/Plan: -bear hugger -monitor temp Code(s): T68.XXXA - HYPOTHERMIA, INITIAL ENCOUNTER Qualifiers: Encounter type: initial encounter Qualified Code(s): T68.XXXA - Hypothermia , initial encounter (2) Pneumonia Assessment/Plan: -Chest CT scan shows airspace opacities consistent with infiltrates in the CAROL, LLL, anterolithiasis extent in the right lung base with a small left pleural effusion -Pulm on board -ID on board -Ceftriaxone -WBC 5.7 -BC and Urine Legionella neg -O2 via NC -keep SpO2 >90% Code(s): J18.9 - PNEUMONIA, UNSPECIFIED ORGANISM Qualifiers: Aspiration pneumonia type: unspecified Laterality: left Lung location: lower lobe of lung (3) Sepsis Assessment/Plan: -ID on board -Ceftriaxone -WBC 5.7 -BC and Urine Legionella neg -UC positive Pseudomonas Code(s): A41.9 - SEPSIS, UNSPECIFIED ORGANISM Qualifiers: Sepsis type: sepsis due to unspecified organism Qualified Code(s): A41.9 - Sepsis, unspecified organism (4) CAD (coronary artery disease) Assessment/Plan: -Aspirin Code(s): I25.10 - ATHSCL HEART DISEASE OF [place] CORONARY ARTERY W/O ANG PCTRS (5) DVT (deep venous thrombosis) Assessment/Plan: -Xarelto Code(s): I82.409 - ACUTE EMBOLISM AND THOMBOS UNSP DEEP VN UNSP LOWER EXTREMITY (6) Decubitus ulcer of sacral region, stage 4 Assessment/Plan: -wound vac -dressing changes Code(s): L89.154 - PRESSURE ULCER OF SACRAL REGION, STAGE 4 (7) Diabetes mellitus Assessment/Plan: -BGM ACHS -ISS Code(s): E11.9 - TYPE 2 DIABETES MELLITUS WITHOUT COMPLICATIONS (8) HTN (hypertension) Assessment/Plan: -Coreg, Lisinopril, Almodipine Code(s): I10 - ESSENTIAL (PRIMARY) HYPERTENSION Qualifiers: Hypertension type: essential hypertension Qualified Code(s): I10 - Essential (primary) hypertension (9) Metabolic encephalopathy Assessment/Plan: -2/2 to Sepsis -UC positive -BC and urine legionella neg -WBC 5.7 Code(s): G93.41 - METABOLIC ENCEPHALOPATHY (10) UTI (urinary tract infection) Assessment/Plan: -ID on board -Ceftriaxone -WBC 5.7 -BC and Urine Legionella neg -UC positive Pseudomonas Code(s): N39.0 - URINARY TRACT INFECTION, SITE NOT SPECIFIED Qualifiers: Urinary tract infection type: acute cystitis Hematuria presence: without hematuria Qualified Code(s): N30.00 - Acute cystitis without hematuria Assessment/Plan see problem list dvt ppx
--- NOTE | 2019-05-05 12:09 | PN ---
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 Nursing reports throat clearing, required suctioning with brief PO trial. Feed only when alert. 1/3 tsp at a time, HOB elevated, chin tucked down. Palpate larynx for swallow reflex (very delayed, sometimes more than 10 sec!) before next trial given. Observe for congestion, fever, throat clearing cough. Suspect aspiration on secretions and risk on PO trialas although not demonstrated during careful feeding during MBS. Palliative care consult regarding goal of care. Family's wishes regarding DNI/TF ?
--- NOTE | 2019-05-05 15:59 | PN ---
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 (short form) - Note 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: nonverbal at baseline Vital Signs Period Temp Pulse Resp BP Sys/Hoffman Pulse Ox Last 24 Hr 92 F-98.4 F 78-90 14-20 135-152/64-86 96 cor-rrr lungs decreased bs at bases abd soft,nt ext contracted vac in place-wound is clean d/w family CBC, BMP 05/03/19 06:00 05/03/19 06:00 Microbiology 05/02/19 14:51 Blood - Peripheral Venous Blood Culture - Preliminary NO GROWTH OBTAINED AFTER 72 HOURS, INCUBATION TO CONTINUE FOR 2 DAYS. 05/02/19 14:51 Blood - Peripheral Venous Blood Culture - Preliminary NO GROWTH OBTAINED AFTER 72 HOURS, INCUBATION TO CONTINUE FOR 2 DAYS. 05/02/19 15:21 Urine - Urine - Catheterized Urine Culture - Final Pseudomonas Aeruginosa 05/03/19 15:17 Urine For Antigen Detection Legionella Antigen - Final 05/03/19 15:17 Urine For Antigen Detection Streptococcus pneumoniae Antigen (M - Final a/p pneumococcal pneumonia continue rocephin severe dementia goals of further care need to be addressed with the family Problem List - Problems (1) Hypothermia Code(s): T68.XXXA - HYPOTHERMIA, INITIAL ENCOUNTER Qualifiers: Encounter type: initial encounter Qualified Code(s): T68.XXXA - Hypothermia , initial encounter (2) Pneumonia Code(s): J18.9 - PNEUMONIA, UNSPECIFIED ORGANISM Qualifiers: Aspiration pneumonia type: unspecified Laterality: left Lung location: lower lobe of lung (3) Dementia Code(s): F03.90 - UNSPECIFIED DEMENTIA WITHOUT BEHAVIORAL DISTURBANCE (4) Penicillin allergy Code(s): Z88.0 - ALLERGY STATUS TO PENICILLIN
[2019-05-05] MEDS: RIVAROXABAN 20 MG TABLET PO SCH (17:51)
[2019-05-06] MEDS: DEXTROSE 5%-NORMAL SALINE 1,000 ML IV SCH (06:31)
[2019-05-06] MEDS: THIAMINE HCL 200 MG/2 ML VIAL IVPB SCH (06:31)
[2019-05-06 07:16] VITALS: BP 168/74; PULSE 78; TEMP 97.2
[2019-05-06 07:23] LABS: HEMATOCRIT 33.7 % (32.4-45.2); HEMOGLOBIN 11.2 GM/dL (10.7-15.3); MCH 29.8 pg (25.7-33.7); MCHC 33.2 g/dl (32.0-36.0); MEAN CELL VOLUME 89.6 fl (80-96); MEAN PLT VOLUME 7.8 fl (7.5-11.1); PLATELET COUNT 333 K/MM3 (134-434); RBC 3.76 M/mm3 (3.60-5.2); RDW 15.1 % (11.6-15.6); WHITE BLOOD COUNT 4.4 K/mm3 (4.0-10.0)
--- NOTE | 2019-05-06 07:34 | HOSP ---
Subjective - Review of Symptoms Events since last encounter: Violet Girard called to examine patient. Patient unresponsive, even to painful stimuli. Pupils fixed and non reactive. Patient has no spontaneous breathing, no heart sounds or breath sounds. No carotid or femoral pulses present. pronounced at 7:34 am on 05/06/19. Physical Examination Vital Signs: Vital Signs Temperature 97.2 F L 05/06/19 07:14 Pulse Rate 78 05/06/19 07:14 Respiratory Rate 20 05/06/19 07:14 Blood Pressure 168/74 05/06/19 07:14 O2 Sat by Pulse Oximetry (%) 96 05/05/19 09:00 Visit type - Emergency Visit Emergency Visit: No - New Patient This patient is new to me today: Yes Date on this admission: 05/06/19 - Critical Care Critical Care patient: No
[2019-05-06 07:59] LABS: ALBUMIN 2.2 g/dl (3.4-5.0); BILIRUBIN,TOTAL 0.5 mg/dL (0.2-1); CALCIUM 7.4 mg/dL (8.5-10.1); CREATININE 0.5 mg/dL (0.55-1.3); POTASSIUM 3.3 mmol/L (3.5-5.1); TOT PROT 5.4 g/dl (6.4-8.2)
--- NOTE | 2019-05-06 10:15 | DS ---
Physical Examination Vital Signs: Vital Signs Temperature 97.2 F L 05/06/19 07:14 Pulse Rate 78 05/06/19 07:14 Respiratory Rate 20 05/06/19 07:14 Blood Pressure 168/74 05/06/19 07:14 O2 Sat by Pulse Oximetry (%) 98 05/05/19 21:00 Findings/Remarks: FOUND UNRESPONSIVE DNR PATIENT 7:34AM Labs: CBC, BMP 05/06/19 06:30 05/06/19 06:30 Discharge Summary Reason For Visit: HYTHERMIA,SEPSIS,PNEUMONIA Current Active Problems Hypothermia (Acute) Pneumonia (Acute) Sepsis (Acute) Condition: Guarded - Instructions Disposition: - Home Medications Comprehensive Discharge Medication List: Ambulatory Orders Aspirin Coated [Ecotrin -] 81 mg PO DAILY tab 07/27/17 Amlodipine Besylate [Norvasc -] 5 mg PO DAILY #30 tablet 01/06/19 Carvedilol [Coreg -] 6.25 mg PO BID #60 tablet 01/06/19 Lisinopril [Prinivil] 10 mg PO DAILY #30 tablet 01/06/19 Rivaroxaban [Xarelto -] 20 mg PO DAILY 05/02/19
== END 2019-05-06 07:30 | disposition expired | DRG 871 ==
LOC: JER 13:08 → JERBED 18:44 → J8W 21:16
PROVIDERS: ADMIT Internal Medicine; ATTEND Family Medicine
DX: A41.9 Sepsis, unspecified organism (principal); G93.41 Metabolic encephalopathy; J13 Pneumonia due to Streptococcus pneumoniae; N39.0 Urinary tract infection, site not specified; R64 Cachexia; Z68.1 Body mass index [BMI] 19.9 or less, adult; B96.5 Pseudomonas (aeruginosa) (mallei) (pseudomallei) as the cause of diseases classified elsewhere; I25.10 Atherosclerotic heart disease of native coronary artery without angina pectoris; I10 Essential (primary) hypertension; E78.5 Hyperlipidemia, unspecified; E13.9 Other specified diabetes mellitus without complications; R68.0 Hypothermia, not associated with low environmental temperature; F03.90 Unspecified dementia, unspecified severity, without behavioral disturbance, psychotic disturbance, mood disturbance, and anxiety; I69.391 Dysphagia following cerebral infarction; R41.82 Altered mental status, unspecified; D32.9 Benign neoplasm of meninges, unspecified; N28.9 Disorder of kidney and ureter, unspecified; L89.312 Pressure ulcer of right buttock, stage 2; K64.8 Other hemorrhoids; Z86.718 Personal history of other venous thrombosis and embolism; Z95.5 Presence of coronary angioplasty implant and graft; Z86.73 Personal history of transient ischemic attack (TIA), and cerebral infarction without residual deficits; Z88.0 Allergy status to penicillin; Z66 Do not resuscitate
CPT/HCPCS: 36415; 70450-TC; 70544-TC; 70551-TC; 71045-TC-FY; 71250-TC; 74230-TC-FY; 80048; 80053; 81003; 82607; 82803; 82962; 83036; 83605; 84443; 84484; 85025; 85027; 85610; 85651; 85730; 86140; 86593; 87040; 87086; 87186; 87899; 92611-GN; 93005; 93010; 93880-TC; 99285-25; J7030